=== PATIENT | female | born 1950 | race Two or more races ===

== ENCOUNTER 2018-10-06 07:50 | Inpatient (IN) | payer MEDICAID ==
[~2018-10-06] VITALS: Ht 157.5 cm; Wt 54.9 kg
--- NOTE | 2018-10-06 07:34 | Emergency Room Report ---
History of Present Illness General Chief Complaint: Chest Pain Source: Patient, Family Member, EMS Present Illness HPI Patient is a 63-year-old female presented after increased chest pain. Patient was brought in by EMS. She had been given aspirin and nitroglycerin. Patient had onset of symptoms after argument with family member. Patient noted to be markedly hypertensive. Patient did not have any improvement in pain after nitroglycerin. She had prior history of cardiac bypass. Allergies: Coded Allergies: No Known Allergies (Unverified , 10/06/18) Patient History Past Medical History: CAD Last Menstrual Period: None Reviewed Nursing Documentation: PMH: Agreed; PSxH: Agreed Nursing Documentation-PMH Hx Hypertension: Yes Hx Asthma: No Hx Diabetes: Yes Hx Gastrointestinal Problems: Yes - Anemia Review of Systems All Other Systems: negative except mentioned in HPI Physical Exam Vital Signs Date Time Temp Pulse Resp B/P (MAP) Pulse Ox O2 Delivery O2 Flow Rate FiO2 10/06/18 07:28 97.9 100 18 97 Room Air General Appearance: alert, moderate distress ENT: hearing grossly normal, normal pharynx Neck: carotid bruit Respiratory: accessory muscle use, wheezing Cardiovascular #1: no edema Gastrointestinal: normal inspection, soft Musculoskeletal: normal inspection Neurologic: normal inspection, alert, oriented x3, 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 Total critical care time excluding procedures approximately 45 minutes. Medical Decision Making Diagnostic Impression: Primary Impression: Pulmonary edema Additional Impression: Bilateral pleural effusion ER Course . Patient presented for shortness of breath. Differential included but was not limited to anemia, pneumonia, pneumothorax, myocardial infarction, pericardial effusion, congestive heart failure, acidosis. Because of complexity of patient's case laboratory testing and imaging studies were ordered. Patient was noted to have some breathing treatments patient was noted to have patient had a prior cardiac history. Chest x-ray 1 view read by radiology showed pulmonary edema with bilateral small pleural pleural effusions. Patient was given some Lasix IV. Chest x-ray read by radiology 1 view showed bilateral small pleural effusions as well as cardiomegaly. Patient was noted to have increased vascular congestion and questionable right lower lobe infiltrate. Patient was given IV Lasix as well as nitroglycerin and morphine. Patient was noted to have some improvement in her blood pressure. Patient was noted to be somewhat improved.Dr. Hakan Mccracken was contacted for inpatient management. Labs Test 10/06/18 08:00 White Blood Count 10.6 K/UL (4.8-10.8) Red Blood Count 2.75 M/UL (4.20-5.40) Hemoglobin 8.8 G/DL (12.0-16.0) Hematocrit 26.0 % (37.0-47.0) Mean Corpuscular Volume 94 FL (80-99) Mean Corpuscular Hemoglobin 31.9 PG (27.0-31.0) Mean Corpuscular Hemoglobin Concent 33.8 G/DL (32.0-36.0) Red Cell Distribution Width 12.7 % (11.6-14.8) Platelet Count 319 K/UL (150-450) Mean Platelet Volume 7.8 FL (6.5-10.1) Neutrophils (%) (Auto) 47.0 % (45.0-75.0) Lymphocytes (%) (Auto) 36.7 % (20.0-45.0) Monocytes (%) (Auto) 3.3 % (1.0-10.0) Eosinophils (%) (Auto) 11.7 % (0.0-3.0) Basophils (%) (Auto) 1.3 % (0.0-2.0) Prothrombin Time 10.7 SEC (9.30-11.50) Prothromb Time International Ratio 1.0 (0.9-1.1) Activated Partial Thromboplast Time 26 SEC (23-33) Sodium Level 136 MMOL/L (136-145) Potassium Level 5.6 MMOL/L (3.5-5.1) Chloride Level 106 MMOL/L (98-107) Carbon Dioxide Level 20 MMOL/L (21-32) Anion Gap 10 mmol/L (5-15) Blood Urea Nitrogen 45 mg/dL (7-18) Creatinine 2.4 MG/DL (0.55-1.30) Estimat Glomerular Filtration Rate 20.3 mL/min (>60) Glucose Level 215 MG/DL (74-106) Calcium Level 8.3 MG/DL (8.5-10.1) Total Bilirubin 0.2 MG/DL (0.2-1.0) Aspartate Amino Transf (AST/SGOT) 24 U/L (15-37) Alanine Aminotransferase (ALT/SGPT) 13 U/L (12-78) Alkaline Phosphatase 84 U/L (46-116) Total Creatine Kinase 85 U/L (26-308) Creatine Kinase MB 3.5 NG/ML (0.0-3.6) Creatine Kinase MB Relative Index 4.1 Troponin I 0.084 ng/mL (0.000-0.056) Pro-B-Type Natriuretic Peptide > 94737 pg/mL (0-125) Total Protein 7.1 G/DL (6.4-8.2) Albumin 1.9 G/DL (3.4-5.0) Globulin 5.2 g/dL Albumin/Globulin Ratio 0.4 (1.0-2.7) Lipase 317 U/L (73-393) EKG Diagnostic Results Rate: normal Rhythm: NSR ST Segments: no acute changes ASA given to the pt in ED: No Last Vital Signs Date Time Temp Pulse Resp B/P (MAP) Pulse Ox O2 Delivery O2 Flow Rate FiO2 10/06/18 07:28 97.9 100 18 97 Room Air Status: improved Disposition: ADMITTED INPATIENT Condition: Serious Silas Cartwright MD October 06, 2018 07:34
[2018-10-06] MEDS: Nitroglycerin Subl 0.4mg tab SL PRN ×2 (07:48→08:18)
[~2018-10-06 07:50] MED LIST: Morphine Sulfate 2mg/ml Inj(IV/IM USE ONLY) IVP ONE
[2018-10-06] MEDS ORDERED: Morphine Sulfate 2mg/ml Inj(IV/IM USE ONLY) ONE (07:57)
--- NOTE | 2018-10-06 08:00 | NUR ---
ED Nurse Note:pt. was BIBA from home with c/o chest pain started 30 min prior to arrival, pt. is A/Ox4, placed on classroom monitor, blood sent to labs, hypertensive, given BP meds with pain med, also given nitro for chest pain
[2018-10-06 08:20] LABS: BASOPHILS % (AUTO) 1.3 % (0.0-2.0); EOSINOPHILS % (AUTO) 11.7 % (0.0-3.0); HEMOGLOBIN 8.8 G/DL (12.0-16.0); LYMPHOCYTES % (AUTO) 36.7 % (20.0-45.0); MEAN CORPUSCULAR VOLUME 94 FL (80-99); MONOCYTES % (AUTO) 3.3 % (1.0-10.0); PLATELET COUNT 319 K/UL (150-450); RED BLOOD COUNT 2.75 M/UL (4.20-5.40); RED CELL DISTRIBUTION WIDTH 12.7 % (11.6-14.8); WHITE BLOOD COUNT 10.6 K/UL (4.8-10.8)
[2018-10-06 08:26] VITALS: BP 196/90
[2018-10-06] MEDS ORDERED: Albuterol/Ipratropium 3ml neb HHN ONE (08:30)
[2018-10-06] MEDS ORDERED: Solu-MEDROL 125mg Inj IVP ONE (08:30)
[2018-10-06 08:34] LABS: ANION GAP 10 mmol/L (5-15); BLOOD UREA NITROGEN 45 mg/dL (7-18); CALCIUM 8.3 MG/DL (8.5-10.1); CARBON DIOXIDE 20 MMOL/L (21-32); CHLORIDE 106 MMOL/L (98-107); CREATININE 2.4 MG/DL (0.55-1.30); POTASSIUM 5.6 MMOL/L (3.5-5.1); SODIUM 136 MMOL/L (136-145)
[2018-10-06 08:48] LABS: ALANINE AMINOTRANSFERASE 13 U/L (12-78); ALBUMIN 1.9 G/DL (3.4-5.0); ALBUMIN/GLOBULIN RATIO 0.4 (1.0-2.7); ALKALINE PHOSPHATASE 84 U/L (46-116); ASPARTATE AMINO TRANSFERASE 24 U/L (15-37); BILIRUBIN,TOTAL 0.2 MG/DL (0.2-1.0); CKMB 3.5 NG/ML (0.0-3.6); CREATINE KINASE 85 U/L (26-308)
[2018-10-06 10:05] VITALS: BP 157/68
--- NOTE | 2018-10-06 10:05 | NUR ---
ED Nurse Note:no more c/o chest pain ,pt. is sleeping no signs of distress noted, continue monitor VS
[2018-10-06] MEDS ORDERED: BP meds (10:07)
[2018-10-06] MEDS ORDERED: COZAAR25 MG ORAL (10:13)
--- NOTE | 2018-10-06 10:25 | NUR ---
ED Nurse Note:pt. was placed on bi-pap per ER MD order
[2018-10-06] MEDS ORDERED: Ampicillin/Sulbactam Sod 3 GM in NS 110 ML IVPB ONE (10:30)
[2018-10-06 11:19] VITALS: BP 180/78
--- NOTE | 2018-10-06 11:38 | NUR ---
ED Nurse Note:lactic reflax was sent to labs and report called to [facility]
--- NOTE | 2018-10-06 12:00 | NUR ---
ED Nurse Note:called report to Stephanie nurse pt. was transfered to SDU
--- NOTE | 2018-10-06 12:00 | NUR ---
NURSE NOTES: Received patient from ED via gurney. In no apparent distress. Family at bedside. Belongings checked and reviewed. On simple mask. Denies chest pain. Will admit to [facility] standard level of care.
[2018-10-06 13:00] VITALS: BP 179/95
--- NOTE | 2018-10-06 13:00 | NUR ---
NURSE NOTES: Patient is tolerating venturi mask at 40%.
[2018-10-06] MEDS ORDERED: Losartan 25mg tab ORAL SCH (13:30)
--- NOTE | 2018-10-06 15:20 | NUR ---
NURSE NOTES: Informed Dr. Mccracken regarding latest troponin level. No new order received at this time.
--- NOTE | 2018-10-06 15:50 | NUR ---
NURSE NOTES: Left message to Dr. White's office. Awaiting for call back.
[2018-10-06 16:00] VITALS: BP 180/84
--- NOTE | 2018-10-06 16:15 | NUR ---
NURSE NOTES: Patient on nasal cannula at 4LPM. And is having snack at bedside while waiting for dinner meal.
--- NOTE | 2018-10-06 18:00 | NUR ---
NURSE NOTES: Informed Dr. Mccracken via telephone that Dr. White didn't respond yet. Awaiting for Dr. Mccracken's response.
--- NOTE | 2018-10-06 19:14 | NUR ---
NURSE NOTES: Informed Dr. Mccracken via telephone that patient's troponin is trending up and patient's blood pressure is high. said to start heparin drip and discontinue heparin SQ.
--- NOTE | 2018-10-06 19:15 | NUR ---
NURSE NOTES: Heparin drip order obtained from Dr. Mccracken via telephone.
--- NOTE | 2018-10-06 19:20 | NUR ---
HAND-OFF: Report given to Fortino Wheeler RN.
--- NOTE | 2018-10-06 19:21 | NUR ---
NURSE NOTES: Received patient from Rhea Rosas RN. Patient awake and talking with no acute distress at this time. Patient is on 4L NC and eating. Bed at its lowest position and bed rail X3 up. Will continue to monitor.
[2018-10-06 20:00] VITALS: BP 157/79
[2018-10-06] MEDS ORDERED: Heparin 25,000u/D5W 500ml 500 ML IV SCH (20:00)
[2018-10-06] MEDS ORDERED: Heparin 5000 units/ml inj SUBQ SCH (21:00)
[2018-10-06] MEDS ORDERED: Nitroglycerin 2% oint pkt TOPIC SCH (21:00)
[2018-10-07] VITALS (8 sets, daily range): BP systolic 136–164; BP diastolic 76–94
--- NOTE | 2018-10-07 03:15 | Consultation ---
DATE OF CONSULTATION: 10/06/2018 CARDIOLOGY CONSULTATION CONSULTING PHYSICIAN: Mariano White M.D. REQUESTING PHYSICIAN: Hakan Mccracken M.D. REASON: Chest pain and shortness of breath HISTORY OF PRESENT ILLNESS: This 67-year-old female apparently had an argument with a family member, developed hypertension and chest pain and came to the emergency room by paramedics. She was given nitroglycerin without much improvement and had a positive troponin level noted. PAST MEDICAL HISTORY: Includes coronary artery disease, status post stents, hypertension, type 2 diabetes mellitus, and anemia. ALLERGIES: None. MEDICATIONS: Prior to admission, reviewed and reconciled. SOCIAL HISTORY: She denies smoking, alcohol, or substance abuse. REVIEW OF SYSTEMS: Otherwise unremarkable. PHYSICAL EXAMINATION: VITAL SIGNS: Initial blood pressure 196/90, heart rate 95, respiratory rate 18. Presently, 136/81, 98, and 22. She is on a face mask. CHEST: Median sternotomy scar. RESPIRATORY: Bilateral rales. CARDIAC: Regular rhythm and rate. Normal S1, S2. Fourth heart sound. ABDOMEN: Soft. EXTREMITIES: Trace edema. LABORATORY DATA: White count 10, hemoglobin 8.8. Troponin #1 0.084, #2 0.649, #3 0.410. Lactic acid #1 is 3.4, #2 is 1. BUN 45, creatinine 2.4. Pro-natriuretic peptide over 35,000 and potassium is 5.6 with BUN 45, creatinine 2.4. IMPRESSION: 1. Acute myocardial infarction. 2. Hypertensive urgency. 3. Acute diastolic congestive heart failure. 4. Ischemic cardiomyopathy. PLAN: 1. Diuresis. 2. Anti-platelet therapy. 3. Titrate anti-failure regimen. 4. Add beta-doc. 5. DVT prophylaxis. 6. Check lipid panel. 7. Monitor hemoglobin. Mariano White M.D. DR: CORONA JOB#: [id number] CC: SANCHEZ
--- NOTE | 2018-10-07 03:58 | NUR ---
NURSE NOTES: Sent message to Pharmacy for new label and parameters for the heparin drip to reflect new aPTT results.
[2018-10-07] MEDS: Nitroglycerin 2% oint pkt TOPIC SCH ×3 (06:14→17:25)
--- NOTE | 2018-10-07 07:20 | NUR ---
HAND-OFF: Report given to Mami Louie RN.
[2018-10-07 07:55] LABS: HEMATOCRIT 22.3 % (37.0-47.0); HEMOGLOBIN 7.6 G/DL (12.0-16.0); MEAN CORPUSCULAR VOLUME 92 FL (80-99); PLATELET COUNT 270 K/UL (150-450); RED BLOOD COUNT 2.42 M/UL (4.20-5.40); RED CELL DISTRIBUTION WIDTH 12.8 % (11.6-14.8); WHITE BLOOD COUNT 10.9 K/UL (4.8-10.8)
--- NOTE | 2018-10-07 08:07 | NUR ---
NURSE NOTES: received pt in the bed, awake, alert, oriented, vital signs stable, no co pain, no SOB, pt on venturi mask 40%, skin warm and dry to touch, intact, Surinamese speaking, tolerate diet well, bed in low position, call light within reach.
[2018-10-07 08:15] LABS: ANION GAP 8 mmol/L (5-15); BLOOD UREA NITROGEN 50 mg/dL (7-18); CALCIUM 8.2 MG/DL (8.5-10.1); CARBON DIOXIDE 24 MMOL/L (21-32); CHLORIDE 104 MMOL/L (98-107); CREATININE 2.6 MG/DL (0.55-1.30); SODIUM 135 MMOL/L (136-145)
[2018-10-07 08:17] LABS: POTASSIUM 6.1 MMOL/L (3.5-5.1)
[2018-10-07 08:42] LABS: CHOLESTEROL 239 MG/DL (< 200); HDL CHOLESTEROL 48 MG/DL (40-60); TRIGLYCERIDES 98 MG/DL (30-150)
[2018-10-07] MEDS: Aspirin Baby 81mg ORAL SCH (08:56)
[2018-10-07] MEDS: Losartan 50mg tab ORAL SCH (08:57)
[2018-10-07] MEDS: Carvedilol 6.25mg Tab ORAL SCH ×2 (08:57→21:15)
[2018-10-07] MEDS ORDERED: Sodium Polystyrene Sulfonate 15gm Powder ORAL SCH (09:00)
--- NOTE | 2018-10-07 09:11 | NUR ---
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 BILATERAL PLEURAL EFFUSION VS: BP 221/120, P 100, T 97.8, RR 21, SpO2 97 on Bi-pap FiO2 50 WBC 10.9, RBC 2.75, H&H 8.8/26.0, Na 135, K 6.1, BUN 50, CR 2.6 IS:AMPICILLIN 110ml IVPB COZAAR 25mg LASIX 20mg HEPARIN SODIUM 500ml IV ADMITTED TO SDU DCP: RETURN HOME
--- NOTE | 2018-10-07 10:00 | NUR ---
NURSE NOTES: HGB 7.6, K 6.1, DR. Mccracken aware, placed order, no co pain, continue monitoring.
--- NOTE | 2018-10-07 16:15 | History and Physical Report ---
DATE OF ADMISSION: 10/06/2018 REASON FOR ADMISSION: Chest pain and possible acute coronary syndrome. HISTORY OF PRESENT ILLNESS: This is a 67-year-old female apparently brought in with hypertension and chest pain after an argument with the family. The patient is now being admitted for possible ACS. PAST MEDICAL HISTORY: Notable for CAD, CABG, hypertension, diabetes, anemia. ALLERGIES: Reviewed and reconciled. MEDICATIONS: Reviewed and reconciled. SOCIAL HISTORY: Nonsmoker and nondrinker. PHYSICAL EXAMINATION: GENERAL: A well-developed female. VITAL SIGNS: Otherwise notable for morning blood pressure of 154/84, pulse 81, respirations 25, saturations 96%. HEENT: Negative. NECK: Supple. LUNGS: Clear and symmetric. CARDIAC: Normal S1, S2. Regular rate and rhythm. ABDOMEN: Soft, nontender. EXTREMITIES: No edema. LABORATORY DATA: Otherwise reviewed. IMPRESSION: 1. Acute myocardial infarction. 2. Hypertensive urgency. 3. CHF. 4. Ischemic cardiomyopathy. RECOMMENDATION: 1. Diuresis. 2. Cardiology evaluation. 3. Cardiology management. 4. Stabilize and discharge to home per Cardiology once cleared. 5. Monitor labs and recommend further. 6. Likely proceed with transfusion to avoid hypoperfusion at this time. Hakan Mccracken M.D. DR: KATHY JOB#: [id number] CC:
--- NOTE | 2018-10-07 17:20 | NUR ---
NURSE NOTES: 1st uni of PRBC completed, no distress.
--- NOTE | 2018-10-07 18:43 | Cardiology Report ---
APPROVED REPORT EXAM: Two-dimensional and M-mode echocardiogram with Doppler and color Doppler. INDICATION Chest Pain Mild left ventricular enlargement. Global left ventricular hypokinesia with borderline LV systolic function. Left ventricular ejection fraction is estimated at 45-50%. Borderline mild left ventricular hypertrophy. No evidence of pericardial effusion. Large posterior pleural effusion. Left atrial size at upper limits of normal. Right cardiac chamber sizes are within normal limits. Focal aortic valve sclerosis with adequate cusp excursion. Thickened mitral valve leaflets with normal excursion. Mitral annulus and aortic root calcification. Normal pulmonic valve structure. Normal tricuspid valve structure. IVC at normal size with physiologic collapse. A color flow and spectral Doppler study was performed and revealed: Mild aortic regurgitation. Mild mitral regurgitation. Mitral inflow velocities indicates possible pseudo normalization pattern implying moderately elevated left atrial pressure (Grade II). Trace tricuspid regurgitation. Tricuspid systolic velocities suggests peak right ventricular systolic pressure of 19 mmHg. Pulmonic regurgitation present.
--- NOTE | 2018-10-07 19:17 | NUR ---
HAND-OFF: Report given to CANELO CAMARENA, no distress at this time.
--- NOTE | 2018-10-07 19:18 | NUR ---
NURSE NOTES: Received patient for Mami Louie. Patient is awake and shows no signs of distress. Patient is oriented X4 and family is at bedside. Patient is on NC at 4L saturating at 97% and is eating. Bed is at its lowest position and call light is in reach.
--- NOTE | 2018-10-07 20:16 | NUR ---
NURSE NOTES: Messaged Dr. Mccracken regarding potassium and hemoglobin values with the administration with the ordered blood transfusion and venofer. The patients elevated blood pressure of 179/86 at 1930 was also communicated
--- NOTE | 2018-10-07 20:29 | NUR ---
NURSE NOTES: Dr Mccracken replied to message and ordered CDC and BMP for 5/7 am. Hold Blood transfusion and Venofer.
[2018-10-07] MEDS: Iron Sucrose 100 MG in NS 55 ML IV SCH (21:00)
[2018-10-07] MEDS: Epoetin Alfa-EPBX (NON ESRD)4000 units/ml vial SUBQ SCH (21:52)
--- NOTE | 2018-10-07 23:31 | NUR ---
NURSE NOTES: Left a message with Dr. Mccracken regarding elevated blood pressure of 162/92. Waiting for reply. Patient is asymptomatic at this time and family is at bedside. Will continue to monitor
[2018-10-08] VITALS: BP 174/90
[2018-10-08] MEDS: Nitroglycerin 2% oint pkt TOPIC SCH ×4 (00:23→17:39)
--- NOTE | 2018-10-08 00:32 | NUR ---
Left a message with Dr White regarding Alyx's elevated blood pressure. Patient is asymptomatic. Will continue to monitor.
--- NOTE | 2018-10-08 01:00 | Consultation ---
DATE OF CONSULTATION: 10/07/2018 NEPHROLOGY CONSULTATION CONSULTING PHYSICIAN: Annelise Rose M.D. ATTENDING PHYSICIAN: Hakan Mccracken M.D. REASON FOR CONSULTATION: Elevated BUN and creatinine. HISTORY OF PRESENT ILLNESS: This is a 67-year-old female, who was admitted by the attending physician due to chest pain and possible acute coronary syndrome. I am asked to see the patient for elevation of BUN and creatinine. PAST MEDICAL HISTORY: 1. Coronary artery disease. 2. Hypertensive cardiovascular disease. 3. Type 2 diabetes mellitus. MEDICATIONS: Current medications include heparin drip, Tylenol p.r.n., baby aspirin, Coreg, clonidine p.r.n., Lasix, subcutaneous heparin, Losartan, nitroglycerin, and Kayexalate. ALLERGIES: No known drug allergies. FAMILY HISTORY: Unremarkable. SOCIAL HISTORY: She lives at home. HABITS: She is nonsmoker and nondrinker. There is no history of illicit drug abuse. REVIEW OF SYSTEMS: HEENT: Hearing and eyesight are normal. ENDOCRINE: Significant for type 2 diabetes mellitus. RESPIRATORY: She has shortness of breath. CARDIAC: She has active chest pain. GASTROINTESTINAL: No history of hematochezia, melena, hematemesis, diarrhea, or constipation. PHYSICAL EXAMINATION: GENERAL: This is an elderly female, who is in no acute distress. VITAL SIGNS: Blood pressure 169/89, pulse 87 and regular, respirations 19, and temperature 98.2. HEENT: The head is normocephalic and atraumatic. Pupils are equal, round, and reactive to light condition consensually. NECK: Supple. Trachea midline. There is no lymphadenopathy or thyromegaly. LUNGS: Clear to auscultation and percussion. HEART: Regular rate and rhythm without rubs, murmurs, or gallops. ABDOMEN: Soft and nontender. Bowel sounds were active. EXTREMITIES: No clubbing, cyanosis, or edema. NEUROLOGIC: She is alert and oriented x4. Cranial nerves II through XII intact. LABORATORY AND ANCILLARY DATA: Hematocrit 22.3. Potassium 6.1, sodium 135, BUN 50, and creatinine 2.6. ASSESSMENT: Chronic kidney disease, most likely due to diabetic nephropathy. PLAN: 1. Check renal ultrasound. 2. Erythropoietic stimulating agents. 3. Avoid nephrotoxic medications. Thank you, Dr. Mccracken, for letting me to participate in the care of this patient. Annelise Rose M.D. DR: VITALY JOB#: [id number] CC:
--- NOTE | 2018-10-08 01:00 | NUR ---
NURSE NOTES: No call back from Dr. White or Dr. Mccracken. Patient is asymptomatic and resting well with no signs of acute distress. Charge nurse Haylie is aware. Will continue to monitor patient.
--- NOTE | 2018-10-08 03:00 | NUR ---
NURSE NOTES: RT removed bipap at patients request. Patient is on 2L NC saturating at 98%. Patient is tolerating treatment well. No signs of acute distress at this time. Will continue to monitor
[2018-10-08 04:00] VITALS: BP 167/87
[2018-10-08 05:26] LABS: BASOPHILS % (AUTO) 2.5 % (0.0-2.0); EOSINOPHILS % (AUTO) 11.5 % (0.0-3.0); HEMATOCRIT 26.2 % (37.0-47.0); HEMOGLOBIN 8.7 G/DL (12.0-16.0); LYMPHOCYTES % (AUTO) 30.4 % (20.0-45.0); MEAN CORPUSCULAR VOLUME 97 FL (80-99); MONOCYTES % (AUTO) 3.7 % (1.0-10.0); NEUTROPHILS % (AUTO) 51.9 % (45.0-75.0); PLATELET COUNT 332 K/UL (150-450); RED CELL DISTRIBUTION WIDTH 13.3 % (11.6-14.8); WHITE BLOOD COUNT 9.2 K/UL (4.8-10.8)
[2018-10-08 05:43] LABS: ANION GAP 8 mmol/L (5-15); BLOOD UREA NITROGEN 51 mg/dL (7-18); CALCIUM 7.4 MG/DL (8.5-10.1); CARBON DIOXIDE 23 MMOL/L (21-32); CHLORIDE 107 MMOL/L (98-107); CREATININE 2.8 MG/DL (0.55-1.30); POTASSIUM 5.2 MMOL/L (3.5-5.1); SODIUM 138 MMOL/L (136-145)
--- NOTE | 2018-10-08 07:10 | NUR ---
NURSE NOTES: Received bedside report from Fortino CAMARENA. Pt. in bed, awake, a/o x 4. No sign of distress. On venturi mask at 40%. On bipap at QHS with setting of 12/5 FiO2 40%. Denies pain at present. IV site at left AC #20g. in placed SL. Bed in low position, locked. Call light within reach. Will cont. to monitor.
--- NOTE | 2018-10-08 07:10 | NUR ---
HAND-OFF: Report given to Alison Mixon RN.
[2018-10-08 08:00] VITALS: BP 138/73
--- NOTE | 2018-10-08 08:18 | General Progress Note ---
Assessment/Plan Assessment/Plan: IMPRESSION: 1. Acute myocardial infarction. 2. Hypertensive urgency. 3. CHF. 4. Ischemic cardiomyopathy. 5. chronic renal failure 6. elevated K PLAN care as is renal and cards clearance monitor troponin and renal parameters impression, plan, and exam edited and reviewed in detail care discussed with RN Subjective Allergies: Coded Allergies: No Known Allergies (Unverified , 10/06/18) Subjective appreciate renal and cards Objective Last 24 Hour Vital Signs Date Time Temp Pulse Resp B/P (MAP) Pulse Ox O2 Delivery O2 Flow Rate FiO2 10/08/18 07:25 68 18 Nasal Cannula 2.0 28 10/08/18 07:24 Nasal Cannula 2.0 28 10/08/18 07:24 97 Nasal Cannula 2.0 28 10/08/18 05:55 167/87 10/08/18 04:00 64 10/08/18 04:00 Nasal Cannula 2.0 10/08/18 04:00 98.2 73 20 167/87 (113) 98 10/08/18 03:19 74 167/87 10/08/18 00:23 174/90 10/08/18 00:00 Bi-pap 10/08/18 00:00 71 10/08/18 00:00 97.9 67 20 174/90 (118) 99 10/07/18 23:35 87 18 99 Facial 50 10/07/18 23:26 98.2 82 22 162/92 (115) 99 10/07/18 22:43 164/90 10/07/18 21:15 84 164/94 10/07/18 21:14 97.9 84 21 164/94 (117) 99 10/07/18 20:00 98.7 83 20 164/92 (116) 99 10/07/18 20:00 Venturi Mask 4.0 10/07/18 19:52 80 10/07/18 19:31 Nasal Cannula 2.0 28 10/07/18 19:31 97 Nasal Cannula 2.0 28 10/07/18 19:30 83 20 Nasal Cannula 2.0 28 10/07/18 17:26 169/89 10/07/18 17:25 153/89 10/07/18 16:00 Venturi Mask 4.0 10/07/18 16:00 79 10/07/18 16:00 98.2 87 22 153/89 (110) 99 10/07/18 12:55 164/93 10/07/18 12:00 Venturi Mask 4.0 10/07/18 12:00 100 10/07/18 12:00 98.1 96 18 164/93 (116) 98 10/07/18 08:57 94 149/76 10/07/18 08:57 149/76 Intake and Output 10/07/18 10/08/18 18:59 06:59 Intake Total 500 ml 140 ml Balance 500 ml 140 ml Intake Oral 250 ml 140 ml Blood Product 250 ml # Voids 4 2 Laboratory Tests 10/07/18 11:13: Arterial Blood pH 7.453H, Arterial Blood Partial Pressure CO2 29.0L, Arterial Blood Partial Pressure O2 86.5, Arterial Blood HCO3 19.8L, Arterial Blood Oxygen Saturation 96.2, Arterial Blood Base Excess -3.3L, Segun Test Positive 10/07/18 18:00: Potassium Level 5.8H 10/08/18 03:20: Potassium Level 5.2H, White Blood Count 9.2, Red Blood Count 2.70L, Hemoglobin 8.7L, Hematocrit 26.2L, Mean Corpuscular Volume 97, Mean Corpuscular Hemoglobin 32.1H, Mean Corpuscular Hemoglobin Concent 33.0, Red Cell Distribution Width 13.3, Platelet Count 332, Mean Platelet Volume 6.1L, Neutrophils (%) (Auto) 51.9 , Lymphocytes (%) (Auto) 30.4, Monocytes (%) (Auto) 3.7, Eosinophils (%) (Auto) 11.5H, Basophils (%) (Auto) 2.5H, Sodium Level 138, Chloride Level 107, Carbon Dioxide Level 23, Anion Gap 8, Blood Urea Nitrogen 51H, Creatinine 2.8H, Estimat Glomerular Filtration Rate 17.0, Glucose Level 125H, Calcium Level 7.4L , Phosphorus Level 5.1H, Troponin I 0.350H Height (Feet): 5 Height (Inches): 2.00 Weight (Pounds): 125 Objective GENERAL: A well-developed female. HEENT: Negative. NECK: Supple. LUNGS: Clear and symmetric. CARDIAC: Normal S1, S2. Regular rate and rhythm. ABDOMEN: Soft, nontender. EXTREMITIES: No edema. Hakan Mccracken MD October 08, 2018 08:18
[2018-10-08] MEDS: Carvedilol 6.25mg Tab ORAL SCH ×2 (09:10→20:58)
[2018-10-08] MEDS: Aspirin Baby 81mg ORAL SCH (09:10)
[2018-10-08] MEDS: Losartan 50mg tab ORAL SCH (09:11)
--- NOTE | 2018-10-08 09:59 | Diagnostic Imaging Report ---
Indication:Elevated Bun and Creatinine. Technique: Grayscale and duplex Doppler imaging of the kidneys performed. Comparison: None Findings: There is a moderate left pleural effusion. There is trace perinephric fluid. The kidneys are echogenic but normal sized. The right kidney measures about 11 cm. The left kidney measures about 10.2 cm. Small cysts are present within both kidneys. Bladder is distended. There is no hydronephrosis. IMPRESSION: Medical renal disease. Bilateral renal cysts Distended bladder
[2018-10-08 12:00] VITALS: BP 137/67
[2018-10-08 16:00] VITALS: BP 142/69
--- NOTE | 2018-10-08 16:51 | NUR ---
TRANSLATOR INTERPRETERPROPERTY INSPECTOR SI:PULMONARY EDEMA . BILATERAL PLEURAL EFFUSION VS: BP 138/73, P 72, T 97.7, RR 19, SpO2 95 on Bi-pap FiO2 50 WBC 10.9, RBC 2.75, H&H 8.8/26.0, Na 135, K 6.1, BUN 50, CR 2.6 IS:COZAAR 100mg COREG 12.5mg LASIX 40mg IV NORVASC 5mg SDU STATUS
--- NOTE | 2018-10-08 17:04 | Nephrology Progress Note ---
Assessment/Plan Plan CKD IV Anemia of CKD - KIM, IV Iron Subjective Subjective No new c/o Objective Objective Last 24 Hour Vital Signs Date Time Temp Pulse Resp B/P (MAP) Pulse Ox O2 Delivery O2 Flow Rate FiO2 10/08/18 16:00 Nasal Cannula 2.0 10/08/18 15:14 69 10/08/18 12:17 137/67 10/08/18 12:00 72 10/08/18 12:00 Nasal Cannula 2.0 10/08/18 12:00 97.7 72 19 137/67 (90) 95 10/08/18 09:11 138/73 10/08/18 09:10 72 138/73 10/08/18 09:10 72 138/73 10/08/18 08:00 Nasal Cannula 2.0 10/08/18 08:00 67 10/08/18 08:00 98.0 72 20 138/73 (94) 96 10/08/18 07:25 68 18 Nasal Cannula 2.0 28 10/08/18 07:24 Nasal Cannula 2.0 28 10/08/18 07:24 97 Nasal Cannula 2.0 28 10/08/18 05:55 167/87 10/08/18 04:00 64 10/08/18 04:00 Nasal Cannula 2.0 10/08/18 04:00 98.2 73 20 167/87 (113) 98 10/08/18 03:19 74 167/87 10/08/18 00:23 174/90 10/08/18 00:00 Bi-pap 10/08/18 00:00 71 10/08/18 00:00 97.9 67 20 174/90 (118) 99 10/07/18 23:35 87 18 99 Facial 50 10/07/18 23:26 98.2 82 22 162/92 (115) 99 10/07/18 22:43 164/90 10/07/18 21:15 84 164/94 10/07/18 21:14 97.9 84 21 164/94 (117) 99 10/07/18 20:00 98.7 83 20 164/92 (116) 99 10/07/18 20:00 Venturi Mask 4.0 10/07/18 19:52 80 10/07/18 19:31 Nasal Cannula 2.0 28 10/07/18 19:31 97 Nasal Cannula 2.0 28 10/07/18 19:30 83 20 Nasal Cannula 2.0 28 10/07/18 17:26 169/89 10/07/18 17:25 153/89 Intake and Output 10/07/18 10/08/18 19:00 07:00 Intake Total 500 ml 140 ml Balance 500 ml 140 ml Intake Oral 250 ml 140 ml Blood Product 250 ml # Voids 4 2 Laboratory Tests 10/07/18 18:00: Potassium Level 5.8H 10/08/18 03:20: Potassium Level 5.2H, White Blood Count 9.2, Red Blood Count 2.70L, Hemoglobin 8.7L, Hematocrit 26.2L, Mean Corpuscular Volume 97, Mean Corpuscular Hemoglobin 32.1H, Mean Corpuscular Hemoglobin Concent 33.0, Red Cell Distribution Width 13.3, Platelet Count 332, Mean Platelet Volume 6.1L, Neutrophils (%) (Auto) 51.9 , Lymphocytes (%) (Auto) 30.4, Monocytes (%) (Auto) 3.7, Eosinophils (%) (Auto) 11.5H, Basophils (%) (Auto) 2.5H, Sodium Level 138, Chloride Level 107, Carbon Dioxide Level 23, Anion Gap 8, Blood Urea Nitrogen 51H, Creatinine 2.8H, Estimat Glomerular Filtration Rate 17.0, Glucose Level 125H, Calcium Level 7.4L , Phosphorus Level 5.1H, Troponin I 0.350H Height (Feet): 5 Height (Inches): 2.00 Weight (Pounds): 125 Objective CV RR Lungs CTA Abd SNT. BS + E no CCE Annelise Rose MD October 08, 2018 17:04
--- NOTE | 2018-10-08 19:26 | NUR ---
HAND-OFF: Report given to Socorro CAMARENA. Pt. remain stable.
--- NOTE | 2018-10-08 19:27 | NUR ---
NURSE NOTES: Received bedside report from NICOL Melgoza.Patient stable,SR on felt coverer,BiPAP PRN Q HS 12/5 40%, tolerated well N/C with 2 L/min,BS active in all quadrants,IV asymptomatic on L AC 20G SL,bed secured,call light within a reach,family at bedside .Will continue to monitor and follow POC.
[2018-10-08 20:00] VITALS: BP 140/79
[2018-10-08] MEDS: Iron Sucrose 100 MG in NS 55 ML IV SCH (20:57)
[2018-10-09] VITALS: BP 132/60
[2018-10-09] MEDS: Nitroglycerin 2% oint pkt TOPIC SCH
[2018-10-09 04:00] VITALS: BP 156/73
--- NOTE | 2018-10-09 04:45 | Progress Note ---
DATE: 10/08/2018 CARDIOLOGY PROGRESS NOTE SUBJECTIVE: The patient has less shortness of breath. No chest pain. Diuresis is ongoing. OBJECTIVE: VITAL SIGNS: Blood pressure 167/87, pulse 73, and respiratory rate 20. LUNGS: Few rales. HEART: Regular rhythm and rate. Normal S1 and S2 with a fourth heart sound. ABDOMEN: Soft. EXTREMITIES: Trace edema. LABORATORY DATA: Reviewed. IMPRESSION: 1. Hypertensive urgency, improving. 2. Acute myocardial infarction. 3. Ischemic cardiomyopathy. 4. History of coronary artery stenting. 5. Acute on chronic systolic and diastolic congestive heart failure. 6. Chronic renal failure with acute component as well. PLAN: 1. Continue diuresis. 2. Titration of anti-failure and antianginal regimen. 3. Statin drug for LDL goal less than 70. 4. Maintain anti-platelet drugs. 5. Medical therapy unless refractory, in that case would have to pursue coronary angiography, which may be of increased risk in the setting of her renal disease. Mariano White M.D. DR: RIO JOB#: [id number] CC: SANCHEZ
[2018-10-09 05:34] LABS: BASOPHILS % (AUTO) 1.1 % (0.0-2.0); EOSINOPHILS % (AUTO) 10.8 % (0.0-3.0); HEMATOCRIT 24.4 % (37.0-47.0); HEMOGLOBIN 8.1 G/DL (12.0-16.0); LYMPHOCYTES % (AUTO) 23.8 % (20.0-45.0); MEAN CORPUSCULAR VOLUME 91 FL (80-99); MONOCYTES % (AUTO) 7.7 % (1.0-10.0); NEUTROPHILS % (AUTO) 56.7 % (45.0-75.0); PLATELET COUNT 207 K/UL (150-450); RED BLOOD COUNT 2.67 M/UL (4.20-5.40); RED CELL DISTRIBUTION WIDTH 14.3 % (11.6-14.8); WHITE BLOOD COUNT 5.6 K/UL (4.8-10.8)
[2018-10-09 05:47] LABS: ANION GAP 10 mmol/L (5-15); BLOOD UREA NITROGEN 53 mg/dL (7-18); CALCIUM 7.3 MG/DL (8.5-10.1); CARBON DIOXIDE 24 MMOL/L (21-32); CHLORIDE 105 MMOL/L (98-107); CREATININE 2.5 MG/DL (0.55-1.30); SODIUM 139 MMOL/L (136-145)
--- NOTE | 2018-10-09 07:12 | NUR ---
HAND-OFF: Report given to NICOL Johnson.Patient stable,no c/o pain,no respiratory distress at this moment.
--- NOTE | 2018-10-09 07:13 | NUR ---
NURSE NOTES: received patient report from jenae melgar. patient is on bed awake. not in acute distress. no arrythmias reported during the night. Sr on the monitor. on nc at prescribed rate. will follow plan of care.
[2018-10-09 08:00] VITALS: BP 153/76
[2018-10-09] MEDS: Aspirin Baby 81mg ORAL SCH (08:08)
[2018-10-09] MEDS: Losartan 50mg tab ORAL SCH (08:09)
[2018-10-09] MEDS: Carvedilol 6.25mg Tab ORAL SCH ×2 (08:09→21:18)
--- NOTE | 2018-10-09 08:50 | Nephrology Progress Note ---
Assessment/Plan Plan CKD IV Anemia of CKD - KIM, IV Iron Subjective Subjective No new c/o Objective Objective Last 24 Hour Vital Signs Date Time Temp Pulse Resp B/P (MAP) Pulse Ox O2 Delivery O2 Flow Rate FiO2 10/09/18 08:10 153/76 10/09/18 08:09 78 153/76 10/09/18 08:09 78 153/76 10/09/18 08:09 153/76 10/09/18 08:00 Nasal Cannula 2.0 10/09/18 08:00 75 10/09/18 08:00 98.2 78 20 153/76 (101) 97 10/09/18 04:00 98.5 68 18 156/73 (100) 95 10/09/18 04:00 Nasal Cannula 2.0 10/09/18 03:00 73 10/09/18 00:48 69 10/09/18 00:00 98.0 70 18 132/60 (84) 95 10/09/18 00:00 132/60 10/09/18 00:00 Nasal Cannula 2.0 10/08/18 21:49 Nasal Cannula 2.0 28 10/08/18 21:48 68 20 Nasal Cannula 2.0 28 10/08/18 21:48 96 Nasal Cannula 2.0 28 10/08/18 20:58 75 140/79 10/08/18 20:00 74 10/08/18 20:00 Nasal Cannula 2.0 10/08/18 20:00 97.7 75 20 140/79 (99) 97 10/08/18 17:39 142/69 10/08/18 16:00 Nasal Cannula 2.0 10/08/18 16:00 97.9 71 20 142/69 (93) 97 10/08/18 15:14 69 10/08/18 12:17 137/67 10/08/18 12:00 72 10/08/18 12:00 Nasal Cannula 2.0 10/08/18 12:00 97.7 72 19 137/67 (90) 95 10/08/18 09:11 138/73 10/08/18 09:10 72 138/73 10/08/18 09:10 72 138/73 Intake and Output 10/08/18 10/09/18 18:59 06:59 Intake Total 540 ml 310 ml Balance 540 ml 310 ml Intake Oral 540 ml 250 ml IV Total 60 ml # Voids 2 3 Laboratory Tests 10/09/18 03:20: White Blood Count 5.6, Red Blood Count 2.67L, Hemoglobin 8.1L, Hematocrit 24.4L , Mean Corpuscular Volume 91, Mean Corpuscular Hemoglobin 30.5, Mean Corpuscular Hemoglobin Concent 33.4, Red Cell Distribution Width 14.3, Platelet Count 207, Mean Platelet Volume 7.4, Neutrophils (%) (Auto) 56.7, Lymphocytes (% ) (Auto) 23.8, Monocytes (%) (Auto) 7.7, Eosinophils (%) (Auto) 10.8H, Basophils (%) (Auto) 1.1, Sodium Level 139, Potassium Level 4.0, Chloride Level 105, Carbon Dioxide Level 24, Anion Gap 10, Blood Urea Nitrogen 53H, Creatinine 2.5H, Estimat Glomerular Filtration Rate 19.3, Glucose Level 137H, Calcium Level 7.3L, Troponin I 0.108H Height (Feet): 5 Height (Inches): 2.00 Weight (Pounds): 121 Objective CV RR Lungs CTA Abd SNT. BS + E no CCE Annelise Rose MD October 09, 2018 08:50
--- NOTE | 2018-10-09 09:14 | NUR ---
RADIOLOGY DEPT., CHEST X-RAY COMPLETED.-P.DYE
--- NOTE | 2018-10-09 09:26 | NUR ---
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 BILATERAL PLEURAL EFFUSION . ANEMIA VS: BP 156/73, P 78, T 98.5, RR 20, SpO2 95 on 2.0L O2 NC RBC 2.67, H&H 8.1/24.4, Na 135, K 6.1, BUN 53, CR 2.5 IS: COZAAR 100mg COREG 12.5mg LASIX 40mg IV NORVASC 5mg ISORDIL 20mg SDU STATUS
--- NOTE | 2018-10-09 09:28 | NUR ---
HAND-OFF: Report given to pedro melgar & corona melgar.
--- NOTE | 2018-10-09 09:30 | NUR ---
NURSE NOTES: RECEIVED BED SIDE REPORT FROM KARY CAMARENA . RECEIVED PT WITH HOB ELEVATED 45 DEGREE ,AWAKE AND ALERT ORIENTED X4,NEPALI SPEAKING ONLY.PT DENIES CP OR ANY DISCOMFORT AT THIS TIME.PT IS FULL CODE STATUS.PT USING O2@ 2L/MINTS VIA N/C ,O2 SAT 96%.PT WITH H.L ON LT AC G# 20 PATENT AND INTACT.PT REMAINS FREE OF INJURIES AT THIS TIME .WILL CONT TO MONITOR.
--- NOTE | 2018-10-09 09:32 | General Progress Note ---
Assessment/Plan Assessment/Plan: IMPRESSION: 1. Acute myocardial infarction. 2. Hypertensive urgency. 3. CHF. 4. Ischemic cardiomyopathy. 5. chronic renal failure 6. elevated K PLAN care as is renal and cards clearance monitor troponin and renal parameters conservative management likely dc in am if stable impression, plan, and exam edited and reviewed in detail care discussed with RN Subjective Allergies: Coded Allergies: No Known Allergies (Unverified , 10/06/18) Subjective appreciate renal and cards Objective Last 24 Hour Vital Signs Date Time Temp Pulse Resp B/P (MAP) Pulse Ox O2 Delivery O2 Flow Rate FiO2 10/09/18 08:10 153/76 10/09/18 08:09 78 153/76 10/09/18 08:09 78 153/76 10/09/18 08:09 153/76 10/09/18 08:00 Nasal Cannula 2.0 10/09/18 08:00 75 10/09/18 08:00 98.2 78 20 153/76 (101) 97 10/09/18 04:00 98.5 68 18 156/73 (100) 95 10/09/18 04:00 Nasal Cannula 2.0 10/09/18 03:00 73 10/09/18 00:48 69 10/09/18 00:00 98.0 70 18 132/60 (84) 95 10/09/18 00:00 132/60 10/09/18 00:00 Nasal Cannula 2.0 10/08/18 21:49 Nasal Cannula 2.0 28 10/08/18 21:48 68 20 Nasal Cannula 2.0 28 10/08/18 21:48 96 Nasal Cannula 2.0 28 10/08/18 20:58 75 140/79 10/08/18 20:00 74 10/08/18 20:00 Nasal Cannula 2.0 10/08/18 20:00 97.7 75 20 140/79 (99) 97 10/08/18 17:39 142/69 10/08/18 16:00 Nasal Cannula 2.0 10/08/18 16:00 97.9 71 20 142/69 (93) 97 10/08/18 15:14 69 10/08/18 12:17 137/67 10/08/18 12:00 72 10/08/18 12:00 Nasal Cannula 2.0 10/08/18 12:00 97.7 72 19 137/67 (90) 95 Intake and Output 10/08/18 10/09/18 18:59 06:59 Intake Total 540 ml 310 ml Balance 540 ml 310 ml Intake Oral 540 ml 250 ml IV Total 60 ml # Voids 2 3 Laboratory Tests 10/09/18 03:20: White Blood Count 5.6, Red Blood Count 2.67L, Hemoglobin 8.1L, Hematocrit 24.4L , Mean Corpuscular Volume 91, Mean Corpuscular Hemoglobin 30.5, Mean Corpuscular Hemoglobin Concent 33.4, Red Cell Distribution Width 14.3, Platelet Count 207, Mean Platelet Volume 7.4, Neutrophils (%) (Auto) 56.7, Lymphocytes (% ) (Auto) 23.8, Monocytes (%) (Auto) 7.7, Eosinophils (%) (Auto) 10.8H, Basophils (%) (Auto) 1.1, Sodium Level 139, Potassium Level 4.0, Chloride Level 105, Carbon Dioxide Level 24, Anion Gap 10, Blood Urea Nitrogen 53H, Creatinine 2.5H, Estimat Glomerular Filtration Rate 19.3, Glucose Level 137H, Calcium Level 7.3L, Troponin I 0.108H Height (Feet): 5 Height (Inches): 2.00 Weight (Pounds): 121 Objective GENERAL: A well-developed female. HEENT: Negative. NECK: Supple. LUNGS: Clear and symmetric. CARDIAC: Normal S1, S2. Regular rate and rhythm. ABDOMEN: Soft, nontender. EXTREMITIES: No edema. Hakan Mccracken MD October 09, 2018 09:32
[2018-10-09 12:00] VITALS: BP 145/73
--- NOTE | 2018-10-09 12:11 | Diagnostic Imaging Report ---
Indication: Dyspnea Technique: XRAY Chest 1v Comparison: 10/06/2018 Findings: Heart is enlarged but stable. There are scattered calcifications again noted in the aorta. Bilateral hazy opacities noted, decreased however compared to the prior exam. Pulmonary vascularity appears more distinct. There is no pneumothorax. There are degenerative changes in the bilateral shoulders and spine. No acute osseous abnormality. Impression: Persistent but decreased bilateral airspace opacities. Interval decreased haziness of pulmonary vascularity. Findings may be related to persistent but decreased CHF. Again superimposed pneumonia needs to be excluded clinically. Follow-up recommended.
--- NOTE | 2018-10-09 14:04 | NUR ---
RD ASSESSMENT & RECOMMENDATIONS SEE CARE ACTIVITY FOR COMPLETE ASSESSMENT DAILY ESTIMATED NEEDS: Needs based on cardiac/ 45.5kg 25-30 kcals/kg 4507-3117 total kcals 1-1.3 g protein/kg 45-59 g total protein 25-30 mL/kg 8476-1479 total fluid mLs NUTRITION DIAGNOSIS: Increased kcal/prot intake needs R/T wound healing as evidenced by admitted w/ stage 1 BL heels per timber robber. CURRENT DIET:Cardiac, liquify pureed PO DIET RECOMMENDATIONS: LOW NA/ ADVANCE TEXTURE TOLERATED ADDITIONAL RECOMMENDATIONS: * Rec calibrated bedscale * Advance diet texture as tolerated -> pt denies chewing or swallowing difficulty * Monitor lytes closely w/ lasix, replete as needed * Wound healing: add MVI x 1, Vit C 250mg QD, Sriram 1pkt BID : f/up w/ WC specialist ana maria
[2018-10-09 16:21] VITALS: BP 145/75
--- NOTE | 2018-10-09 19:17 | NUR ---
HAND-OFF: Report given to Mami Dominguez RN. pt is in stable condition.
--- NOTE | 2018-10-09 19:18 | NUR ---
NURSE NOTES: Received bedside report from NICOL Johnson.Patient stable,SR on cardiac technician,BiPAP PRN Q HS 12/5 40%, tolerated well N/C with 2 L/min,BS active in all quadrants,IV asymptomatic on L AC 20G SL,bed secured,call light within a reach,family at bedside .Will continue to monitor and follow POC.
--- NOTE | 2018-10-09 19:19 | NUR ---
NURSE NOTES: Received report from NICOL HICKEY.Patient stable
[2018-10-09 20:00] VITALS: BP 134/64
[2018-10-09] MEDS: Iron Sucrose 100 MG in NS 55 ML IV SCH (21:17)
[2018-10-09] MEDS: Epoetin Alfa-EPBX (NON ESRD)4000 units/ml vial SUBQ SCH (21:18)
[2018-10-10] VITALS: BP 143/68
[2018-10-10 04:00] VITALS: BP 152/80
--- NOTE | 2018-10-10 04:00 | Progress Note ---
DATE: 10/09/2018 CARDIOLOGY PROGRESS NOTE SUBJECTIVE: No chest pain and no shortness of breath. Diuresis ongoing. OBJECTIVE: VITAL SIGNS: Blood pressure 153/76, pulse 78, and afebrile. Monitored rhythm sinus and sinus arrhythmia. LUNGS: Few rales. HEART: Regular rhythm and rate. Normal S1, S2 with a 1/6 systolic apical murmur. ABDOMEN: Soft. EXTREMITIES: Trace edema. LABORATORY DATA: White count 5.6 and hemoglobin 8.1. Potassium 4, BUN 53, and creatinine 2.5. Troponin down to 0.108. IMPRESSION: 1. Acute myocardial infarction. 2. Acute on chronic renal failure. 3. Acute on chronic diastolic and systolic congestive heart failure. 4. Ischemic heart disease. PLAN: 1. Medical therapy is being optimized. 2. Diuresis is ongoing. 3. Agree with discharge within the next 24 to 48 hours based on clinical progress. 4. Maintain anti-platelet and anti-lipid drugs without change. Mariano White M.D. DR: SHABNAM JOB#: [id number] CC:
[2018-10-10 04:58] LABS: EOSINOPHILS % (AUTO) 8.7 % (0.0-3.0); HEMATOCRIT 23.5 % (37.0-47.0); LYMPHOCYTES % (AUTO) 19.5 % (20.0-45.0); MEAN CORPUSCULAR VOLUME 92 FL (80-99); MONOCYTES % (AUTO) 8.5 % (1.0-10.0); NEUTROPHILS % (AUTO) 62.3 % (45.0-75.0); PLATELET COUNT 208 K/UL (150-450); RED BLOOD COUNT 2.57 M/UL (4.20-5.40); RED CELL DISTRIBUTION WIDTH 13.9 % (11.6-14.8); WHITE BLOOD COUNT 6.2 K/UL (4.8-10.8)
[2018-10-10 05:27] LABS: % IRON SATURATION 96 % (15-50); IRON 138 ug/dL (50-175); TOTAL IRON BINDING CAPACITY 144 ug/dL (250-450)
[2018-10-10 05:37] LABS: ALANINE AMINOTRANSFERASE 10 U/L (12-78); ALBUMIN 1.5 G/DL (3.4-5.0); ALBUMIN/GLOBULIN RATIO 0.4 (1.0-2.7); ALKALINE PHOSPHATASE 69 U/L (46-116); ANION GAP 7 mmol/L (5-15); ASPARTATE AMINO TRANSFERASE 16 U/L (15-37); BILIRUBIN,TOTAL 0.1 MG/DL (0.2-1.0); BLOOD UREA NITROGEN 51 mg/dL (7-18); CALCIUM 7.6 MG/DL (8.5-10.1); CARBON DIOXIDE 24 MMOL/L (21-32); CHLORIDE 102 MMOL/L (98-107); CREATININE 2.5 MG/DL (0.55-1.30); POTASSIUM 3.7 MMOL/L (3.5-5.1); SODIUM 133 MMOL/L (136-145)
--- NOTE | 2018-10-10 06:25 | NUR ---
NURSE NOTES: Called and left massage regarding patient's lab result Na 133 Hg 8.0 and no BM 2 days after Kayexalate adm.Charge nurse aware,waiting for respond
--- NOTE | 2018-10-10 07:28 | NUR ---
HAND-OFF: Report given to NICOL Wilkerson.Patient stable,eating breakfast.
--- NOTE | 2018-10-10 07:29 | NUR ---
NURSE NOTES: Received patient in bed. Awake, alert, call light within reach. On nasal cannula at 2LPM. Denies any pain, no facial grimace. Will continue plan of care.
[2018-10-10 08:00] VITALS: BP 167/79
[2018-10-10] MEDS: Losartan 50mg tab ORAL SCH (08:34)
[2018-10-10] MEDS: Aspirin Baby 81mg ORAL SCH (08:34)
[2018-10-10] MEDS: Carvedilol 6.25mg Tab ORAL SCH (08:35)
--- NOTE | 2018-10-10 10:41 | General Progress Note ---
Assessment/Plan Assessment/Plan: IMPRESSION: 1. Acute myocardial infarction. 2. Hypertensive urgency. 3. CHF. 4. Ischemic cardiomyopathy. 5. chronic renal failure 6. elevated K PLAN care as is renal and cards clearance noted d/w cards- ok to dc home close outpatient follow up impression, plan, and exam edited and reviewed in detail care discussed with RN Subjective Allergies: Coded Allergies: No Known Allergies (Unverified , 10/06/18) Subjective appreciate renal and cards Objective Last 24 Hour Vital Signs Date Time Temp Pulse Resp B/P (MAP) Pulse Ox O2 Delivery O2 Flow Rate FiO2 10/10/18 08:35 167/79 10/10/18 08:35 74 167/79 10/10/18 08:35 74 167/79 10/10/18 08:34 167/79 10/10/18 08:34 167/79 10/10/18 08:05 74 20 Nasal Cannula 2.0 28 10/10/18 08:04 96 Nasal Cannula 2.0 28 10/10/18 08:04 Nasal Cannula 2.0 28 10/10/18 08:00 Nasal Cannula 2.0 10/10/18 08:00 97.7 76 18 167/79 (108) 94 10/10/18 07:26 79 10/10/18 04:00 98.8 76 20 152/80 (104) 94 10/10/18 04:00 Nasal Cannula 2.0 10/10/18 03:43 77 10/10/18 00:00 98.4 72 20 143/68 (93) 98 10/10/18 00:00 Nasal Cannula 2.0 10/09/18 23:36 75 10/09/18 21:18 72 134/64 10/09/18 20:03 Nasal Cannula 2.0 28 10/09/18 20:03 75 18 Nasal Cannula 2.0 28 10/09/18 20:03 97 Nasal Cannula 2.0 28 10/09/18 20:00 Nasal Cannula 2.0 10/09/18 20:00 98.8 72 20 134/64 (87) 97 10/09/18 19:34 74 10/09/18 17:41 145/75 10/09/18 16:21 97.8 74 18 145/75 (98) 97 10/09/18 16:00 72 10/09/18 16:00 Nasal Cannula 2.0 10/09/18 12:39 145/73 10/09/18 12:00 98.1 78 18 145/73 (97) 96 10/09/18 12:00 Nasal Cannula 2.0 10/09/18 12:00 78 Intake and Output 10/09/18 10/10/18 19:00 07:00 Intake Total 320 ml 300 ml Balance 320 ml 300 ml Intake Oral 320 ml 240 ml IV Total 60 ml # Voids 2 Laboratory Tests 10/10/18 03:20: White Blood Count 6.2, Red Blood Count 2.57L, Hemoglobin 8.0L, Hematocrit 23.5L , Mean Corpuscular Volume 92, Mean Corpuscular Hemoglobin 31.0, Mean Corpuscular Hemoglobin Concent 33.9, Red Cell Distribution Width 13.9, Platelet Count 208, Mean Platelet Volume 7.7, Neutrophils (%) (Auto) 62.3, Lymphocytes (% ) (Auto) 19.5L, Monocytes (%) (Auto) 8.5, Eosinophils (%) (Auto) 8.7H, Basophils (%) (Auto) 1.0, Sodium Level 133L, Potassium Level 3.7, Chloride Level 102, Carbon Dioxide Level 24, Anion Gap 7, Blood Urea Nitrogen 51H, Creatinine 2.5H, Estimat Glomerular Filtration Rate 19.3, Glucose Level 168H, Calcium Level 7.6L, Iron Level 138, Total Iron Binding Capacity 144L, Percent Iron Saturation 96H, Unsaturated Iron Binding 6L, Total Bilirubin 0.1L, Aspartate Amino Transf (AST/SGOT) 16, Alanine Aminotransferase (ALT/SGPT) 10L, Alkaline Phosphatase 69, Total Protein 5.5L, Albumin 1.5L, Globulin 4.0, Albumin /Globulin Ratio 0.4L Height (Feet): 5 Height (Inches): 2.00 Weight (Pounds): 121 Objective GENERAL: A well-developed female. HEENT: Negative. NECK: Supple. LUNGS: Clear and symmetric. CARDIAC: Normal S1, S2. Regular rate and rhythm. ABDOMEN: Soft, nontender. EXTREMITIES: No edema. Hakan Mccracken MD October 10, 2018 10:41
[2018-10-10 12:00] VITALS: BP 136/79
--- NOTE | 2018-10-10 12:18 | NUR ---
RUG REPAIRERULTRASOUND TECHNOLOGIST SI: PLEURAL EFFUSION,ANEMIA T. 97.7 HR 76 RR 20 B/P 167/79 NC 2L O2 SAT @ 98% BUN 51 CR 2.5 IS: IRON IV LASIX IV STEP DOWN STATUS
[2018-10-10 13:07] VITALS: BP 136/79
--- NOTE | 2018-10-10 13:46 | Nephrology Progress Note ---
Assessment/Plan Plan CKD IV Anemia of CKD - KIM, IV Iron Subjective Subjective No new c/o Objective Objective Last 24 Hour Vital Signs Date Time Temp Pulse Resp B/P (MAP) Pulse Ox O2 Delivery O2 Flow Rate FiO2 10/10/18 13:07 136/79 10/10/18 12:02 73 10/10/18 12:00 97.7 72 20 136/79 (98) 98 10/10/18 12:00 Nasal Cannula 2.0 10/10/18 08:35 167/79 10/10/18 08:35 74 167/79 10/10/18 08:35 74 167/79 10/10/18 08:34 167/79 10/10/18 08:34 167/79 10/10/18 08:05 74 20 Nasal Cannula 2.0 28 10/10/18 08:04 96 Nasal Cannula 2.0 28 10/10/18 08:04 Nasal Cannula 2.0 28 10/10/18 08:00 Nasal Cannula 2.0 10/10/18 08:00 97.7 76 18 167/79 (108) 94 10/10/18 07:26 79 10/10/18 04:00 98.8 76 20 152/80 (104) 94 10/10/18 04:00 Nasal Cannula 2.0 10/10/18 03:43 77 10/10/18 00:00 98.4 72 20 143/68 (93) 98 10/10/18 00:00 Nasal Cannula 2.0 10/09/18 23:36 75 10/09/18 21:18 72 134/64 10/09/18 20:03 Nasal Cannula 2.0 28 10/09/18 20:03 75 18 Nasal Cannula 2.0 28 10/09/18 20:03 97 Nasal Cannula 2.0 28 10/09/18 20:00 Nasal Cannula 2.0 10/09/18 20:00 98.8 72 20 134/64 (87) 97 10/09/18 19:34 74 10/09/18 17:41 145/75 10/09/18 16:21 97.8 74 18 145/75 (98) 97 10/09/18 16:00 72 10/09/18 16:00 Nasal Cannula 2.0 Intake and Output 10/09/18 10/10/18 18:59 06:59 Intake Total 320 ml 300 ml Balance 320 ml 300 ml Intake Oral 320 ml 240 ml IV Total 60 ml # Voids 2 Laboratory Tests 10/10/18 03:20: White Blood Count 6.2, Red Blood Count 2.57L, Hemoglobin 8.0L, Hematocrit 23.5L , Mean Corpuscular Volume 92, Mean Corpuscular Hemoglobin 31.0, Mean Corpuscular Hemoglobin Concent 33.9, Red Cell Distribution Width 13.9, Platelet Count 208, Mean Platelet Volume 7.7, Neutrophils (%) (Auto) 62.3, Lymphocytes (% ) (Auto) 19.5L, Monocytes (%) (Auto) 8.5, Eosinophils (%) (Auto) 8.7H, Basophils (%) (Auto) 1.0, Sodium Level 133L, Potassium Level 3.7, Chloride Level 102, Carbon Dioxide Level 24, Anion Gap 7, Blood Urea Nitrogen 51H, Creatinine 2.5H, Estimat Glomerular Filtration Rate 19.3, Glucose Level 168H, Calcium Level 7.6L, Iron Level 138, Total Iron Binding Capacity 144L, Percent Iron Saturation 96H, Unsaturated Iron Binding 6L, Total Bilirubin 0.1L, Aspartate Amino Transf (AST/SGOT) 16, Alanine Aminotransferase (ALT/SGPT) 10L, Alkaline Phosphatase 69, Total Protein 5.5L, Albumin 1.5L, Globulin 4.0, Albumin /Globulin Ratio 0.4L Height (Feet): 5 Height (Inches): 2.00 Weight (Pounds): 121 Objective CV RR Lungs CTA Abd SNT. BS + E no CCE Annelise Rose MD October 10, 2018 13:46
[2018-10-10] MEDS ORDERED: Tubing Blood Filter IV ONE (15:19)
[2018-10-10] MEDS ORDERED: Tubing IV Secondary IV ONE (15:19)
[2018-10-10] MEDS ORDERED: NS 275ml ONE ×2 (15:19)
--- NOTE | 2018-10-10 15:20 | NUR ---
NURSE NOTES: Discharged patient to home. Accompanied by her daughter via private vehicle. In stable condition. Dr. Mccracken called prescription to [facility] across the street and handed medications to patient's daughter. Instruction provided. Remains stable, on room air, denies chest pain, no respiratory distress. Belongings reviewed and given to patient's daughter.
--- NOTE | 2018-10-11 13:23 | Discharge Summary ---
Discharge Summary Discharge Summary _ DATE OF ADMISSION: 10/06/2018 DATE OF DISCHARGE: 10/10/2018 DISCHARGED BY: Dr. Reyes Mccracken CONSULTANTS: Dr. Annelise White BRIEF HOSPITAL COURSE: Patient is a 68-year-old female, with history notable for CAD, CABG, hypertension, diabetes and anemia the patient was brought in via EMS due to increased chest pain. Patient's onset of symptoms started after an argument with a family member. She was noted to be markedly hypertensive. She was given aspirin and nitroglycerin medics. She did not have any improvement in pain after nitroglycerin. On evaluation at the ED, blood pressure was elevated to 200 systolic. Blood work did not show any leukocytosis, hemoglobin 8.8, hematocrit 6. Potassium was elevated to 5.6 BUN 45, creatinine 2.4. Troponin was elevated to 0.084. ProBNP was > 35,000. EKG was in normal sinus rhythm with no acute changes. Chest x-ray showed pulmonary edema with bilateral small pleural effusion. He was given IV Lasix. He was given IV hydralazine. He was given morphine. He was noted to have increased vascular congestion and questionable right lower lobe infiltrate. He was admitted for possible ACS. Student Worker and steward/stewardess club car were consulted. Cardiac enzymes were monitored. She was given antiplatelet therapy and anti-failure regimen. Beta-doc was added. She was given diuresis. Lipid panel was checked. LDL was elevated to 174, LDL goal goal less than 70. She was given Lipitor. Echocardiogram done showed global left ventricular hypokinesia with borderline LV systolic function. Left ventricular ejection fraction estimated at 45 to 50% . Kidney function was monitored. Patient had chronic kidney disease stage IV and anemia due to CKD. She was given IV iron and Epogen. Kidney ultrasound showed medical renal disease. Negative for hydronephrosis. She came in with stage I on bilateral heels. She was given wound care. Medical therapy was optimized. She was eventually discharged home. FINAL DIAGNOSES: Acute VA Hypertensive urgency Acute on chronic diastolic and systolic CHF Ischemic cardiomyopathy Acute on chronic renal failure Hyperkalemia Stage I on bilateral heels, present on admission DISPOSITION: Patient was discharged home. DISCHARGE INSTRUCTIONS: Follow-up in a week. I have been assigned to complete a discharge summary on this account, I was not involved with the patient's management. Jolene Flanagan NP October 11, 2018 13:23
== END 2018-10-10 15:20 | disposition home or self-care (01) | DRG 190 ==
LOC: EDBD 07:50 → EMR 08:00 → EDBEDREQ 10:02 → 2W 10:17
PROC: 30233N1 Transfusion of Nonautologous Red Blood Cells into Peripheral Vein, Percutaneous Approach (ICD-10-PCS; principal; 2018-10-07)
DX: I21.9 Acute myocardial infarction, unspecified (principal); I50.43 Acute on chronic combined systolic (congestive) and diastolic (congestive) heart failure; N17.9 Acute kidney failure, unspecified; L89.621 Pressure ulcer of left heel, stage 1; L89.611 Pressure ulcer of right heel, stage 1; N18.4 Chronic kidney disease, stage 4 (severe); I16.0 Hypertensive urgency; I13.0 Hypertensive heart and chronic kidney disease with heart failure and stage 1 through stage 4 chronic kidney disease, or unspecified chronic kidney disease; N18.9 Chronic kidney disease, unspecified; I25.5 Ischemic cardiomyopathy; E87.5 Hyperkalemia; I25.10 Atherosclerotic heart disease of native coronary artery without angina pectoris; Z95.5 Presence of coronary angioplasty implant and graft; E11.22 Type 2 diabetes mellitus with diabetic chronic kidney disease; D63.1 Anemia in chronic kidney disease
CPT/HCPCS: 36415; 36600; 71045; 76770; 80048; 80053; 80061; 82550; 82553; 82803; 83540; 83550; 83605; 83690; 83735; 83880; 84100; 84132; 84484; 85007; 85025; 85610; 85730; 86850; 86900; 86901; 86920; 87040; 93005; 93306; 94640; 94660; 94664; 94760; 96365; 96375; 99291; J2405; J7620

== ENCOUNTER 2018-11-27 20:12 | Inpatient (IN) | payer MEDICAID ==
[~2018-11-27] VITALS: Ht 157.5 cm; Wt 64.1 kg
[~2018-11-27 20:12] MED LIST changes: +BP meds; +COZAAR25 MG ORAL; -Morphine Sulfate 2mg/ml Inj(IV/IM USE ONLY) IVP ONE
[2018-11-27] MEDS ORDERED: Neosporin Oint Ud Pkt TOP ONE (20:15)
[2018-11-27] MEDS ORDERED: fentaNYL 100 mcg/2 mL IV ONE (20:15)
[2018-11-27] MEDS ORDERED: Lidocaine 1% 10mg/ml/Epi 0.005mg/ml 30ml vial INJ ONE (20:15)
--- NOTE | 2018-11-27 20:15 | NUR ---
ED Nurse Note: PT BIBA RA 861 C/O POSTERIOR HEAD LACERATION D/T MECHANICAL FALL. PT HEAD IS DRESSED. PT PRESENTS WITH +2 PITTEING EDEMA ON UPPER BILATERAL EXTREMTIES. PT DENIES KO, PT IS AOX4 ON ROOM AIR SATURATIN WELL.
--- NOTE | 2018-11-27 20:16 | NUR ---
ED Nurse Note: PT IDENTIFIED FALL RISK. FALL PRECAUTION BAND PLACED ON PT. BED AT LOWEST POSITION, X2 SIDERAILS. FAMILY AT BEDSIDE.
--- NOTE | 2018-11-27 20:17 | NUR ---
ED Nurse Note: HOME MEDICATIONS PLACED IN SECURITY BAG AND PLACED INTO SAFETY BOX. NO CONTROLLED SUBSTANCES.
[2018-11-27 20:24] VITALS: BP 150/95
--- NOTE | 2018-11-27 20:30 | NUR ---
ED Nurse Note: ATTEMPTED TO COMPLETE IV ACCESS. UNABLE TO DO SO SUCCESSFULLY D/T PT EDEMA. INFORMED ERMD AND CRN
--- NOTE | 2018-11-27 20:35 | NUR ---
ED Nurse Note: ERMD AT BEDSIDE ATTEMPTING EJ IV ACCESS ON PT.
--- NOTE | 2018-11-27 20:42 | NUR ---
ED Nurse Note:' FENTANYL AND ZOFRAN MEDICATION SCANNED, BUT WAS NOT GIVEN PER ERMD CHANGING ORDER.
--- NOTE | 2018-11-27 20:43 | NUR ---
ED Nurse Note: PER ERMD IV MEDICATINOS ORDERS WILL CHANGED TO IM. AWAITING FOR ORDERS TO COMPLETE INTERVENTIONS
--- NOTE | 2018-11-27 20:45 | NUR ---
ED Nurse Note: PER DALTON VILLANUEVA, CALL LABRATORY TO COMPLETE LAB WORK. CALLED LAB AND WILL AWAIT FOR FURTHER ORDERS
--- NOTE | 2018-11-27 20:55 | NUR ---
ED Nurse WASTED MEDICATIONS PROPERLY AT [facility]
[2018-11-27] MEDS ORDERED: oxyCODONE HCL/Acetaminophen 5/325mg ORAL ONE (21:00)
--- NOTE | 2018-11-27 21:00 | NUR ---
ED Nurse Note: ERMD AT BEDSIDE, TO COMPELTE HEAD LACERATION REPAIR
--- NOTE | 2018-11-27 21:15 | NUR ---
ED Nurse Note: FOLLOWUP CALL TO LAB FOR GANG TAILER
--- NOTE | 2018-11-27 21:25 | NUR ---
ED Nurse Note: TOBACCO BUYER AT BEDSIDE
--- NOTE | 2018-11-27 21:30 | NUR ---
ED Nurse Note: ERTECH AT BEDSIDE CLEANING REPARIED HEAD LACERATION.
--- NOTE | 2018-11-27 21:36 | NUR ---
ED Nurse Note: Pt is alert and oriented x 4, through translation; fall precautions instituted, and patient instructed not to get up without help - she understands.
[2018-11-27] MEDS ORDERED: Hydrogen Peroxide 473ml Bottle TOPIC ONE (21:37)
[2018-11-27 21:38] VITALS: BP 200/76
--- NOTE | 2018-11-27 21:49 | NUR ---
ED Nurse Note: CATTLE SORTER SUCCESSFULLY JONELLE BLOOD. BLOOD SPECIMEN SENT TO LAB STAT.
--- NOTE | 2018-11-27 21:55 | Emergency Room Report ---
History of Present Illness General Chief Complaint: Multiple Trauma/Fall Source: Patient Present Illness HPI Non-syncopal fall onto hard carpet. No LOC. Laceration L top of head with "a lot" of blood loss. Transported by EMS. No neck or extremity pain. Peripheral edema. Not know cause. Removed 2 liters from R lung area. Stated related to kidneys. DM on meds. HTN on med. Allergies: Coded Allergies: No Known Allergies (Unverified , 10/06/18) Patient History Past Medical History: see triage record Social History: Denies: smoking, alcohol use, drug use Social History Narrative from [facility] - with daughter Now: No Reviewed Nursing Documentation: PMH: Agreed; PSxH: Agreed Nursing Documentation-PM Past Medical History: No History, Except For Hx Cardiac Problems: Yes - CHF Hx Hypertension: Yes Hx Diabetes: Yes Physical Exam Vital Signs Date Time Temp Pulse Resp B/P (MAP) Pulse Ox O2 Delivery O2 Flow Rate FiO2 11/27/18 20:05 98.6 74 18 185/80 (115) 98 Room Air Procedures Critical Care Time Critical Care Time Total Critical Care Time: 45 min bedside evaluation and treatment excludes procedures (EKG, laceration repair, CVP). Reason for critical care: hemorrhage control, treatment of hyperkalemia, assessment of anemia Possible complications: hypotension, hypertension, VA, shock, arrhythmias, metabolic acidosis, end organ damage, respiratory failure. Interventions: CVP, laceration repair with hemorrhage control, albuterol, calcium chloride and Kayexalate, hydralazine Course: Patient with head trauma with bleeding scalp wound. Laceration repair with hemorrhage control. Evaluation uncovered renal failure with hyperkalemia. This was treated with albuterol, Kayexalate and once a central line was established calcium chloride. Due to the lack of IV sites central line was started. This was after attempts at external jugular IV insertion. Patient hypertensive and hydralazine administered with better blood pressure control. Blood sent for type and Rh. Consultations: nursing staff, EMS, family Performed by: Dr. Carrasco Tolerated well condition = serious Laceration/Wound Repair Laceration/Wound Repair : Consent: Verbal Wound Location: head Wound's Depth, Shape: into muscle, linear, contused tissue Wound Length (cm): 3 Wound Explored: clean Irrigated w/ Saline (ccs): 20 Betadine Prep?: Yes Anesthesia: Lidocaine w/ Epi Volume Anesthetic (ccs): 4 Wound Debrided: none Wound Repaired With: sutures Suture Size/Type: 4:0, proline Layer Closure?: Yes Deep Layer Suture Size/Type: 4:0, other - Vicryl Sterile Dressing Applied?: Yes Splint Applied?: No Progress Arterial bleeding. Controlled with sq and deep vicryl. Irrigated and closed with 40 prolene. Central Line Central Line : Consent: Written Central Line Lumen: triple Maximal Sterile Barrier Tech: yes cap, yes mask, yes sterile gown, yes sterile gloves, yes large sterile sheet, yes hand hygiene, yes chlorhexidine prep Central Line Postion: internal jugular (R) Anesthesia: Lidocaine cc's of anesthesia: 2 Complications: none Central Line Post Position: sutured, good blood return, position confirmed w / CXR Attempts: One Patient Tolerated: Well Complications: None Progress Performed with ultrasound. EBL = 5 ml Medical Decision Making Diagnostic Impression: Primary Impression: Head injury Qualified Codes: S09.90XA - Unspecified injury of head, initial encounter Additional Impressions: Scalp laceration Qualified Codes: S01.01XA - Laceration without foreign body of scalp, initial encounter Pleural effusion, right Hyperkalemia ARF (acute renal failure) Qualified Codes: N17.9 - Acute kidney failure, unspecified ER Course Non-syncopal fall with head injury. Blood loss at scene. Labs indicated. H/O "fluid around lungs". EKG, CXR, CT and labs indicated. Analgesia for pain in head. Unable to start EJ. CXR - R effusion. EKG without injury. No peaked T waves. Labs with acute renal failure with high potassium. CT head without internal bleed. Hemoglobin low. Laceration repaired. EBL during 50 mls. Hemostasis obtained. With high K need a secure line. IJ started. Let us first type and Rh sent. Renal failure. HTN treated with hydralazine. Admit telemetry, Dr. White. Discussed possible need of dialysis with patient and daughter. Laboratory Tests Test 11/27/18 21:48 White Blood Count 8.1 K/UL (4.8-10.8) Red Blood Count 2.64 M/UL (4.20-5.40) L Hemoglobin 8.4 G/DL (12.0-16.0) L Hematocrit 24.4 % (37.0-47.0) L Mean Corpuscular Volume 92 FL (80-99) Mean Corpuscular Hemoglobin 31.8 PG (27.0-31.0) H Mean Corpuscular Hemoglobin Concent 34.4 G/DL (32.0-36.0) Red Cell Distribution Width 13.6 % (11.6-14.8) Platelet Count 285 K/UL (150-450) Mean Platelet Volume 6.3 FL (6.5-10.1) L Neutrophils (%) (Auto) 75.1 % (45.0-75.0) H Lymphocytes (%) (Auto) 13.2 % (20.0-45.0) L Monocytes (%) (Auto) 6.6 % (1.0-10.0) Eosinophils (%) (Auto) 4.3 % (0.0-3.0) H Basophils (%) (Auto) 0.8 % (0.0-2.0) Prothrombin Time 9.9 SEC (9.30-11.50) Prothrombin Time INR 0.9 (0.9-1.1) PTT 28 SEC (23-33) Sodium Level 134 MMOL/L (136-145) L Potassium Level 6.6 MMOL/L (3.5-5.1) *H Chloride Level 104 MMOL/L (98-107) Carbon Dioxide Level 19 MMOL/L (21-32) L Anion Gap 10 mmol/L (5-15) Blood Urea Nitrogen 89 mg/dL (7-18) H Creatinine 4.0 MG/DL (0.55-1.30) H Estimate Glomerular Filtration Rate 11.2 mL/min (>60) Glucose Level 80 MG/DL (74-106) Calcium Level 7.7 MG/DL (8.5-10.1) L Total Bilirubin 0.2 MG/DL (0.2-1.0) Aspartate Amino Transferase (AST) 30 U/L (15-37) Alanine Aminotransferase (ALT) 24 U/L (12-78) Alkaline Phosphatase 78 U/L (46-116) Troponin I 0.033 ng/mL (0.000-0.056) Pro-B-Type Natriuretic Peptide > 47142 pg/mL (0-125) H Total Protein 5.4 G/DL (6.4-8.2) L Albumin 1.7 G/DL (3.4-5.0) L Globulin 3.7 g/dL Albumin/Globulin Ratio 0.5 (1.0-2.7) L EKG Diagnostic Results Rate: normal Rhythm: NSR ST Segments: no acute changes Rhythm Strip Diag. Results EP Interpretation: yes Rhythm: NSR, no PVC's, no ectopy Chest X-Ray Diagnostic Results Chest X-Ray Diagnostic Results #1: Chest X-Ray Ordered: Yes # of Views/Limited/Complete: 1 View Indication: Other EP Interpretation: Yes Interpretation: no pneumothorax, other - effusion, cannot exclude infiltrate Impression: Other Electronically Signed by: Mariano Carrasco MD Chest X-Ray Diagnostic Results #2: Chest X-Ray Ordered: Yes # of Views/Limited/Complete: 1 View Indication: Other EP Interpretation: Yes Interpretation: no pneumothorax, other - R effusion, CVP in SVC/RA Impression: Other CT/MRI/US Diagnostic Results CT/MRI/US Diagnostic Results : Imaging Test Ordered: head Impression no intracranial pathology. Hematoma Last Vital Signs Date Time Temp Pulse Resp B/P (MAP) Pulse Ox O2 Delivery O2 Flow Rate FiO2 11/28/18 00:15 98.1 73 18 153/75 (101) 96 11/28/18 00:13 Room Air 21 Status: improved Disposition: ADMITTED INPATIENT Condition: Serious Mariano Carrasco MD Nov 27, 2018 21:55
[2018-11-27 21:57] LABS: BASOPHILS % (AUTO) 0.8 % (0.0-2.0); EOSINOPHILS % (AUTO) 4.3 % (0.0-3.0); HEMATOCRIT 24.4 % (37.0-47.0); HEMOGLOBIN 8.4 G/DL (12.0-16.0); LYMPHOCYTES % (AUTO) 13.2 % (20.0-45.0); MEAN CORPUSCULAR VOLUME 92 FL (80-99); MONOCYTES % (AUTO) 6.6 % (1.0-10.0); NEUTROPHILS % (AUTO) 75.1 % (45.0-75.0); PLATELET COUNT 285 K/UL (150-450); RED BLOOD COUNT 2.64 M/UL (4.20-5.40); RED CELL DISTRIBUTION WIDTH 13.6 % (11.6-14.8); WHITE BLOOD COUNT 8.1 K/UL (4.8-10.8)
--- NOTE | 2018-11-27 22:00 | NUR ---
ED Nurse Note: PT LEFT FOR CT
[2018-11-27] MEDS ORDERED: ASPIRIN81 MG ORAL (22:01)
[2018-11-27] MEDS ORDERED: FUROSEMIDE20 M1 ORAL (22:01)
[2018-11-27] MEDS ORDERED: LOSARTAN POTASS25 MG ORAL (22:01)
[2018-11-27] MEDS ORDERED: COREG12.5 MG ORAL (22:01)
[2018-11-27] MEDS ORDERED: URECHOLINE25 M1 ORAL (22:01)
[2018-11-27] MEDS ORDERED: METFORMIN HCL500 M1 ORAL (22:01)
[2018-11-27] MEDS ORDERED: ATORVASTATIN CA10 MG ORAL (22:01)
--- NOTE | 2018-11-27 22:09 | NUR ---
ED Nurse Note: PT RETURNED FROM CT
[2018-11-27 22:10] LABS: INR 0.9 (0.9-1.1)
[2018-11-27 22:25] VITALS: BP 192/81
[2018-11-27 22:25] LABS: ALANINE AMINOTRANSFERASE 24 U/L (12-78); ALBUMIN 1.7 G/DL (3.4-5.0); ALBUMIN/GLOBULIN RATIO 0.5 (1.0-2.7); ALKALINE PHOSPHATASE 78 U/L (46-116); ANION GAP 10 mmol/L (5-15); ASPARTATE AMINO TRANSFERASE 30 U/L (15-37); BILIRUBIN,TOTAL 0.2 MG/DL (0.2-1.0); BLOOD UREA NITROGEN 89 mg/dL (7-18); CALCIUM 7.7 MG/DL (8.5-10.1); CARBON DIOXIDE 19 MMOL/L (21-32); CHLORIDE 104 MMOL/L (98-107); SODIUM 134 MMOL/L (136-145)
[2018-11-27 22:27] LABS: POTASSIUM 6.6 MMOL/L (3.5-5.1)
[2018-11-27] MEDS ORDERED: Albuterol ud Inhalation HHN ONE (22:30)
[2018-11-27] MEDS ORDERED: Sodium Polystyrene Sulfonate 15gm Powder ORAL ONE (22:30)
[2018-11-27] MEDS ORDERED: Lidocaine 1% Plain 30 ml INJ ONE (22:40)
[2018-11-27] MEDS ORDERED: Lidocaine 1% MPF 10mg/ml 5ml ONE ×2 (22:41→22:49)
[2018-11-27] MEDS ORDERED: Lidocaine 1% MPF 10mg/ml 5ml INJ ONE (22:45)
--- NOTE | 2018-11-27 22:45 | NUR ---
ED Nurse Note: DALTON VILLANUEVA AT BEDSIDE PLACING A CENTRAL LINE
--- NOTE | 2018-11-27 23:14 | NUR ---
ED Nurse Note: FRONT DESK ASSOCIATE AT BEDSIDE
[2018-11-27] MEDS ORDERED: Calcium Gluconate 1gm/10ml vial IVP ONE (23:15)
--- NOTE | 2018-11-27 23:56 | NUR ---
ED Nurse Note: URINE SPECIMEN SENT TO LAB
[2018-11-27 23:57] VITALS: BP 163/63
--- NOTE | 2018-11-28 00:05 | NUR ---
ED Nurse Note: TELEPHONE REPORT GIVEN TO NICOL CRONIN
--- NOTE | 2018-11-28 00:13 | NUR ---
ED Nurse Note: RETURNED HOME MEDICATION TO DAUGHTER RACHID ARCHIBALD TO TAKE HOME.
--- NOTE | 2018-11-28 00:13 | NUR ---
ED Nurse Note: PT SENT TO TELE WITH NICOL HICKS AND NICOL BA. PT ON PRIMARY CLINICIAN, PT SKIN INTACT EXEMPT OF THOSE DOCUMENTED. PT IS AOX4, ON ROOM AIR, VSS. PT BELONGINGS GIVEN TO FAMILY MEMBER DAUGHTER (RACHID ARCHIBALD).
[2018-11-28 00:15] VITALS: BP 153/75
--- NOTE | 2018-11-28 00:15 | NUR ---
NURSE NOTES: Received pt from ED via gurney. Pt transferred to unit and bed without any incident. Family member at bedside. [place] pt to unit, room, and hospital policies. Received report from NICOL Mccarty. Pt is S/P fall with Lt upper posterior head laceration. Pt received sutures in ED. No active bleeding noted. Belongings list checked; family member will bring belongings home. library monitor is in place; pt is NSR. IV site intact, asymptomatic, and patent. Bed is in the lowest position and locked. Call light within reach. No signs/symptoms of acute distress noted at this time. Will contact Dr. White for admission orders.
--- NOTE | 2018-11-28 01:07 | NUR ---
NURSE NOTES: Contacted Dr. White for admission orders. Awaiting call back.
--- NOTE | 2018-11-28 01:56 | NUR ---
NURSE NOTES: Received admission orders from Dr. White. Will note and carry out.
[2018-11-28] MEDS ORDERED: traMADol 50mg tab ORAL PRN (02:00)
[2018-11-28 04:00] VITALS: BP 150/70
--- NOTE | 2018-11-28 06:15 | NUR ---
NURSE NOTES: Bladder scan showed 290ml. Asked pt to void prior to bladder scan, but pt said she didn't need to. Family member said pt voids fine at home. Informed Dr. White and will endorse to shelli CAMARENA. Addendum: 11/28/18 at 0734 by Philomena Lucio Mai, RN NICOL Chambers asked pt if she voids normally and pt stated that she voids very little.
[2018-11-28] MEDS: NovoLOG Insulin Flexpen SUBQ SCH ×4 (06:30→21:56)
[2018-11-28] MEDS ORDERED: NovoLOG Insulin Flexpen SUBQ SCH (06:30)
[2018-11-28 07:13] LABS: HEMATOCRIT 22.7 % (37.0-47.0); HEMOGLOBIN 7.7 G/DL (12.0-16.0); MEAN CORPUSCULAR VOLUME 92 FL (80-99); PLATELET COUNT 268 K/UL (150-450); RED BLOOD COUNT 2.47 M/UL (4.20-5.40); RED CELL DISTRIBUTION WIDTH 14.3 % (11.6-14.8); WHITE BLOOD COUNT 7.2 K/UL (4.8-10.8)
--- NOTE | 2018-11-28 07:33 | NUR ---
HAND-OFF: Report given to NICOL Chambers.
--- NOTE | 2018-11-28 07:41 | NUR ---
NURSE NOTES: Received report from NICOL White. Pt is sitting up in bed. SHe denies any pain. I asked her if she has a hx of renal issues. She states that she does but takes natural vitamins for it and has never been officially diagnosed. I also asked if she voids a lot. She states that she hardly voids. Will relay info to provider. Bed is in lowest position, side rails up X2, and call light is within reach. Will continue to monitor.
[2018-11-28 07:46] LABS: ALANINE AMINOTRANSFERASE 17 U/L (12-78); ALBUMIN 1.5 G/DL (3.4-5.0); ALBUMIN/GLOBULIN RATIO 0.4 (1.0-2.7); ALKALINE PHOSPHATASE 68 U/L (46-116); ANION GAP 8 mmol/L (5-15); ASPARTATE AMINO TRANSFERASE 24 U/L (15-37); BILIRUBIN,TOTAL 0.2 MG/DL (0.2-1.0); BLOOD UREA NITROGEN 86 mg/dL (7-18); CALCIUM 7.8 MG/DL (8.5-10.1); CARBON DIOXIDE 21 MMOL/L (21-32); CHLORIDE 103 MMOL/L (98-107); SODIUM 132 MMOL/L (136-145)
[2018-11-28 07:47] LABS: POTASSIUM 6.3 MMOL/L (3.5-5.1)
--- NOTE | 2018-11-28 07:56 | NUR ---
NURSE NOTES: Called Dr. Newman office. Informed Dr. Rivera, the doctor bonding agent, about patients hgb and K+. He asked that we repeat a cbc in 8 hours and give kyaxalate for the potassium. He also stated that there will be a shake loader consult for this patient. Orders noted and carried out.
[2018-11-28 08:00] VITALS: BP 167/66
[2018-11-28] MEDS: Carvedilol 12.5mg tab ORAL SCH ×2 (09:14→21:55)
[2018-11-28] MEDS: Aspirin Baby 81mg ORAL SCH (09:14)
[2018-11-28] MEDS: Bethanechol 25mg Tab ORAL SCH ×2 (09:14→13:16)
[2018-11-28] MEDS ORDERED: Sodium Polystyrene Sulfonate 15gm Powder ORAL SCH ×2 (09:15→12:15)
--- NOTE | 2018-11-28 09:18 | Diagnostic Imaging Report ---
Indication: Head trauma headache Technique: Contiguous 5 mm thick transaxial imaging of the head obtained in a Siemens Sensation [address] scanner. Soft tissue and bone windows generated. Automatic Exposure Control was utilized. Total Dose length Product (DLP): [address] Dose Index Volume (CTDIvol): 70.38, 0.15 mGy Comparison: none Findings: There is mild prominence of the ventricles, basal cisterns, and cerebral sulci consistent with atrophy. Mild, nonspecific, white matter hypoattenuation is noted throughout the brain consistent with chronic small vessel disease. There is no midline shift, edema, acute hemorrhage, mass effect, or abnormal extra-axial fluid collections. Bones are unremarkable. There is a cephalohematoma over the left posterior parietal region. Impression: No acute intracranial bleed, mass effect or edema. Mild atrophy of the brain. Nonspecific white matter hypoattenuation probably due to chronic small vessel disease. Left posterior scalp contusion. [facility] has communicated the preliminary results to the Emergency Department. Their findings are largely concordant with this report. The CT scanner at [facility] is accredited by the [employer] and the scans are performed using dose optimization techniques as appropriate to a performed exam including Automatic Exposure control.
--- NOTE | 2018-11-28 09:36 | Diagnostic Imaging Report ---
Indication:Elevated Bun and Creatinine. Technique: Grayscale and duplex Doppler imaging of the kidneys performed. Comparison: None Findings: Cortical echogenicity of both kidneys is abnormally increased consistent with medical renal disease. There is no hydronephrosis. Few cysts are noted within both kidneys. The right kidney is 10 cm. Left kidney 9 cm in length. The bladder is mildly distended. IVC is patent. IMPRESSION: Medical renal disease
--- NOTE | 2018-11-28 09:40 | Diagnostic Imaging Report ---
Indication: Dyspnea Comparison: None A single view chest radiograph was obtained. Findings: Hazy right basilar opacity consistent with a pleural effusion. Mild vascular congestion and cardiomegaly are present. Right jugular line noted with the tip projected over the right atrium. There is no pneumothorax. IMPRESSION: Right jugular line in good position Right pleural effusion and mild congestive heart failure
--- NOTE | 2018-11-28 09:42 | Diagnostic Imaging Report ---
Indication: Chest pain. Trauma Comparison: None A single view chest radiograph was obtained. Findings: There is a hazy opacity at the right lung base consistent with pleural effusion. Given the history of trauma, the possibility of hemothorax should be considered. No obvious rib fracture identified but please correlate clinically. Underlying right basilar lung disease such as pneumonia or lung contusion not excluded. The heart appears mildly enlarged. There is no evidence of pulmonary edema. Bones are osteopenic. IMPRESSION: Evidence of a right pleural effusion. In the setting of trauma, consider hemothorax. Please correlate clinically.
[2018-11-28 12:00] VITALS: BP 178/79
--- NOTE | 2018-11-28 12:25 | NUR ---
NURSE NOTES: Received call from Dr. Barraza regarding patient. Orders noted and carried out.
--- NOTE | 2018-11-28 12:45 | NUR ---
NURSE NOTES: Received call from pharmacy to clarify orders. Called Dr. Barraza, left message for him to call me back regarding medications. Will await call back.
--- NOTE | 2018-11-28 14:07 | NUR ---
CASE MANAGEMENT:REVIEW 68 YR OLD FEMALE BIBA FROM HOME CC: S/P FALL. LACERATION. HEADACHE SI: ACUTE RENAL FAILURE.HYPERKALEMIA HEAD TRAUMA 98.6 74 18 185/80 98% ON RA K+6.6 BUN+89 CR+4.0 BNP+>[id number] H/H-8.4/24.4 IS: IV ZOFRAN IV FENTANYL OXYCODONE PO ZOFRAN PO ALBUTEROL HHN KAYEXALATE IV CA GLUCONATE IV HYDRALAZINE : TO TELEMETRY *INTERQUAL CRITERIA MET
[2018-11-28 14:19] LABS: HEMATOCRIT 23.4 % (37.0-47.0); HEMOGLOBIN 7.8 G/DL (12.0-16.0); MEAN CORPUSCULAR VOLUME 92 FL (80-99); PLATELET COUNT 262 K/UL (150-450); RED BLOOD COUNT 2.53 M/UL (4.20-5.40); RED CELL DISTRIBUTION WIDTH 14.1 % (11.6-14.8); WHITE BLOOD COUNT 6.3 K/UL (4.8-10.8)
--- NOTE | 2018-11-28 14:30 | NUR ---
NURSE NOTES: Received call from Dr. Barraza. He was upset that the pharmacy questioned his orders. He said "I have been doing this a long time, I know what I am doing". Called pharmacy and relayed the message. Per Dr. Barraza, he will be here later on to talk to patient.
[2018-11-28 16:00] VITALS: BP 156/76
[2018-11-28] MEDS ORDERED: HYDROcodone/Acetamin 5/325 tab ORAL PRN (17:00)
--- NOTE | 2018-11-28 17:30 | NUR ---
NURSE NOTES: Dr. galvan spoke with the patient and her son who was at bedside. He discussed the need for dialysis. The patient is apprehensive about dialysis and states that she does not want to have dialysis. Dr. Galvan said "If you don't do this, you will ". He told the patient that he would put in all the orders for the cath placement and HD and if the patient decides to proceed procedures may happen tomorrow. If she refuses treatment we will cancel all the procedures tomorrow. Pt has not signed consent and does not want to until she speaks with all her children. Per my conversations with the patient, it seems as though she is leaning towards not received the suggested treatments. WIll continue to monitor and endorse to the next nurse.
--- NOTE | 2018-11-28 19:54 | NUR ---
HAND-OFF: Report given to NICOL Zapata. Plan of care endorsed
[2018-11-28 20:00] VITALS: BP 168/64
[2018-11-28 20:05] LABS: APPEARANCE,URINE CLEAR; BILIRUBIN, URINE NEGATIVE (NEGATIVE); COLOR,URINE PALE YELLOW; GLUCOSE, URINE (UA) 1+ (NEGATIVE); KETONES,URINE NEGATIVE (NEGATIVE); LEUKOCYTE ESTERASE ,URINE NEGATIVE (NEGATIVE); NITRITE,URINE NEGATIVE (NEGATIVE); PH,URINE 7 (4.5-8.0); PROTEIN,URINE 4+ (NEGATIVE); UROBILINOGEN,URINE NORMAL MG/DL (0.0-1.0)
--- NOTE | 2018-11-28 20:10 | NUR ---
NURSE NOTES: Received report from NICOL Chambers ,stable condition, lying comfortably in bed, no acute distress, denies pain at this time. Daughter at bedside. Right IJ triple lumen flushed, patent, no s/sx of infiltration, extravasation or phlebitis. Dressing changed 11/28/18. F/C patent, draining to gravity.
[2018-11-28] MEDS: Iron Sucrose 100 MG in NS 55 ML IV SCH (21:52)
--- NOTE | 2018-11-28 23:45 | History and Physical Report ---
DATE OF ADMISSION: 11/27/2018 REASON FOR ADMISSION: Renal failure with hyperkalemia. HISTORY OF PRESENT ILLNESS: This is a 68-year-old female. She presented to the hospital following a mechanical fall. She apparently tripped and fell backwards and hit her head on a hard carpeted floor. She had a laceration and had a lot of bleeding noted. She did not have any loss of consciousness. She denies headache. There was no seizure activity or loss of bladder or bowel function. In the emergency room, the patient had a CAT scan of the brain, which revealed a left posterior scalp contusion, nonspecific white matter disease, and no intracranial bleed or edema. The patient had suturing performed of her laceration. Subsequently, however she was noted to have abnormal laboratory studies, which resulted in hospitalization due to hyperkalemia and renal failure. PAST MEDICAL HISTORY: Recent pleural effusion status post right thoracentesis, chronic kidney disease, type 2 diabetes mellitus, hypertension, and history of congestive heart failure. FAMILY HISTORY: Noncontributory. SOCIAL HISTORY: Negative for smoking, alcohol, or substance abuse. MEDICATIONS: Prior to admission, reviewed and reconciled. ALLERGIES: None known. REVIEW OF SYSTEMS: Otherwise unremarkable. PHYSICAL EXAMINATION: VITAL SIGNS: Initial blood pressure in the emergency room 185/80, presently 167/66, pulse 70, and respirations 20. Afebrile. HEENT: Sutured scalp laceration dry. Conjunctivae are pink. Oropharynx clear. NECK: Supple. Jugular venous pressure normal. LUNGS: Clear. CARDIAC: Regular rhythm and rate. Normal S1, S2 with a fourth heart sound. ABDOMEN: Soft and nontender. EXTREMITIES: No edema. IMAGING: Chest x-ray reveals right jugular line in place with right pleural effusion and mild congestive heart failure. LABORATORY DATA: Notable for white count of 7.2 hemoglobin 7.7. Sodium 134, potassium 6.6, bicarb 19, BUN 89, and creatinine 4. Albumin 1.7. Natriuretic peptide over 35,000. IMPRESSION: 1. Mechanical fall with head trauma and laceration, status post suturing. 2. Hyperkalemia. 3. Chronic kidney disease. 4. Acute on chronic diastolic congestive heart failure with pleural effusion. 5. Severe protein-calorie malnutrition. 6. Type 2 diabetes mellitus. 7. Hypertensive heart disease with labile blood pressure. 8. Anemia of chronic kidney disease with probable exacerbation due to blood loss with head laceration. PLAN: 1. Cardiac monitoring. 2. Kayexalate. 3. Diuresis with intravenous loop diuretic. 4. Insulin coverage by sliding scale. 5. Cardiac monitoring. 6. Renal ultrasound followed by renal consultation. 7. Discontinue metformin in this clinical setting with renal failure. 8. Titrate antihypertensive regimen. Mariano White M.D. DR: ESTRELLITA JOB#: [id number] CC:
--- NOTE | 2018-11-28 23:53 | NUR ---
NURSE NOTES: Received report from NICOL Chambers ,stable condition, lying comfortably in bed, no acute distress, denies pain at this time. Daughter at bedside. Right IJ triple lumen flushed, patent, no s/sx of infiltration, extravasation or phlebitis. Dressing changed 11/28/18. F/C patent, draining to gravity. Addendum: 11/29/18 at 0213 by MARQUEZ MONTANO RN wrong time
[2018-11-29] VITALS (13 sets, daily range): BP systolic 118–200; BP diastolic 52–93
[2018-11-29] MEDS: HydrALAZINE 25mg tab ORAL PRN ×3 (00:30→13:03)
--- NOTE | 2018-11-29 01:15 | Consultation ---
DATE OF CONSULTATION: 11/28/2018 NEPHROLOGY CONSULTATION CONSULTING PHYSICIAN: Ray Barraza M.D. REFERRING PHYSICIAN: Mariano White M.D. REASON FOR CONSULTATION: Hyperkalemia, azotemia, and congestive heart failure. HISTORY OF PRESENT ILLNESS: The patient presented to the ER with a ground level fall and laceration of her scalp. She is found to have hyperkalemia, pleural effusions, congestive heart failure, and azotemia. There is a history of diabetes for about 12 years and hypertension she was hospitalized at [facility] about 2 weeks ago and apparently had a thoracentesis for pleural effusion. She has generalized weakness and has difficulty walking and uses a walker. She blames to have some left-sided sciatica. She also has neuropathy with numbness in the feet and likely diabetic retinopathy after recently seeing an magnet placer. SURGERIES: None. HOME MEDICATIONS: Include aspirin, atorvastatin, bethanechol, carvedilol, Lasix, losartan, and metformin. HABITS: She is a nondrinker and nonsmoker. SYSTEM REVIEW: HEENT: History of blurry vision. Hearing is good. ENDOCRINE: Long-standing diabetes. No known thyroid disease. PULMONARY: No asthma, TB, or chronic cough. There is dyspnea on exertion. CARDIAC: Apparently, she had a prior myocardial infarction. Details are not available. No current chest pain. There is a history of hypertension. GASTROINTESTINAL: Some anorexia and nausea intermittently. No gastrointestinal bleeding. GENITOURINARY: No dysuria, hematuria, or kidney stones. NEUROLOGIC: History of peripheral neuropathy. No CVA or seizures. MUSCULOSKELETAL: History of left-sided greater than right sciatica and generalized weakness. Difficulty walking. PHYSICAL EXAMINATION: GENERAL: The patient is a chronically ill-appearing lady, who looks older than her stated age. VITAL SIGNS: Temperature 98.2, pulse 75, respirations 20, blood pressure 178/79, and pulse ox 96. HEENT: Sclerae are nonicteric. Ocular motion intact in all directions. Oral mucosa moist. SKIN: Pale. NECK: No adenopathy. LUNGS: Diminished breath sounds at the bases bilaterally. No rales or rhonchi. HEART: Rhythm is regular. There is an apical S4 and a 2/6 systolic ejection murmur in the aortic area. ABDOMEN: Soft without organomegaly or masses. EXTREMITIES: Show 1+ leg edema. NEUROLOGIC: She is alert and responsive. Ocular motion is intact in all directions. Smile is symmetric. Tongue is midline. She moves all extremities. She has generalized weakness of going from 30 degrees to 90 degrees in bed. LABORATORY AND DIAGNOSTIC DATA: Review of pertinent labs show white count of 6.3 and hemoglobin 7.8. Potassium is 6.6, repeat 6.3. Sodium 132, chloride 103, CO2 21, BUN 86, creatinine 4, calcium 7.8, and glucose 71. BNP greater than 35,000. Albumin 1.5. TSH 7.29. Chest x-ray shows pleural effusion. IMPRESSION: 1. Chronic kidney disease stage 5. 2. Diabetic nephropathy. 3. Severe hypoalbuminemia likely secondary to nephrotic syndrome. 4. Hypertension. 5. Hyperkalemia. 6. Ground level fall with head laceration. 7. Gait disorder. 8. Sciatica. 9. Diabetic retinopathy. 10. Diabetic neuropathy. 11. Recurrent pleural effusions. 12. Congestive heart failure. PLAN: I have discussed in detail with the patient and her son at the bedside using the nurses fluent in [place]. I have explained the benefits of the hemodialysis, peritoneal dialysis, and possible kidney transplantation. Family's questions are answered. The family and the patient will think over, but they are considering starting her on hemodialysis. The patient's potassium will be treated medically initially with diuretics, Kayexalate and low-potassium diet. I have warned her that without dialysis she is likely to have progression of her renal failure, congestive heart failure, generalized weakness, and possibly sudden or worsening physical ailments. Detailed orders have been written for end-stage renal disease. Ray Barraza M.D. DR: TRA JOB#: [id number] CC:
--- NOTE | 2018-11-29 06:12 | NUR ---
NURSE NOTES: Notified Dr. Barraza that patient has agreed to have the tunneled dialysis catheter placement procedure and signed the consent. No new orders received at this time.
[2018-11-29] MEDS: NovoLOG Insulin Flexpen SUBQ SCH ×4 (06:19→21:00)
[2018-11-29 06:24] LABS: HEMATOCRIT 19.8 % (37.0-47.0); MEAN CORPUSCULAR VOLUME 92 FL (80-99); PLATELET COUNT 233 K/UL (150-450); RED BLOOD COUNT 2.14 M/UL (4.20-5.40); WHITE BLOOD COUNT 6.1 K/UL (4.8-10.8)
[2018-11-29 06:35] LABS: HEMOGLOBIN 6.7 G/DL (12.0-16.0)
[2018-11-29 07:18] LABS: IRON 152 ug/dL (50-175); TOTAL IRON BINDING CAPACITY 168 ug/dL (250-450)
[2018-11-29 07:19] LABS: % IRON SATURATION 90 % (15-50)
[2018-11-29 07:23] LABS: ANION GAP 11 mmol/L (5-15); BLOOD UREA NITROGEN 84 mg/dL (7-18); CALCIUM 7.8 MG/DL (8.5-10.1); CARBON DIOXIDE 21 MMOL/L (21-32); CHLORIDE 106 MMOL/L (98-107); CREATININE 4.1 MG/DL (0.55-1.30); FERRITIN 230 NG/ML (8-388); POTASSIUM 5.1 MMOL/L (3.5-5.1); SODIUM 138 MMOL/L (136-145)
--- NOTE | 2018-11-29 07:31 | NUR ---
HAND-OFF: Report given to NICOL Carrasquillo. Patient is asleep lying semi-tejada's; resting comfortably. In stable condition.
--- NOTE | 2018-11-29 07:35 | NUR ---
NURSE NOTES: Received patient from Cathi RN, Patient is awake, alert and oriented X4. No acute distress/SOB noted. RIJ tripple lumen is intact and Patent. Bed in low position and locked, Call light within reach. Belonging in reach. Will continue with the plan of care.
--- NOTE | 2018-11-29 07:43 | Nephrology Progress Note ---
Assessment/Plan Problem List: (1) Anemia in chronic kidney disease (2) Malnutrition of moderate degree (3) Gait abnormality (4) Sciatica (5) CHF (congestive heart failure), NYHA class II (6) Anemia in chronic kidney disease (7) End-stage renal disease (8) Scalp laceration (9) Pleural effusion, right (10) Hyperkalemia Plan agrees to permcath and dialysis to initiate, weak, epogen, venofer, titrate bp and diabetic meds Subjective Constitutional: Reports: weakness HEENT: Reports: no symptoms Genitourinary: Reports: incontinence Neurologic/Psychiatric: Reports: pre-existing deficit Objective Objective Last 24 Hour Vital Signs Date Time Temp Pulse Resp B/P (MAP) Pulse Ox O2 Delivery O2 Flow Rate FiO2 11/29/18 06:39 177/76 11/29/18 04:00 98.2 18 177/76 (109) 96 11/29/18 04:00 68 11/29/18 02:08 118/76 (90) 11/29/18 00:30 174/74 11/29/18 00:00 98.7 79 16 174/74 (107) 96 11/29/18 00:00 71 11/28/18 21:55 76 168/64 11/28/18 21:00 Room Air 11/28/18 20:00 75 11/28/18 20:00 98.8 76 19 168/64 (98) 95 11/28/18 16:00 98.8 72 20 156/76 (102) 98 11/28/18 16:00 66 11/28/18 12:00 73 11/28/18 12:00 98.2 75 20 178/79 (112) 96 11/28/18 09:14 73 167/66 11/28/18 09:00 Room Air 11/28/18 08:00 73 11/28/18 08:00 98.2 70 20 167/66 (99) 96 Intake and Output 11/28/18 11/29/18 19:00 07:00 Output Total 0 ml 2100 ml Balance 0 ml -2100 ml Output Urine Total 0 ml 2100 ml Laboratory Tests 11/28/18 14:10: White Blood Count 6.3, Red Blood Count 2.53L, Hemoglobin 7.8L, Hematocrit 23.4L , Mean Corpuscular Volume 92, Mean Corpuscular Hemoglobin 30.7, Mean Corpuscular Hemoglobin Concent 33.2, Red Cell Distribution Width 14.1, Platelet Count 262, Mean Platelet Volume 6.3L, Neutrophils (%) (Auto) , Lymphocytes (%) ( Auto) , Monocytes (%) (Auto) , Eosinophils (%) (Auto) , Basophils (%) (Auto) , Differential Total Cells Counted 100, Neutrophils % (Manual) 80H, Lymphocytes % (Manual) 13L, Monocytes % (Manual) 6, Eosinophils % (Manual) 1, Basophils % ( Manual) 0, Band Neutrophils 0, Platelet Estimate Adequate, Platelet Morphology Normal, Hypochromasia 1+ 11/28/18 17:50: Urine Color Pale yellow, Urine Appearance Clear, Urine pH 7, Urine Specific [place] 1.010, Urine Protein 4+H, Urine Glucose (UA) 1+H, Urine Ketones Negative , Urine Blood 1+H, Urine Nitrite Negative, Urine Bilirubin Negative, Urine Urobilinogen Normal, Urine Leukocyte Esterase Negative, Urine RBC 0-2, Urine WBC 0, Urine Squamous Epithelial Cells None, Urine Bacteria None 11/29/18 06:00: White Blood Count 6.1, Red Blood Count 2.14L, Hemoglobin 6.7*L, Hematocrit 19.8L , Mean Corpuscular Volume 92, Mean Corpuscular Hemoglobin 31.2H, Mean Corpuscular Hemoglobin Concent 33.8, Red Cell Distribution Width 14.0, Platelet Count 233, Mean Platelet Volume 6.5, Neutrophils (%) (Auto) , Lymphocytes (%) ( Auto) , Monocytes (%) (Auto) , Eosinophils (%) (Auto) , Basophils (%) (Auto) , Neutrophils % (Manual) [Pending], Lymphocytes % (Manual) [Pending], Platelet Estimate [Pending], Platelet Morphology [Pending], Prothrombin Time 10.6, Prothromb Time International Ratio 1.0, Activated Partial Thromboplast Time 28, Sodium Level 138, Potassium Level 5.1, Chloride Level 106, Carbon Dioxide Level 21, Anion Gap 11, Blood Urea Nitrogen 84H, Creatinine 4.1H, Estimat Glomerular Filtration Rate 10.9, Glucose Level 109H, Calcium Level 7.8L, Iron Level 152, Total Iron Binding Capacity 168L, Percent Iron Saturation 90H, Unsaturated Iron Binding 16L, Ferritin 230, Hepatitis B Surface Antigen [Pending], Hepatitis B Surface Antibody, Quant [Pending], Hepatitis C Antibody [Pending], HIV (1&2) Antibody Rapid [Pending] Height (Feet): 5 Height (Inches): 2.00 Weight (Pounds): 149 General Appearance: no apparent distress, alert EENT: normal ENT inspection Neck: normal alignment Cardiovascular: normal rate, regular rhythm, systolic murmur, gallop/S4 Respiratory/Chest: decreased breath sounds Abdomen: non tender, soft, no organomegaly Extremities: moderate edema 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
[2018-11-29 08:21] LABS: HEMATOCRIT 20.2 % (37.0-47.0); MEAN CORPUSCULAR VOLUME 92 FL (80-99); PLATELET COUNT 224 K/UL (150-450); RED CELL DISTRIBUTION WIDTH 13.6 % (11.6-14.8); WHITE BLOOD COUNT 6.4 K/UL (4.8-10.8)
[2018-11-29 08:22] LABS: HEMOGLOBIN 6.9 G/DL (12.0-16.0)
--- NOTE | 2018-11-29 08:25 | NUR ---
NURSE NOTES: Makenna from Lab called to report Hemoglobin of 6.9*. Will notify
[2018-11-29] MEDS: Nephrovite tab (Rena-Vite) ORAL SCH (08:51)
[2018-11-29] MEDS: Carvedilol 12.5mg tab ORAL SCH ×2 (08:51→20:58)
[2018-11-29] MEDS: Aspirin Baby 81mg ORAL SCH (08:51)
[2018-11-29] MEDS: Losartan 50mg tab ORAL SCH (08:51)
--- NOTE | 2018-11-29 09:00 | NUR ---
NURSE NOTES: Dr. ALEXANDER notified of Hemoglobin of 6.9. No new order.
--- NOTE | 2018-11-29 10:35 | NUR ---
NURSE NOTES: Patient has perma cath placed
--- NOTE | 2018-11-29 10:47 | NUR ---
CASE MANAGEMENT:REVIEW 11/29/18 SI: CHRONIC KIDNEY DISEASE STAGE 5 TUNNELED CATH PLACED..STARTED DIALYSIS 11/29/18 98.6 73 18 158/76 95% ON RA H/H-6.9/20.2 BUN+84 CR+4.1 IS: EPOETIN SQ MWF HEPARIN SQ Q12 COZAAR PO QD IV VENOFER QHS IV LASIX Q6HRS ASA PO QD COREG PO Q12 : TELEMETRY STATUS DCP: FROM HOME
[2018-11-29] MEDS ORDERED: Heparin1,000 units/500ml Premix(Conc:2 units/ml) INJ PRN (11:15)
[2018-11-29] MEDS ORDERED: Lidocaine 2% 20mg/ml/Epi 0.005mg/ml 20ml vial INJ PRN (11:15)
[2018-11-29] MEDS ORDERED: Heparin Sod 1000 units/ml 10ml INJ PRN (11:15)
--- NOTE | 2018-11-29 12:00 | Pre-Procedure Note/Attestation ---
Pre-Procedure Note/Attestation Complete Prior to Procedure Planned Procedure: not applicable Procedure Narrative: Dialysis catheter placement (tunneled) Indications for Procedure Pre-Operative Diagnosis: renal insufficiency Attestation I attest that I discussed the nature of the procedure; its benefits; risks and complications; and alternatives (and the risks and benefits of such alternatives ), prior to the procedure, with the patient (or the patient's legal physician representative). I attest that I re-evaluated the patient just prior to the surgery and that there has been no change in the patient's H&P, except as documented below: Mark Guevara M.D. Nov 29, 2018 12:00
--- NOTE | 2018-11-29 12:52 | Diagnostic Imaging Report ---
Indications: Renal insufficiency. Needs long-term dialysis access Technique: Patient given IV Ancef . Total sterile technique, including sterile probe cover and sterile gel, sterile gloves, hand hygiene, hat, mask,, sterile gown, large sterile drape, and preparation with 2% chlorhexidine utilized. Local anesthesia with 1% lidocaine. Under real-time ultrasound guidance, puncture right internal jugular vein using 21-gauge micropuncture needle, passage 0.018 guidewire, exchange for 4 [place] micropuncture introducer. The guidewire was used to measure the appropriate catheter length, and was removed. The sheath was left in place. The subcutaneous tract was then anesthetized with 1% lidocaine. A chest dermatotomy was made . The tunneling device was used to pull a 14.5 [place], 19 cm tip to cuff AngioDynamics bio flow catheter through the subcutaneous tunnel to the neck dermatotomy. A guidewire was passed through the neck introducer into the inferior vena cava, and serial dilators were passed over it, followed by the introduction of a 14.5 [place] AirGuard peel-away sheath. The catheter was then introduced into the sheath, the peel-away sheath was removed. Digital radiograph documents satisfactory catheter tip position in the cavoatrial junction, no kinking at the insertion site. Both catheter ports aspirated and flushed. Catheter was fixed to the skin. Patient tolerated procedure well without immediate complication. Total fluoroscopy time 25 seconds. Total fluoroscopy dose 3.18 mGy. Total procedure time 20 minutes. Findings: Ultrasound demonstrates a patent compressible right internal jugular vein. Needle noted within this renal ultrasound. Completion radiograph documents satisfactory position and course of the catheter, catheter tip at the Cavoatrial junction. Impression: Successful placement of right transjugular tunneled dialysis catheter, as described above
--- NOTE | 2018-11-29 15:02 | NUR ---
RD ASSESSMENT & RECOMMENDATIONS SEE CARE ACTIVITY FOR COMPLETE ASSESSMENT DAILY ESTIMATED NEEDS: Needs based on Renal, Hd / 54kg 30-35 kcals/kg 5725-1953 total kcals 1.2-1.8 g protein/kg 65-97 g total protein Fluid per Md, on lasix w/ HD pending NUTRITION DIAGNOSIS: Increased kcal/prot intake needs R/T renal dysfunction as evidenced by admitted CKD stage 5, now initiating HD CURRENT DIET:NPO PO DIET RECOMMENDATIONS-->> RENAL DIET (texture as tolerated) ADDITIONAL RECOMMENDATIONS: * Rec calibrated bedscale * Monitor lytes closely w/ lasix, replete as needed * Diet edu as able / new HD * Add Nepro x1 daily + snacks in b/w meals - -
--- NOTE | 2018-11-29 15:59 | Cardiology Report ---
APPROVED REPORT EKG Measurement Heart [id number] Normal sinus rhythm Abnormal QRS-T angle, consider primary T wave abnormality Abnormal ECG
--- NOTE | 2018-11-29 16:00 | NUR ---
NURSE NOTES: Patient is being dialysed.
--- NOTE | 2018-11-29 16:30 | NUR ---
NURSE NOTES: 1 pack PRBC infused during dialysis.
[2018-11-29] MEDS ORDERED: Heparin Sod 1000 units/ml 10ml IV PRN (17:00)
[2018-11-29] MEDS: Heparin 5000 units/ml inj SUBQ SCH (18:00)
--- NOTE | 2018-11-29 19:48 | NUR ---
HAND-OFF: Report given to Lillian RN's.Endorse that 1L removed during dialysis.
--- NOTE | 2018-11-29 19:50 | NUR ---
NURSE NOTES: Received patient from NICOL Carrasquillo, Patient is awake, alert and oriented X4. Wolof speaking. No acute distress/SOB noted. RIJ permacath is intact and Patent. Bed in low position and locked, Call light within reach. Belongings in reach. Family members at bedside. Will continue to monitor and will continue with the plan of care.
[2018-11-29] MEDS: Dyna-Hex 2% Top Sol 2oz TOPIC SCH (20:58)
[2018-11-29] MEDS: Iron Sucrose 100 MG in NS 55 ML IV SCH (20:58)
[2018-11-29] MEDS ORDERED: Epoetin Alfa-EPBX(ESRD on dialysis)10,000 unit/ml vial SUBQ SCH (21:00)
[2018-11-30] VITALS: BP 165/72
--- NOTE | 2018-11-30 02:30 | Progress Note ---
DATE: 11/29/2018 INTERNAL MEDICINE PROGRESS NOTE SUBJECTIVE: The patient has agreed to proceed with dialysis. A temporary dialysis access was placed. The patient has no chest pain. She denies shortness of breath. She continues to have abnormal metabolic parameters and electrolytes. OBJECTIVE: VITAL SIGNS: Blood pressure labile up to 200/93 at 1 time, heart rate 73, respiratory rate 18, and afebrile. Catheter site dry with no bleeding. LUNGS: Clear. CARDIAC: Regular. Normal S1, S2 with no murmur. ABDOMEN: Soft. EXTREMITIES: No edema. LABORATORY DATA: White count 6.4 and hemoglobin 6.9. Potassium 5.1, BUN 84, and creatinine 4.1. Bicarb 21. IMPRESSION: 1. Chronic kidney disease stage 5. 2. Hyperkalemia, recovered with multiple doses of Kayexalate. 3. Hypertensive urgency. 4. Acute and chronic diastolic congestive heart failure. 5. Severe protein-calorie malnutrition. PLAN: 1. Hemodialysis with ultrafiltration. 2. Packed red blood cell transfusion of blood. 3. Epogen. 4. Nutritional support. 5. Follow up laboratory studies. 6. Titrate antihypertensives with caution as dialysis is initiated. Mariano White M.D. DR: SHABNAM JOB#: [id number] CC:
[2018-11-30 04:00] VITALS: BP 122/70
[2018-11-30] MEDS: sitaGLIPtin 25mg tab ORAL SCH (05:51)
[2018-11-30] MEDS: NovoLOG Insulin Flexpen SUBQ SCH ×4 (06:03→21:48)
[2018-11-30 06:54] LABS: BASOPHILS % (AUTO) 0.8 % (0.0-2.0); HEMATOCRIT 26.5 % (37.0-47.0); LYMPHOCYTES % (AUTO) 12.4 % (20.0-45.0); MEAN CORPUSCULAR VOLUME 92 FL (80-99); MONOCYTES % (AUTO) 7.1 % (1.0-10.0); NEUTROPHILS % (AUTO) 75.6 % (45.0-75.0); PLATELET COUNT 222 K/UL (150-450); RED BLOOD COUNT 2.87 M/UL (4.20-5.40); RED CELL DISTRIBUTION WIDTH 14.2 % (11.6-14.8); WHITE BLOOD COUNT 7.2 K/UL (4.8-10.8)
[2018-11-30 07:21] LABS: ANION GAP 9 mmol/L (5-15); BLOOD UREA NITROGEN 58 mg/dL (7-18); CALCIUM 7.9 MG/DL (8.5-10.1); CARBON DIOXIDE 24 MMOL/L (21-32); CHLORIDE 101 MMOL/L (98-107); CREATININE 3.3 MG/DL (0.55-1.30); PHOSPHORUS 5.6 MG/DL (2.5-4.9); POTASSIUM 3.7 MMOL/L (3.5-5.1); SODIUM 134 MMOL/L (136-145)
--- NOTE | 2018-11-30 07:24 | NUR ---
HAND-OFF: Report given to NICOL Carrasquillo.
--- NOTE | 2018-11-30 07:25 | NUR ---
NURSE NOTES: Received patient from Elizabeth/Vereniec CAMARENA. Patient is awake, alert and oriented X4. Daughter at bedside. No acute distress/SOB noted. RIJ permacath is intact and Patent. Bed in low position and locked, Call light within reach. Will continue with the plan of care.
[2018-11-30] MEDS ORDERED: Heparin Sod 1000 units/ml 10ml IV PRN (07:45)
[2018-11-30 08:00] VITALS: BP 146/70
[2018-11-30] MEDS: Losartan 50mg tab ORAL SCH (08:19)
[2018-11-30] MEDS: Nephrovite tab (Rena-Vite) ORAL SCH (08:20)
[2018-11-30] MEDS: Carvedilol 12.5mg tab ORAL SCH ×2 (08:20→21:49)
[2018-11-30] MEDS: Aspirin Baby 81mg ORAL SCH (08:21)
[2018-11-30] MEDS: Heparin 5000 units/ml inj SUBQ SCH ×2 (08:22→21:49)
--- NOTE | 2018-11-30 09:18 | Nephrology Progress Note ---
Assessment/Plan Problem List: (1) Anemia in chronic kidney disease (2) Malnutrition of moderate degree (3) Gait abnormality (4) Sciatica (5) CHF (congestive heart failure), NYHA class II (6) Anemia in chronic kidney disease (7) End-stage renal disease (8) Scalp laceration (9) Pleural effusion, right (10) Hyperkalemia Plan agrees to permcath and dialysis to initiate, weak, epogen, venofer, titrate bp and diabetic meds, 2nd HD 11/30 fluid overload and chf, awaiting reply from outpatient dialysis center on Sunday to see if her insurance is ok Subjective Constitutional: Reports: weakness HEENT: Reports: no symptoms Genitourinary: Reports: incontinence Neurologic/Psychiatric: Reports: no symptoms Objective Objective Last 24 Hour Vital Signs Date Time Temp Pulse Resp B/P (MAP) Pulse Ox O2 Delivery O2 Flow Rate FiO2 11/30/18 08:20 76 163/60 11/30/18 08:19 163/60 11/30/18 04:00 99.0 75 20 122/70 (87) 94 11/30/18 04:00 76 11/30/18 00:00 69 11/30/18 00:00 98.2 72 20 165/72 (103) 94 11/29/18 21:00 Room Air 11/29/18 20:58 74 156/52 11/29/18 20:00 73 11/29/18 20:00 98.5 74 20 156/52 (86) 95 11/29/18 16:00 68 11/29/18 16:00 98.1 70 18 153/61 (91) 97 11/29/18 13:03 183/88 11/29/18 12:35 68 183/88 (119) 11/29/18 12:10 71 18 183/89 (120) 99 11/29/18 12:05 73 18 200/93 (128) 99 11/29/18 12:00 69 11/29/18 12:00 72 18 193/91 (125) 99 11/29/18 11:55 68 18 194/93 (126) 98 11/29/18 11:50 69 18 172/82 (112) 97 11/29/18 11:30 69 18 Intake and Output 11/29/18 11/30/18 19:00 07:00 Intake Total 180 ml Output Total 1000 ml Balance -1000 ml 180 ml Intake Oral 120 ml IV Total 60 ml Output Urine Total 1000 ml Laboratory Tests 11/30/18 06:10: White Blood Count 7.2, Red Blood Count 2.87L, Hemoglobin 9.0#L, Hematocrit 26.5# L, Mean Corpuscular Volume 92, Mean Corpuscular Hemoglobin 31.3H, Mean Corpuscular Hemoglobin Concent 33.9, Red Cell Distribution Width 14.2, Platelet Count 222, Mean Platelet Volume 6.7, Neutrophils (%) (Auto) 75.6H, Lymphocytes ( %) (Auto) 12.4L, Monocytes (%) (Auto) 7.1, Eosinophils (%) (Auto) 4.0H, Basophils (%) (Auto) 0.8, Sodium Level 134L, Potassium Level 3.7, Chloride Level 101, Carbon Dioxide Level 24, Anion Gap 9, Blood Urea Nitrogen 58H, Creatinine 3.3H, Estimat Glomerular Filtration Rate 13.9, Glucose Level 143H, Calcium Level 7.9L, Phosphorus Level 5.6H Height (Feet): 5 Height (Inches): 2.00 Weight (Pounds): 149 General Appearance: no apparent distress, alert EENT: normal ENT inspection Neck: normal alignment, supple Cardiovascular: normal rate, regular rhythm Respiratory/Chest: decreased breath sounds Abdomen: non tender, no organomegaly Extremities: moderate edema 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
--- NOTE | 2018-11-30 10:50 | NUR ---
NURSE NOTES: Called [facility] to inquire about what time the patient will be having dialysis today. Awaiting call back.
[2018-11-30 12:00] VITALS: BP 153/55
--- NOTE | 2018-11-30 12:00 | NUR ---
NURSE NOTES: Dialysis called back. Patient will be dialyzed this afternoon
--- NOTE | 2018-11-30 12:56 | NUR ---
CASE MANAGEMENT:REVIEW 11/30/18 SI: CHRONIC KIDNEY DISEASE STAGE 5 TUNNELED CATH PLACED..STARTED DIALYSIS 11/29/18 T 98.7 HR 74 RR 20 B/P 153/55 SATS 95% ON RA NA 134 BUN 58 CR 3.3 GLU 143 CA 7.9 PHOS 5.6 IS: EPOETIN SQ MWF HEPARIN SQ Q12 COZAAR PO QD IV VENOFER QHS IV LASIX Q6HRS ASA PO QD COREG PO Q12H : TELEMETRY STATUS DCP: FROM HOME
[2018-11-30] MEDS ORDERED: NS 275ml ONE (15:37)
[2018-11-30] MEDS ORDERED: Tubing IV Secondary IV ONE (15:37)
--- NOTE | 2018-11-30 15:42 | NUR ---
NURSE NOTES: Patient has not voided. Residual from bladder scan showed 239mls. Will notify Dr. Barraza.
--- NOTE | 2018-11-30 15:43 | NUR ---
NURSE NOTES: Dr. Barraza called back. New orders received by the devulcanizer charger. All orders entered and MD requested that patient sit on the commode for a while. Patient is on the commode. Will continue to monitor.
[2018-11-30 16:00] VITALS: BP 152/72
--- NOTE | 2018-11-30 17:17 | NUR ---
Residual from bladder scan 398cc. MD aware. Order to do in and out cath at 450cc. Will continue to monitor.
--- NOTE | 2018-11-30 19:12 | NUR ---
HAND-OFF: Report given to Tammy CAMARENA. Endorsed plan of care and made aware that patient has not voided since removal of the carranza catheter, Dr. Barraza aware and there is order in place. Patient will be dialyzed this evening by [facility].
--- NOTE | 2018-11-30 19:38 | NUR ---
NURSE NOTES: Report received from NICOL Trevino. Pt is in stable condition and receiving dialysis at bedside. Pt is attempting to void via bedpan. Will follow up. Bed is in the lowest condition, bed brakes engaged, side rails up x 3 with call light within reach. Will continue to monitor.
[2018-11-30 20:00] VITALS: BP 157/77
[2018-11-30] MEDS: Dyna-Hex 2% Top Sol 2oz TOPIC SCH (21:25)
[2018-11-30] MEDS: Iron Sucrose 100 MG in NS 55 ML IV SCH (21:26)
[2018-11-30] MEDS: Furosemide 80mg tab ORAL SCH (21:39)
--- NOTE | 2018-11-30 23:30 | Progress Note ---
DATE: 11/30/2018 INTERNAL MEDICINE AND CARDIOLOGY PROGRESS NOTE SUBJECTIVE: The patient has initiated dialysis yesterday and had a second dialysis session today. Blood pressure control is improving. Yesterday, was up to 200 systolic, today better control with blood pressure in the 150 systolic range. Monitored rhythm, sinus. OBJECTIVE: LUNGS: With few rales. CARDIAC: Regular rhythm and rate. Normal S1, S2 with a fourth heart sound. ABDOMEN: Soft. EXTREMITIES: No edema. Dialysis catheter site clean and dry. LABORATORY DATA: White count 7.2 and hemoglobin is 9 following a unit of packed red blood cells. Potassium 3.7. IMPRESSION: 1. End-stage renal disease. 2. Resolved hyperkalemia. 3. Acute on chronic diastolic congestive heart failure. 4. Hypertensive urgency, improving. PLAN: 1. Titration of cardiovascular regimen as ongoing dialysis and ultrafiltration episodes occur. 2. Outpatient planning for dialysis center is in progress. Mariano White M.D. DR: SHABNAM JOB#: [id number] CC:
--- NOTE | 2018-11-30 23:53 | NUR ---
NURSE NOTES: Pt was retaining 870mL around 2300. Pt was now able to void 300mL plus the amount that was unable to be measured due to spilling.
[2018-12-01] VITALS: BP 137/73
[2018-12-01 04:00] VITALS: BP 183/71
[2018-12-01] MEDS: HydrALAZINE 25mg tab ORAL PRN ×3 (04:07→20:51)
[2018-12-01] MEDS: sitaGLIPtin 25mg tab ORAL SCH (05:32)
[2018-12-01] MEDS: NovoLOG Insulin Flexpen SUBQ SCH ×4 (05:33→20:55)
--- NOTE | 2018-12-01 06:12 | NUR ---
NURSE NOTES: Pt voided 550mL urine with 558mL retained in bladder.
--- NOTE | 2018-12-01 06:56 | NUR ---
NURSE NOTES: 400mL output from straight cath
--- NOTE | 2018-12-01 07:50 | NUR ---
HAND-OFF: Report given to NICOL Casillas.
[2018-12-01 08:00] VITALS: BP 162/87
--- NOTE | 2018-12-01 08:08 | NUR ---
Report received from Sirena. Pt was sleeping and woke up during report. Pt AOX 4. Pt on court monitor no signs of cardiac or respiratory distress. Pt has R (IJ). Bed in lowest position and locked. Call light with in reach. Family member at bedside. Will continue to follow plan of care.
[2018-12-01] MEDS: Heparin 5000 units/ml inj SUBQ SCH ×2 (09:30→20:53)
[2018-12-01] MEDS: Losartan 50mg tab ORAL SCH (09:32)
[2018-12-01] MEDS: Carvedilol 12.5mg tab ORAL SCH ×2 (09:33→20:52)
[2018-12-01] MEDS: Nephrovite tab (Rena-Vite) ORAL SCH (09:33)
[2018-12-01] MEDS: Furosemide 80mg tab ORAL SCH ×2 (09:33→20:52)
[2018-12-01] MEDS: Aspirin Baby 81mg ORAL SCH (09:34)
--- NOTE | 2018-12-01 10:24 | Nephrology Progress Note ---
Assessment/Plan Problem List: (1) Anemia in chronic kidney disease (2) Malnutrition of moderate degree (3) Gait abnormality (4) Sciatica (5) CHF (congestive heart failure), NYHA class II (6) Anemia in chronic kidney disease (7) End-stage renal disease (8) Scalp laceration (9) Pleural effusion, right (10) Hyperkalemia Plan agrees to permcath and dialysis to initiate, weak, epogen, venofer, titrate bp and diabetic meds, 2nd HD 11/30 fluid overload and chf, HD 12/02 , I have not been able to arrange outpatient dialysis with her insurance, to assess Subjective Constitutional: Reports: weakness HEENT: Reports: no symptoms Genitourinary: Reports: incontinence Objective Objective Last 24 Hour Vital Signs Date Time Temp Pulse Resp B/P (MAP) Pulse Ox O2 Delivery O2 Flow Rate FiO2 12/01/18 09:33 66 162/87 12/01/18 09:32 162/87 12/01/18 08:00 98.4 66 18 162/87 (112) 95 12/01/18 04:07 183/71 12/01/18 04:00 78 12/01/18 04:00 98.6 73 20 183/71 (108) 95 12/01/18 00:00 67 12/01/18 00:00 98.3 71 20 137/73 (94) 95 11/30/18 21:49 69 157/77 11/30/18 21:00 Room Air 11/30/18 20:00 98.2 69 20 157/77 (103) 94 11/30/18 20:00 67 11/30/18 16:00 66 11/30/18 16:00 98.3 66 20 152/72 (98) 96 11/30/18 12:00 98.7 74 20 153/55 (87) 95 11/30/18 12:00 72 Intake and Output 11/30/18 12/01/18 19:00 07:00 Intake Total 240 ml Output Total 1500 ml Balance -1260 ml Intake Oral 240 ml Output Urine Total 1500 ml # Voids 2 # Bowel Movements 2 Height (Feet): 5 Height (Inches): 2.00 Weight (Pounds): 149 General Appearance: no apparent distress, alert EENT: normal ENT inspection Neck: normal alignment Cardiovascular: regular rhythm Respiratory/Chest: decreased breath sounds Abdomen: non tender, soft Extremities: trace edema 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
[2018-12-01 12:00] VITALS: BP 165/58
--- NOTE | 2018-12-01 13:04 | NUR ---
NURSE NOTES: Called Edelmira, from [facility], for HD on 12/02/18.
--- NOTE | 2018-12-01 15:41 | NUR ---
PT Note PT gastonal completed, treatment initiated. Patient has limitation in ROM, decreased muscle strength and balance, making her at a high risk for further falls. Patient needs PT to increase ROM, strength and balance to improve her functional mobility. Strongly recommend for patient to have HHPT on DC. Addendum: 12/01/18 at 1541 by MORELIA BOWLES PT Amended: Links added.
[2018-12-01 16:00] VITALS: BP 114/88
--- NOTE | 2018-12-01 19:08 | NUR ---
NURSE NOTES: Received bedside report from NICOL Casillas.Patient stable,SR on color television console monitor,A&Ox4,no c/o pain,no respiratory distress noted,tolerated r/air well,next bladder scan @ 2200,BS active in all quadrants,IV asymptomatic,intact on SUZY 20 G SL,Permacath on R IJ for HD,family at bedside,bed secured in a low safety position,call light within a reach,will continue to monitor.
--- NOTE | 2018-12-01 19:31 | NUR ---
HAND-OFF: Report given to Socorro. pt in stable condition. urinating on her own. urinated 280 ml in the morning and bladder scan reflected 303ml. Pt urinated 320ml around 1730.
[2018-12-01 20:00] VITALS: BP 170/64
[2018-12-01] MEDS: Dyna-Hex 2% Top Sol 2oz TOPIC SCH (20:50)
[2018-12-01] MEDS: Iron Sucrose 100 MG in NS 55 ML IV SCH (20:51)
[2018-12-02] VITALS (7 sets, daily range): BP systolic 136–173; BP diastolic 56–76
--- NOTE | 2018-12-02 02:00 | Progress Note ---
DATE: 12/01/2018 CARDIOLOGY PROGRESS NOTE SUBJECTIVE: The patient is status post dialysis x2. We scheduled for a third session tomorrow. Blood pressure parameters are slightly better, but still labile. These are noted in the record. OBJECTIVE: LUNGS: Clear. CARDIAC: Regular, normal S1, S2 with a fourth heart sound. ABDOMEN: Soft. EXTREMITIES: No edema. Catheter site clean and dry. IMPRESSION: 1. End-stage renal disease. 2. Acute on chronic diastolic congestive heart failure. 3. Anemia, due to chronic kidney disease. 4. Hyperkalemia, resolved. 5. Right pleural effusion. 6. Mechanical fall. 7. Status post laceration to scalp. PLAN: 1. Suture removal in approximately 7 days. 2. Wound care. 3. Hemodialysis with ultrafiltration. 4. Titration of antihypertensives. 5. Discharge planning once outpatient dialysis can be arranged. Mariano White M.D. DR: VANDA JOB#: [id number] CC:
--- NOTE | 2018-12-02 04:00 | NUR ---
NURSE NOTES: Bladder scanned,no retention 296ml is in,pt urinated well x3 during the night,550 ml out
[2018-12-02] MEDS: sitaGLIPtin 25mg tab ORAL SCH (05:39)
[2018-12-02] MEDS: HydrALAZINE 25mg tab ORAL PRN (05:39)
[2018-12-02] MEDS: NovoLOG Insulin Flexpen SUBQ SCH ×4 (05:43→20:26)
--- NOTE | 2018-12-02 07:05 | NUR ---
HAND-OFF: Report given to NICOL Ortega.Patient stable,daughter at bedside..
--- NOTE | 2018-12-02 07:06 | NUR ---
NURSE NOTES: Received report from Socorro/RN, Patient is awake and alert, No acute distress/SOB noted. Checked IV; patent, no bleeding or infiltration noted. Belonging in reach, Bed in lowest position and locked, Call light within reach. Will continue plan of care.
[2018-12-02] MEDS: Nephrovite tab (Rena-Vite) ORAL SCH (09:31)
[2018-12-02] MEDS: Carvedilol 12.5mg tab ORAL SCH ×2 (09:31→20:26)
[2018-12-02] MEDS: Aspirin Baby 81mg ORAL SCH (09:32)
[2018-12-02] MEDS: Heparin 5000 units/ml inj SUBQ SCH ×2 (09:37→20:27)
[2018-12-02] MEDS ORDERED: Heparin Sod 1000 units/ml 10ml IV ONE (10:30)
--- NOTE | 2018-12-02 10:50 | NUR ---
RD ASSESSMENT & RECOMMENDATIONS SEE CARE ACTIVITY FOR COMPLETE ASSESSMENT DAILY ESTIMATED NEEDS: Needs based on Renal, Hd / 54kg 30-35 kcals/kg 5333-4817 total kcals 1.2-1.8 g protein/kg 65-97 g total protein Fluid per Md, on lasix w/ HD pending NUTRITION DIAGNOSIS: Increased kcal/prot intake needs R/T renal dysfunction as evidenced by admitted CKD stage 5, now initiating HD PO DIET RECOMMENDATIONS: RENAL / CCHO MED DIET (texture as tolerated) ADDITIONAL RECOMMENDATIONS: * Rec calibrated bedscale * Monitor lytes closely w/ lasix, replete as needed * RENAL DIET EDU provided (12/02) * Add Nepro x1 daily + snacks in b/w meals - -
--- NOTE | 2018-12-02 12:26 | NUR ---
CASE MANAGEMENT:REVIEW 12/01/18 SI: CHRONIC KIDNEY DISEASE STAGE 5 TUNNELED CATH PLACED..STARTED DIALYSIS 11/29/18 T 98.6 HR 70 RR 19 B/P 170/64 SATS 95% ON RA NO LABS TODAY IS: EPOETIN SQ MWF HEPARIN SQ Q12 COZAAR PO QD IV VENOFER QHS IV LASIX Q6HRS ASA PO QD COREG PO Q12H : TELEMETRY STATUS DCP: FROM HOME 12/02/2018 SI: CHRONIC KIDNEY DISEASE STAGE 5 TUNNELED CATH PLACED..STARTED DIALYSIS 11/29/18 T 98.1 HR 74 RR 18 B/P 139/63 SATS 93% ON RA NO LABS TODAY IS: EPOETIN SQ MWF HEPARIN SQ Q12 COZAAR PO QD IV VENOFER QHS IV LASIX Q6HRS ASA PO QD COREG PO Q12H : TELEMETRY STATUS DCP: FROM HOME PLAN OF CARE: OUTPT HD
[2018-12-02] MEDS ORDERED: Heparin Sod 1000 units/ml 10ml IV PRN (14:42)
[2018-12-02] MEDS ORDERED: Heparin Sod 1000 units/ml 10ml INJ SCH (14:46)
--- NOTE | 2018-12-02 16:02 | Nephrology Progress Note ---
Assessment/Plan Problem List: (1) Anemia in chronic kidney disease (2) Malnutrition of moderate degree (3) Gait abnormality (4) Sciatica (5) CHF (congestive heart failure), NYHA class II (6) Anemia in chronic kidney disease (7) End-stage renal disease (8) Scalp laceration (9) Pleural effusion, right (10) Hyperkalemia Plan agrees to permcath and dialysis to initiate, weak, epogen, venofer, titrate bp and diabetic meds, 2nd HD 11/30 fluid overload and chf, HD 12/02 seen on HD , I have not been able to arrange outpatient dialysis with her insurance, to assess Subjective Constitutional: Reports: weakness HEENT: Reports: no symptoms Genitourinary: Reports: incontinence Neurologic/Psychiatric: Reports: pre-existing deficit Objective Objective Last 24 Hour Vital Signs Date Time Temp Pulse Resp B/P (MAP) Pulse Ox O2 Delivery O2 Flow Rate FiO2 12/02/18 12:00 71 12/02/18 09:32 74 139/63 12/02/18 09:31 74 139/63 12/02/18 09:00 Room Air 12/02/18 08:00 98.1 74 18 139/63 (88) 93 12/02/18 08:00 73 12/02/18 05:39 158/76 12/02/18 04:00 65 12/02/18 04:00 98.3 70 18 158/76 (103) 95 12/02/18 04:00 Room Air 12/02/18 03:28 65 12/02/18 00:00 97.9 69 19 170/60 (96) 95 12/01/18 23:29 70 12/01/18 21:00 Room Air 12/01/18 20:52 95 170/64 12/01/18 20:51 170/64 12/01/18 20:00 98.6 70 19 170/64 (99) 95 12/01/18 19:21 68 Intake and Output 12/01/18 12/02/18 19:00 07:00 Intake Total 360 ml 300 ml Output Total 320 ml 450 ml Balance 40 ml -150 ml Intake Oral 360 ml 240 ml IV Total 60 ml Output Urine Total 320 ml 450 ml Bladder Scan Volume Amount > 300 ml # Bowel Movements 1 2 Height (Feet): 5 Height (Inches): 2.00 Weight (Pounds): 149 General Appearance: alert EENT: normal ENT inspection Neck: normal alignment, supple Cardiovascular: regular rhythm, regularly irregular Respiratory/Chest: lungs clear, decreased breath sounds Abdomen: non tender, soft Extremities: trace edema 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
--- NOTE | 2018-12-02 16:29 | NUR ---
DISCHARGE PLANNING: NOTE OUTPT HD PACKET FAXED TO [facility] T: [phone] F:[phone] [facility] T:[phone] F [phone] [facility] T [phone] F [phone] [facility] ([facility]) T:[phone] F [phone] [facility] [phone] F [phone]
--- NOTE | 2018-12-02 19:59 | NUR ---
HAND-OFF: Report given to Nathan/RN, Patient is in stable condition. Endorsed plan of care.
--- NOTE | 2018-12-02 20:01 | NUR ---
NURSE NOTES: Pt received from NICOL Arroyo alert and oriented x4, primarily Macedonian-speaking with no acute s/s of distress noted. IV site asymptomatic and patent on R upper arm 20g. HD permacath on R upper chest dressing dry and intact. Bed in lowest position, call light and belongings within reach.
[2018-12-02] MEDS: Dyna-Hex 2% Top Sol 2oz TOPIC SCH (20:32)
--- NOTE | 2018-12-02 20:35 | NUR ---
NURSE NOTES: Bladder scan for pt q6h - 248 ml postvoid residual.
[2018-12-02] MEDS: Iron Sucrose 100 MG in NS 55 ML IV SCH (20:55)
[2018-12-02] MEDS ORDERED: Epogen (for ESRD on dialysis) SUBQ SCH (21:00)
[2018-12-03] VITALS: BP 113/64
--- NOTE | 2018-12-03 02:00 | Progress Note ---
DATE: 12/02/2018 CARDIOLOGY PROGRESS NOTE SUBJECTIVE: The patient has a PermCath. She had a third hemodialysis session today. No complications noted. Her blood pressure parameters remained labile, but continue slowly to overall improve. OBJECTIVE: VITAL SIGNS: Blood pressure 170/64 last night, 139/63, now heart rate 74, and respiratory rate 18. LUNGS: Clear with slightly diminished breath sounds. Chest wall catheter site is clean and dry. HEART: Regular rhythm and rate. Normal S1, S2 with a fourth heart sound. ABDOMEN: Soft. EXTREMITIES: No edema. IMPRESSION: 1. Stabilizing hemodynamics and metabolic parameters with hemodialysis and ultrafiltration. 2. End-stage renal disease due to hypertensive heart disease. PLAN: 1. Titrate medications for optimal blood pressure control. 2. Continue hemodialysis with ultrafiltration. 3. Attempting to secure outpatient hemodialysis clinic for discharge. Mariano White M.D. DR: SHABNAM JOB#: [id number] CC:
[2018-12-03 04:00] VITALS: BP 163/65
[2018-12-03] MEDS: NovoLOG Insulin Flexpen SUBQ SCH ×4 (05:40→20:25)
[2018-12-03] MEDS: sitaGLIPtin 25mg tab ORAL SCH (06:08)
[2018-12-03 06:51] LABS: BASOPHILS % (AUTO) 1.6 % (0.0-2.0); EOSINOPHILS % (AUTO) 9.7 % (0.0-3.0); HEMATOCRIT 25.9 % (37.0-47.0); HEMOGLOBIN 8.6 G/DL (12.0-16.0); LYMPHOCYTES % (AUTO) 17.5 % (20.0-45.0); MEAN CORPUSCULAR VOLUME 94 FL (80-99); MONOCYTES % (AUTO) 9.7 % (1.0-10.0); NEUTROPHILS % (AUTO) 61.5 % (45.0-75.0); PLATELET COUNT 199 K/UL (150-450); RED BLOOD COUNT 2.75 M/UL (4.20-5.40); WHITE BLOOD COUNT 5.4 K/UL (4.8-10.8)
--- NOTE | 2018-12-03 07:14 | NUR ---
NURSE NOTES: Received report from Nathan/RN, Patient is asleep, Lying semi-tejada, resting comfortably. No acute distress/SOB noted at this time. Checked IV, patent, no bleeding or infiltration noted. Bed in lowest position and locked. Call light within reach. Will continue plan of care.
[2018-12-03 07:33] LABS: ALANINE AMINOTRANSFERASE 15 U/L (12-78); ALBUMIN 1.5 G/DL (3.4-5.0); ALBUMIN/GLOBULIN RATIO 0.4 (1.0-2.7); ALKALINE PHOSPHATASE 64 U/L (46-116); ANION GAP 11 mmol/L (5-15); ASPARTATE AMINO TRANSFERASE 22 U/L (15-37); BILIRUBIN,TOTAL 0.1 MG/DL (0.2-1.0); BLOOD UREA NITROGEN 26 mg/dL (7-18); CALCIUM 8.2 MG/DL (8.5-10.1); CARBON DIOXIDE 23 MMOL/L (21-32); CHLORIDE 104 MMOL/L (98-107); CREATININE 2.5 MG/DL (0.55-1.30); POTASSIUM 3.6 MMOL/L (3.5-5.1); SODIUM 138 MMOL/L (136-145)
[2018-12-03 08:00] VITALS: BP 184/70
[2018-12-03] MEDS: Carvedilol 12.5mg tab ORAL SCH ×2 (08:12→20:24)
[2018-12-03] MEDS: Nephrovite tab (Rena-Vite) ORAL SCH (08:12)
[2018-12-03] MEDS: Aspirin Baby 81mg ORAL SCH (08:13)
[2018-12-03] MEDS: Heparin 5000 units/ml inj SUBQ SCH ×2 (08:14→20:23)
[2018-12-03 12:00] VITALS: BP 138/64
--- NOTE | 2018-12-03 13:10 | Nephrology Progress Note ---
Assessment/Plan Problem List: (1) Anemia in chronic kidney disease (2) Malnutrition of moderate degree (3) Gait abnormality (4) Sciatica (5) CHF (congestive heart failure), NYHA class II (6) Anemia in chronic kidney disease (7) End-stage renal disease (8) Scalp laceration (9) Pleural effusion, right (10) Hyperkalemia Plan agrees to permcath and dialysis to initiate, weak, epogen, venofer, titrate bp and diabetic meds, 2nd HD 11/30 fluid overload and chf, HD 12/02 seen on HD , I have not been able to arrange outpatient dialysis with her insurance, to assess, bp to 180 sys titrate bp meds Subjective Constitutional: Reports: weakness HEENT: Reports: no symptoms Genitourinary: Reports: incontinence Neurologic/Psychiatric: Reports: weakness Objective Objective Last 24 Hour Vital Signs Date Time Temp Pulse Resp B/P (MAP) Pulse Ox O2 Delivery O2 Flow Rate FiO2 12/03/18 08:13 75 184/70 12/03/18 08:12 75 184/70 12/03/18 08:00 98.6 75 18 184/70 (108) 95 12/03/18 04:00 98.6 71 18 163/65 (97) 95 12/03/18 04:00 65 12/03/18 00:00 68 12/03/18 00:00 98.6 65 18 113/64 (80) 94 12/02/18 21:00 Room Air 12/02/18 20:45 70 143/74 (97) 12/02/18 20:26 88 173/63 12/02/18 20:00 67 12/02/18 20:00 98.1 66 18 173/63 (99) 94 12/02/18 16:05 61 12/02/18 16:00 97.9 55 18 136/56 (82) 96 12/02/18 16:00 71 Intake and Output 12/02/18 12/03/18 19:00 07:00 Intake Total 480 ml 390 ml Output Total 450 ml 993 ml Balance 30 ml -603 ml Intake Oral 480 ml 150 ml IV Total 240 ml Output Urine Total 450 ml 300 ml Post Void Residual 693 ml Bladder Scan Volume Amount 201-300 ml 201-300 ml 201-300 ml # Bowel Movements 2 1 Laboratory Tests 12/03/18 06:19: White Blood Count 5.4, Red Blood Count 2.75L, Hemoglobin 8.6L, Hematocrit 25.9L , Mean Corpuscular Volume 94, Mean Corpuscular Hemoglobin 31.2H, Mean Corpuscular Hemoglobin Concent 33.2, Red Cell Distribution Width 14.0, Platelet Count 199, Mean Platelet Volume 7.1, Neutrophils (%) (Auto) 61.5, Lymphocytes (% ) (Auto) 17.5L, Monocytes (%) (Auto) 9.7, Eosinophils (%) (Auto) 9.7H, Basophils (%) (Auto) 1.6, Sodium Level 138, Potassium Level 3.6, Chloride Level 104, Carbon Dioxide Level 23, Anion Gap 11, Blood Urea Nitrogen 26H, Creatinine 2.5H, Estimat Glomerular Filtration Rate 19.3, Glucose Level 116H, Calcium Level 8.2L, Total Bilirubin 0.1L, Aspartate Amino Transf (AST/SGOT) 22, Alanine Aminotransferase (ALT/SGPT) 15, Alkaline Phosphatase 64, Total Protein 5.4L, Albumin 1.5L, Globulin 3.9, Albumin/Globulin Ratio 0.4L, TB Test (T-Spot) [ Pending], TB Test Nil Control (T-Spot) [Pending], TB Test Panel A (T-Spot) [ Pending], TB Test Panel B (T-Spot) [Pending], TB Test Positive Control (T-Spot) [Pending] Height (Feet): 5 Height (Inches): 2.00 Weight (Pounds): 149 General Appearance: no apparent distress, alert EENT: normal ENT inspection Neck: normal alignment, abnormal alignment Cardiovascular: normal peripheral pulses, normal rate, regular rhythm Respiratory/Chest: decreased breath sounds Abdomen: non tender Extremities: trace edema 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
--- NOTE | 2018-12-03 13:16 | NUR ---
CASE MANAGEMENT:REVIEW 12/03/18 SI: CHF. ANEMIA. ESRD...NEW TO DIALYSIS HAS RENUCAT 98.6 75 18 184/70 94% ON RA H/H-8.6/25.9 BUN+26 CR+2.5 IS: EPOETIN SQ MWF NORVASC PO QD JANUVIA PO QAM HEPARIN SQ Q12 LIPITOR PO QHS ASA PO QD COREG PO Q12 : TELEMETRY STATUS Addendum: 12/03/18 at 1338 by AMOS PAZ, CANOE MAKER CANOE MAKER LAST HD 12/02/18
--- NOTE | 2018-12-03 13:39 | NUR ---
DISCHARGE PLANNING ACOUSTICAL TILE PATTERNMAKER IS FOLLOWING UP ON OUTPATIENT DIALYSIS ~ IN PROCESS
--- NOTE | 2018-12-03 14:27 | NUR ---
Social Work Chart reviewed; patient requires assistance with all ADLs (ambulatory with a walker). This SW spoke with daughter, Jeanette ([phone]) and Valentina ([phone]) who explains patient lives with Valentina and has four daughters who take turns assisting, as needed. Patient plans to discharge to home with family (does not have Med[facility] k[facility] for additional services). Will be receiving Dialysis (to apply for [facility] to cover).
[2018-12-03 16:00] VITALS: BP 155/69
--- NOTE | 2018-12-03 18:45 | NUR ---
NURSE NOTES: Called IRC and talked with Kofi to scheduled HD for tomorrow.
--- NOTE | 2018-12-03 19:42 | NUR ---
NURSE NOTES: Pt alert and oriented x4, primarily Maltese-speaking with family at bedside. No acute s/s of distress noted at this time. IV site asymptomatic and patent on R upper arm 20g. HD permacath on R upper chest dressing dry and intact. Bed in lowest position, call light and belongings within reach. will continue to monitor and follow plan of care.
--- NOTE | 2018-12-03 19:45 | NUR ---
HAND-OFF: Report given to Roselyn/RN, Patient is in stable condition, Endorsed plan of care.
--- NOTE | 2018-12-03 19:46 | NUR ---
NURSE NOTES: Patient report received from NICOL Arroyo alert and oriented x4, primarily Afghan-speaking with family at bedside. No acute s/s of distress noted at this time. IV site asymptomatic and patent on R upper arm 20g. HD permacath on R upper chest dressing dry and intact. Bed in lowest position, call light and belongings within reach. will continue to monitor and follow plan of care.
[2018-12-03 20:00] VITALS: BP 161/64
[2018-12-03] MEDS: Dyna-Hex 2% Top Sol 2oz TOPIC SCH (20:18)
[2018-12-04] VITALS (7 sets, daily range): BP systolic 150–175; BP diastolic 60–70
--- NOTE | 2018-12-04 | Progress Note ---
CARDIOLOGY PROGRESS NOTE DATE: 12/03/2018 SUBJECTIVE: Status is unchanged. The patient is tolerating dialysis. Volume status is improving. Electrolytes have stabilized. Hemoglobin is adequate at this time following transfusions and initiation of Epogen. The patient is stable for outpatient followup, however, outpatient dialysis arrangements must be completed first and these are in process. Mariano White M.D. DR: ESTRELLITA JOB#: [id number] CC:
[2018-12-04] MEDS: sitaGLIPtin 25mg tab ORAL SCH (05:48)
[2018-12-04] MEDS: NovoLOG Insulin Flexpen SUBQ SCH ×3 (05:49→17:07)
--- NOTE | 2018-12-04 07:12 | NUR ---
HAND-OFF: Report given to NICOL Reyes.
[2018-12-04] MEDS: Carvedilol 12.5mg tab ORAL SCH (08:13)
[2018-12-04] MEDS: Nephrovite tab (Rena-Vite) ORAL SCH (08:13)
[2018-12-04] MEDS: Aspirin Baby 81mg ORAL SCH (08:13)
[2018-12-04] MEDS: Heparin 5000 units/ml inj SUBQ SCH (08:17)
--- NOTE | 2018-12-04 10:36 | NUR ---
NURSE NOTES: pt awake alert, no distress. no c/o pain. call light within reach. bed in lowest position, locked. permacath right neck clean dry and intact.
--- NOTE | 2018-12-04 11:30 | Diagnostic Imaging Report ---
APPROVED REPORT CPT Code: 79217 Present Symptoms Comments: Pre-Op dialysis access evaluation Vein Measurements(cm) Cephalic Basilic Right LeftRight Left Upper Arm0.290.20Mid Upper Arm0.38 Mid Upper Arm0.250.16Antecubital Fossa0.21 0.16Upper Forearm0.31 Antecubital Fossa0.20Wrist Upper Forearm0.33 Wrist0.17 The Right cephalic vein was not visualized. BILATERAL: The cephalic and basilic veins of both arms were imaged and measured to evaluate as a potential graft for dialysis access. Measurements are as above.
--- NOTE | 2018-12-04 11:43 | NUR ---
CASE MANAGEMENT:REVIEW 12/03/18 SI: CHF. ANEMIA. ESRD...NEW TO DIALYSIS HAS PERMCATH 98.3 68 16 150/69 95% ON RA IS: EPOETIN SQ MWF NORVASC PO QD JANUVIA PO QAM HEPARIN SQ Q12 LIPITOR PO QHS ASA PO QD COREG PO Q12 : TELEMETRY STATUS DCP: HOME WITH OUTPATIENT DIALYSIS
--- NOTE | 2018-12-04 11:50 | NUR ---
DISCHARGE PLAN PATIENT WILL DISCHARGE HOME TODAY FAMILY WILL BE RESPONSIBLE FOR TRANSPORTING PATIENT BACK AND FORTH TO DIALYSIS [facility] [address] [facility] [id number] *CHAIR TIME IS [id number] AT 1:30 PM ~ STARTING TOMORROW 12/05/18
--- NOTE | 2018-12-04 12:51 | NUR ---
NURSE NOTES: bladder scan shows 99ml
--- NOTE | 2018-12-04 13:04 | NUR ---
NURSE NOTES: called irc kait re pt to be dialyzed today, awaiting hd nurse call
[2018-12-04] MEDS ORDERED: Heparin Sod 1000 units/ml 10ml IV PRN (13:15)
--- NOTE | 2018-12-04 13:40 | NUR ---
NURSE NOTES: per showcase maker, dr White will write rx when he does rounds, informed cm that pt is due for hd today
--- NOTE | 2018-12-04 13:55 | NUR ---
NURSE NOTES: farhana au (daughter) re informed dtr re pt scheduled for hd tomorrow at [facility] [address] [facility] [place] [address]
[2018-12-04] MEDS ORDERED: AMLODIPINE BESY10 MG ORAL (13:57)
[2018-12-04] MEDS ORDERED: JANUVIA25 MG ORAL (13:57)
[2018-12-04] MEDS ORDERED: METOPROLOL SUCC50 MG ORAL (13:57)
[2018-12-04] MEDS ORDERED: RENVELA0.8 GM ORAL (13:57)
--- NOTE | 2018-12-04 15:46 | NUR ---
HAND-OFF: Report given to BERNADETTE CAMARENA. PATIENT'S DAUGHTER KENISHA TOOK ORIGINAL RX (COPY IN THE CHART) DC INSTRUCTIONS RENDERED TO FAMILY MEMBER RE HD TOMORROW AND TO ARRIVE EARLY , VERBALIZED UNDERSTANDING.
--- NOTE | 2018-12-04 15:47 | NUR ---
NURSE NOTES: Report received from NICOL Reyes. Pt. with dialysis nurse at this time. Discharge instructions given by Eric. Pt. has received DC folder. Family has been informed regarding HD scheduled for tomorrow.
--- NOTE | 2018-12-04 16:47 | Nephrology Progress Note ---
Assessment/Plan Problem List: (1) Anemia in chronic kidney disease (2) Malnutrition of moderate degree (3) Gait abnormality (4) Sciatica (5) CHF (congestive heart failure), NYHA class II (6) Anemia in chronic kidney disease (7) End-stage renal disease (8) Scalp laceration (9) Pleural effusion, right (10) Hyperkalemia Plan agrees to permcath and dialysis to initiate, weak, epogen, venofer, titrate bp and diabetic meds, 2nd HD 11/30 fluid overload and chf, HD 12/02 +12/04 seen on HD , I have not been able to arrange outpatient dialysis with her insurance, CM to assess, bp to 180 sys titrate bp meds Subjective Constitutional: Reports: weakness HEENT: Reports: no symptoms Genitourinary: Reports: no symptoms Neurologic/Psychiatric: Reports: no symptoms Objective Objective Last 24 Hour Vital Signs Date Time Temp Pulse Resp B/P (MAP) Pulse Ox O2 Delivery O2 Flow Rate FiO2 12/04/18 16:00 97.7 65 18 152/70 (97) 95 12/04/18 12:00 98.3 66 16 168/67 (100) 95 12/04/18 11:30 62 12/04/18 08:23 Room Air 12/04/18 08:13 68 150/69 12/04/18 08:13 68 150/69 12/04/18 07:55 98.3 68 16 150/69 (96) 95 12/04/18 07:31 74 12/04/18 04:26 163/66 (98) 12/04/18 04:00 70 12/04/18 04:00 98.3 68 16 175/69 (104) 95 12/04/18 00:00 71 12/04/18 00:00 98.1 70 18 153/60 (91) 100 12/03/18 21:00 Room Air 12/03/18 20:24 68 161/64 12/03/18 20:00 98.2 68 18 161/64 (96) 96 12/03/18 20:00 67 12/03/18 17:10 64 155/69 Intake and Output 12/03/18 12/04/18 19:00 07:00 Intake Total 480 ml Output Total 1078 ml 1159 ml Balance -598 ml -1159 ml Intake Oral 480 ml Output Urine Total 600 ml Post Void Residual 478 ml 1159 ml Bladder Scan Volume Amount 201-300 ml > 300 ml 201-300 ml > 300 ml # Voids 1 # Bowel Movements 1 1 Height (Feet): 5 Height (Inches): 2.00 Weight (Pounds): 141 General Appearance: alert EENT: normal ENT inspection Neck: normal alignment, supple Cardiovascular: normal rate Respiratory/Chest: lungs clear Abdomen: soft Extremities: trace edema 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
--- NOTE | 2018-12-04 17:50 | NUR ---
NURSE NOTES: Pt. finished with HD. DC education given by primary nurse. IV removed. Belongings already given to Pt. by primary nurse. Patient left floor safely via wheelchair accompanied by RABBLER and daughter.
[2018-12-04] MEDS ORDERED: Epoetin Alfa-EPBX(ESRD on dialysis)10,000 unit/ml vial SUBQ SCH (21:00)
--- NOTE | 2018-12-05 13:33 | Discharge Summary ---
Discharge Summary Discharge Summary _ DATE OF ADMISSION: 11/27/2018 DATE OF DISCHARGE: 12/04/2018 DISCHARGED BY: Dr. Mariano White CONSULTANTS: Dr. Ray Barraza BRIEF HOSPITAL COURSE: Patient is a 68-year-old female. She presented to the hospital following a mechanical fall. She apparently tripped and fell backwards and hit her head on a hard carpeted floor. She had a laceration and had a lot of bleeding. She did not lose consciousness. She denied headache. There was no seizure activity or loss of bladder or bowel function. In the emergency room, the patient had a CAT scan of the brain which revealed a left posterior scalp contusion, nonspecific white matter disease and no intracranial bleed or edema. Repair of the laceration was done. Blood work showed potassium level of 6.6. BUN 89 and creatinine 4.0. Troponin was negative. Natruretic peptide was > 35,000. Chest x-ray showed right effusion. She was then admitted for evaluation of mechanical fall with head trauma and laceration, hyperkalemia, CKD and CHF. She was placed on pvc monitor. She was given Kayexalate for hyperkalemia. She was placed on low potassium diet. She was given diuresis with intravenous loop diuretic. Blood glucose was monitored, she was placed on NovoLog sliding scale. Metformin was discontinued in the setting of renal failure. She was continued on antihypertensive regimen. System Software Programmer was consulted. Patient had a history of diabetes and hypertension for about 12 years. She was hospitalized at [facility] 2 weeks prior apparently had a thoracentesis for pleural effusion. Patient had history of chronic kidney disease stage V. Kidney ultrasound showed medical renal disease. Patient and family were discussed benefits of hemodialysis, peritoneal dialysis and possible kidney transplant. Patient agreed to hemodialysis. Vein mapping was done. On 11/29/2018, patient underwent placement of right transjugular tunneled dialysis catheter. Patient was started on hemodialysis with ultrafiltration. There was a drop in hemoglobin and 1 unit packed RBC was transfused. She was started on Neupogen. She was given wound care. Blood pressure parameters remained labile. Antihypertensives were titrated. Patient was tolerating inpatient hemodialysis. Outpatient dialysis was arranged with [facility]. Chair time every Sunday, and Sunday at 1:30 PM starting December 05, 2018. Patient was discharged home. FINAL DIAGNOSES: End-stage renal disease with initiation of hemodialysis Acute on chronic diastolic congestive heart failure Anemia due to chronic kidney disease Hypertensive heart disease Hyperkalemia, resolved Right pleural effusion Mechanical fall status post repair of laceration to the scalp Severe protein calorie malnutrition Hypertensive urgency Right transjugular hemodialysis catheter placement DISPOSITION: Patient was discharged home. DISCHARGE MEDICATIONS: Refer to Discharge Medication List. I have been assigned to complete a discharge summary on this account, I was not involved with the patient's management.--ELKE Ledesma Jacqueline Robles NP Dec 05, 2018 13:33
== END 2018-12-04 17:50 | disposition home or self-care (01) | DRG 194 ==
LOC: EDBD 20:12 → EMR 20:22 → EDBEDREQSVC 22:33 → EDBEDREQTM 22:33 → EDBEDREQ 22:33 → 2E 22:45 → MERGE 22:45 → EDBEDREQ 23:50
PROC: 0HQ0XZZ Repair Scalp Skin, External Approach (ICD-10-PCS; 2018-11-27)
PROC: 05HM33Z Insertion of Infusion Device into Right Internal Jugular Vein, Percutaneous Approach (ICD-10-PCS; 2018-11-27)
PROC: 5A1D70Z Performance of Urinary Filtration, Intermittent, Less than 6 Hours Per Day (ICD-10-PCS; principal; 2018-11-29)
PROC: 30233N1 Transfusion of Nonautologous Red Blood Cells into Peripheral Vein, Percutaneous Approach (ICD-10-PCS; 2018-11-29)
PROC: 0JH63XZ Insertion of Tunneled Vascular Access Device into Chest Subcutaneous Tissue and Fascia, Percutaneous Approach (ICD-10-PCS; 2018-11-29)
PROC: 02HV33Z Insertion of Infusion Device into Superior Vena Cava, Percutaneous Approach (ICD-10-PCS; 2018-11-29)
DX: I13.2 Hypertensive heart and chronic kidney disease with heart failure and with stage 5 chronic kidney disease, or end stage renal disease (principal); E43 Unspecified severe protein-calorie malnutrition; N17.9 Acute kidney failure, unspecified; E11.22 Type 2 diabetes mellitus with diabetic chronic kidney disease; D62 Acute posthemorrhagic anemia; E11.319 Type 2 diabetes mellitus with unspecified diabetic retinopathy without macular edema; E87.5 Hyperkalemia; I50.33 Acute on chronic diastolic (congestive) heart failure; S01.01XA Laceration without foreign body of scalp, initial encounter; E11.40 Type 2 diabetes mellitus with diabetic neuropathy, unspecified; N18.5 Chronic kidney disease, stage 5; W01.0XXA Fall on same level from slipping, tripping and stumbling without subsequent striking against object, initial encounter; D63.1 Anemia in chronic kidney disease; I16.0 Hypertensive urgency; Z79.84 Long term (current) use of oral hypoglycemic drugs; Z79.82 Long term (current) use of aspirin; I25.2 Old myocardial infarction; R26.9 Unspecified abnormalities of gait and mobility; M54.32 Sciatica, left side
CPT/HCPCS: 36415; 70450; 71045; 76000; 76770; 80048; 80053; 81001; 82570; 82728; 82962; 83540; 83550; 83880; 84100; 84300; 84443; 84484; 85007; 85025; 85610; 85730; 86703; 86803; 86850; 86900; 86901; 86920; 87086; 87340; 87517; 93005; 93922; 94640; 99285; J1815; J2405

== ENCOUNTER 2019-02-12 19:02 | Inpatient (IN) | payer MEDICAID ==
[~2019-02-12] VITALS: Ht 160 cm; Wt 61.2 kg
[~2019-02-12 19:02] MED LIST changes: +AMLODIPINE BESY10 MG ORAL; +ASPIRIN81 MG ORAL; +ATORVASTATIN CA10 MG ORAL; +COREG12.5 MG ORAL; +FUROSEMIDE20 M1 ORAL; +JANUVIA25 MG ORAL; +LOSARTAN POTASS25 MG ORAL; +METFORMIN HCL500 M1 ORAL; +METOPROLOL SUCC50 MG ORAL; +RENVELA0.8 GM ORAL; +URECHOLINE25 M1 ORAL
[2019-02-12 19:22] VITALS: BP 219/87
--- NOTE | 2019-02-12 19:37 | Emergency Room Report ---
History of Present Illness General Chief Complaint: Dyspnea/Respdistress Source: Patient, Family Member Present Illness HPI Patient presents with orthopnea and dyspnea with minimal exertion. Her last dialysis was . She denies any fevers or chills or productive cough. She also denies chest pain. She feels generalized weakness at this time. She has difficulty ambulating. She took her blood pressure medication this morning. The patient rarely makes urine. She denies dysuria or hematuria. Mild depression. Admitted late November for head injury with bleeding. Discharge diagnoses - (she was transfused 1 unit) End-stage renal disease with initiation of hemodialysis Acute on chronic diastolic congestive heart failure Anemia due to chronic kidney disease Hypertensive heart disease Hyperkalemia, resolved Right pleural effusion Mechanical fall status post repair of laceration to the scalp Severe protein calorie malnutrition Hypertensive urgency Right transjugular hemodialysis catheter placement Allergies: Coded Allergies: No Known Allergies (Unverified , 10/06/18) Patient History Past Medical History: see triage record, old chart reviewed Past Surgical History: other - Vas-Cath right chest Social History: Denies: smoking, alcohol use Social History Narrative With family Last Menstrual Period: na Reviewed Nursing Documentation: PMH: Agreed; PSxH: Agreed Nursing Documentation-PMH Hx Cardiac Problems: Yes Hx Hypertension: Yes Hx Asthma: No Hx Diabetes: Yes Hx Cancer: No Hx Gastrointestinal Problems: No Hx Neurological Problems: No Review of Systems All Other Systems: negative except mentioned in HPI Physical Exam Vital Signs Date Time Temp Pulse Resp B/P (MAP) Pulse Ox O2 Delivery O2 Flow Rate FiO2 02/12/19 19:22 99.0 76 12 219/87 (131) 96 Room Air Sp02 EP Interpretation: reviewed, normal General Appearance: no apparent distress, alert, non-toxic, other - Slightly confused, Chronically Ill Head: normocephalic Eyes: bilateral eye PERRL, bilateral eye conjunctivae pale ENT: moist mucus membranes Neck: supple Respiratory: decreased breath sounds, crackles Cardiovascular #1: regular rate, rhythm, no JVD, edema Cardiovascular #2: 2+ radial (R) Gastrointestinal: normal inspection, normal bowel sounds, non tender, no mass, non-distended Genitourinary: no CVA tenderness Musculoskeletal: back normal, gait/station normal, normal range of motion Neurologic: alert, oriented - X2 Psychiatric: depressed affect Skin: Decubitus/Ulcer - Heels, pallor Medical Decision Making Diagnostic Impression: Primary Impression: CHF (congestive heart failure), NYHA class II Qualified Codes: I50.43 - Acute on chronic combined systolic (congestive) and diastolic (congestive) heart failure Additional Impressions: NSTEMI (non-ST elevated myocardial infarction) Hypertensive urgency ESRD on dialysis Anemia in chronic kidney disease Qualified Codes: N18.6 - End stage renal disease; D63.1 - Anemia in chronic kidney disease; Z99.2 - Dependence on renal dialysis ER Course Patient presents with orthopnea and dyspnea weakness with history of end-stage renal disease. Differential includes acute myocardial infarction, pulmonary edema, congestive failure, pulmonary embolus amongst others. Patient evaluated with EKG, chest x-ray and labs. Patient is treated acutely for ulnar edema with hydralazine, nitroglycerin paste and aspirin. Patient is placed on a groundwater monitoring technician. Most likely the patient will need to have dialysis. EKG with sinus rhythm 75 left atrial enlargement nonspecific ST-T wave changes. Chest x-ray with bilateral effusions right Vas-Cath and pulmonary edema. Labs with chronic renal failure potassium normal. Elevated BNP. Lab called with elevated troponin. Aspirin given already. Patient denies chest pain. This might be related to renal disease. Blood pressure improved with hydralazine. Also dyspnea is improved. Patient still needs dialysis and further labs for elevated troponin and monitoring of blood pressure. Admitted to telemetry Dr. White. Laboratory Tests Test 02/12/19 19:53 White Blood Count 7.3 K/UL (4.8-10.8) Red Blood Count 2.99 M/UL (4.20-5.40) L Hemoglobin 9.6 G/DL (12.0-16.0) L Hematocrit 26.0 % (37.0-47.0) L Mean Corpuscular Volume 87 FL (80-99) Mean Corpuscular Hemoglobin 31.9 PG (27.0-31.0) H Mean Corpuscular Hemoglobin Concent 36.8 G/DL (32.0-36.0) H Red Cell Distribution Width 13.5 % (11.6-14.8) Platelet Count 202 K/UL (150-450) Mean Platelet Volume 6.3 FL (6.5-10.1) L Neutrophils (%) (Auto) 66.5 % (45.0-75.0) Lymphocytes (%) (Auto) 19.7 % (20.0-45.0) L Monocytes (%) (Auto) 8.7 % (1.0-10.0) Eosinophils (%) (Auto) 3.8 % (0.0-3.0) H Basophils (%) (Auto) 1.3 % (0.0-2.0) Prothrombin Time 11.4 SEC (9.30-11.50) Prothrombin Time INR 1.1 (0.9-1.1) PTT 29 SEC (23-33) Sodium Level 139 MMOL/L (136-145) Potassium Level 4.2 MMOL/L (3.5-5.1) Chloride Level 98 MMOL/L (98-107) Carbon Dioxide Level 33 MMOL/L (21-32) H Anion Gap 8 mmol/L (5-15) Blood Urea Nitrogen 34 mg/dL (7-18) H Creatinine 2.8 MG/DL (0.55-1.30) H Estimate Glomerular Filtration Rate 16.9 mL/min (>60) Glucose Level 75 MG/DL (74-106) Calcium Level 7.9 MG/DL (8.5-10.1) L Total Bilirubin 0.3 MG/DL (0.2-1.0) Aspartate Amino Transferase (AST) 25 U/L (15-37) Alanine Aminotransferase (ALT) < 6 U/L (12-78) L Alkaline Phosphatase 115 U/L (46-116) Total Creatine Kinase 63 U/L (26-308) Troponin I 0.082 ng/mL (0.000-0.056) Pro-B-Type Natriuretic Peptide > 67574 pg/mL (0-125) H Total Protein 6.8 G/DL (6.4-8.2) Albumin 2.1 G/DL (3.4-5.0) L Globulin 4.7 g/dL Albumin/Globulin Ratio 0.4 (1.0-2.7) L Lipase 177 U/L (73-393) EKG Diagnostic Results Rate: normal Rhythm: NSR ST Segments: no acute changes - Left atrial enlargement pH Rhythm Strip Diag. Results EP Interpretation: yes Rhythm: NSR, no PVC's, no ectopy Chest X-Ray Diagnostic Results Chest X-Ray Diagnostic Results : Chest X-Ray Ordered: Yes # of Views/Limited/Complete: 1 View Indication: Shortness of Breath EP Interpretation: Yes Interpretation: no pneumothorax, other - inc cor and chf/effusions Last Vital Signs Date Time Temp Pulse Resp B/P (MAP) Pulse Ox O2 Delivery O2 Flow Rate FiO2 02/13/19 04:06 199/90 02/13/19 04:00 97.6 78 18 93 02/12/19 23:00 Room Air Status: improved Disposition: ADMITTED INPATIENT Condition: Serious Mariano Carrasco MD Feb 12, 2019 19:37
[2019-02-12] MEDS ORDERED: Aspirin Baby 81mg ORAL ONE (19:45)
[2019-02-12] MEDS ORDERED: Nitroglycerin 2% oint pkt TOPIC ONE (19:45)
[2019-02-12 20:07] LABS: BASOPHILS % (AUTO) 1.3 % (0.0-2.0); EOSINOPHILS % (AUTO) 3.8 % (0.0-3.0); HEMOGLOBIN 9.6 G/DL (12.0-16.0); LYMPHOCYTES % (AUTO) 19.7 % (20.0-45.0); MEAN CORPUSCULAR VOLUME 87 FL (80-99); MONOCYTES % (AUTO) 8.7 % (1.0-10.0); NEUTROPHILS % (AUTO) 66.5 % (45.0-75.0); PLATELET COUNT 202 K/UL (150-450); RED BLOOD COUNT 2.99 M/UL (4.20-5.40); RED CELL DISTRIBUTION WIDTH 13.5 % (11.6-14.8); WHITE BLOOD COUNT 7.3 K/UL (4.8-10.8)
[2019-02-12 20:16] LABS: INR 1.1 (0.9-1.1)
[2019-02-12 20:24] LABS: ANION GAP 8 mmol/L (5-15); BLOOD UREA NITROGEN 34 mg/dL (7-18); CALCIUM 7.9 MG/DL (8.5-10.1); CARBON DIOXIDE 33 MMOL/L (21-32); CHLORIDE 98 MMOL/L (98-107); CREATININE 2.8 MG/DL (0.55-1.30); POTASSIUM 4.2 MMOL/L (3.5-5.1); SODIUM 139 MMOL/L (136-145)
[2019-02-12 20:34] LABS: ALANINE AMINOTRANSFERASE < 6 U/L (12-78); ALBUMIN 2.1 G/DL (3.4-5.0); ALBUMIN/GLOBULIN RATIO 0.4 (1.0-2.7); ALKALINE PHOSPHATASE 115 U/L (46-116); ASPARTATE AMINO TRANSFERASE 25 U/L (15-37); BILIRUBIN,TOTAL 0.3 MG/DL (0.2-1.0); CREATINE KINASE 63 U/L (26-308)
[2019-02-12 23:00] VITALS: BP 170/75
[2019-02-13] VITALS (7 sets, daily range): BP systolic 135–199; BP diastolic 71–91
--- NOTE | 2019-02-13 04:15 | History and Physical Report ---
DATE OF ADMISSION: 02/12/2019 REASON FOR ADMISSION: Malignant range hypertension and acute congestive heart failure. HISTORY OF PRESENT ILLNESS: This is a 68-year-old female who was started on hemodialysis several months ago. She usually has dialysis, Sunday, , and Sunday and today is Sunday. She came into the emergency room with weakness and shortness of breath. She denies any noncompliance with medications or diet. emergency room evaluation was notable for pulmonary edema and malignant range of blood pressure. Hospitalization initiated as a result. PAST MEDICAL HISTORY: 1. Hypertensive heart disease. 2. Type 2 diabetes mellitus. 3. End-stage renal disease. 4. Osteoarthritis. 5. Anemia of chronic kidney disease. 6. Right subclavian PermCath. ALLERGIES: None. MEDICATIONS: Prior to admission, reviewed and reconciled. SOCIAL HISTORY: Negative for smoking, alcohol, or substance abuse. FAMILY HISTORY: Noncontributory. REVIEW OF SYSTEMS: A 10-point review of systems was unremarkable. PHYSICAL EXAMINATION: VITAL SIGNS: Afebrile, blood pressure on admission 219/87, heart rate 76, respiratory rate 12. Subsequent blood pressure is now 142/80, heart rate 79, respiratory rate 18. HEENT: Conjunctivae are pink. CHEST WALL: Catheter site clean and dry. Jugular venous pressure elevated. LUNGS: With bilateral rales. CARDIAC: Regular rhythm and rate. Normal S1, S2 with a fourth heart sound. ABDOMEN: Soft, nontender. EXTREMITIES: No edema. LABORATORY AND DIAGNOSTIC DATA: Chest x-ray revealed bilateral pleural effusions and pulmonary venous congestion. Labs, white count 7.3, hemoglobin 9.6. Troponin 0.082. Natriuretic peptide over 35,000. Potassium 4.2. IMPRESSION: 1. Acute on chronic diastolic congestive heart failure. 2. Hypertensive urgency. 3. End-stage renal disease. 4. Pleural effusion. 5. Type 2 diabetes mellitus. 6. Acute myocardial ischemia. PLAN: 1. Maximize antihypertensive and anti-failure regimen orally and topically. 2. Arrange hemodialysis and ultrafiltration urgently. 3. Continue anti-platelet therapy. 4. Insulin coverage by sliding scale. 5. Cardiac monitoring and repeat troponin level and beta-blockade and lipid therapy assessment to follow. Mariano White M.D. DR: CORONA JOB#: [id number] CC:
[2019-02-13] MEDS ORDERED: NovoLOG Insulin Flexpen SUBQ SCH (06:30)
[2019-02-13] MEDS: NovoLOG Insulin Flexpen SUBQ SCH ×4 (07:23→21:25)
[2019-02-13 07:30] LABS: EOSINOPHILS % (AUTO) 4.2 % (0.0-3.0); HEMATOCRIT 31.3 % (37.0-47.0); HEMOGLOBIN 10.6 G/DL (12.0-16.0); LYMPHOCYTES % (AUTO) 17.6 % (20.0-45.0); MEAN CORPUSCULAR VOLUME 93 FL (80-99); MONOCYTES % (AUTO) 8.8 % (1.0-10.0); NEUTROPHILS % (AUTO) 68.4 % (45.0-75.0); PLATELET COUNT 221 K/UL (150-450); RED BLOOD COUNT 3.37 M/UL (4.20-5.40); RED CELL DISTRIBUTION WIDTH 14.6 % (11.6-14.8); WHITE BLOOD COUNT 8.3 K/UL (4.8-10.8)
[2019-02-13 08:15] LABS: ALANINE AMINOTRANSFERASE 7 U/L (12-78); ALBUMIN 2.1 G/DL (3.4-5.0); ALBUMIN/GLOBULIN RATIO 0.5 (1.0-2.7); ALKALINE PHOSPHATASE 124 U/L (46-116); ANION GAP 14 mmol/L (5-15); ASPARTATE AMINO TRANSFERASE 23 U/L (15-37); BILIRUBIN,TOTAL 0.3 MG/DL (0.2-1.0); BLOOD UREA NITROGEN 37 mg/dL (7-18); CARBON DIOXIDE 27 MMOL/L (21-32); CHLORIDE 96 MMOL/L (98-107); CHOLESTEROL 146 MG/DL (< 200); CREATININE 2.9 MG/DL (0.55-1.30); FERRITIN 1766 NG/ML (8-388); GAMMA GLUTAMYL TRANSPEPTIDASE 24 U/L (5-85); HDL CHOLESTEROL 37 MG/DL (40-60); POTASSIUM 4.4 MMOL/L (3.5-5.1); SODIUM 137 MMOL/L (136-145); TRIGLYCERIDES 87 MG/DL (30-150)
[2019-02-13 08:24] LABS: PHOSPHORUS 0.9 MG/DL (2.5-4.9)
[2019-02-13] MEDS: Heparin 5000 units/ml inj SUBQ SCH ×2 (08:47→21:26)
[2019-02-13] MEDS ORDERED: Renvela 800mg Pkt ORAL SCH (09:00)
[2019-02-13] MEDS ORDERED: Docusate 100mg cap ORAL SCH (09:00)
[2019-02-13] MEDS ORDERED: Aspirin Baby 81mg ORAL SCH (09:00)
--- NOTE | 2019-02-13 10:37 | Consultation ---
Consult Note Consult Note under my care at [facility] ER note: Patient presents with orthopnea and dyspnea with minimal exertion. Her last dialysis was . She denies any fevers or chills or productive cough. She also denies chest pain. She feels generalized weakness at this time. She has difficulty ambulating. She took her blood pressure medication this morning. The patient rarely makes urine. She denies dysuria or hematuria. Mild depression. Admitted late November for head injury with bleeding. Discharge diagnoses - (she was transfused 1 unit) End-stage renal disease with initiation of hemodialysis Acute on chronic diastolic congestive heart failure Anemia due to chronic kidney disease Hypertensive heart disease Hyperkalemia, resolved Right pleural effusion Mechanical fall status post repair of laceration to the scalp Severe protein calorie malnutrition Hypertensive urgency Right transjugular hemodialysis catheter placement No Known Allergies (Unverified , 10/06/18) Past Medical History: see triage record, old chart reviewed Past Surgical History: other - Vas-Cath right chest examined has right chest permacath Assessment/Plan ESRD HTN OOC NSTEMI Cardiomyopathy Low Phos stop Phos binder- Optimize cardiac status BP control HD and UF as needed Juaquin Hadley MD Feb 13, 2019 10:37
[2019-02-13] MEDS ORDERED: Lisinopril 10mg tab ORAL SCH ×2 (10:45→12:45)
[2019-02-13] MEDS ORDERED: Phospha 250 Neutral tab ORAL ONE (11:30)
--- NOTE | 2019-02-13 12:27 | Diagnostic Imaging Report ---
Indication: Dyspnea Comparison: 10/09/2018 A single view chest radiograph was obtained. Findings: Hazy basilar opacities present. The pleural effusion are suspected. Pulmonary vascular prominence and interstitial edema noted there is a right permacath in good position. IMPRESSION: CHF. Bilateral pleural effusions
[2019-02-13] MEDS: Docusate 100mg cap ORAL SCH ×2 (12:30→17:16)
[2019-02-13] MEDS: Nitroglycerin Patch 0.4mg TDERMAL SCH (12:30)
[2019-02-13] MEDS ORDERED: Phospha 250 Neutral tab ORAL SCH ×2 (12:45→17:00)
[2019-02-13 16:47] LABS: APPEARANCE,URINE CLEAR; BILIRUBIN, URINE NEGATIVE (NEGATIVE); COLOR,URINE PALE YELLOW; GLUCOSE, URINE (UA) 2+ (NEGATIVE); KETONES,URINE 1+ (NEGATIVE); LEUKOCYTE ESTERASE ,URINE NEGATIVE (NEGATIVE); NITRITE,URINE NEGATIVE (NEGATIVE); PH,URINE 9 (4.5-8.0); PROTEIN,URINE 4+ (NEGATIVE); UROBILINOGEN,URINE NORMAL MG/DL (0.0-1.0)
[2019-02-14] VITALS: BP 189/79
[2019-02-14 04:00] VITALS: BP 183/85
[2019-02-14] MEDS: NovoLOG Insulin Flexpen SUBQ SCH ×4 (06:46→20:19)
[2019-02-14 07:10] LABS: BASOPHILS % (AUTO) 1.6 % (0.0-2.0); EOSINOPHILS % (AUTO) 4.6 % (0.0-3.0); HEMATOCRIT 28.2 % (37.0-47.0); HEMOGLOBIN 9.6 G/DL (12.0-16.0); LYMPHOCYTES % (AUTO) 18.4 % (20.0-45.0); MEAN CORPUSCULAR VOLUME 93 FL (80-99); MONOCYTES % (AUTO) 9.6 % (1.0-10.0); NEUTROPHILS % (AUTO) 65.8 % (45.0-75.0); PLATELET COUNT 208 K/UL (150-450); RED BLOOD COUNT 3.03 M/UL (4.20-5.40); RED CELL DISTRIBUTION WIDTH 14.7 % (11.6-14.8); WHITE BLOOD COUNT 6.6 K/UL (4.8-10.8)
[2019-02-14 07:54] LABS: ALANINE AMINOTRANSFERASE 9 U/L (12-78); ALBUMIN 1.9 G/DL (3.4-5.0); ALBUMIN/GLOBULIN RATIO 0.4 (1.0-2.7); ALKALINE PHOSPHATASE 113 U/L (46-116); ANION GAP 6 mmol/L (5-15); ASPARTATE AMINO TRANSFERASE 21 U/L (15-37); BILIRUBIN,TOTAL 0.3 MG/DL (0.2-1.0); BLOOD UREA NITROGEN 30 mg/dL (7-18); CALCIUM 7.8 MG/DL (8.5-10.1); CARBON DIOXIDE 32 MMOL/L (21-32); CHLORIDE 100 MMOL/L (98-107); CREATININE 2.6 MG/DL (0.55-1.30); PHOSPHORUS 1.6 MG/DL (2.5-4.9); POTASSIUM 4.1 MMOL/L (3.5-5.1); SODIUM 138 MMOL/L (136-145)
[2019-02-14 08:00] VITALS: BP 193/97
[2019-02-14] MEDS: Docusate 100mg cap ORAL SCH ×3 (08:50→17:26)
[2019-02-14] MEDS: Aspirin Baby 81mg ORAL SCH (08:50)
[2019-02-14] MEDS: Heparin 5000 units/ml inj SUBQ SCH ×2 (08:51→20:19)
[2019-02-14] MEDS: Lisinopril 20mg tab ORAL SCH ×2 (08:52→17:25)
--- NOTE | 2019-02-14 08:56 | Nephrology Progress Note ---
Assessment/Plan Problem List: (1) Anemia in chronic kidney disease (2) Hypertensive urgency (3) End-stage renal disease (4) CHF (congestive heart failure), NYHA class II (5) NSTEMI (non-ST elevated myocardial infarction) Assessment ESRD HTN OOC NSTEMI Cardiomyopathy Low Phos Plan stop Phos binder- Phos supplement Zaroxyllin one dose flomax, had 170 cc retention Optimize cardiac status BP control HD and UF as needed Subjective ROS Limited/Unobtainable: No Constitutional: Reports: malaise Objective Objective Last 24 Hour Vital Signs Date Time Temp Pulse Resp B/P (MAP) Pulse Ox O2 Delivery O2 Flow Rate FiO2 02/14/19 08:52 197/93 02/14/19 08:51 75 197/93 02/14/19 08:51 75 197/93 02/14/19 06:47 183/85 02/14/19 04:00 71 02/14/19 04:00 98.8 76 18 183/85 (117) 97 02/14/19 02:03 189/79 02/14/19 00:00 97.9 73 20 189/79 (115) 97 02/14/19 00:00 78 02/13/19 21:22 74 157/78 02/13/19 21:00 Nasal Cannula 2.0 02/13/19 20:00 78 02/13/19 20:00 98.1 74 20 157/78 (104) 97 02/13/19 16:00 98.6 80 20 135/73 (93) 99 02/13/19 15:38 72 02/13/19 12:46 153/79 02/13/19 12:30 153/79 02/13/19 12:16 76 02/13/19 12:00 Nasal Cannula 2.0 02/13/19 12:00 96.4 69 20 153/71 (98) 98 02/13/19 10:45 119/40 02/13/19 09:00 Room Air Intake and Output 02/13/19 02/14/19 18:59 06:59 Intake Total 380 ml 350 ml Output Total 3150 ml Balance -2770 ml 350 ml Intake Oral 380 ml 350 ml Output Urine Total 150 ml Hemodialysis UF 3000 ml Laboratory Tests 02/13/19 16:00: Urine Color Pale yellow, Urine Appearance Clear, Urine pH 9, Urine Specific [place] 1.015, Urine Protein 4+H, Urine Glucose (UA) 2+H, Urine Ketones 1+H, Urine Blood Negative, Urine Nitrite Negative, Urine Bilirubin Negative, Urine Urobilinogen Normal, Urine Leukocyte Esterase Negative, Urine RBC 0-2, Urine WBC 0-2, Urine Squamous Epithelial Cells Occasional, Urine Bacteria Occasional, Urine Random Sodium 102 02/14/19 06:36: White Blood Count 6.6, Red Blood Count 3.03L, Hemoglobin 9.6L, Hematocrit 28.2L , Mean Corpuscular Volume 93, Mean Corpuscular Hemoglobin 31.6H, Mean Corpuscular Hemoglobin Concent 33.9, Red Cell Distribution Width 14.7, Platelet Count 208, Mean Platelet Volume 7.1, Neutrophils (%) (Auto) 65.8, Lymphocytes (% ) (Auto) 18.4L, Monocytes (%) (Auto) 9.6, Eosinophils (%) (Auto) 4.6H, Basophils (%) (Auto) 1.6, Sodium Level 138, Potassium Level 4.1, Chloride Level 100, Carbon Dioxide Level 32, Anion Gap 6, Blood Urea Nitrogen 30H, Creatinine 2.6H, Estimat Glomerular Filtration Rate 18.4, Glucose Level 155H, Calcium Level 7.8L, Phosphorus Level 1.6L, Magnesium Level 2.0, Total Bilirubin 0.3, Aspartate Amino Transf (AST/SGOT) 21, Alanine Aminotransferase (ALT/SGPT) 9L, Alkaline Phosphatase 113, C-Reactive Protein, Quantitative 2.7H, Pro-B-Type Natriuretic Peptide > 55004Z, Total Protein 6.2L, Albumin 1.9L, Globulin 4.3, Albumin/Globulin Ratio 0.4L, Free Thyroxine 1.29, Free Triiodothyronine 0.9L Height (Feet): 5 Height (Inches): 3.00 Weight (Pounds): 137 General Appearance: no apparent distress Cardiovascular: normal rate Respiratory/Chest: decreased breath sounds Abdomen: soft Juaquin Hadley MD Feb 14, 2019 08:56
[2019-02-14] MEDS: Liothyronine 5mcg tab ORAL SCH (08:57)
[2019-02-14] MEDS: Phospha 250 Neutral tab ORAL SCH ×2 (08:58→17:25)
[2019-02-14] MEDS ORDERED: Lisinopril 10mg tab ORAL SCH (09:00)
[2019-02-14] MEDS: Nitroglycerin Patch 0.4mg TDERMAL SCH (11:22)
[2019-02-14 12:00] VITALS: BP 161/75
[2019-02-14 16:00] VITALS: BP 160/77
[2019-02-14 20:00] VITALS: BP 121/49
[2019-02-14] MEDS: Tamsulosin 0.4mg cap ORAL SCH (20:19)
[2019-02-15] VITALS: BP 153/69
--- NOTE | 2019-02-15 00:15 | Progress Note ---
DATE: 02/14/2019 INTERNAL MEDICINE AND CARDIOLOGY PROGRESS NOTE SUBJECTIVE: The patient's blood pressure was quite elevated early today, but improved with adjustments in therapy. She is status post hemodialysis with ultrafiltration. She denies chest pain and there is no evidence of shortness of breath. OBJECTIVE: NECK: Jugular venous pressure is slightly elevated. LUNGS: Clear. CARDIAC: Regular. Normal S1, S2 with a fourth heart sound. EXTREMITIES: No edema. SKIN: Chest wall catheter site clean and dry. IMPRESSION: 1. Hypertensive urgency. 2. Nox-UG-bkucypxwa myocardial infarction. 3. End-stage renal disease. 4. Hypertensive cardiomyopathy. 5. Hypophosphatemia. 6. Urinary retention. PLAN: 1. Phosphate binder, dose was adjusted by volunteer services manager. 2. Ultrafiltration and diuresis based on clinical parameters. 3. Trial of tamsulosin. 4. Continue titration of anti-failure and antihypertensive regimen. 5. Discharge plan if agreeable to Nephrology tomorrow. Mariano White M.D. DR: Debbie JOB#: [id number] CC:
[2019-02-15 04:00] VITALS: BP 151/73
[2019-02-15] MEDS: NovoLOG Insulin Flexpen SUBQ SCH ×4 (06:00→21:51)
[2019-02-15 07:59] LABS: BASOPHILS % (AUTO) 0.7 % (0.0-2.0); EOSINOPHILS % (AUTO) 5.3 % (0.0-3.0); HEMATOCRIT 27.5 % (37.0-47.0); HEMOGLOBIN 9.3 G/DL (12.0-16.0); LYMPHOCYTES % (AUTO) 18.8 % (20.0-45.0); MEAN CORPUSCULAR VOLUME 93 FL (80-99); MONOCYTES % (AUTO) 8.4 % (1.0-10.0); NEUTROPHILS % (AUTO) 66.7 % (45.0-75.0); PLATELET COUNT 207 K/UL (150-450); RED BLOOD COUNT 2.95 M/UL (4.20-5.40); RED CELL DISTRIBUTION WIDTH 14.9 % (11.6-14.8); WHITE BLOOD COUNT 6.9 K/UL (4.8-10.8)
[2019-02-15 08:02] VITALS: BP 180/78
[2019-02-15] MEDS: Aspirin Baby 81mg ORAL SCH (08:38)
[2019-02-15] MEDS: Docusate 100mg cap ORAL SCH ×3 (08:39→17:29)
[2019-02-15] MEDS: Lisinopril 20mg tab ORAL SCH ×2 (08:39→17:30)
[2019-02-15] MEDS: Liothyronine 5mcg tab ORAL SCH (08:39)
[2019-02-15] MEDS: Heparin 5000 units/ml inj SUBQ SCH ×2 (08:49→20:45)
[2019-02-15 09:22] LABS: ALANINE AMINOTRANSFERASE 8 U/L (12-78); ALBUMIN/GLOBULIN RATIO 0.5 (1.0-2.7); ALKALINE PHOSPHATASE 118 U/L (46-116); ANION GAP 10 mmol/L (5-15); ASPARTATE AMINO TRANSFERASE 23 U/L (15-37); BILIRUBIN,TOTAL 0.3 MG/DL (0.2-1.0); BLOOD UREA NITROGEN 38 mg/dL (7-18); CALCIUM 7.8 MG/DL (8.5-10.1); CARBON DIOXIDE 30 MMOL/L (21-32); CHLORIDE 98 MMOL/L (98-107); CREATININE 3.2 MG/DL (0.55-1.30); PHOSPHORUS 2.4 MG/DL (2.5-4.9); POTASSIUM 4.3 MMOL/L (3.5-5.1); SODIUM 138 MMOL/L (136-145)
--- NOTE | 2019-02-15 10:36 | Nephrology Progress Note ---
Assessment/Plan Assessment/Plan: A/P 1) Anemia in chronic kidney disease- EPO if Hgb <10 2) Hypertensive urgency- resolved 3) End-stage renal disease- Hold Hd and monitor for now - monitor residual renal function - if BUN and Cr worse jerome will order HD 4) CHF (congestive heart failure), NYHA class II - compensated 5) NSTEMI (non-ST elevated myocardial infarction)- per cardiology Subjective Date patient seen: Feb 15, 2019 Time patient seen: 10:32 ROS Limited/Unobtainable: No Allergies: Coded Allergies: No Known Allergies (Unverified , 10/06/18) Subjective Patient resting comfortably. In no distress Objective Last 24 Hour Vital Signs Date Time Temp Pulse Resp B/P (MAP) Pulse Ox O2 Delivery O2 Flow Rate FiO2 02/15/19 09:00 Nasal Cannula 2.0 02/15/19 08:39 180/78 02/15/19 08:39 73 180/78 02/15/19 08:38 73 180/78 02/15/19 08:02 97.6 73 18 180/78 (112) 96 02/15/19 08:00 73 02/15/19 04:00 97.8 72 20 151/73 (99) 99 02/15/19 04:00 74 02/15/19 00:00 98.2 72 18 153/69 (97) 97 02/15/19 00:00 71 02/14/19 21:00 Nasal Cannula 2.0 02/14/19 20:20 82 121/49 02/14/19 20:05 96 Nasal Cannula 2.0 02/14/19 20:00 98.2 82 18 121/49 (73) 96 02/14/19 20:00 75 02/14/19 20:00 2.0 02/14/19 17:26 68 160/77 02/14/19 17:25 160/77 02/14/19 16:00 98.0 68 18 160/77 (104) 97 02/14/19 15:35 73 02/14/19 12:00 97.6 69 18 161/75 (103) 99 02/14/19 11:51 71 02/14/19 11:22 175/77 Intake and Output 02/14/19 02/15/19 18:59 06:59 Intake Total 400 ml Output Total 0 ml Balance 400 ml 0 ml Intake Oral 400 ml Output Urine Total 0 ml # Voids 2 Laboratory Tests 02/15/19 05:27: White Blood Count 6.9, Red Blood Count 2.95L, Hemoglobin 9.3L, Hematocrit 27.5L , Mean Corpuscular Volume 93, Mean Corpuscular Hemoglobin 31.5H, Mean Corpuscular Hemoglobin Concent 33.9, Red Cell Distribution Width 14.9H, Platelet Count 207, Mean Platelet Volume 6.3L, Neutrophils (%) (Auto) 66.7, Lymphocytes (%) (Auto) 18.8L, Monocytes (%) (Auto) 8.4, Eosinophils (%) (Auto) 5.3H, Basophils (%) (Auto) 0.7, Sodium Level 138, Potassium Level 4.3, Chloride Level 98, Carbon Dioxide Level 30, Anion Gap 10, Blood Urea Nitrogen 38H, Creatinine 3.2H, Estimat Glomerular Filtration Rate 14.5, Glucose Level 153H, Uric Acid 2.8, Calcium Level 7.8L, Phosphorus Level 2.4L, Magnesium Level 2.0, Total Bilirubin 0.3, Aspartate Amino Transf (AST/SGOT) 23, Alanine Aminotransferase (ALT/SGPT) 8L, Alkaline Phosphatase 118H, Troponin I 0.036, C- Reactive Protein, Quantitative 2.3H, Pro-B-Type Natriuretic Peptide > 41406I, Total Protein 6.3L, Albumin 2.0L, Globulin 4.3, Albumin/Globulin Ratio 0.5L Height (Feet): 5 Height (Inches): 3.00 Weight (Pounds): 134 General Appearance: no apparent distress, alert EENT: normal ENT inspection Neck: normal alignment, supple Cardiovascular: normal rate, regular rhythm Respiratory/Chest: lungs clear, normal breath sounds Abdomen: non tender, soft Edema: no edema noted Arm (L), no edema noted Arm (R), no edema noted Leg (L), no edema noted Leg (R), no edema noted Pedal (L), no edema noted Pedal (R), no edema noted Generalized Alden Campa MD Feb 15, 2019 10:36
[2019-02-15] MEDS: Nitroglycerin Patch 0.4mg TDERMAL SCH (11:57)
[2019-02-15 12:00] VITALS: BP 114/81
--- NOTE | 2019-02-15 13:15 | Cardiology Report ---
APPROVED REPORT EKG Measurement Heart [id number] OK 132P10 [id number] Normal sinus rhythm Possible Left atrial enlargement Nonspecific T wave abnormality Abnormal ECG
[2019-02-15] MEDS ORDERED: NS 275ml ONE (15:51)
[2019-02-15 16:00] VITALS: BP 170/82
[2019-02-15 20:00] VITALS: BP 175/77
[2019-02-15] MEDS: Tamsulosin 0.4mg cap ORAL SCH (20:40)
--- NOTE | 2019-02-15 22:30 | Progress Note ---
DATE: 02/15/2019 SUBJECTIVE: The patient has no distress. No shortness of breath. No chest pain. Renal function is being monitored by incident analyst. Blood pressure is tenuous and labile still, but improved overall. OBJECTIVE: LUNGS: Clear. CARDIAC: Regular rhythm and rate. Normal S1 and S2 with a fourth heart sound. Chest wall catheter site clean and dry. EXTREMITIES: No edema. IMPRESSION: 1. Hypertensive urgency, resolved. 2. Hypertensive heart disease with elevated blood pressure, slowly improving. 3. End-stage renal disease. 4. Anemia of chronic kidney disease. 5. Acute on chronic diastolic congestive heart failure, now compensated. 6. Bux-DD-dbwogilep myocardial infarction precipitated by hypertensive urgency and diastolic dysfunction. PLAN: Followup regarding need for hemodialysis. Continue titration of antihypertensives. Discharge plan in the next 24 hours if no need for dialysis. Mariano White M.D. DR: DOC JOB#: [id number] CC:
[2019-02-16] VITALS: BP 161/70
[2019-02-16 04:00] VITALS: BP 168/72
[2019-02-16] MEDS: NovoLOG Insulin Flexpen SUBQ SCH ×4 (06:56→21:11)
[2019-02-16 08:00] VITALS: BP 185/78
[2019-02-16 08:13] LABS: ANION GAP 11 mmol/L (5-15); BLOOD UREA NITROGEN 49 mg/dL (7-18); CALCIUM 7.8 MG/DL (8.5-10.1); CARBON DIOXIDE 28 MMOL/L (21-32); CHLORIDE 98 MMOL/L (98-107); CREATININE 3.8 MG/DL (0.55-1.30); POTASSIUM 4.7 MMOL/L (3.5-5.1); SODIUM 137 MMOL/L (136-145)
[2019-02-16] MEDS: Docusate 100mg cap ORAL SCH ×3 (09:00→17:25)
[2019-02-16] MEDS: Liothyronine 5mcg tab ORAL SCH (09:00)
[2019-02-16] MEDS: Aspirin Baby 81mg ORAL SCH (09:01)
[2019-02-16] MEDS: Lisinopril 20mg tab ORAL SCH ×2 (09:01→17:26)
[2019-02-16] MEDS: Heparin 5000 units/ml inj SUBQ SCH ×2 (09:08→21:10)
--- NOTE | 2019-02-16 10:11 | Nephrology Progress Note ---
Assessment/Plan Assessment/Plan: A/P 1) Anemia in chronic kidney disease- EPO if Hgb <10 2) Hypertensive urgency- resolved - stable 3) End-stage renal disease- HD today - monitor residual renal function 4) CHF (congestive heart failure), NYHA class II - compensated - 2 L UF today 5) NSTEMI (non-ST elevated myocardial infarction)- per cardiology Subjective Date patient seen: Feb 16, 2019 Time patient seen: 10:10 ROS Limited/Unobtainable: No Allergies: Coded Allergies: No Known Allergies (Unverified , 10/06/18) Subjective Patient resting comfortably. Constipated Objective Last 24 Hour Vital Signs Date Time Temp Pulse Resp B/P (MAP) Pulse Ox O2 Delivery O2 Flow Rate FiO2 02/16/19 09:02 70 185/78 02/16/19 09:01 185/78 02/16/19 09:01 70 185/78 02/16/19 07:10 95 Nasal Cannula 2.0 28 02/16/19 04:00 97.5 75 18 168/72 (104) 98 02/16/19 04:00 62 02/16/19 00:00 63 02/16/19 00:00 97.5 75 18 161/70 (100) 98 02/15/19 21:00 Nasal Cannula 2.0 02/15/19 20:43 175/77 02/15/19 20:42 75 175/77 02/15/19 20:00 72 02/15/19 20:00 97.9 76 20 175/77 (109) 98 02/15/19 17:30 180/86 02/15/19 17:30 82 180/86 02/15/19 16:37 170/82 02/15/19 16:00 98.0 71 18 170/82 (111) 98 02/15/19 16:00 70 02/15/19 12:00 74 02/15/19 12:00 98.4 72 18 114/81 (92) 98 02/15/19 11:57 180/78 Intake and Output 02/15/19 02/16/19 19:00 07:00 Intake Total 420 ml Balance 420 ml Intake Oral 420 ml Laboratory Tests 02/16/19 06:12: Sodium Level 137, Potassium Level 4.7, Chloride Level 98, Carbon Dioxide Level 28, Anion Gap 11, Blood Urea Nitrogen 49H, Creatinine 3.8H, Estimat Glomerular Filtration Rate 11.9, Glucose Level 116H, Calcium Level 7.8L Height (Feet): 5 Height (Inches): 3.00 Weight (Pounds): 136 General Appearance: no apparent distress, alert EENT: normal ENT inspection Neck: normal alignment, supple Cardiovascular: normal rate, regular rhythm Respiratory/Chest: lungs clear, normal breath sounds Abdomen: non tender, soft Edema: no edema noted Arm (L), no edema noted Arm (R), no edema noted Leg (L), no edema noted Leg (R), no edema noted Pedal (L), no edema noted Pedal (R), no edema noted Generalized Alden Campa MD Feb 16, 2019 10:11
[2019-02-16] MEDS: Lactulose 20gm/30ml UDC ORAL SCH ×2 (11:45→17:27)
[2019-02-16] MEDS: Nitroglycerin Patch 0.4mg TDERMAL SCH (11:46)
[2019-02-16 12:36] VITALS: BP 179/76
[2019-02-16 16:00] VITALS: BP 189/81
[2019-02-16] MEDS ORDERED: CARVEDILOL6.25 MG ORAL (17:35)
[2019-02-16] MEDS ORDERED: VITAMIN C500 M1 ORAL (17:35)
[2019-02-16] MEDS ORDERED: AMLODIPINE BESYL5 MG ORAL (17:35)
[2019-02-16] MEDS ORDERED: GLIMEPIRIDE1 MG ORAL (17:35)
[2019-02-16] MEDS ORDERED: ASPIRIN EC81 MG ORAL (17:36)
[2019-02-16] MEDS ORDERED: CATAPRES0.1 MG ORAL (17:38)
[2019-02-16 19:54] LABS: CHOLESTEROL 125 MG/DL (< 200); HDL CHOLESTEROL 31 MG/DL (40-60); TRIGLYCERIDES 109 MG/DL (30-150)
[2019-02-16 20:00] VITALS: BP 164/79
--- NOTE | 2019-02-16 20:15 | Progress Note ---
DATE: 02/16/2019 CARDIOLOGY PROGRESS NOTE SUBJECTIVE: No new complaints. The patient is undergoing hemodialysis with ultrafiltration today. Blood pressure parameters remain elevated. OBJECTIVE: LUNGS: Clear. CARDIAC: Regular. Normal S1, S2 with a fourth heart sound. ABDOMEN: Soft. EXTREMITIES: No edema. IMPRESSION: 1. Hypertensive urgency, malignant-range hypertension. 2. End-stage renal disease. 3. Acute fiu-ZZ-fgwvjlung myocardial infarction. 4. Acute and chronic diastolic congestive heart failure. PLAN: 1. Volume management with ultrafiltration. 2. Titrate and advance antihypertensives. 3. Continue anti-platelet therapy. 4. Discharge planning long-term. 5. Check lipid panel. 6. Consider statin drug for LDL goal below 100. Mariano White M.D. DR: Debbie JOB#: [id number] CC:
[2019-02-16] MEDS: Tamsulosin 0.4mg cap ORAL SCH (21:08)
[2019-02-16] MEDS: Carvedilol 6.25mg Tab ORAL SCH (21:09)
[2019-02-17 04:00] VITALS: BP 148/74
[2019-02-17] MEDS: NovoLOG Insulin Flexpen SUBQ SCH ×4 (05:58→20:47)
[2019-02-17 07:38] LABS: BASOPHILS % (AUTO) 1.3 % (0.0-2.0); EOSINOPHILS % (AUTO) 6.4 % (0.0-3.0); HEMATOCRIT 28.5 % (37.0-47.0); HEMOGLOBIN 9.5 G/DL (12.0-16.0); LYMPHOCYTES % (AUTO) 17.5 % (20.0-45.0); MEAN CORPUSCULAR VOLUME 95 FL (80-99); MONOCYTES % (AUTO) 9.2 % (1.0-10.0); NEUTROPHILS % (AUTO) 65.6 % (45.0-75.0); PLATELET COUNT 208 K/UL (150-450); RED BLOOD COUNT 3.01 M/UL (4.20-5.40); WHITE BLOOD COUNT 6.3 K/UL (4.8-10.8)
[2019-02-17 08:00] VITALS: BP 172/86
[2019-02-17 08:55] LABS: ALANINE AMINOTRANSFERASE 10 U/L (12-78); ALBUMIN/GLOBULIN RATIO 0.4 (1.0-2.7); ALKALINE PHOSPHATASE 117 U/L (46-116); ANION GAP 8 mmol/L (5-15); ASPARTATE AMINO TRANSFERASE 26 U/L (15-37); BILIRUBIN,TOTAL 0.3 MG/DL (0.2-1.0); BLOOD UREA NITROGEN 29 mg/dL (7-18); CARBON DIOXIDE 28 MMOL/L (21-32); CHLORIDE 99 MMOL/L (98-107); CREATININE 3.1 MG/DL (0.55-1.30); POTASSIUM 4.7 MMOL/L (3.5-5.1); SODIUM 135 MMOL/L (136-145)
--- NOTE | 2019-02-17 08:55 | Cardiology Report ---
APPROVED REPORT EXAM: Two-dimensional and M-mode echocardiogram with Doppler and color Doppler. INDICATION Congestive Heart Failure M-Mode DIMENSIONS IVSd1.3 (0.7-1.1cm)Left Atrium (MM)4.1 (1.6-4.0cm) LVDd5.2 (3.5-5.6cm)Aortic Root2.8 (2.0-3.7cm) PWd1.8 (0.7-1.1cm)Aortic Cusp Exc.1.9 (1.5-2.0cm) IVSs2.5 cm LVDs3.5 (2.5-4.0cm) PWs2.1 cm Normal left ventricular chamber size, systolic function and wall motion. Left ventricular ejection fraction estimated to be 55 -60%. Mild left ventricular hypertrophy by 2-D. Trace pericardial effusion. Large pleural effusion. Mild left atrial enlargement . Right cardiac chamber sizes are within normal limits. Focal aortic valve sclerosis with adequate cusp excursion. Thickened mitral valve leaflets with normal excursion. Mitral annulus and aortic root calcification. Normal pulmonic valve structure. Normal tricuspid valve structure. IVC at normal size with physiologic collapse. A color flow and spectral Doppler study was performed and revealed: No aortic regurgitation. Trace mitral regurgitation. Mitral diastolic velocities suggest reduced left ventricular relaxation c/w mild LV diastolic dysfunction (Grade I ) Trace tricuspid regurgitation. Tricuspid systolic velocities suggests peak right ventricular systolic pressure of 11mmHg.
[2019-02-17 09:05] LABS: PHOSPHORUS 3.3 MG/DL (2.5-4.9)
[2019-02-17] MEDS: Carvedilol 6.25mg Tab ORAL SCH ×2 (09:16→20:42)
[2019-02-17] MEDS: Liothyronine 5mcg tab ORAL SCH (09:16)
[2019-02-17] MEDS: Lactulose 20gm/30ml UDC ORAL SCH (09:16)
[2019-02-17] MEDS: Docusate 100mg cap ORAL SCH ×3 (09:17→17:57)
[2019-02-17] MEDS: Aspirin Baby 81mg ORAL SCH (09:17)
[2019-02-17] MEDS: Lisinopril 20mg tab ORAL SCH ×2 (09:18→17:58)
[2019-02-17] MEDS: HydrALAZINE 25mg tab ORAL SCH ×3 (09:20→21:04)
[2019-02-17] MEDS: Heparin 5000 units/ml inj SUBQ SCH ×2 (09:20→20:46)
--- NOTE | 2019-02-17 10:40 | Nephrology Progress Note ---
Assessment/Plan Problem List: (1) Anemia in chronic kidney disease (2) Hypertensive urgency (3) End-stage renal disease (4) CHF (congestive heart failure), NYHA class II (5) NSTEMI (non-ST elevated myocardial infarction) Assessment ESRD HTN OOC NSTEMI Cardiomyopathy Low Phos Plan stop Phos binder- Last dialysis 02/16 Zaroxyllin one dose flomax, had 170 cc retention Optimize cardiac status BP control HD and UF as needed Subjective ROS Limited/Unobtainable: No Constitutional: Reports: other - stronger Objective Objective Last 24 Hour Vital Signs Date Time Temp Pulse Resp B/P (MAP) Pulse Ox O2 Delivery O2 Flow Rate FiO2 02/17/19 09:20 172/86 02/17/19 09:18 172/86 02/17/19 09:17 79 172/86 02/17/19 09:16 71 145/78 02/17/19 08:00 98.2 79 20 172/86 (114) 96 02/17/19 04:00 73 02/17/19 04:00 97.4 70 18 148/74 (98) 96 02/17/19 00:00 60 02/16/19 21:09 68 164/79 02/16/19 21:00 Nasal Cannula 2.0 02/16/19 20:00 97.2 68 18 164/79 (107) 98 02/16/19 19:32 75 02/16/19 17:26 189/81 02/16/19 17:26 70 189/81 02/16/19 16:00 98.1 79 18 189/81 (117) 96 02/16/19 16:00 70 02/16/19 12:36 97.6 72 8 179/76 (110) 95 02/16/19 12:00 70 02/16/19 11:46 185/78 Intake and Output 02/16/19 02/17/19 19:00 07:00 Intake Total 440 ml 220 ml Output Total 2000 ml Balance -1560 ml 220 ml Intake Oral 440 ml 220 ml Hemodialysis UF 2000 ml # Bowel Movements 1 Laboratory Tests 02/17/19 06:15: White Blood Count 6.3, Red Blood Count 3.01L, Hemoglobin 9.5L, Hematocrit 28.5L , Mean Corpuscular Volume 95, Mean Corpuscular Hemoglobin 31.7H, Mean Corpuscular Hemoglobin Concent 33.4, Red Cell Distribution Width 15.0H, Platelet Count 208, Mean Platelet Volume 6.9, Neutrophils (%) (Auto) 65.6, Lymphocytes (%) (Auto) 17.5L, Monocytes (%) (Auto) 9.2, Eosinophils (%) (Auto) 6.4H, Basophils (%) (Auto) 1.3, Sodium Level 135L, Potassium Level 4.7, Chloride Level 99, Carbon Dioxide Level 28, Anion Gap 8, Blood Urea Nitrogen 29H , Creatinine 3.1H, Estimat Glomerular Filtration Rate 15.1, Glucose Level 130H, Calcium Level 8.0L, Phosphorus Level 3.3, Magnesium Level 2.0, Total Bilirubin 0.3, Aspartate Amino Transf (AST/SGOT) 26, Alanine Aminotransferase (ALT/SGPT) 10L, Alkaline Phosphatase 117H, C-Reactive Protein, Quantitative 2.0H, Pro-B- Type Natriuretic Peptide > 38109Q, Total Protein 6.5, Albumin 2.0L, Globulin 4.5 , Albumin/Globulin Ratio 0.4L Height (Feet): 5 Height (Inches): 3.00 Weight (Pounds): 136 General Appearance: no apparent distress, other - stronger Cardiovascular: normal rate Respiratory/Chest: decreased breath sounds Abdomen: soft Juaquin Hadley MD Feb 17, 2019 10:40
[2019-02-17] MEDS: Nitroglycerin Patch 0.4mg TDERMAL SCH (11:17)
[2019-02-17 12:00] VITALS: BP 181/79
[2019-02-17 16:00] VITALS: BP 153/70
[2019-02-17 20:00] VITALS: BP 168/68
[2019-02-17] MEDS: Tamsulosin 0.4mg cap ORAL SCH (20:42)
--- NOTE | 2019-02-17 23:30 | Progress Note ---
DATE: 02/17/2019 CARDIOLOGY PROGRESS NOTE SUBJECTIVE: No chest pain, still some shortness of breath. OBJECTIVE: VITAL SIGNS: Blood pressure parameters remain elevated. The patient is status post hemodialysis with ultrafiltration yesterday. NECK: Jugular venous pressure elevated LUNGS: Clear. CARDIAC: Regular. Normal S1, S2 with a fourth heart sound. EXTREMITIES: Without edema. IMPRESSION: Improved but still has inadequate control of blood pressure that can precipitate recurrence of presenting symptoms. PLAN: 1. Advancing antihypertensive regimen without change. 2. Hemodialysis per Dr. Hadley. 3. Discharge plan once blood pressure adequately controlled. Mariano White M.D. DR: Earnest JOB#: [id number] CC:
[2019-02-18] VITALS: BP 152/64
[2019-02-18 04:00] VITALS: BP 163/65
[2019-02-18] MEDS: HydrALAZINE 25mg tab ORAL SCH (06:00)
[2019-02-18] MEDS: NovoLOG Insulin Flexpen SUBQ SCH ×2 (06:01→12:06)
[2019-02-18 07:32] LABS: ALANINE AMINOTRANSFERASE 8 U/L (12-78); ALBUMIN/GLOBULIN RATIO 0.4 (1.0-2.7); ALKALINE PHOSPHATASE 133 U/L (46-116); ANION GAP 8 mmol/L (5-15); ASPARTATE AMINO TRANSFERASE 20 U/L (15-37); BILIRUBIN,TOTAL 0.3 MG/DL (0.2-1.0); BLOOD UREA NITROGEN 36 mg/dL (7-18); CALCIUM 8.1 MG/DL (8.5-10.1); CARBON DIOXIDE 29 MMOL/L (21-32); CHLORIDE 97 MMOL/L (98-107); CREATININE 3.9 MG/DL (0.55-1.30); PHOSPHORUS 3.4 MG/DL (2.5-4.9); POTASSIUM 4.4 MMOL/L (3.5-5.1); SODIUM 134 MMOL/L (136-145)
[2019-02-18 08:00] VITALS: BP 174/75
[2019-02-18] MEDS: Carvedilol 6.25mg Tab ORAL SCH (09:07)
[2019-02-18] MEDS: Lisinopril 20mg tab ORAL SCH (09:07)
[2019-02-18] MEDS: Docusate 100mg cap ORAL SCH ×2 (09:07→13:00)
[2019-02-18] MEDS: Aspirin Baby 81mg ORAL SCH (09:07)
[2019-02-18] MEDS: Liothyronine 5mcg tab ORAL SCH (09:08)
[2019-02-18] MEDS: Heparin 5000 units/ml inj SUBQ SCH (09:10)
[2019-02-18] MEDS ORDERED: Carvedilol 6.25mg Tab ORAL ONE (10:15)
[2019-02-18] MEDS: Nitroglycerin Patch 0.4mg TDERMAL SCH (10:31)
[2019-02-18 12:00] VITALS: BP 169/78
--- NOTE | 2019-02-18 13:12 | Nephrology Progress Note ---
Assessment/Plan Problem List: (1) Anemia in chronic kidney disease (2) Hypertensive urgency (3) End-stage renal disease (4) CHF (congestive heart failure), NYHA class II (5) NSTEMI (non-ST elevated myocardial infarction) Assessment ESRD HTN OOC NSTEMI Cardiomyopathy Low Phos Plan stop Phos binder- Last dialysis 02/16 next 02/19 Zaroxyllin one dose again flomax, had 170 cc retention Optimize cardiac status BP control HD and UF as needed Ok to Dc - OP HD Subjective ROS Limited/Unobtainable: No Objective Objective Last 24 Hour Vital Signs Date Time Temp Pulse Resp B/P (MAP) Pulse Ox O2 Delivery O2 Flow Rate FiO2 02/18/19 12:00 97.7 65 20 169/78 (108) 97 02/18/19 10:31 81 174/75 02/18/19 10:31 81 174/75 02/18/19 10:31 174/75 02/18/19 09:07 81 174/75 02/18/19 09:07 174/75 02/18/19 09:07 81 174/75 02/18/19 09:00 Nasal Cannula 2.0 02/18/19 08:00 97.1 81 18 174/75 (108) 98 02/18/19 08:00 80 02/18/19 06:00 163/65 02/18/19 04:00 62 02/18/19 04:00 97.5 71 16 163/65 (97) 95 02/18/19 00:00 62 02/18/19 00:00 97.6 70 16 152/64 (93) 98 02/17/19 21:04 168/68 02/17/19 21:00 Nasal Cannula 2.0 02/17/19 20:42 69 168/68 02/17/19 20:06 97 Nasal Cannula 2.0 28 02/17/19 20:00 69 02/17/19 20:00 98.7 72 18 168/68 (101) 98 02/17/19 17:58 153/70 02/17/19 17:57 80 153/70 02/17/19 16:00 80 02/17/19 16:00 98.5 72 20 153/70 (97) 98 02/17/19 14:12 180/70 Intake and Output 02/17/19 02/18/19 19:00 07:00 Intake Total 540 ml 120 ml Balance 540 ml 120 ml Intake Oral 540 ml 120 ml # Voids 5 Current Medications Medications (Trade) Dose Ordered Sig/Vasile Route PRN Reason Start Time Stop Time Status Last Admin Dose Admin Amlodipine Besylate (Norvasc) 10 mg BID ORAL 02/18/19 18:00 03/15/19 08:59 Aspirin (ASA) 162 mg DAILY ORAL 02/14/19 09:00 03/15/19 08:59 02/18/19 09:07 Atorvastatin Calcium (Lipitor) 10 mg BEDTIME ORAL 02/13/19 21:00 03/15/19 20:59 02/17/19 20:42 Carvedilol (Coreg) 12.5 mg EVERY 12 HOURS ORAL 02/18/19 21:00 03/18/19 20:59 Clonidine HCl (Catapres Tab) 0.1 mg Q4HR PRN ORAL BP over 170 syst 02/12/19 21:30 03/14/19 21:29 02/17/19 12:33 Dextrose (Dextrose 50%) 25 ml Q30M PRN IV Hypoglycemia 02/13/19 03:15 03/15/19 03:14 Dextrose (Dextrose 50%) 50 ml Q30M PRN IV Hypoglycemia 02/13/19 03:15 03/15/19 03:14 Docusate Sodium (Colace) 100 mg THREE TIMES A DAY ORAL 02/17/19 13:00 03/19/19 12:59 02/18/19 09:07 Heparin Sodium (Porcine) (Heparin 5000 units/ml) 5,000 units EVERY 12 HOURS SUBQ 02/13/19 09:00 03/15/19 08:59 02/18/19 09:10 Hydralazine HCl (Apresoline) 50 mg Q8HR ORAL 02/18/19 14:00 03/19/19 09:01 Insulin Aspart (NovoLOG) BEFORE MEALS AND HS SUBQ 02/13/19 06:30 03/15/19 06:29 02/18/19 12:06 Liothyronine Sodium (Cytomel) 5 mcg DAILY ORAL 02/14/19 09:00 03/16/19 08:59 02/18/19 09:08 Lisinopril (Prinivil) 20 mg BID ORAL 02/14/19 09:00 03/16/19 08:59 02/18/19 09:07 Nitroglycerin (Ntg) 1 patch Q24H TDERMAL 02/13/19 11:00 03/15/19 10:59 02/18/19 10:31 Pantoprazole (Protonix) 40 mg Q12HR ORAL 02/13/19 21:00 03/15/19 20:59 02/18/19 09:08 Tamsulosin HCl (Flomax) 0.4 mg BEDTIME ORAL 02/14/19 21:00 03/16/19 20:59 02/17/19 20:42 Laboratory Tests 02/18/19 06:14: Sodium Level 134L, Potassium Level 4.4, Chloride Level 97L, Carbon Dioxide Level 29, Anion Gap 8, Blood Urea Nitrogen 36H, Creatinine 3.9H, Estimat Glomerular Filtration Rate 11.5, Glucose Level 158H, Uric Acid 3.4, Calcium Level 8.1L, Phosphorus Level 3.4, Magnesium Level 2.1, Total Bilirubin 0.3, Aspartate Amino Transf (AST/SGOT) 20, Alanine Aminotransferase (ALT/SGPT) 8L, Alkaline Phosphatase 133H, Troponin I 0.017, Pro-B-Type Natriuretic Peptide > 35916Q, Total Protein 6.5, Albumin 2.0L, Globulin 4.5, Albumin/Globulin Ratio 0.4L Height (Feet): 5 Height (Inches): 3.00 Weight (Pounds): 135 General Appearance: no apparent distress Cardiovascular: normal rate Respiratory/Chest: decreased breath sounds Abdomen: soft Extremities: other - no edema Juaquin Hadley MD Feb 18, 2019 13:12
[2019-02-18] MEDS ORDERED: HydrALAZINE 50mg tab ORAL SCH (14:00)
[2019-02-18 14:13] VITALS: BP 169/78
[2019-02-18] MEDS ORDERED: Carvedilol 12.5mg tab ORAL SCH (21:00)
--- NOTE | 2019-02-19 08:59 | Discharge Summary ---
Discharge Summary Discharge Summary _ DATE OF ADMISSION: 02/12/2019 DATE OF DISCHARGE: 02/18/2019 DISCHARGED BY: REASON FOR ADMISSION: 68 years old female with past medical history of hypertensive heart disease, type 2 diabetes mellitus, end-stage renal disease , on hemodialysis, anemia of chronic kidney disease, osteoarthritis, started on hemodialysis several months ago. She came to emergency department with generalized weakness and shortness of breath. She reported compliance with medications and diet. Vital signs revealed blood pressure 219/87. Physical exam demonstrated decreased breath sounds and crackles at bases. Laboratory work-up revealed no leukocytosis , hemoglobin 9.6, hematocrit 26. BUN 34, creatinine 2.8. Glucose 75. Stable LFT. Troponin elevated -0.082. pro BNP about 35,000. Albumin 2.1. EKG revealed sinus rhythm, no acute ischemic changes. Chest x-ray demonstrated CHF , bilateral pleural effusion. Right Perma-cath in good position. Patient denied chest pain. Patient received aspirin and nitroglycerin paste. Hydralazine provided for malignant range of blood pressure. 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 Patient subsequently admitted to telemetry floor for further management. CONSULTANTS: behavioral consultant Dr. Hadley [facility]SE: Patient admitted to telemetry floor. Antihypertensive and anti-failure regimens were uptitrated. Hemodialysis with ultrafiltration was arranged urgently with close monitoring of volumes , cardiorenal parameters and electrolytes. Antiplatelet therapy continued. Second troponin trending down, and the last 2 troponin were negative. Per meteorologist liaison, patient had NSTEMI, precipitated by hypertensive urgency and diastolic dysfunction. Patient was continued on antiplatelet therapy and beta blockage. Lipid panel was stable. Statin was continued. Blood pressure was managed with calcium channel doc , beta-doc and hydralazine. DVT and GI prophylaxis provided. Echocardiogram demonstrated preserved ejection fraction of 55 to 60% with mild left ventricular hypertrophy. No evidence of wall motion abnormality. Right ventricular systolic pressure of 11. Check Writer Salesperson closely followed. Further hemodialysis with ultrafiltration provided. Patient received spot doses of metolazone. Initial hypophosphatemia was treated. Hypophosphatemia resolved, prior to discharge-3.4. Trial of Flomax initiated for urinary retention. Hemoglobin and hematocrit were closely monitored with goal to keep hemoglobin above 7. Hemoglobin and hematocrit remained at baseline, prior to discharge hemoglobin 9.5, hematocrit 28.5. Blood sugar was closely monitored and managed with sliding scale of insulin as needed. Hemoglobin A1c 4.9. Urinalysis revealed +4 protein, no evidence of urinary tract infection. Hepatitis B surface antigen was negative. Patient clinically stabilized and was ready for discharge home. FINAL DIAGNOSES: Acute on chronic diastolic congestive heart failure Hypertensive urgency End-stage renal disease , on hemodialysis NSTEMI, precipitated by hypertensive urgency and diastolic dysfunction Hypophosphatemia Hypertensive heart disease Type 2 diabetes mellitus Urinary retention DISCHARGE MEDICATIONS: See Medication Reconciliation list. DISCHARGE INSTRUCTIONS: Patient was discharged home with home health services. Follow up with primary care provider in one week. Follow-up with outpatient hemodialysis as scheduled. I have been assigned to dictate discharge summary for this account. I was not involved in the patient's management. Ct Schwarz NP Feb 19, 2019 08:59
== END 2019-02-18 15:36 | disposition home health service (06) | DRG 194 ==
LOC: EMR 20:00 → 2E 20:03 → EDBEDREQ 22:06
PROC: 5A1D70Z Performance of Urinary Filtration, Intermittent, Less than 6 Hours Per Day (ICD-10-PCS; principal; 2019-02-13)
DX: I13.2 Hypertensive heart and chronic kidney disease with heart failure and with stage 5 chronic kidney disease, or end stage renal disease (principal); I21.4 Non-ST elevation (NSTEMI) myocardial infarction; E11.22 Type 2 diabetes mellitus with diabetic chronic kidney disease; Z99.2 Dependence on renal dialysis; I50.33 Acute on chronic diastolic (congestive) heart failure; N18.6 End stage renal disease; I16.0 Hypertensive urgency; E83.39 Other disorders of phosphorus metabolism; R33.8 Other retention of urine; D63.1 Anemia in chronic kidney disease; M19.90 Unspecified osteoarthritis, unspecified site
CPT/HCPCS: 36415; 71045; 80048; 80053; 80061; 81001; 82550; 82607; 82728; 82746; 82962; 82977; 83036; 83690; 83735; 83880; 84100; 84300; 84439; 84443; 84481; 84484; 84550; 85025; 85610; 85730; 86140; 86706; 87081; 93005; 93306; 96374; 96375; 99285; C9399; J1815

== ENCOUNTER 2019-02-25 01:40 | Inpatient (IN) | payer MEDICAID ==
[~2019-02-25] VITALS: Ht 167.6 cm; Wt 62.6 kg
[2019-02-25] VITALS (8 sets, daily range): BP systolic 132–197; BP diastolic 54–96
[~2019-02-25 01:40] MED LIST changes: +AMLODIPINE BESYL5 MG ORAL; +ASPIRIN EC81 MG ORAL; +CARVEDILOL6.25 MG ORAL; +CATAPRES0.1 MG ORAL; +GLIMEPIRIDE1 MG ORAL; +VITAMIN C500 M1 ORAL
--- NOTE | 2019-02-25 01:45 | NUR ---
ED Nurse Note: Per family member, pt has low blood sugar. Pt poor historian; family member at bedside, stated s/s 0045. unk lastest blood sugar. Checked BS at triage, criticall low. Hx of dialysis.
--- NOTE | 2019-02-25 01:47 | NUR ---
ED Nurse Note: right upper chest dialysis port. dialysis schedule is ., , S. Pt completed dialysis on Sunday.
--- NOTE | 2019-02-25 01:55 | NUR ---
ED Nurse Note: pt given d50, pt is aox4, on room air.
[2019-02-25 02:26] LABS: BASOPHILS % (AUTO) 0.9 % (0.0-2.0); EOSINOPHILS % (AUTO) 1.9 % (0.0-3.0); HEMATOCRIT 33.8 % (37.0-47.0); HEMOGLOBIN 11.2 G/DL (12.0-16.0); LYMPHOCYTES % (AUTO) 14.4 % (20.0-45.0); MEAN CORPUSCULAR VOLUME 95 FL (80-99); MONOCYTES % (AUTO) 6.7 % (1.0-10.0); NEUTROPHILS % (AUTO) 76.1 % (45.0-75.0); PLATELET COUNT 313 K/UL (150-450); RED BLOOD COUNT 3.55 M/UL (4.20-5.40); RED CELL DISTRIBUTION WIDTH 16.1 % (11.6-14.8); WHITE BLOOD COUNT 9.9 K/UL (4.8-10.8)
[2019-02-25 02:54] LABS: ALANINE AMINOTRANSFERASE 11 U/L (12-78); ALBUMIN 2.6 G/DL (3.4-5.0); ALBUMIN/GLOBULIN RATIO 0.5 (1.0-2.7); ALKALINE PHOSPHATASE 130 U/L (46-116); ANION GAP 14 mmol/L (5-15); ASPARTATE AMINO TRANSFERASE 28 U/L (15-37); BILIRUBIN,TOTAL 0.3 MG/DL (0.2-1.0); BLOOD UREA NITROGEN 34 mg/dL (7-18); CALCIUM 8.6 MG/DL (8.5-10.1); CARBON DIOXIDE 25 MMOL/L (21-32); CHLORIDE 95 MMOL/L (98-107); CKMB 2.1 NG/ML (0.0-3.6); CREATINE KINASE 58 U/L (26-308); CREATININE 3.6 MG/DL (0.55-1.30); POTASSIUM 4.5 MMOL/L (3.5-5.1); SODIUM 134 MMOL/L (136-145)
--- NOTE | 2019-02-25 02:55 | Emergency Room Report ---
History of Present Illness General Chief Complaint: Abnormal Labs Source: Patient Present Illness HPI Patient is a 68-year-old female brought in by family member for increased altered mental status. Patient had been noted to be unresponsive. She had prior history of diabetes as well as end-stage renal disease currently on dialysis. She is normally dialyzed Sunday. She had been eating less than usual. Patient normally takes glimepiride as well as metformin. Patient is not on non-insulin Allergies: Coded Allergies: No Known Allergies (Unverified , 10/06/18) Patient History Past Medical History: see triage record Last Menstrual Period: na Reviewed Nursing Documentation: PMH: Agreed; PSxH: Agreed Nursing Documentation-PMH Hx Cardiac Problems: Yes Hx Hypertension: Yes Hx Asthma: No Hx Diabetes: Yes Hx Cancer: No Hx Gastrointestinal Problems: No Hx Neurological Problems: No Review of Systems All Other Systems: negative except mentioned in HPI Physical Exam Vital Signs Date Time Temp Pulse Resp B/P (MAP) Pulse Ox O2 Delivery O2 Flow Rate FiO2 02/25/19 01:44 87 22 98 Room Air 02/25/19 01:45 97.2 197/79 Sp02 EP Interpretation: reviewed, normal General Appearance: normal inspection, well appearing, no apparent distress, alert, GCS 15 Head: atraumatic ENT: normal ENT inspection, hearing grossly normal, normal voice Neck: normal inspection, full range of motion, supple, no bony tend Respiratory: normal inspection, lungs clear, normal breath sounds, no respiratory distress, no retraction, no wheezing Cardiovascular #1: regular rate, rhythm, no edema Gastrointestinal: normal inspection, normal bowel sounds, non tender, soft, no guarding, no hernia Genitourinary: no CVA tenderness Musculoskeletal: normal inspection, back normal, normal range of motion Neurologic: normal inspection, alert, oriented x3, responsive, aviation electrician III-XII nml as tested, speech normal Psychiatric: normal inspection, judgement/insight normal, mood/affect normal Medical Decision Making Diagnostic Impression: Primary Impression: End-stage renal disease Additional Impressions: Hypoglycemia Diabetes ER Course Patient presented for altered mental status. Differential diagnosis include was not limited to hypoglycemia, uremia, CVA, among others. Because of complexity of patient's case laboratory tests and imaging studies were ordered. Patient was noted to have prior history of type 2 diabetes and takes only oral hypoglycemics. Patient was brought in by wheelchair. Initial blood sugar was found to be critically low. Patient was given D50 and had improvement in her mental status very rapidly. Patient repeat sugar was noted to be in the 90s. She was given food. Patient is currently scheduled for dialysis. Patient's diabetes medications include metformin as well as glimepiride. patient had apparently not been eating as much as usual. Patient was started on D10 drip due to recurrent hypoglycemia. Dr. Jose J Hernandes was contacted for inpatient management due to recurrent hypoglycemia Labs Test 02/25/19 01:50 White Blood Count 9.9 K/UL (4.8-10.8) Red Blood Count 3.55 M/UL (4.20-5.40) Hemoglobin 11.2 G/DL (12.0-16.0) Hematocrit 33.8 % (37.0-47.0) Mean Corpuscular Volume 95 FL (80-99) Mean Corpuscular Hemoglobin 31.7 PG (27.0-31.0) Mean Corpuscular Hemoglobin Concent 33.2 G/DL (32.0-36.0) Red Cell Distribution Width 16.1 % (11.6-14.8) Platelet Count 313 K/UL (150-450) Mean Platelet Volume 6.5 FL (6.5-10.1) Neutrophils (%) (Auto) 76.1 % (45.0-75.0) Lymphocytes (%) (Auto) 14.4 % (20.0-45.0) Monocytes (%) (Auto) 6.7 % (1.0-10.0) Eosinophils (%) (Auto) 1.9 % (0.0-3.0) Basophils (%) (Auto) 0.9 % (0.0-2.0) Troponin I 0.021 ng/mL (0.000-0.056) Last Vital Signs Date Time Temp Pulse Resp B/P (MAP) Pulse Ox O2 Delivery O2 Flow Rate FiO2 02/25/19 01:45 97.2 87 22 197/79 98 Room Air Status: unchanged Disposition: PLACE IN OBSERVATION Referrals: NOT CHOSEN IPA/,REFERRING (PCP) Silas Cartwright MD Feb 25, 2019 02:55
--- NOTE | 2019-02-25 03:14 | NUR ---
ED Nurse Note: LACTIC REFLEX COLLECTED; SENT DOWN TO LAB.
--- NOTE | 2019-02-25 03:30 | NUR ---
ED Nurse Note: PT WAS OFFERED JUICE AND A SANDWHICH. PT DAUGHTER AT BEDSIDE.
--- NOTE | 2019-02-25 04:00 | NUR ---
ED Nurse Note: INFORMED ERMD OF PT LATEST BLOOD SUGAR (SEE INTERVENTION); WILL AWAIT FURTHER ORDERS AND MONITOR PT.
[2019-02-25] MEDS: Dextrose 10% 1,000 ML IV SCH ×2 (04:16→09:56)
--- NOTE | 2019-02-25 05:12 | NUR ---
ED Nurse Note: TELEPHONE REPORT GIVEN TO NICOL ABRAHAM FOR CONTINUITY OF CARE
--- NOTE | 2019-02-25 06:10 | NUR ---
ED Nurse Note: verbal report given to DARLENE jordan for continuity of care Addendum: 02/25/19 at 0631 by PDELEON TRANSFER TO FLOOR: Patient transferred to SDU as ordered, per ERMD . Report given to NICOL JORDAN. Belongings GIVEN TO PT. Family informed of transfer.
--- NOTE | 2019-02-25 06:15 | NUR ---
NURSE NOTES: Pt admitted from ER. Given report from NICOL Mccarty. Family; daughter at bedside. Pt is resting on the bed and drowsy and forgetful. On RA and SaO2 99% noted. Pt has Lt. upper chest Perma cath and dressing is clean and dry. Applied Tele monitor. No sign of hypoglycemic reaction. IV site intact and no sign of infiltration noted. Noted sacral area redness and slight open wound. Changed position. Given admission instruction. Placed fall precaution. Will continue to care plan.
--- NOTE | 2019-02-25 06:22 | NUR ---
Note jolynn in EDM - 02/25/19 at 0631 by ANGEL TRANSFER TO FLOOR: Patient transferred to SDU as ordered, per DALTON . Report given to NICOL CASTRO. Belongings GIVEN TO PT. Family informed of transfer.
[2019-02-25] MEDS: NovoLOG Insulin Flexpen SUBQ SCH ×4 (06:30→21:00)
--- NOTE | 2019-02-25 07:20 | NUR ---
HAND-OFF: Report given to NICOL Davis. Pt is resting on the bed and no sign of acute distress noted.
--- NOTE | 2019-02-25 07:29 | Diagnostic Imaging Report ---
Indication: Dyspnea Comparison: 02/12/2019 A single view chest radiograph was obtained. Findings: Hazy basilar opacities consistent with pleural effusions demonstrated. Pulmonary vascular congestion and mild cardiomegaly are noted. Permacath noted. IMPRESSION: Pulmonary vascular congestion. Bilateral pleural effusions
--- NOTE | 2019-02-25 07:30 | NUR ---
NURSE NOTES: Received report from Ron Rhodes RN. Patient opens eyes to voice, oriented x 3, able to make needs known and follow commands. On room air, respirations even and unlabored. Left forearm 18g saline lock and left chest permacath patent and asymptomatic. Bed locked in lowest position with side rails up x 3. All needs attended to. Call light within reach. Will continue to monitor.
[2019-02-25 08:31] LABS: BASOPHILS % (AUTO) 0.7 % (0.0-2.0); EOSINOPHILS % (AUTO) 0.6 % (0.0-3.0); HEMATOCRIT 33.3 % (37.0-47.0); HEMOGLOBIN 10.9 G/DL (12.0-16.0); LYMPHOCYTES % (AUTO) 14.8 % (20.0-45.0); MEAN CORPUSCULAR VOLUME 96 FL (80-99); MONOCYTES % (AUTO) 5.3 % (1.0-10.0); NEUTROPHILS % (AUTO) 78.5 % (45.0-75.0); PLATELET COUNT 288 K/UL (150-450); RED BLOOD COUNT 3.45 M/UL (4.20-5.40); RED CELL DISTRIBUTION WIDTH 16.2 % (11.6-14.8); WHITE BLOOD COUNT 10.1 K/UL (4.8-10.8)
[2019-02-25 08:47] LABS: ANION GAP 14 mmol/L (5-15); BLOOD UREA NITROGEN 36 mg/dL (7-18); CALCIUM 8.1 MG/DL (8.5-10.1); CARBON DIOXIDE 23 MMOL/L (21-32); CHLORIDE 90 MMOL/L (98-107); CREATININE 3.7 MG/DL (0.55-1.30); POTASSIUM 4.4 MMOL/L (3.5-5.1); SODIUM 127 MMOL/L (136-145)
--- NOTE | 2019-02-25 08:58 | History and Physical ---
History of Present Illness General Date patient seen: Feb 25, 2019 Reason for Hospitalization: Abnormal Labs Present Illness HPI This is a 68-year-old Lao-speaking female who was brought in by the family for altered mental status. Patient was found to be unresponsive at home. She has a history of type 2 diabetes and end-stage renal disease on hemodialysis on Sunday with Dr. Hadley. Family also reported poor oral intake. Patient is a poor historian and most of the information was obtained from reviewing her chart and previous records. Her chart she is taking metformin and glimepiride. She had a recent hospitalization earlier this month for hypertensive urgency, non-ST elevation NH, and diastolic dysfunction. In the ER she was found to have abnormal labs and elevated BP 197/79. Patient denies nausea, vomiting, diarrhea, chest pain, shortness of breath, palpitations , dizziness and lightheadedness. At the time of my exam she is alert and oriented x3. Past medical and surgical history: Hypertension, type 2 diabetes, ESRD on HD, anemia of chronic disease, OA, diastolic CHF, NSTEMI Family history: Patient does not recall any family history of hypertension or diabetes Social history: Denies smoking cigarettes, EtOH or illicit drug use Allergies: Coded Allergies: No Known Allergies (Unverified , 10/06/18) Medication History Scheduled Amlodipine Besylate* (Amlodipine Besylate*), 5 MG ORAL DAILY, (Reported) Ascorbic Acid* (Vitamin C*), 500 MG ORAL DAILY, (Reported) Aspirin Ec* (Aspirin Ec*), 81 MG ORAL DAILY, (Reported) Carvedilol* (Carvedilol*), 6.25 MG ORAL EVERY EVENING, (Reported) Glimepiride* (Glimepiride*), 1 MG ORAL BEFORE BREAKFAST, (Reported) Metformin Hcl* (Metformin Hcl*), 500 MG ORAL TWICE A DAY, (Reported) Scheduled PRN Clonidine Hcl* (Catapres*), 0.1 MG ORAL EVERY 6 HOURS PRN for SBP>110, (Reported ) Miscellaneous Medications [BP meds], (Reported) Patient History Healthcare decision maker Resuscitation status Advanced Directive on File Review of Systems Constitutional: Reports: weakness; Denies: no symptoms, see HPI, chills, sweats , fever, malaise, other Eye: Denies: no symptoms, see HPI, eye pain, blurred vision, tearing, double vision, nose pain, nose congestion, acuity changes, discharge, other ENT: Denies: no symptoms, see HPI, ear pain, ear discharge, nose pain, nose congestion, throat pain, throat swelling, mouth pain, hearing loss, nasal discharge, other Respiratory: Denies: no symptoms, see HPI, cough, orthopnea, shortness of breath, stridor, wheezing, [place], sputum, other Cardiovascular: Denies: no symptoms, see HPI, chest pain, edema, palpitations, syncope, PND, other Gastrointestinal: Denies: no symptoms, see HPI, abdominal pain, constipation, diarrhea, nausea, vomiting, melena, hematemesis, other Genitourinary: Denies: no symptoms, see HPI, discharge, dysuria, frequency, hematuria, pain, retention, incontinence, urgency, vag bleed/dc, other Musculoskeletal: Denies: no symptoms, see HPI, back pain, gout, joint pain, joint swelling, muscle pain, muscle stiffness, other Skin: Denies: no symptoms, see HPI, rash, change in color, change in hair/nails , dryness, lesions, other Psychiatric: Denies: no symptoms, see HPI, prior hx, anxiety, depressed feelings, emotional problems, SI, HI, hallucinations, other Neurological: Denies: no symptoms, see HPI, headache, numbness, paresthesia, seizure, tingling, tremors, focal weakness, syncope, dizziness, other Endocrine: Denies: no symptoms, see HPI, excessive sweating, flushing, intolerance to temperature, increased thirst, increased urine, unexplained weight loss, other Hematologic/Lymphatic: Denies: no symptoms, see HPI, anemia, blood clots, easy bleeding, easy bruising, swollen glands, diathesis, other Physical Exam Physical Exam Narrative General Appearance: normal inspection, well appearing, no apparent distress, alert, Head: atraumatic ENT: normal ENT inspection, hearing grossly normal, normal voice Neck: normal inspection, full range of motion, supple, no bony tend Respiratory: normal inspection, lungs clear, normal breath sounds, no respiratory distress, no retraction, no wheezing Cardiovascular : regular rate, rhythm, no m/r/g no edema Gastrointestinal: normal inspection, normal bowel sounds, non tender, soft, no guarding, no hernia Genitourinary: no CVA tenderness Musculoskeletal: normal inspection, back normal, normal range of motion Neurologic: normal inspection, alert, oriented x3, responsive, repair supervisor III-XII nml as tested, speech normal Psychiatric: normal inspection, judgement/insight normal, mood/affect normal Skin: right subclavian permcath, SABINE Last 24 Hour Vital Signs Date Time Temp Pulse Resp B/P (MAP) Pulse Ox O2 Delivery O2 Flow Rate FiO2 02/25/19 06:44 70 02/25/19 06:22 97.9 63 12 147/61 98 Room Air 02/25/19 06:15 97.0 75 157/74 (101) 02/25/19 03:44 97.5 67 13 153/54 97 Room Air 02/25/19 01:45 97.2 87 22 197/79 98 Room Air 02/25/19 01:44 87 22 98 Room Air Intake and Output 02/24/19 02/25/19 19:00 07:00 Intake Total 50 ml Output Total 0 ml Balance 50 ml Intake IV Total 50 ml Output Urine Total 0 ml Laboratory Tests Test 02/25/19 01:50 02/25/19 03:40 02/25/19 08:22 White Blood Count 9.9 K/UL (4.8-10.8) 10.1 K/UL (4.8-10.8) Red Blood Count 3.55 M/UL (4.20-5.40) L 3.45 M/UL (4.20-5.40) L Hemoglobin 11.2 G/DL (12.0-16.0) L 10.9 G/DL (12.0-16.0) L Hematocrit 33.8 % (37.0-47.0) L 33.3 % (37.0-47.0) L Mean Corpuscular Volume 95 FL (80-99) 96 FL (80-99) Mean Corpuscular Hemoglobin 31.7 PG (27.0-31.0) H 31.7 PG (27.0-31.0) H Mean Corpuscular Hemoglobin Concent 33.2 G/DL (32.0-36.0) 32.9 G/DL (32.0-36.0) Red Cell Distribution Width 16.1 % (11.6-14.8) H 16.2 % (11.6-14.8) H Platelet Count 313 K/UL (150-450) 288 K/UL (150-450) Mean Platelet Volume 6.5 FL (6.5-10.1) 6.9 FL (6.5-10.1) Neutrophils (%) (Auto) 76.1 % (45.0-75.0) H 78.5 % (45.0-75.0) H Lymphocytes (%) (Auto) 14.4 % (20.0-45.0) L 14.8 % (20.0-45.0) L Monocytes (%) (Auto) 6.7 % (1.0-10.0) 5.3 % (1.0-10.0) Eosinophils (%) (Auto) 1.9 % (0.0-3.0) 0.6 % (0.0-3.0) Basophils (%) (Auto) 0.9 % (0.0-2.0) 0.7 % (0.0-2.0) Sodium Level 134 MMOL/L (136-145) L 127 MMOL/L (136-145) L Potassium Level 4.5 MMOL/L (3.5-5.1) 4.4 MMOL/L (3.5-5.1) Chloride Level 95 MMOL/L (98-107) L 90 MMOL/L (98-107) L Carbon Dioxide Level 25 MMOL/L (21-32) 23 MMOL/L (21-32) Anion Gap 14 mmol/L (5-15) 14 mmol/L (5-15) Blood Urea Nitrogen 34 mg/dL (7-18) H 36 mg/dL (7-18) H Creatinine 3.6 MG/DL (0.55-1.30) H 3.7 MG/DL (0.55-1.30) H Estimat Glomerular Filtration Rate 12.6 mL/min (>60) 12.2 mL/min (>60) Glucose Level 14 MG/DL (74-106) *L 124 MG/DL (74-106) #H Lactic Acid Level 6.30 mmol/L (0.4-2.0) H 7.70 mmol/L (0.66-2.22) H Calcium Level 8.6 MG/DL (8.5-10.1) 8.1 MG/DL (8.5-10.1) L Total Bilirubin 0.3 MG/DL (0.2-1.0) Aspartate Amino Transf (AST/SGOT) 28 U/L (15-37) Alanine Aminotransferase (ALT/SGPT) 11 U/L (12-78) L Alkaline Phosphatase 130 U/L (46-116) H Total Creatine Kinase 58 U/L (26-308) Creatine Kinase MB 2.1 NG/ML (0.0-3.6) Creatine Kinase MB Relative Index 3.6 Troponin I 0.021 ng/mL (0.000-0.056) Total Protein 7.6 G/DL (6.4-8.2) Albumin 2.6 G/DL (3.4-5.0) L Globulin 5.0 g/dL Albumin/Globulin Ratio 0.5 (1.0-2.7) L Microbiology Date/Time Source Procedure Growth Status 02/25/19 03:50 Rectum Received Height (Feet): 5 Height (Inches): 6.00 Weight (Pounds): 167 Medications Current Medications Medications (Trade) Dose Ordered Sig/Vasile Route PRN Reason Start Time Stop Time Status Last Admin Dose Admin Acetaminophen (Tylenol) 650 mg Q4H PRN ORAL Mild Pain (Pain Scale 1-3) 02/25/19 05:15 03/27/19 05:14 Amlodipine Besylate (Norvasc) 5 mg DAILY ORAL 02/25/19 09:00 03/27/19 08:59 Ascorbic Acid (Vitamin C) 500 mg DAILY ORAL 02/25/19 09:00 03/27/19 08:59 Aspirin (Ecotrin) 81 mg DAILY ORAL 02/25/19 09:00 03/27/19 08:59 Carvedilol (Coreg) 6.25 mg BID ORAL 02/25/19 09:00 03/27/19 08:59 Clonidine HCl (Catapres Tab) 0.1 mg Q6H PRN ORAL SBP>110 02/25/19 05:15 03/27/19 05:14 Dextrose 1,000 ml @ 50 mls/hr Q20H IV 02/25/19 04:15 03/27/19 04:14 02/25/19 04:16 Dextrose (Dextrose 50%) 25 ml Q30M PRN IV Hypoglycemia 02/25/19 05:15 03/27/19 05:14 Dextrose (Dextrose 50%) 50 ml Q30M PRN IV Hypoglycemia 02/25/19 05:15 03/27/19 05:14 Diphenhydramine HCl (Benadryl) 25 mg Q6H PRN ORAL Itching/Pruritis 02/25/19 05:15 03/27/19 05:14 Docusate Sodium (Colace) 100 mg EVERY 12 HOURS ORAL 02/25/19 09:00 03/27/19 08:59 Heparin Sodium (Porcine) (Heparin 5000 units/ml) 5,000 units EVERY 12 HOURS SUBQ 02/25/19 09:00 03/27/19 08:59 Insulin Aspart (NovoLOG) BEFORE MEALS AND HS SUBQ 02/25/19 06:30 03/27/19 06:29 Ondansetron HCl (Zofran) 4 mg Q6H PRN IVP Nausea & Vomiting 02/25/19 05:15 03/27/19 05:14 Assessment/Plan Problem List: (1) Hypoglycemia ICD Codes: E16.2 - Hypoglycemia, unspecified SNOMED: 406642341 (2) Lactic acidosis ICD Codes: E87.2 - Acidosis SNOMED: 28378999 (3) Hypertensive urgency ICD Codes: I16.0 - Hypertensive urgency SNOMED: 696050779 (4) Diastolic CHF ICD Codes: I50.30 - Unspecified diastolic (congestive) heart failure SNOMED: 66720683, 341694280 (5) End-stage renal disease ICD Codes: N18.6 - End stage renal disease SNOMED: 29192041 (6) Diabetes ICD Codes: E11.9 - Type 2 diabetes mellitus without complications SNOMED: 31516832 (7) Anemia in chronic kidney disease ICD Codes: N18.9 - Chronic kidney disease, unspecified; D63.1 - Anemia in chronic kidney disease SNOMED: 902508762 (8) Hypertension ICD Codes: I10 - Essential (primary) hypertension SNOMED: 43454583 Status: stable Assessment/Plan: 68-year-old female with history of ESRD on hemodialysis started several months ago, type 2 diabetes, hypertension, diastolic CHF, anemia of chronic disease being admitted for hypoglycemia, hypertensive urgency and lactic acidosis. 1. Hypoglycemia and lactic acidosis.? Due to metformin use. Admit to stepdown Discontinue metformin, hold glimepiride. Continue D10W Hemodialysis per nephrology, on board. Case discussed with him Nephrology consult with Dr. Ba Trend lactic acid Continue to monitor fingerstick blood glucose. 2. Hypertensive urgency. Resume home oral BP medications with carvedilol, clonidine, amlodipine, hydralazine. will get dialyzed today. Continue to monitor in stepdown unit 3. ESRD on HD (Sunday, , Sunday), for dialysis today 4. Diastolic CHF. Stable 5. Anemia of chronic disease. Stable Case discussed with and patient. I spent 70 minutes in this encounter. Greater than 50% spent in counseling and care coordination. Time of this note may not reflect time of encounter. Siva Thornton M.D. Feb 25, 2019 08:58
[2019-02-25] MEDS ORDERED: Ascorbic Acid 500mg tab ORAL SCH (09:00)
[2019-02-25] MEDS ORDERED: Docusate 100mg cap ORAL SCH (09:00)
[2019-02-25] MEDS: Carvedilol 6.25mg Tab ORAL SCH ×2 (09:02→17:30)
[2019-02-25] MEDS: Aspirin EC 81mg tab ORAL SCH (09:02)
[2019-02-25] MEDS: Heparin 5000 units/ml inj SUBQ SCH ×2 (09:12→21:02)
--- NOTE | 2019-02-25 10:30 | NUR ---
TRANSFER TO FLOOR: Patient transferred to telemetry room 218-1, per admission order. Report given to NICOL Horton. Belongings and medications given to receiving nurse. Daughter at bedside at time of transfer.
--- NOTE | 2019-02-25 10:32 | Consultation ---
Consult Note Consult Note patient under my care for HD Admitted with low Glucose and high lactate examined data reviewed has right chest permacath ER: Patient is a 68-year-old female brought in by family member for increased altered mental status. Patient had been noted to be unresponsive. She had prior history of diabetes as well as end-stage renal disease currently on dialysis. She is normally dialyzed Sunday. She had been eating less than usual. Patient normally takes glimepiride as well as metformin. Patient is not on non-insulin Allergies: Coded Allergies: No Known Allergies (Unverified , 10/06/18) Assessment/Plan Admitted for hypoglycemia End-stage renal disease on hemodialysis Sun Sat Acute on chronic diastolic congestive heart failure Cardiomyopathy Anemia due to chronic kidney disease Hypertensive heart disease h/o Right pleural effusion s/p Mechanical fall status post repair of laceration to the scalp Severe protein calorie malnutrition Right transjugular hemodialysis catheter placement No Known Allergies (Unverified , 10/06/18) Past Surgical History: other - Vas-Cath right chest Plan: HD lester hold oral hypoglycemics monitor BS and BP discussed with Juaquin Knapp MD Feb 25, 2019 10:32
--- NOTE | 2019-02-25 11:17 | NUR ---
NURSE NOTES: Received patient from Jocelyne robb. PAtient transfered from room 241-2. Patient is awake and alert. Answering questions appropriately. Family at bedside. Patient oriented to room. Safety precautions in place. Denies pain or discomfort at this time. will follow.
[2019-02-25] MEDS: Nitroglycerin Patch 0.4mg TDERMAL SCH (11:43)
[2019-02-25] MEDS: HydrALAZINE 50mg tab ORAL SCH ×2 (13:45→21:17)
[2019-02-25] MEDS: Docusate 100mg cap ORAL SCH ×2 (13:45→17:30)
--- NOTE | 2019-02-25 16:30 | NUR ---
NURSE NOTES: Received report from Camille/RN, patient is awake, getting dialysis at this moment, No acute distress/SOB noted. Able to make needs known. Bed in low position and locked, Call light within reach. Will continue plan of care.
--- NOTE | 2019-02-25 16:40 | NUR ---
HAND-OFF: Report given to Jocelyne Arroyo. Patient receiving HD on hand off. plan of care endorsed.
--- NOTE | 2019-02-25 19:13 | NUR ---
CASE MANAGEMENT: REVIEW 68Y/FEMALE PRESENTED TO ED FROM HOME CC: ABNORMAL LABS . GLUCOSE CRITICAL LOW SI: HYPOGLYCEMIA . AMS . ESRD ON HD T 97.2 HR 87 RR 22 BP 197/79 SAT 98% ROOM AIR GLUCOSE 14 LACTIC ACID 7.70 GLUCOSE 124 S/P D50 IS: D50W IV X1 PATIENT ADMITTED TO TELEMETRY UNIT 02/25/2019 DCP: PATIENT IS FROM HOME
--- NOTE | 2019-02-25 19:35 | NUR ---
NURSE NOTES: Received pt and report from NICOL Arroyo. Observed pt resting in bed and watching television with family member at bedside. groundwater monitoring technician is in placed, IV site intact, asymptomatic, and patent. Bed is in the lowest position and locked. Call light within reach. No signs/symptoms of acute distress noted at this time. Will continue plan of care.
--- NOTE | 2019-02-25 19:48 | NUR ---
HAND-OFF: Report given to Cindy, Patient is in stable condition. Endorsed plan of care.
[2019-02-25] MEDS: Dyna-Hex 2% Top Sol 2oz TOPIC SCH (20:30)
[2019-02-25] MEDS: Tamsulosin 0.4mg cap ORAL SCH (21:01)
[2019-02-26] VITALS: BP 137/67
[2019-02-26 04:00] VITALS: BP 125/59
--- NOTE | 2019-02-26 05:00 | Consultation ---
DATE OF CONSULTATION: 02/25/2019 NDOCRINOLOGY CONSULTATION CONSULTING PHYSICIAN: Lenard Ba M.D. REFERRING PHYSICIAN: Kiko Hernandes M.D. REASON FOR CONSULTATION: Hypoglycemia. HISTORY OF PRESENT ILLNESS: The patient is a 68-year-old female with history of end-stage renal disease and diabetes, who was on metformin and glimepiride as an outpatient. The patient has been dialyzed Sunday, , and Sunday. The patient was found by the family members with altered mental status, found to be not responsive. Glucose was 14 and she was started on dextrose 50%, glucose stabilized. The patient was admitted to the floor for observation and treatment. Lactic acid is elevated. PAST MEDICAL HISTORY: 1. Type 2 diabetes. 2. End-stage renal disease. PAST SURGICAL HISTORY: Dialysis access placement. REVIEW OF SYSTEMS: Negative except mentioned in the HPI. ALLERGIES TO MEDICATIONS: None. LABORATORY DATA: Sodium 134, potassium 4.5, chloride 95, bicarb 25, BUN 24, creatinine 0.6, and glucose 14. WBC 9, hemoglobin 11, hematocrit 33, platelet 166. MEDICATIONS: Reviewed and reconciled. PHYSICAL EXAMINATION: VITAL SIGNS: Blood pressure 146/71, pulse 63, temperature 97.9, respiratory rate of 12. HEENT: Pupils reactive to light. Sclerae are anicteric. NECK: No JVD. HEART: Regular. LUNGS: Clear. ABDOMEN: Positive bowel sounds. Soft. EXTREMITIES: + edema DIAGNOSES: 1. Hypoglycemia secondary to glimepiride. 2. Lactic acidosis secondary to metformin. 3. End-stage lung disease. 4. Diabetes, out of control. PLAN: 1. Discontinue glimepiride and metformin, these medications should not be resumed after discharge. 2. Continue dextrose 10% at 50 mL/hour. 3. Blood glucose monitoring with low-dose insulin coverage . 4. Adjustment according to blood glucose values. Thank you, Dr. Hernandes, for the courtesy of this consultation. Lenard Ba M.D. DR: NICOL/SHEBA JOB#: [id number] CC: SANCHEZ
[2019-02-26] MEDS: HydrALAZINE 50mg tab ORAL SCH ×3 (06:22→21:34)
[2019-02-26] MEDS: NovoLOG Insulin Flexpen SUBQ SCH (06:25)
[2019-02-26 06:30] LABS: BASOPHILS % (AUTO) 0.8 % (0.0-2.0); EOSINOPHILS % (AUTO) 2.1 % (0.0-3.0); HEMATOCRIT 28.8 % (37.0-47.0); HEMOGLOBIN 9.5 G/DL (12.0-16.0); LYMPHOCYTES % (AUTO) 15.1 % (20.0-45.0); MEAN CORPUSCULAR VOLUME 97 FL (80-99); MONOCYTES % (AUTO) 6.7 % (1.0-10.0); NEUTROPHILS % (AUTO) 75.3 % (45.0-75.0); PLATELET COUNT 232 K/UL (150-450); RED BLOOD COUNT 2.98 M/UL (4.20-5.40); RED CELL DISTRIBUTION WIDTH 16.3 % (11.6-14.8); WHITE BLOOD COUNT 9.4 K/UL (4.8-10.8)
[2019-02-26 06:49] LABS: AMMONIA 30 umol/L (11-32)
--- NOTE | 2019-02-26 06:59 | General Progress Note ---
Assessment/Plan Problem List: (1) Lactic acidosis ICD Codes: E87.2 - Acidosis SNOMED: 69943327 (2) Diabetes ICD Codes: E11.9 - Type 2 diabetes mellitus without complications SNOMED: 06369310 (3) Hypoglycemia ICD Codes: E16.2 - Hypoglycemia, unspecified SNOMED: 991137686 (4) End-stage renal disease ICD Codes: N18.6 - End stage renal disease SNOMED: 04263855 Status: stable Assessment/Plan: continue D10 low rate in other to support glucose values continue frequent glucose monitoring no need for insulin for now Subjective Allergies: Coded Allergies: No Known Allergies (Unverified , 10/06/18) All Systems: reviewed and negative except above Subjective events noted Item Value Date Time Bedside Blood Glucose 79 mg/dl 02/26/19 0625 Bedside Blood Glucose 97 mg/dl 02/25/19 2100 Bedside Blood Glucose 87 mg/dl 02/25/19 1630 Bedside Blood Glucose 89 mg/dl 02/25/19 1130 Bedside Blood Glucose 137 mg/dl H 02/25/19 0630 Objective Last 24 Hour Vital Signs Date Time Temp Pulse Resp B/P (MAP) Pulse Ox O2 Delivery O2 Flow Rate FiO2 02/26/19 06:22 145/80 02/26/19 04:00 80 02/26/19 04:00 96.9 88 19 125/59 (81) 96 02/26/19 00:00 97 02/26/19 00:00 97.7 97 18 137/67 (90) 98 02/25/19 21:17 134/67 02/25/19 21:00 Room Air 02/25/19 20:00 98.8 77 18 134/67 (89) 98 02/25/19 20:00 81 02/25/19 17:30 70 146/70 02/25/19 17:30 70 146/70 02/25/19 17:15 97.7 70 14 146/70 (95) 02/25/19 16:00 97.7 78 20 132/67 (88) 97 02/25/19 16:00 71 02/25/19 13:45 168/96 02/25/19 12:00 71 02/25/19 11:43 168/96 02/25/19 11:28 97.0 69 18 168/96 (120) 97 02/25/19 09:02 70 164/79 02/25/19 09:02 70 164/79 02/25/19 09:00 Room Air 02/25/19 08:00 97.2 70 16 164/79 (107) 97 02/25/19 07:35 73 02/25/19 07:30 Room Air Intake and Output 02/25/19 02/26/19 19:00 07:00 Intake Total 180 ml Balance 180 ml Intake Oral 180 ml # Voids 3 Laboratory Tests 02/25/19 08:22: White Blood Count 10.1, Red Blood Count 3.45L, Hemoglobin 10.9L, Hematocrit 33.3L, Mean Corpuscular Volume 96, Mean Corpuscular Hemoglobin 31.7H, Mean Corpuscular Hemoglobin Concent 32.9, Red Cell Distribution Width 16.2H, Platelet Count 288, Mean Platelet Volume 6.9, Neutrophils (%) (Auto) 78.5H, Lymphocytes (%) (Auto) 14.8L, Monocytes (%) (Auto) 5.3, Eosinophils (%) (Auto) 0.6, Basophils (%) (Auto) 0.7, Sodium Level 127L, Potassium Level 4.4, Chloride Level 90L, Carbon Dioxide Level 23, Anion Gap 14, Blood Urea Nitrogen 36H, Creatinine 3.7H, Estimat Glomerular Filtration Rate 12.2, Glucose Level 124#H, Calcium Level 8.1L, Hepatitis B Surface Antigen [Pending] 02/26/19 06:13: White Blood Count 9.4, Red Blood Count 2.98L, Hemoglobin 9.5L, Hematocrit 28.8L , Mean Corpuscular Volume 97, Mean Corpuscular Hemoglobin 31.8H, Mean Corpuscular Hemoglobin Concent 32.9, Red Cell Distribution Width 16.3H, Platelet Count 232, Mean Platelet Volume 7.2, Neutrophils (%) (Auto) 75.3H, Lymphocytes (%) (Auto) 15.1L, Monocytes (%) (Auto) 6.7, Eosinophils (%) (Auto) 2.1, Basophils (%) (Auto) 0.8, Sodium Level [Pending], Potassium Level [Pending] , Chloride Level [Pending], Carbon Dioxide Level [Pending], Blood Urea Nitrogen [Pending], Creatinine [Pending], Estimat Glomerular Filtration Rate [Pending], Glucose Level [Pending], Calcium Level [Pending], Hemoglobin A1c 4.7, Lactic Acid Level [Pending], Uric Acid [Pending], Phosphorus Level [Pending], Magnesium Level [Pending], Iron Level [Pending], Unsaturated Iron Binding [ Pending], Ferritin [Pending], Total Bilirubin [Pending], Gamma Glutamyl Transpeptidase [Pending], Aspartate Amino Transf (AST/SGOT) [Pending], Alanine Aminotransferase (ALT/SGPT) [Pending], Alkaline Phosphatase [Pending], Ammonia 30, C-Reactive Protein, Quantitative [Pending], Pro-B-Type Natriuretic Peptide [ Pending], Total Protein [Pending], Albumin [Pending], Globulin [Pending], Triglycerides Level [Pending], Cholesterol Level [Pending], LDL Cholesterol [ Pending], HDL Cholesterol [Pending], Cholesterol/HDL Ratio [Pending], Vitamin B12 Level [Pending], Folate [Pending], Thyroid Stimulating Hormone (TSH) [ Pending], Free Thyroxine [Pending], Free Triiodothyronine [Pending] Height (Feet): 5 Height (Inches): 6.00 Weight (Pounds): 132 General Appearance: no apparent distress Neck: normal alignment Cardiovascular: normal rate Respiratory/Chest: decreased breath sounds Abdomen: normal bowel sounds Objective Current Medications Medications (Trade) Dose Ordered Sig/Vasile Route PRN Reason Start Time Stop Time Status Last Admin Dose Admin Acetaminophen (Tylenol) 650 mg Q4H PRN ORAL Mild Pain (Pain Scale 1-3) 02/25/19 05:15 03/27/19 05:14 Amlodipine Besylate (Norvasc) 5 mg BID ORAL 02/25/19 18:00 03/27/19 08:59 02/25/19 17:30 Aspirin (Ecotrin) 81 mg DAILY ORAL 02/25/19 09:00 03/27/19 08:59 02/25/19 09:02 Carvedilol (Coreg) 6.25 mg BID ORAL 02/25/19 09:00 03/27/19 08:59 02/25/19 17:30 Chlorhexidine Gluconate (Mary-Hex 2%) 1 applic DAILY@1999 TOPIC 02/25/19 20:00 03/27/19 19:59 02/25/19 20:30 Clonidine HCl (Catapres Tab) 0.1 mg Q4H PRN ORAL SBP>170 02/25/19 10:30 03/27/19 05:14 Dextrose 1,000 ml @ 50 mls/hr Q20H IV 02/25/19 04:15 03/27/19 04:14 02/25/19 09:56 Dextrose (Dextrose 50%) 25 ml Q30M PRN IV Hypoglycemia 02/25/19 05:15 03/27/19 05:14 Dextrose (Dextrose 50%) 50 ml Q30M PRN IV Hypoglycemia 02/25/19 05:15 03/27/19 05:14 Diphenhydramine HCl (Benadryl) 25 mg Q6H PRN ORAL Itching/Pruritis 02/25/19 05:15 03/27/19 05:14 Docusate Sodium (Colace) 100 mg TID ORAL 02/25/19 13:00 03/27/19 08:59 02/25/19 17:30 Heparin Sodium (Porcine) (Heparin 5000 units/ml) 5,000 units EVERY 12 HOURS SUBQ 02/25/19 09:00 03/27/19 08:59 02/25/19 21:02 Hydralazine HCl (Apresoline) 25 mg Q8HR ORAL 02/25/19 14:00 03/27/19 13:59 02/26/19 06:22 Insulin Aspart (NovoLOG) BEFORE MEALS AND HS SUBQ 02/25/19 06:30 03/27/19 06:29 Nitroglycerin (Ntg) 1 patch Q24H TDERMAL 02/25/19 11:00 03/27/19 10:59 02/25/19 11:43 Ondansetron HCl (Zofran) 4 mg Q6H PRN IVP Nausea & Vomiting 02/25/19 05:15 03/27/19 05:14 Pantoprazole (Protonix) 40 mg ACBREAKFAST ORAL 02/26/19 06:30 03/28/19 06:29 02/26/19 06:21 Tamsulosin HCl (Flomax) 0.4 mg BEDTIME ORAL 02/25/19 21:00 03/27/19 20:59 02/25/19 21:01 Lneard Ba MD Feb 26, 2019 06:59
[2019-02-26 07:07] LABS: ALANINE AMINOTRANSFERASE 10 U/L (12-78); ALBUMIN 2.1 G/DL (3.4-5.0); ALBUMIN/GLOBULIN RATIO 0.5 (1.0-2.7); ALKALINE PHOSPHATASE 121 U/L (46-116); ANION GAP 8 mmol/L (5-15); ASPARTATE AMINO TRANSFERASE 22 U/L (15-37); BILIRUBIN,TOTAL 0.3 MG/DL (0.2-1.0); BLOOD UREA NITROGEN 24 mg/dL (7-18); CALCIUM 7.9 MG/DL (8.5-10.1); CARBON DIOXIDE 25 MMOL/L (21-32); CHLORIDE 96 MMOL/L (98-107); CHOLESTEROL 124 MG/DL (< 200); CREATININE 2.8 MG/DL (0.55-1.30); FERRITIN 1371 NG/ML (8-388); HDL CHOLESTEROL 37 MG/DL (40-60); POTASSIUM 4.2 MMOL/L (3.5-5.1); SODIUM 129 MMOL/L (136-145); TRIGLYCERIDES 111 MG/DL (30-150)
[2019-02-26 07:24] LABS: % IRON SATURATION 45 % (15-50); IRON 59 ug/dL (50-175); TOTAL IRON BINDING CAPACITY 132 ug/dL (250-450)
[2019-02-26 07:34] LABS: GAMMA GLUTAMYL TRANSPEPTIDASE 22 U/L (5-85); PHOSPHORUS 1.4 MG/DL (2.5-4.9)
--- NOTE | 2019-02-26 07:46 | NUR ---
HAND-OFF: Report given to NICOL Chambers.
[2019-02-26 08:00] VITALS: BP 150/76
[2019-02-26] MEDS ORDERED: Phospha 250 Neutral tab ORAL SCH ×2 (08:30→18:00)
[2019-02-26] MEDS: Aspirin EC 81mg tab ORAL SCH (08:45)
[2019-02-26] MEDS: Liothyronine 5mcg tab ORAL SCH (08:45)
[2019-02-26] MEDS: Docusate 100mg cap ORAL SCH ×3 (08:45→17:26)
[2019-02-26] MEDS: Carvedilol 6.25mg Tab ORAL SCH (08:45)
[2019-02-26] MEDS: Heparin 5000 units/ml inj SUBQ SCH ×2 (09:00→21:00)
--- NOTE | 2019-02-26 10:59 | Nephrology Progress Note ---
Assessment/Plan Problem List: (1) End-stage renal disease (2) Lactic acidosis (3) Anemia in chronic kidney disease (4) Hypertensive kidney disease Assessment 1) Lactic acidosis (2) Diabetes (3) Hypoglycemia (4) End-stage renal disease Acute on chronic diastolic congestive heart failure Cardiomyopathy Anemia due to chronic kidney disease Hypertensive heart disease Plan D10- stop ss insulin HD in am 02/27 adjust BP meds Phos PO Subjective ROS Limited/Unobtainable: No Constitutional: Reports: other - feels stronger- daughter at bed side Objective Objective Last 24 Hour Vital Signs Date Time Temp Pulse Resp B/P (MAP) Pulse Ox O2 Delivery O2 Flow Rate FiO2 02/26/19 08:45 85 150/76 02/26/19 08:45 85 150/76 02/26/19 08:00 98.5 85 20 150/76 (100) 96 02/26/19 06:22 145/80 02/26/19 04:00 80 02/26/19 04:00 96.9 88 19 125/59 (81) 96 02/26/19 00:00 97 02/26/19 00:00 97.7 97 18 137/67 (90) 98 02/25/19 21:17 134/67 02/25/19 21:00 Room Air 02/25/19 20:00 98.8 77 18 134/67 (89) 98 02/25/19 20:00 81 02/25/19 17:30 70 146/70 02/25/19 17:30 70 146/70 02/25/19 17:15 97.7 70 14 146/70 (95) 02/25/19 16:00 97.7 78 20 132/67 (88) 97 02/25/19 16:00 71 02/25/19 13:45 168/96 02/25/19 12:00 71 02/25/19 11:43 168/96 02/25/19 11:28 97.0 69 18 168/96 (120) 97 Intake and Output 02/25/19 02/26/19 19:00 07:00 Intake Total 180 ml Balance 180 ml Intake Oral 180 ml # Voids 3 Laboratory Tests 02/26/19 06:13: White Blood Count 9.4, Red Blood Count 2.98L, Hemoglobin 9.5L, Hematocrit 28.8L , Mean Corpuscular Volume 97, Mean Corpuscular Hemoglobin 31.8H, Mean Corpuscular Hemoglobin Concent 32.9, Red Cell Distribution Width 16.3H, Platelet Count 232, Mean Platelet Volume 7.2, Neutrophils (%) (Auto) 75.3H, Lymphocytes (%) (Auto) 15.1L, Monocytes (%) (Auto) 6.7, Eosinophils (%) (Auto) 2.1, Basophils (%) (Auto) 0.8, Sodium Level 129L, Potassium Level 4.2, Chloride Level 96L, Carbon Dioxide Level 25, Anion Gap 8, Blood Urea Nitrogen 24H, Creatinine 2.8H, Estimat Glomerular Filtration Rate 16.9, Glucose Level 61L, Hemoglobin A1c 4.7, Lactic Acid Level 2.50H, Uric Acid 2.6, Calcium Level 7.9L, Phosphorus Level 1.4L, Magnesium Level 1.9, Iron Level 59, Total Iron Binding Capacity 132L, Percent Iron Saturation 45, Unsaturated Iron Binding 73L, Ferritin 1371H, Total Bilirubin 0.3, Gamma Glutamyl Transpeptidase 22, Aspartate Amino Transf (AST/SGOT) 22, Alanine Aminotransferase (ALT/SGPT) 10L, Alkaline Phosphatase 121H, Ammonia 30, C-Reactive Protein, Quantitative 1.2H, Pro-B-Type Natriuretic Peptide > 94887X, Total Protein 6.6, Albumin 2.1L, Globulin 4.5, Albumin/Globulin Ratio 0.5L, Triglycerides Level 111, Cholesterol Level 124, LDL Cholesterol 71, HDL Cholesterol 37L, Cholesterol/HDL Ratio 3.4, Vitamin B12 Level > 2000H, Folate 10.4, Thyroid Stimulating Hormone (TSH) 4.517H , Free Thyroxine 1.21, Free Triiodothyronine 1.4L 02/26/19 07:40: Lactic Acid Level 3.20H Height (Feet): 5 Height (Inches): 6.00 Weight (Pounds): 138 General Appearance: no apparent distress Cardiovascular: regular rhythm Respiratory/Chest: decreased breath sounds Abdomen: soft Objective no change Juaquin Hadley MD Feb 26, 2019 10:59
--- NOTE | 2019-02-26 11:08 | General Progress Note ---
Assessment/Plan Problem List: (1) Hypoglycemia ICD Codes: E16.2 - Hypoglycemia, unspecified SNOMED: 535990657 (2) Lactic acidosis ICD Codes: E87.2 - Acidosis SNOMED: 38914732 (3) Hypertensive urgency ICD Codes: I16.0 - Hypertensive urgency SNOMED: 805142921 (4) Diastolic CHF ICD Codes: I50.30 - Unspecified diastolic (congestive) heart failure SNOMED: 64389403, 254249502 (5) End-stage renal disease ICD Codes: N18.6 - End stage renal disease SNOMED: 65683424 (6) Diabetes ICD Codes: E11.9 - Type 2 diabetes mellitus without complications SNOMED: 37327037 (7) Anemia in chronic kidney disease ICD Codes: N18.9 - Chronic kidney disease, unspecified; D63.1 - Anemia in chronic kidney disease SNOMED: 474351589 (8) Hypertension ICD Codes: I10 - Essential (primary) hypertension SNOMED: 35835101 Status: stable Assessment/Plan: 68-year-old female with history of ESRD on hemodialysis started several months ago, type 2 diabetes, hypertension, diastolic CHF, anemia of chronic disease being admitted for hypoglycemia, hypertensive urgency and lactic acidosis. 1. Hypoglycemia and lactic acidosis.? Due to metformin use. Admit to stepdown Discontinue metformin, Discontinue glimepiride. Continue D10W Hemodialysis per nephrology, on board. Case discussed with him Nephrology consult with Dr. Ba appreciated Trend lactic acid, trending down Continue to monitor fingerstick blood glucose. low dose insulin if needed 2. Hypertensive urgency. Resume home oral BP medications with carvedilol, clonidine, amlodipine, hydralazine. Continue to monitor 3. ESRD on HD (Sunday, , Sunday), s/p dialysis 02/26 4. Diastolic CHF. Stable 5. Anemia of chronic disease. Stable Case discussed with and patient. I spent 40 minutes in this encounter. Greater than 50% spent in counseling and care coordination. Time of this note may not reflect time of encounter. Subjective Date patient seen: Feb 26, 2019 ROS Limited/Unobtainable: No Constitutional: Denies: no symptoms, chills, diaphoresis, fever, malaise, weakness, other HEENT: Denies: no symptoms, eye pain, blurred vision, tearing, double vision, ear pain, ear discharge, nose pain, nose congestion, throat pain, throat swelling, mouth pain, mouth swelling, other Cardiovascular: Denies: no symptoms, chest pain, edema, irregular heart rate, lightheadedness, palpitations, syncope, other Respiratory: Denies: no symptoms, cough, orthopnea, shortness of breath, SOB with excertion, SOB at rest, sputum, stridor, wheezing, other Gastrointestinal/Abdominal: Denies: no symptoms, abdomen distended, abdominal pain, black stools, tarry stools, blood in stool, constipated, diarrhea, difficulty swallowing, nausea, poor appetite, poor fluid intake, rectal bleeding , vomiting, other Genitourinary: Denies: no symptoms, burning, discharge, frequency, flank pain, hematuria, incontinence, pain, urgency, other Neurologic/Psychiatric: Denies: no symptoms, anxiety, depressed, emotional problems, headache, numbness, paresthesia, pre-existing deficit, seizure, tingling, tremors, weakness, other Endocrine: Denies: no symptoms, excessive sweating, flushing, intolerance to cold, intolerance to heat, increased hunger, increased thirst, increased urine, unexplained weight gain, unexplained weight loss, other Hematologic/Lymphatic: Denies: no symptoms, anemia, easy bleeding, easy bruising, other Allergies: Coded Allergies: No Known Allergies (Unverified , 10/06/18) Subjective no complaints Off of oral D meds Got HD yesterday lactic acid trending down Objective Last 24 Hour Vital Signs Date Time Temp Pulse Resp B/P (MAP) Pulse Ox O2 Delivery O2 Flow Rate FiO2 02/26/19 08:45 85 150/76 02/26/19 08:45 85 150/76 02/26/19 08:00 98.5 85 20 150/76 (100) 96 02/26/19 06:22 145/80 02/26/19 04:00 80 02/26/19 04:00 96.9 88 19 125/59 (81) 96 02/26/19 00:00 97 02/26/19 00:00 97.7 97 18 137/67 (90) 98 02/25/19 21:17 134/67 02/25/19 21:00 Room Air 02/25/19 20:00 98.8 77 18 134/67 (89) 98 02/25/19 20:00 81 02/25/19 17:30 70 146/70 02/25/19 17:30 70 146/70 02/25/19 17:15 97.7 70 14 146/70 (95) 02/25/19 16:00 97.7 78 20 132/67 (88) 97 02/25/19 16:00 71 02/25/19 13:45 168/96 02/25/19 12:00 71 02/25/19 11:43 168/96 02/25/19 11:28 97.0 69 18 168/96 (120) 97 Intake and Output 02/25/19 02/26/19 19:00 07:00 Intake Total 180 ml Balance 180 ml Intake Oral 180 ml # Voids 3 Laboratory Tests 02/26/19 06:13: White Blood Count 9.4, Red Blood Count 2.98L, Hemoglobin 9.5L, Hematocrit 28.8L , Mean Corpuscular Volume 97, Mean Corpuscular Hemoglobin 31.8H, Mean Corpuscular Hemoglobin Concent 32.9, Red Cell Distribution Width 16.3H, Platelet Count 232, Mean Platelet Volume 7.2, Neutrophils (%) (Auto) 75.3H, Lymphocytes (%) (Auto) 15.1L, Monocytes (%) (Auto) 6.7, Eosinophils (%) (Auto) 2.1, Basophils (%) (Auto) 0.8, Sodium Level 129L, Potassium Level 4.2, Chloride Level 96L, Carbon Dioxide Level 25, Anion Gap 8, Blood Urea Nitrogen 24H, Creatinine 2.8H, Estimat Glomerular Filtration Rate 16.9, Glucose Level 61L, Hemoglobin A1c 4.7, Lactic Acid Level 2.50H, Uric Acid 2.6, Calcium Level 7.9L, Phosphorus Level 1.4L, Magnesium Level 1.9, Iron Level 59, Total Iron Binding Capacity 132L, Percent Iron Saturation 45, Unsaturated Iron Binding 73L, Ferritin 1371H, Total Bilirubin 0.3, Gamma Glutamyl Transpeptidase 22, Aspartate Amino Transf (AST/SGOT) 22, Alanine Aminotransferase (ALT/SGPT) 10L, Alkaline Phosphatase 121H, Ammonia 30, C-Reactive Protein, Quantitative 1.2H, Pro-B-Type Natriuretic Peptide > 60369D, Total Protein 6.6, Albumin 2.1L, Globulin 4.5, Albumin/Globulin Ratio 0.5L, Triglycerides Level 111, Cholesterol Level 124, LDL Cholesterol 71, HDL Cholesterol 37L, Cholesterol/HDL Ratio 3.4, Vitamin B12 Level > 2000H, Folate 10.4, Thyroid Stimulating Hormone (TSH) 4.517H , Free Thyroxine 1.21, Free Triiodothyronine 1.4L 02/26/19 07:40: Lactic Acid Level 3.20H Height (Feet): 5 Height (Inches): 6.00 Weight (Pounds): 138 Objective General Appearance: normal inspection, well appearing, no apparent distress, alert, Head: atraumatic ENT: normal ENT inspection, hearing grossly normal, normal voice Neck: normal inspection, full range of motion, supple, no bony tend Respiratory: normal inspection, lungs clear, normal breath sounds, no respiratory distress, no retraction, no wheezing Cardiovascular : regular rate, rhythm, no m/r/g no edema Gastrointestinal: normal inspection, normal bowel sounds, non tender, soft, no guarding, no hernia Genitourinary: no CVA tenderness Musculoskeletal: normal inspection, back normal, normal range of motion Neurologic: normal inspection, alert, oriented x3, responsive, director 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 Feb 26, 2019 11:08
--- NOTE | 2019-02-26 11:18 | NUR ---
RD ASSESSMENT & RECOMMENDATIONS SEE CARE ACTIVITY FOR COMPLETE ASSESSMENT DAILY ESTIMATED NEEDS: Needs based on ESRD on HD, wound, non ambulatory/ 63kg 25-30 kcals/kg 2722-9082 total kcals 1.25-1.8 g protein/kg 79-113 g total protein Fluid per MD, on HD NUTRITION DIAGNOSIS: Increased kcal/prot intake needs R/T renal dysfunction and wound healing as evidenced by pt w/ ESRD on HD w/ partial thickness sacral wound. CURRENT DIET:[facility] MED PO DIET RECOMMENDATIONS: RENAL diet (rec to dc [facility] restrictions) ADDITIONAL RECOMMENDATIONS: * PSYCHOLOGIST PERSONNEL eval for texture * consider appetite stimulant * Add Nepro BID + snacks in b/w meals * Rec Kcal count for eval of adequate po intake * Obtain a calibrated bed scale wt post HD for accurate CBW * Wound care: Add MARYA BID + nephrovite x1 daily
[2019-02-26] MEDS: Nitroglycerin Patch 0.4mg TDERMAL SCH (11:32)
[2019-02-26 12:00] VITALS: BP 142/60
[2019-02-26] MEDS ORDERED: Dextrose 10% 1,000 ML IV SCH (12:00)
--- NOTE | 2019-02-26 15:03 | Cardiology Report ---
APPROVED REPORT EKG Measurement Heart [id number] [id number] Normal sinus rhythm Nonspecific ST and T wave abnormality Abnormal ECG
[2019-02-26 16:00] VITALS: BP 150/70
--- NOTE | 2019-02-26 18:47 | NUR ---
NURSE NOTES: Called [facility] HD spoke with Cherry to schedule HD for tomorrow (02/27/19). Per Cherry, alarm security or surveillance monitor nurse will call me back to confirm
--- NOTE | 2019-02-26 19:18 | NUR ---
CASE MANAGEMENT: REVIEW SI: HYPOGLYCEMIA . AMS . ESRD ON HD T 98.3 HR 89 RR 20 BP 150/70 SAT 97% ROOM AIR GLUCOSE 61 H/H 9.5/28.8 LACTIC ACID 3.20 BNP >61881 IS: COREG PO Q12HR D10W @ 30ML/HR NORVASC PO BID TELEMETRY UNIT STATUS DCP: PATIENT IS FROM HOME
--- NOTE | 2019-02-26 19:34 | NUR ---
HAND-OFF: Report given to Jocelyne Caldera. Plan of care endorsed
--- NOTE | 2019-02-26 19:59 | NUR ---
NURSE NOTES: Received pt from NICOL Chambers. Pt awake, alert, and talkative. Bed in lowest position. Call light within reach. Will continue to monitor.
[2019-02-26 20:00] VITALS: BP 156/71
[2019-02-26] MEDS: Dyna-Hex 2% Top Sol 2oz TOPIC SCH (21:34)
[2019-02-26] MEDS: Carvedilol 12.5mg tab ORAL SCH (21:34)
[2019-02-26] MEDS: Tamsulosin 0.4mg cap ORAL SCH (21:35)
[2019-02-27] VITALS (7 sets, daily range): BP systolic 148–171; BP diastolic 66–74
--- NOTE | 2019-02-27 04:26 | NUR ---
NURSE NOTES: Called and spoke with sales representative [employer] from [facility] dialysis center. Nurse made aware that HD will take place today. Will continue to monitor
[2019-02-27] MEDS: HydrALAZINE 50mg tab ORAL SCH ×3 (05:44→21:20)
--- NOTE | 2019-02-27 06:24 | General Progress Note ---
Assessment/Plan Problem List: (1) Lactic acidosis ICD Codes: E87.2 - Acidosis SNOMED: 85991483 (2) Diabetes ICD Codes: E11.9 - Type 2 diabetes mellitus without complications SNOMED: 79021198 (3) Hypoglycemia ICD Codes: E16.2 - Hypoglycemia, unspecified SNOMED: 479320793 (4) End-stage renal disease ICD Codes: N18.6 - End stage renal disease SNOMED: 64230708 Status: stable Assessment/Plan: continue D10 low rate in other to support glucose values continue frequent glucose monitoring without insulin coverage low free T3 and elevated TSH and normal free T4 is most likely due to "sick euthyroid" I doubt replacing T3 will be of any clinical benefit Subjective Allergies: Coded Allergies: No Known Allergies (Unverified , 10/06/18) All Systems: reviewed and negative except above Subjective events noted still requiring D10 Item Value Date Time Bedside Blood Glucose 175 mg/dl H 02/27/19 0517 Bedside Blood Glucose 197 mg/dl H 02/26/19 2100 Bedside Blood Glucose 138 mg/dl H 02/26/19 1630 Bedside Blood Glucose 142 mg/dl H 02/26/19 1357 Bedside Blood Glucose 79 mg/dl 02/26/19 0630 Objective Last 24 Hour Vital Signs Date Time Temp Pulse Resp B/P (MAP) Pulse Ox O2 Delivery O2 Flow Rate FiO2 02/27/19 05:44 161/69 02/27/19 04:05 161/69 02/27/19 04:02 75 161/69 (99) 02/27/19 04:00 73 02/27/19 03:51 98.2 73 18 169/74 (105) 98 02/27/19 00:00 98.5 81 18 162/70 (100) 96 02/27/19 00:00 75 02/26/19 21:34 87 156/71 02/26/19 21:34 156/71 02/26/19 21:00 Room Air 02/26/19 20:00 98.4 87 18 156/71 (99) 96 02/26/19 20:00 89 02/26/19 17:26 90 150/70 02/26/19 16:00 98.3 89 20 150/70 (96) 97 02/26/19 16:00 90 02/26/19 13:41 142/60 02/26/19 12:00 78 9/25/19 12:00 98.6 79 18 142/60 (87) 97 02/26/19 11:32 142/60 02/26/19 09:00 Room Air 02/26/19 08:45 85 150/76 02/26/19 08:45 85 150/76 02/26/19 08:00 84 02/26/19 08:00 98.5 85 20 150/76 (100) 96 02/26/19 06:22 145/80 Intake and Output 02/26/19 02/27/19 18:59 06:59 Intake Total 360 ml Balance 360 ml Intake Oral 360 ml Laboratory Tests 02/26/19 07:40: Lactic Acid Level 3.20H Height (Feet): 5 Height (Inches): 6.00 Weight (Pounds): 138 General Appearance: no apparent distress Neck: normal alignment Cardiovascular: normal rate Respiratory/Chest: lungs clear Abdomen: normal bowel sounds Objective Current Medications Medications (Trade) Dose Ordered Sig/Vasile Route PRN Reason Start Time Stop Time Status Last Admin Dose Admin Acetaminophen (Tylenol) 650 mg Q4H PRN ORAL Mild Pain (Pain Scale 1-3) 02/25/19 05:15 03/27/19 05:14 Amlodipine Besylate (Norvasc) 5 mg BID ORAL 02/25/19 18:00 03/27/19 08:59 02/26/19 17:26 Aspirin (Ecotrin) 81 mg DAILY ORAL 02/25/19 09:00 03/27/19 08:59 02/26/19 08:45 Carvedilol (Coreg) 12.5 mg Q12HR ORAL 02/26/19 21:00 03/28/19 20:59 02/26/19 21:34 Chlorhexidine Gluconate (Mary-Hex 2%) 1 applic DAILY@2000 TOPIC 02/25/19 20:00 03/27/19 19:59 02/26/19 21:34 Clonidine HCl (Catapres Tab) 0.1 mg Q4H PRN ORAL SBP>170 02/25/19 10:30 03/27/19 05:14 02/27/19 04:05 Dextrose 1,000 ml @ 30 mls/hr Q24H IV 02/26/19 12:00 03/28/19 11:59 02/26/19 13:41 Dextrose (Dextrose 50%) 25 ml Q30M PRN IV Hypoglycemia 02/25/19 05:15 03/27/19 05:14 Dextrose (Dextrose 50%) 50 ml Q30M PRN IV Hypoglycemia 02/25/19 05:15 03/27/19 05:14 Diphenhydramine HCl (Benadryl) 25 mg Q6H PRN ORAL Itching/Pruritis 02/25/19 05:15 03/27/19 05:14 Docusate Sodium (Colace) 100 mg TID ORAL 02/25/19 13:00 03/27/19 08:59 02/26/19 17:26 Heparin Sodium (Porcine) (Heparin 5000 units/ml) 5,000 units EVERY 12 HOURS SUBQ 02/25/19 09:00 03/27/19 08:59 02/26/19 21:00 Hydralazine HCl (Apresoline) 25 mg Q8HR ORAL 02/25/19 14:00 03/27/19 13:59 02/27/19 05:44 Liothyronine Sodium (Cytomel) 5 mcg DAILY ORAL 02/26/19 09:00 03/28/19 08:59 02/26/19 08:45 Nitroglycerin (Ntg) 1 patch Q24H TDERMAL 02/25/19 11:00 03/27/19 10:59 02/26/19 11:32 Ondansetron HCl (Zofran) 4 mg Q6H PRN IVP Nausea & Vomiting 02/25/19 05:15 03/27/19 05:14 Pantoprazole (Protonix) 40 mg ACBREAKFAST ORAL 02/26/19 06:30 03/28/19 06:29 02/27/19 05:44 Tamsulosin HCl (Flomax) 0.4 mg BEDTIME ORAL 02/25/19 21:00 03/27/19 20:59 02/26/19 21:35 Lenard Ba MD Feb 27, 2019 06:24
--- NOTE | 2019-02-27 06:59 | NUR ---
HAND-OFF: Report given to NICOL Chambers. Pt stable.
[2019-02-27 07:20] LABS: BASOPHILS % (AUTO) 0.9 % (0.0-2.0); EOSINOPHILS % (AUTO) 2.8 % (0.0-3.0); HEMATOCRIT 26.6 % (37.0-47.0); LYMPHOCYTES % (AUTO) 12.7 % (20.0-45.0); MEAN CORPUSCULAR VOLUME 96 FL (80-99); MONOCYTES % (AUTO) 8.3 % (1.0-10.0); NEUTROPHILS % (AUTO) 75.2 % (45.0-75.0); PLATELET COUNT 228 K/UL (150-450); RED BLOOD COUNT 2.77 M/UL (4.20-5.40); RED CELL DISTRIBUTION WIDTH 15.9 % (11.6-14.8); WHITE BLOOD COUNT 9.3 K/UL (4.8-10.8)
[2019-02-27 08:12] LABS: ALANINE AMINOTRANSFERASE 8 U/L (12-78); ALBUMIN 1.9 G/DL (3.4-5.0); ALBUMIN/GLOBULIN RATIO 0.5 (1.0-2.7); ALKALINE PHOSPHATASE 135 U/L (46-116); ANION GAP 10 mmol/L (5-15); ASPARTATE AMINO TRANSFERASE 17 U/L (15-37); BILIRUBIN,TOTAL 0.3 MG/DL (0.2-1.0); BLOOD UREA NITROGEN 34 mg/dL (7-18); CALCIUM 7.1 MG/DL (8.5-10.1); CARBON DIOXIDE 23 MMOL/L (21-32); CHLORIDE 95 MMOL/L (98-107); CREATININE 3.5 MG/DL (0.55-1.30); PHOSPHORUS 2.1 MG/DL (2.5-4.9); POTASSIUM 4.4 MMOL/L (3.5-5.1); SODIUM 128 MMOL/L (136-145)
--- NOTE | 2019-02-27 08:49 | General Progress Note ---
Assessment/Plan Problem List: (1) Hypoglycemia ICD Codes: E16.2 - Hypoglycemia, unspecified SNOMED: 071546447 (2) Lactic acidosis ICD Codes: E87.2 - Acidosis SNOMED: 82646730 (3) Hypertensive urgency ICD Codes: I16.0 - Hypertensive urgency SNOMED: 883970814 (4) Diastolic CHF ICD Codes: I50.30 - Unspecified diastolic (congestive) heart failure SNOMED: 48415927, 491773698 (5) End-stage renal disease ICD Codes: N18.6 - End stage renal disease SNOMED: 44069719 (6) Diabetes ICD Codes: E11.9 - Type 2 diabetes mellitus without complications SNOMED: 44298916 (7) Anemia in chronic kidney disease ICD Codes: N18.9 - Chronic kidney disease, unspecified; D63.1 - Anemia in chronic kidney disease SNOMED: 451286259 (8) Hypertension ICD Codes: I10 - Essential (primary) hypertension SNOMED: 41619712 (9) Sick-euthyroid syndrome ICD Codes: E07.81 - Sick-euthyroid syndrome SNOMED: 135951015 Status: stable Assessment/Plan: 68-year-old female with history of ESRD on hemodialysis started several months ago, type 2 diabetes, hypertension, diastolic CHF, anemia of chronic disease being admitted for hypoglycemia, hypertensive urgency and lactic acidosis. 1. Hypoglycemia and lactic acidosis.? Due to metformin use. Stepdown --> telemetry Discontinue metformin, Discontinue glimepiride. Hold D10W, glucose trending up and eating well. Continue to monitor Hemodialysis per nephrology, on board. Case discussed with him Nephrology consult with Dr. Ba appreciated lactic acid, trending down Continue to monitor fingerstick blood glucose. low dose insulin if needed 2. Hypertensive urgency. Resume home oral BP medications with carvedilol, clonidine, amlodipine, hydralazine. Continue to monitor 3. ESRD on HD (Sunday, , Sunday), s/p dialysis 02/26, will be dialyzed today. 4. Diastolic CHF. Stable 5. Anemia of chronic disease. Stable 6. Sick euthyroid syndrome. low free T3 and elevated TSH and normal free T4 is most likely due to sick euthyroid per endocrinology. Not treatment advised. Case discussed with Dr.Fouladian and patient. I spent 40 minutes in this encounter. Greater than 50% spent in counseling and care coordination. Time of this note may not reflect time of encounter. Subjective Date patient seen: Feb 27, 2019 ROS Limited/Unobtainable: No Constitutional: Reports: weakness; Denies: no symptoms, chills, diaphoresis, fever, malaise, other HEENT: Denies: no symptoms, eye pain, blurred vision, tearing, double vision, ear pain, ear discharge, nose pain, nose congestion, throat pain, throat swelling, mouth pain, mouth swelling, other Cardiovascular: Denies: no symptoms, chest pain, edema, irregular heart rate, lightheadedness, palpitations, syncope, other Respiratory: Denies: no symptoms, cough, orthopnea, shortness of breath, SOB with excertion, SOB at rest, sputum, stridor, wheezing, other Genitourinary: Denies: no symptoms, burning, discharge, frequency, flank pain, hematuria, incontinence, pain, urgency, other Neurologic/Psychiatric: Denies: no symptoms, anxiety, depressed, emotional problems, headache, numbness, paresthesia, pre-existing deficit, seizure, tingling, tremors, weakness, other Endocrine: Denies: no symptoms, excessive sweating, flushing, intolerance to cold, intolerance to heat, increased hunger, increased thirst, increased urine, unexplained weight gain, unexplained weight loss, other Hematologic/Lymphatic: Denies: no symptoms, anemia, easy bleeding, easy bruising, other Allergies: Coded Allergies: No Known Allergies (Unverified , 10/06/18) Subjective no complaints. feels stronger. eating breakfast Objective Last 24 Hour Vital Signs Date Time Temp Pulse Resp B/P (MAP) Pulse Ox O2 Delivery O2 Flow Rate FiO2 02/27/19 08:00 98.3 79 18 148/66 (93) 96 02/27/19 05:44 161/69 02/27/19 04:05 161/69 02/27/19 04:02 75 161/69 (99) 02/27/19 04:00 73 02/27/19 03:51 98.2 73 18 169/74 (105) 98 02/27/19 00:00 98.5 81 18 162/70 (100) 96 02/27/19 00:00 75 02/26/19 21:34 87 156/71 02/26/19 21:34 156/71 02/26/19 21:00 Room Air 02/26/19 20:00 98.4 87 18 156/71 (99) 96 02/26/19 20:00 89 02/26/19 17:26 90 150/70 02/26/19 16:00 98.3 89 20 150/70 (96) 97 02/26/19 16:00 90 02/26/19 13:41 142/60 02/26/19 12:00 78 02/26/19 12:00 98.6 79 18 142/60 (87) 97 02/26/19 11:32 142/60 02/26/19 09:00 Room Air Intake and Output 02/26/19 02/27/19 18:59 06:59 Intake Total 360 ml Balance 360 ml Intake Oral 360 ml # Voids 2 Laboratory Tests 02/27/19 06:56: White Blood Count 9.3, Red Blood Count 2.77L, Hemoglobin 9.0L, Hematocrit 26.6L , Mean Corpuscular Volume 96, Mean Corpuscular Hemoglobin 32.7H, Mean Corpuscular Hemoglobin Concent 34.1, Red Cell Distribution Width 15.9H, Platelet Count 228, Mean Platelet Volume 7.2, Neutrophils (%) (Auto) 75.2H, Lymphocytes (%) (Auto) 12.7L, Monocytes (%) (Auto) 8.3, Eosinophils (%) (Auto) 2.8, Basophils (%) (Auto) 0.9, Sodium Level 128L, Potassium Level 4.4, Chloride Level 95L, Carbon Dioxide Level 23, Anion Gap 10, Blood Urea Nitrogen 34H, Creatinine 3.5H, Estimat Glomerular Filtration Rate 13.1, Glucose Level 181#H, Lactic Acid Level 2.70H, Uric Acid 3.1, Calcium Level 7.1L, Phosphorus Level 2.1L, Magnesium Level 2.0, Total Bilirubin 0.3, Aspartate Amino Transf (AST/SGOT ) 17, Alanine Aminotransferase (ALT/SGPT) 8L, Alkaline Phosphatase 135H, C- Reactive Protein, Quantitative 1.4H, Pro-B-Type Natriuretic Peptide [Pending], Total Protein 6.1L, Albumin 1.9L, Globulin 4.2, Albumin/Globulin Ratio 0.5L Height (Feet): 5 Height (Inches): 6.00 Weight (Pounds): 138 Objective General Appearance: normal inspection, well appearing, no apparent distress, alert, Head: atraumatic ENT: normal ENT inspection, hearing grossly normal, normal voice Neck: normal inspection, full range of motion, supple, no bony tend Respiratory: normal inspection, lungs clear, normal breath sounds, no respiratory distress, no retraction, no wheezing Cardiovascular : regular rate, rhythm, no m/r/g no edema Gastrointestinal: normal inspection, normal bowel sounds, non tender, soft, no guarding, no hernia Genitourinary: no CVA tenderness Musculoskeletal: normal inspection, back normal, normal range of motion Neurologic: normal inspection, alert, oriented x3, responsive, 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 Feb 27, 2019 08:49
[2019-02-27] MEDS: Carvedilol 12.5mg tab ORAL SCH ×2 (09:00→20:42)
[2019-02-27] MEDS: Docusate 100mg cap ORAL SCH ×3 (09:08→18:12)
[2019-02-27] MEDS: Heparin 5000 units/ml inj SUBQ SCH ×2 (09:09→20:45)
[2019-02-27] MEDS: Liothyronine 5mcg tab ORAL SCH (09:09)
[2019-02-27] MEDS: Aspirin EC 81mg tab ORAL SCH (09:10)
[2019-02-27] MEDS ORDERED: Phospha 250 Neutral tab ORAL ONE ×2 (10:15→18:00)
[2019-02-27] MEDS: Nitroglycerin Patch 0.4mg TDERMAL SCH (11:22)
--- NOTE | 2019-02-27 13:10 | Nephrology Progress Note ---
Assessment/Plan Problem List: (1) End-stage renal disease (2) Lactic acidosis (3) Anemia in chronic kidney disease (4) Hypertensive kidney disease Assessment 1) Lactic acidosis (2) Diabetes (3) Hypoglycemia (4) End-stage renal disease Acute on chronic diastolic congestive heart failure Cardiomyopathy Anemia due to chronic kidney disease Hypertensive heart disease Plan stop D10- stop ss insulin HD in am 02/27 adjust BP meds Phos PO Subjective ROS Limited/Unobtainable: No Constitutional: Reports: malaise Objective Objective Last 24 Hour Vital Signs Date Time Temp Pulse Resp B/P (MAP) Pulse Ox O2 Delivery O2 Flow Rate FiO2 02/27/19 11:22 148/66 02/27/19 09:00 Room Air 02/27/19 08:00 79 02/27/19 08:00 98.3 79 18 148/66 (93) 96 02/27/19 05:44 161/69 02/27/19 04:05 161/69 02/27/19 04:02 75 161/69 (99) 02/27/19 04:00 73 02/27/19 03:51 98.2 73 18 169/74 (105) 98 02/27/19 00:00 98.5 81 18 162/70 (100) 96 02/27/19 00:00 75 02/26/19 21:34 87 156/71 02/26/19 21:34 156/71 02/26/19 21:00 Room Air 02/26/19 20:00 98.4 87 18 156/71 (99) 96 02/26/19 20:00 89 02/26/19 17:26 90 150/70 02/26/19 16:00 98.3 89 20 150/70 (96) 97 02/26/19 16:00 90 02/26/19 13:41 142/60 Intake and Output 02/26/19 02/27/19 19:00 07:00 Intake Total 360 ml Balance 360 ml Intake Oral 360 ml # Voids 2 Laboratory Tests 02/27/19 06:56: White Blood Count 9.3, Red Blood Count 2.77L, Hemoglobin 9.0L, Hematocrit 26.6L , Mean Corpuscular Volume 96, Mean Corpuscular Hemoglobin 32.7H, Mean Corpuscular Hemoglobin Concent 34.1, Red Cell Distribution Width 15.9H, Platelet Count 228, Mean Platelet Volume 7.2, Neutrophils (%) (Auto) 75.2H, Lymphocytes (%) (Auto) 12.7L, Monocytes (%) (Auto) 8.3, Eosinophils (%) (Auto) 2.8, Basophils (%) (Auto) 0.9, Sodium Level 128L, Potassium Level 4.4, Chloride Level 95L, Carbon Dioxide Level 23, Anion Gap 10, Blood Urea Nitrogen 34H, Creatinine 3.5H, Estimat Glomerular Filtration Rate 13.1, Glucose Level 181#H, Lactic Acid Level 2.70H, Uric Acid 3.1, Calcium Level 7.1L, Phosphorus Level 2.1L, Magnesium Level 2.0, Total Bilirubin 0.3, Aspartate Amino Transf (AST/SGOT ) 17, Alanine Aminotransferase (ALT/SGPT) 8L, Alkaline Phosphatase 135H, C- Reactive Protein, Quantitative 1.4H, Pro-B-Type Natriuretic Peptide > 06461P, Total Protein 6.1L, Albumin 1.9L, Globulin 4.2, Albumin/Globulin Ratio 0.5L Height (Feet): 5 Height (Inches): 6.00 Weight (Pounds): 138 General Appearance: no apparent distress Objective no change Juaquin Hadley MD Feb 27, 2019 13:10
--- NOTE | 2019-02-27 19:13 | NUR ---
HAND-OFF: Report given to NICOL Gautam. Plan of care endorsed
--- NOTE | 2019-02-27 19:14 | NUR ---
NURSE NOTES: Received patient awake, lying in semi tejada's; resting comfortably. A/Ox4. Primarily Macedonian speaking. Denies pain at this time. No signs of acute cardiorespiratory distress noted. Right chest permcatheter for hemodialysis intact. Checked IV site and flushed. No erythema, bleeding or infiltration noted. Bed at lowest position, brakes on, siderails x3. Call light within reach. Will continue to monitor.
[2019-02-27] MEDS: Dyna-Hex 2% Top Sol 2oz TOPIC SCH (20:41)
[2019-02-27] MEDS: Tamsulosin 0.4mg cap ORAL SCH (20:42)
[2019-02-28] VITALS (9 sets, daily range): BP systolic 127–184; BP diastolic 62–92
--- NOTE | 2019-02-28 03:22 | NUR ---
NURSE NOTES: Resting throughout the night. No significant change of condition noted. Will continue to monitor.
[2019-02-28] MEDS: HydrALAZINE 50mg tab ORAL SCH ×4 (06:08→22:38)
--- NOTE | 2019-02-28 06:56 | General Progress Note ---
Assessment/Plan Problem List: (1) Lactic acidosis ICD Codes: E87.2 - Acidosis SNOMED: 76325191 (2) Diabetes ICD Codes: E11.9 - Type 2 diabetes mellitus without complications SNOMED: 66718693 (3) Hypoglycemia ICD Codes: E16.2 - Hypoglycemia, unspecified SNOMED: 879235817 (4) End-stage renal disease ICD Codes: N18.6 - End stage renal disease SNOMED: 05423998 Status: stable Assessment/Plan: glucose values stable without D10 continue frequent glucose monitoring without insulin coverage consider adding Januvia 25 mg renal dose if glucose started to rise low free T3 and elevated TSH and normal free T4 is most likely due to "sick euthyroid" I doubt replacing T3 will be of any clinical benefit Subjective Allergies: Coded Allergies: No Known Allergies (Unverified , 10/06/18) All Systems: reviewed and negative except above Subjective events noted no longer on D10 glucose values are stable Item Value Date Time Bedside Blood Glucose 142 mg/dl H 02/28/19 0630 Bedside Blood Glucose 193 mg/dl H 02/27/19 2100 Bedside Blood Glucose 155 mg/dl H 02/27/19 1630 Bedside Blood Glucose 172 mg/dl H 02/27/19 1130 Bedside Blood Glucose 175 mg/dl H 02/27/19 0517 Objective Last 24 Hour Vital Signs Date Time Temp Pulse Resp B/P (MAP) Pulse Ox O2 Delivery O2 Flow Rate FiO2 02/28/19 06:08 147/92 02/28/19 04:00 90 02/28/19 04:00 98.0 66 18 147/92 (110) 97 02/28/19 00:00 96.6 77 18 141/83 (102) 98 02/28/19 00:00 78 02/27/19 21:20 169/70 02/27/19 21:00 Room Air 02/27/19 20:42 83 169/70 02/27/19 20:00 98.7 83 18 169/70 (103) 97 02/27/19 20:00 70 02/27/19 18:12 70 160/68 02/27/19 16:00 70 02/27/19 16:00 98.5 80 18 160/68 (98) 96 02/27/19 12:00 97.4 80 18 171/71 (104) 95 02/27/19 12:00 80 02/27/19 11:22 148/66 02/27/19 09:00 Room Air 02/27/19 08:00 79 02/27/19 08:00 98.3 79 18 148/66 (93) 96 Intake and Output 02/27/19 02/28/19 19:00 07:00 Intake Total 480 ml Balance 480 ml Intake Oral 480 ml # Voids 2 1 Laboratory Tests 02/27/19 06:56: White Blood Count 9.3, Red Blood Count 2.77L, Hemoglobin 9.0L, Hematocrit 26.6L , Mean Corpuscular Volume 96, Mean Corpuscular Hemoglobin 32.7H, Mean Corpuscular Hemoglobin Concent 34.1, Red Cell Distribution Width 15.9H, Platelet Count 228, Mean Platelet Volume 7.2, Neutrophils (%) (Auto) 75.2H, Lymphocytes (%) (Auto) 12.7L, Monocytes (%) (Auto) 8.3, Eosinophils (%) (Auto) 2.8, Basophils (%) (Auto) 0.9, Sodium Level 128L, Potassium Level 4.4, Chloride Level 95L, Carbon Dioxide Level 23, Anion Gap 10, Blood Urea Nitrogen 34H, Creatinine 3.5H, Estimat Glomerular Filtration Rate 13.1, Glucose Level 181#H, Lactic Acid Level 2.70H, Uric Acid 3.1, Calcium Level 7.1L, Phosphorus Level 2.1L, Magnesium Level 2.0, Total Bilirubin 0.3, Aspartate Amino Transf (AST/SGOT ) 17, Alanine Aminotransferase (ALT/SGPT) 8L, Alkaline Phosphatase 135H, C- Reactive Protein, Quantitative 1.4H, Pro-B-Type Natriuretic Peptide > 35184K, Total Protein 6.1L, Albumin 1.9L, Globulin 4.2, Albumin/Globulin Ratio 0.5L 02/28/19 06:32: White Blood Count [Pending], Red Blood Count [Pending], Hemoglobin [Pending], Hematocrit [Pending], Mean Corpuscular Volume [Pending], Mean Corpuscular Hemoglobin [Pending], Mean Corpuscular Hemoglobin Concent [Pending], Red Cell Distribution Width [Pending], Platelet Count [Pending], Mean Platelet Volume [ Pending], Neutrophils (%) (Auto) [Pending], Lymphocytes (%) (Auto) [Pending], Monocytes (%) (Auto) [Pending], Eosinophils (%) (Auto) [Pending], Basophils (%) (Auto) [Pending], Sodium Level [Pending], Potassium Level [Pending], Chloride Level [Pending], Carbon Dioxide Level [Pending], Blood Urea Nitrogen [Pending], Creatinine [Pending], Estimat Glomerular Filtration Rate [Pending], Glucose Level [Pending], Lactic Acid Level [Pending], Uric Acid [Pending], Calcium Level [Pending], Phosphorus Level [Pending], Total Bilirubin [Pending], Aspartate Amino Transf (AST/SGOT) [Pending], Alanine Aminotransferase (ALT/SGPT ) [Pending], Alkaline Phosphatase [Pending], C-Reactive Protein, Quantitative [ Pending], Pro-B-Type Natriuretic Peptide [Pending], Total Protein [Pending], Albumin [Pending], Globulin [Pending] Height (Feet): 5 Height (Inches): 6.00 Weight (Pounds): 138 General Appearance: no apparent distress Neck: normal alignment Cardiovascular: normal rate Respiratory/Chest: lungs clear Abdomen: normal bowel sounds Objective Current Medications Medications (Trade) Dose Ordered Sig/Vasile Route PRN Reason Start Time Stop Time Status Last Admin Dose Admin Acetaminophen (Tylenol) 650 mg Q4H PRN ORAL Mild Pain (Pain Scale 1-3) 02/25/19 05:15 03/27/19 05:14 Amlodipine Besylate (Norvasc) 5 mg BID ORAL 02/25/19 18:00 03/27/19 08:59 02/27/19 18:12 Aspirin (Ecotrin) 81 mg DAILY ORAL 02/25/19 09:00 03/27/19 08:59 02/27/19 09:10 Carvedilol (Coreg) 12.5 mg Q12HR ORAL 02/26/19 21:00 03/28/19 20:59 02/27/19 20:42 Chlorhexidine Gluconate (Mary-Hex 2%) 1 applic DAILY@2000 TOPIC 02/25/19 20:00 03/27/19 19:59 02/27/19 20:41 Clonidine HCl (Catapres Tab) 0.1 mg Q4H PRN ORAL SBP>170 9/24/19 10:30 03/27/19 05:14 02/27/19 04:05 Dextrose (Dextrose 50%) 25 ml Q30M PRN IV Hypoglycemia 02/25/19 05:15 03/27/19 05:14 Dextrose (Dextrose 50%) 50 ml Q30M PRN IV Hypoglycemia 02/25/19 05:15 03/27/19 05:14 Diphenhydramine HCl (Benadryl) 25 mg Q6H PRN ORAL Itching/Pruritis 02/25/19 05:15 03/27/19 05:14 Docusate Sodium (Colace) 100 mg TID ORAL 02/25/19 13:00 03/27/19 08:59 02/27/19 18:12 Heparin Sodium (Porcine) (Heparin 5000 units/ml) 5,000 units EVERY 12 HOURS SUBQ 02/25/19 09:00 03/27/19 08:59 02/27/19 20:45 Hydralazine HCl (Apresoline) 25 mg Q8HR ORAL 02/25/19 14:00 03/27/19 13:59 02/28/19 06:08 Liothyronine Sodium (Cytomel) 5 mcg DAILY ORAL 02/26/19 09:00 03/28/19 08:59 02/27/19 09:09 Nitroglycerin (Ntg) 1 patch Q24H TDERMAL 02/25/19 11:00 03/27/19 10:59 02/27/19 11:22 Ondansetron HCl (Zofran) 4 mg Q6H PRN IVP Nausea & Vomiting 02/25/19 05:15 03/27/19 05:14 Pantoprazole (Protonix) 40 mg ACBREAKFAST ORAL 02/26/19 06:30 03/28/19 06:29 02/28/19 06:07 Tamsulosin HCl (Flomax) 0.4 mg BEDTIME ORAL 02/25/19 21:00 03/27/19 20:59 02/27/19 20:42 Lenard Ba MD Feb 28, 2019 06:56
[2019-02-28 07:13] LABS: BASOPHILS % (AUTO) 1.4 % (0.0-2.0); EOSINOPHILS % (AUTO) 1.9 % (0.0-3.0); HEMATOCRIT 28.4 % (37.0-47.0); HEMOGLOBIN 9.7 G/DL (12.0-16.0); LYMPHOCYTES % (AUTO) 14.4 % (20.0-45.0); MEAN CORPUSCULAR VOLUME 97 FL (80-99); MONOCYTES % (AUTO) 6.7 % (1.0-10.0); NEUTROPHILS % (AUTO) 75.6 % (45.0-75.0); PLATELET COUNT 228 K/UL (150-450); RED BLOOD COUNT 2.93 M/UL (4.20-5.40); RED CELL DISTRIBUTION WIDTH 14.8 % (11.6-14.8); WHITE BLOOD COUNT 8.4 K/UL (4.8-10.8)
--- NOTE | 2019-02-28 07:40 | NUR ---
HAND-OFF: Report given to NICOL Shin. Plan of care endorsed.
--- NOTE | 2019-02-28 07:40 | NUR ---
NURSE NOTES: Nurse report given by NICOL Gautam. Patient's awake in bed, and eating breakfast. Denies pain, no s/s of distress or SOB. Bed low and locked, call light within reach. Macedonian speaking only, AO x 3. IV is patent and asymptomatic. Present with R chest permacath for hemodialysis only. Will continue to monitor.
[2019-02-28 08:00] LABS: ALANINE AMINOTRANSFERASE 11 U/L (12-78); ALBUMIN 2.1 G/DL (3.4-5.0); ALBUMIN/GLOBULIN RATIO 0.5 (1.0-2.7); ALKALINE PHOSPHATASE 133 U/L (46-116); ANION GAP 8 mmol/L (5-15); ASPARTATE AMINO TRANSFERASE 19 U/L (15-37); BILIRUBIN,TOTAL 0.4 MG/DL (0.2-1.0); BLOOD UREA NITROGEN 27 mg/dL (7-18); CALCIUM 7.6 MG/DL (8.5-10.1); CARBON DIOXIDE 26 MMOL/L (21-32); CHLORIDE 96 MMOL/L (98-107); CREATININE 2.8 MG/DL (0.55-1.30); PHOSPHORUS 2.4 MG/DL (2.5-4.9); SODIUM 130 MMOL/L (136-145)
[2019-02-28] MEDS ORDERED: Phospha 250 Neutral tab ORAL SCH (08:45)
--- NOTE | 2019-02-28 09:05 | General Progress Note ---
Assessment/Plan Problem List: (1) Hypoglycemia ICD Codes: E16.2 - Hypoglycemia, unspecified SNOMED: 013976621 (2) Lactic acidosis ICD Codes: E87.2 - Acidosis SNOMED: 78338748 (3) Hypertensive urgency ICD Codes: I16.0 - Hypertensive urgency SNOMED: 401002443 (4) Diastolic CHF ICD Codes: I50.30 - Unspecified diastolic (congestive) heart failure SNOMED: 59416463, 217424010 (5) End-stage renal disease ICD Codes: N18.6 - End stage renal disease SNOMED: 29052570 (6) Diabetes ICD Codes: E11.9 - Type 2 diabetes mellitus without complications SNOMED: 82625153 (7) Anemia in chronic kidney disease ICD Codes: N18.9 - Chronic kidney disease, unspecified; D63.1 - Anemia in chronic kidney disease SNOMED: 368542462 (8) Hypertension ICD Codes: I10 - Essential (primary) hypertension SNOMED: 19944707 (9) Sick-euthyroid syndrome ICD Codes: E07.81 - Sick-euthyroid syndrome SNOMED: 497375185 Status: stable Assessment/Plan: 68-year-old female with history of ESRD on hemodialysis started several months ago, type 2 diabetes, hypertension, diastolic CHF, anemia of chronic disease being admitted for hypoglycemia, hypertensive urgency and lactic acidosis. 1. Hypoglycemia and lactic acidosis.? Due to metformin use. Stepdown --> telemetry--> can transfer to med surg today Discontinue metformin, Discontinue glimepiride. Hold D10W, glucose trending up and eating well. Continue to monitor Hemodialysis per nephrology, on board. Case discussed with him Nephrology consult with Dr. Ba appreciated lactic acid, trending down, resolved Continue to monitor fingerstick blood glucose. low dose insulin if needed To dicuss with daughter and go over all meds she is suposed to be taking. Case d /w Dr. Hadley. Patient is going to be discharged on 03/01/19 after one more session of HD. 2. Hypertensive urgency. Resume home oral BP medications with carvedilol, clonidine, amlodipine, hydralazine. Continue to monitor 3. ESRD on HD (Sunday, , Sunday), s/p dialysis 02/25, 02/27 4. Diastolic CHF. Stable 5. Anemia of chronic disease. Stable 6. Sick euthyroid syndrome. low free T3 and elevated TSH and normal free T4 is most likely due to sick euthyroid per endocrinology. Not treatment advised. Case discussed with and patient. I spent 40 minutes in this encounter. Greater than 50% spent in counseling and care coordination. Time of this note may not reflect time of encounter. Subjective Date patient seen: Feb 28, 2019 ROS Limited/Unobtainable: No Constitutional: Denies: no symptoms, chills, diaphoresis, fever, malaise, weakness, other HEENT: Denies: no symptoms, eye pain, blurred vision, tearing, double vision, ear pain, ear discharge, nose pain, nose congestion, throat pain, throat swelling, mouth pain, mouth swelling, other Cardiovascular: Denies: no symptoms, chest pain, edema, irregular heart rate, lightheadedness, palpitations, syncope, other Respiratory: Denies: no symptoms, cough, orthopnea, shortness of breath, SOB with excertion, SOB at rest, sputum, stridor, wheezing, other Gastrointestinal/Abdominal: Denies: no symptoms, abdomen distended, abdominal pain, black stools, tarry stools, blood in stool, constipated, diarrhea, difficulty swallowing, nausea, poor appetite, poor fluid intake, rectal bleeding , vomiting, other Genitourinary: Denies: no symptoms, burning, discharge, frequency, flank pain, hematuria, incontinence, pain, urgency, other Neurologic/Psychiatric: Denies: no symptoms, anxiety, depressed, emotional problems, headache, numbness, paresthesia, pre-existing deficit, seizure, tingling, tremors, weakness, other Endocrine: Denies: no symptoms, excessive sweating, flushing, intolerance to cold, intolerance to heat, increased hunger, increased thirst, increased urine, unexplained weight gain, unexplained weight loss, other Hematologic/Lymphatic: Denies: no symptoms, anemia, easy bleeding, easy bruising, other Allergies: Coded Allergies: No Known Allergies (Unverified , 10/06/18) Subjective no complaints. feels stronger. Glucose stable Objective Last 24 Hour Vital Signs Date Time Temp Pulse Resp B/P (MAP) Pulse Ox O2 Delivery O2 Flow Rate FiO2 02/28/19 06:08 147/92 02/28/19 04:00 90 9/27/19 04:00 98.0 66 18 147/92 (110) 97 02/28/19 00:00 96.6 77 18 141/83 (102) 98 02/28/19 00:00 78 02/27/19 21:20 169/70 02/27/19 21:00 Room Air 02/27/19 20:42 83 169/70 02/27/19 20:00 98.7 83 18 169/70 (103) 97 02/27/19 20:00 70 02/27/19 18:12 70 160/68 02/27/19 16:00 70 02/27/19 16:00 98.5 80 18 160/68 (98) 96 02/27/19 12:00 97.4 80 18 171/71 (104) 95 02/27/19 12:00 80 02/27/19 11:22 148/66 Intake and Output 02/27/19 02/28/19 18:59 06:59 Intake Total 480 ml Balance 480 ml Intake Oral 480 ml # Voids 2 1 Laboratory Tests 02/28/19 06:32: White Blood Count 8.4, Red Blood Count 2.93L, Hemoglobin 9.7L, Hematocrit 28.4L , Mean Corpuscular Volume 97, Mean Corpuscular Hemoglobin 33.0H, Mean Corpuscular Hemoglobin Concent 34.0, Red Cell Distribution Width 14.8, Platelet Count 228, Mean Platelet Volume 7.4, Neutrophils (%) (Auto) 75.6H, Lymphocytes ( %) (Auto) 14.4L, Monocytes (%) (Auto) 6.7, Eosinophils (%) (Auto) 1.9, Basophils (%) (Auto) 1.4, Sodium Level 130L, Potassium Level 4.0, Chloride Level 96L, Carbon Dioxide Level 26, Anion Gap 8, Blood Urea Nitrogen 27H, Creatinine 2.8H, Estimat Glomerular Filtration Rate 16.9, Glucose Level 133H, Lactic Acid Level 1.20, Uric Acid 2.3L, Calcium Level 7.6L, Phosphorus Level 2.4L, Total Bilirubin 0.4, Aspartate Amino Transf (AST/SGOT) 19, Alanine Aminotransferase (ALT/SGPT) 11L, Alkaline Phosphatase 133H, C-Reactive Protein, Quantitative 2.1H, Pro-B-Type Natriuretic Peptide > 26587T, Total Protein 6.6, Albumin 2.1L, Globulin 4.5, Albumin/Globulin Ratio 0.5L Height (Feet): 5 Height (Inches): 6.00 Weight (Pounds): 138 Objective General Appearance: normal inspection, well appearing, no apparent distress, alert, Head: atraumatic ENT: normal ENT inspection, hearing grossly normal, normal voice Neck: normal inspection, full range of motion, supple, no bony tend Respiratory: normal inspection, lungs clear, normal breath sounds, no respiratory distress, no retraction, no wheezing Cardiovascular : regular rate, rhythm, no m/r/g no edema Gastrointestinal: normal inspection, normal bowel sounds, non tender, soft, no guarding, no hernia Genitourinary: no CVA tenderness Musculoskeletal: normal inspection, back normal, normal range of motion Neurologic: normal inspection, alert, oriented x3, responsive, information systems architect III-XII nml as tested, speech normal Psychiatric: normal inspection, judgement/insight normal, mood/affect normal Skin: right subclavian permcath, Siva Carranza M.D. Feb 28, 2019 09:05
[2019-02-28] MEDS: Docusate 100mg cap ORAL SCH ×3 (09:18→17:20)
[2019-02-28] MEDS: Aspirin EC 81mg tab ORAL SCH (09:18)
[2019-02-28] MEDS: Heparin 5000 units/ml inj SUBQ SCH ×2 (09:19→21:17)
[2019-02-28] MEDS: Liothyronine 5mcg tab ORAL SCH (09:19)
[2019-02-28] MEDS: Carvedilol 12.5mg tab ORAL SCH ×2 (09:19→21:16)
[2019-02-28] MEDS: Nitroglycerin Patch 0.4mg TDERMAL SCH (11:09)
--- NOTE | 2019-02-28 11:58 | Nephrology Progress Note ---
Assessment/Plan Problem List: (1) End-stage renal disease (2) Lactic acidosis (3) Anemia in chronic kidney disease (4) Hypertensive kidney disease Assessment 1) Lactic acidosis (2) Diabetes (3) Hypoglycemia (4) End-stage renal disease Acute on chronic diastolic congestive heart failure Cardiomyopathy Anemia due to chronic kidney disease Hypertensive heart disease Plan stop D10- stop ss insulin HD in am 03/01 adjust BP meds Phos PO med surg DC in am after HD Subjective ROS Limited/Unobtainable: No Constitutional: Reports: malaise Objective Objective Last 24 Hour Vital Signs Date Time Temp Pulse Resp B/P (MAP) Pulse Ox O2 Delivery O2 Flow Rate FiO2 02/28/19 11:09 184/83 02/28/19 09:19 99 184/83 02/28/19 09:19 99 184/83 02/28/19 09:19 184/83 02/28/19 09:00 Room Air 02/28/19 08:00 98.2 99 18 184/83 (116) 98 02/28/19 08:00 100 02/28/19 06:08 147/92 02/28/19 04:00 90 02/28/19 04:00 98.0 66 18 147/92 (110) 97 02/28/19 00:00 96.6 77 18 141/83 (102) 98 02/28/19 00:00 78 02/27/19 21:20 169/70 02/27/19 21:00 Room Air 02/27/19 20:42 83 169/70 02/27/19 20:00 98.7 83 18 169/70 (103) 97 02/27/19 20:00 70 02/27/19 18:12 70 160/68 02/27/19 16:00 70 02/27/19 16:00 98.5 80 18 160/68 (98) 96 02/27/19 12:00 97.4 80 18 171/71 (104) 95 02/27/19 12:00 80 Intake and Output 02/27/19 02/28/19 18:59 06:59 Intake Total 480 ml Balance 480 ml Intake Oral 480 ml # Voids 2 1 Current Medications Medications (Trade) Dose Ordered Sig/Vasile Route PRN Reason Start Time Stop Time Status Last Admin Dose Admin Acetaminophen (Tylenol) 650 mg Q4H PRN ORAL Mild Pain (Pain Scale 1-3) 02/25/19 05:15 03/27/19 05:14 Amlodipine Besylate (Norvasc) 5 mg BID ORAL 02/25/19 18:00 03/27/19 08:59 02/28/19 09:19 Aspirin (Ecotrin) 81 mg DAILY ORAL 02/25/19 09:00 03/27/19 08:59 02/28/19 09:18 Carvedilol (Coreg) 12.5 mg Q12HR ORAL 02/26/19 21:00 03/28/19 20:59 02/28/19 09:19 Chlorhexidine Gluconate (Mary-Hex 2%) 1 applic DAILY@2000 TOPIC 02/25/19 20:00 03/27/19 19:59 02/27/19 20:41 Clonidine HCl (Catapres Tab) 0.1 mg Q4H PRN ORAL SBP>170 02/25/19 10:30 03/27/19 05:14 02/28/19 09:19 Dextrose (Dextrose 50%) 25 ml Q30M PRN IV Hypoglycemia 02/25/19 05:15 03/27/19 05:14 Dextrose (Dextrose 50%) 50 ml Q30M PRN IV Hypoglycemia 02/25/19 05:15 03/27/19 05:14 Diphenhydramine HCl (Benadryl) 25 mg Q6H PRN ORAL Itching/Pruritis 02/25/19 05:15 03/27/19 05:14 Docusate Sodium (Colace) 100 mg TID ORAL 02/25/19 13:00 03/27/19 08:59 02/28/19 09:18 Heparin Sodium (Porcine) (Heparin 5000 units/ml) 5,000 units EVERY 12 HOURS SUBQ 02/25/19 09:00 03/27/19 08:59 02/28/19 09:19 Hydralazine HCl (Apresoline) 25 mg Q8HR ORAL 02/25/19 14:00 03/27/19 13:59 02/28/19 06:08 Liothyronine Sodium (Cytomel) 5 mcg DAILY ORAL 02/26/19 09:00 03/28/19 08:59 02/28/19 09:19 Nitroglycerin (Ntg) 1 patch Q24H TDERMAL 02/25/19 11:00 03/27/19 10:59 02/28/19 11:09 Ondansetron HCl (Zofran) 4 mg Q6H PRN IVP Nausea & Vomiting 02/25/19 05:15 03/27/19 05:14 Pantoprazole (Protonix) 40 mg ACBREAKFAST ORAL 02/26/19 06:30 03/28/19 06:29 02/28/19 06:07 Tamsulosin HCl (Flomax) 0.4 mg BEDTIME ORAL 02/25/19 21:00 03/27/19 20:59 02/27/19 20:42 Laboratory Tests 02/28/19 06:32: White Blood Count 8.4, Red Blood Count 2.93L, Hemoglobin 9.7L, Hematocrit 28.4L , Mean Corpuscular Volume 97, Mean Corpuscular Hemoglobin 33.0H, Mean Corpuscular Hemoglobin Concent 34.0, Red Cell Distribution Width 14.8, Platelet Count 228, Mean Platelet Volume 7.4, Neutrophils (%) (Auto) 75.6H, Lymphocytes ( %) (Auto) 14.4L, Monocytes (%) (Auto) 6.7, Eosinophils (%) (Auto) 1.9, Basophils (%) (Auto) 1.4, Sodium Level 130L, Potassium Level 4.0, Chloride Level 96L, Carbon Dioxide Level 26, Anion Gap 8, Blood Urea Nitrogen 27H, Creatinine 2.8H, Estimat Glomerular Filtration Rate 16.9, Glucose Level 133H, Lactic Acid Level 1.20, Uric Acid 2.3L, Calcium Level 7.6L, Phosphorus Level 2.4L, Total Bilirubin 0.4, Aspartate Amino Transf (AST/SGOT) 19, Alanine Aminotransferase (ALT/SGPT) 11L, Alkaline Phosphatase 133H, C-Reactive Protein, Quantitative 2.1H, Pro-B-Type Natriuretic Peptide > 77627E, Total Protein 6.6, Albumin 2.1L, Globulin 4.5, Albumin/Globulin Ratio 0.5L Height (Feet): 5 Height (Inches): 6.00 Weight (Pounds): 138 General Appearance: no apparent distress Cardiovascular: normal rate Respiratory/Chest: lungs clear Abdomen: soft Objective no change Juaquin Hadley MD Feb 28, 2019 11:58
--- NOTE | 2019-02-28 12:00 | NUR ---
NURSE NOTES: Patient's transferred to [facility] per Dr Thornton's order. Order acknowledged and carried out. Patient's in stable condition, denies chest pain, no s/s of distress or SOB. Patient's transferred by hospital bed with PARTS DATA WRITER and RN assistance. surveillance system monitor is removed. IV is patent and asymtomatic. Nurse report given to NICOL Mejia on [facility] at bedside. Patient's belonging list went over with nurses, patient and family member. Family member told nurses she will bring the belonging home. Belonging list is signed by both nurses. Transferred orders are in.
--- NOTE | 2019-02-28 12:22 | NUR ---
NURSE NOTES: received patient A/A/Ox4, syriac speaking. personal belongings noted. corneliacliftonOctavio took clothings home. permacath on the RUC and IV heplock are patent, dry and intact. wound photo taken on sacral and treatment rendered. JACQUI called for HD sched and spoke with JT. awaits for confirmation. siderails are up x3. bed alarm on and keep bed in lock mode. call light is within reach. daughter @ bedside. NO c/o pain/discomfort noted. will cont to monitor.
--- NOTE | 2019-02-28 13:17 | NUR ---
RETAIL SERVICE SPECIALISTSEED CORN MANAGER PRODUCTION SI: HYPOGLYCEMIA,HYPONATREMIA T. 98.1 HR 77 RR 18 B/P 184/83 NA 130 ALK PHOS 133 BNP>3500 IS: COREG PO HEPARIN SUBC MED/SURG STATUS
--- NOTE | 2019-02-28 16:56 | NUR ---
NURSE NOTES:WOUND CARE FOLLOW-UP NOTES:Erythema moisture intertrigo R and L breast R abdominal folds medial abd folds and bilat groin areas.R groin area measures 1.5cm x (W)6.5cm.R groin area measures 1cm x (W0)7cm . Small amt sanguineus exudate noted from R and L groin areas.
--- NOTE | 2019-02-28 19:02 | NUR ---
HAND-OFF: Report given to Ana.
[2019-02-28] MEDS ORDERED: Dyna-Hex 2% Top Sol 2oz TOPIC SCH (20:00)
--- NOTE | 2019-02-28 20:00 | NUR ---
NURSE NOTES: RECEIVED PATIENT LYING IN BED, AWAKE, ALERT/ORIENTED X3, TURKISH SPEAKING, DENIES PAIN, NO SIGNS AND SYMPTOMS OF ACUTE CARDIO RESPIRATORY DISTRESS/SHORTNESS OF BREATH, DENIES CHEST PAIN, NO EDEMA NOTED. RIGHT UPPER CHEST PERMACATH INTACT, NO SIGNS OF BLEEDING (HEMODIALYSIS) - NEXT HD 03/01/19, DISCHARGE PLAN HOME AFTER HD. NO COMPLAINT OF GI DISCOMFORT, NO N/V/D. DECREASED MOBILITY SECONDARY TO OSTEO ARTHRITIS/MORE PRONOUNCED UPPER EXTREMITIES-REQUIRE ASSISTANCE WITH REPOSITIONING. COMFORT CARE PROVIDED. SIDE RAILS UP X3/BED IN LOWEST POSITION FOR SAFETY, ENCOURAGED PATIENT TO UTILIZE CALL LIGHT FOR ASSISTANCE, VERBALIZED UNDERSTANDING. NAD.
[2019-02-28] MEDS ORDERED: Tamsulosin 0.4mg cap ORAL SCH (21:00)
--- NOTE | 2019-02-28 21:00 | NUR ---
NURSE NOTES: BLOOD GLUCOSE MONITORED VIA GLUCOMETER WITH RESULT 137MG/DL, ASYMPTOMATIC, NO SS COVERAGE, WILL CONTINUE TO MONITOR ORDERED.
[2019-03-01] VITALS: BP 156/67
[2019-03-01 04:00] VITALS: BP 128/72
--- NOTE | 2019-03-01 05:50 | NUR ---
NURSE NOTES: RESTED WELL, NO SIGNIFICANT CHANGE OF CONDITION NOTED THROUGHOUT THE NIGHT. SAFETY MAINTAINED. REFUSED REPOSITIONING, EXPLAINED BENEFITS OF REPOSITIONING, DAUGHTER AWARE.
[2019-03-01] MEDS: HydrALAZINE 50mg tab ORAL SCH ×2 (06:04→14:00)
--- NOTE | 2019-03-01 06:08 | NUR ---
NURSE NOTES: BLOOD PRESSURE 162/86, ASSESSED FOR SIGNS AND SYMPTOMS OF HYPERTENSION, NONE NOTED, MEDICATED WITH AM MEDS. TOLERATED WELL. NAD.
[2019-03-01 08:00] VITALS: BP 170/75
[2019-03-01 08:06] LABS: BASOPHILS % (AUTO) 0.5 % (0.0-2.0); EOSINOPHILS % (AUTO) 4.1 % (0.0-3.0); HEMATOCRIT 28.4 % (37.0-47.0); HEMOGLOBIN 9.4 G/DL (12.0-16.0); LYMPHOCYTES % (AUTO) 15.7 % (20.0-45.0); MEAN CORPUSCULAR VOLUME 97 FL (80-99); MONOCYTES % (AUTO) 7.6 % (1.0-10.0); NEUTROPHILS % (AUTO) 72.1 % (45.0-75.0); PLATELET COUNT 241 K/UL (150-450); RED BLOOD COUNT 2.93 M/UL (4.20-5.40); RED CELL DISTRIBUTION WIDTH 16.1 % (11.6-14.8); WHITE BLOOD COUNT 7.1 K/UL (4.8-10.8)
[2019-03-01 08:53] LABS: ALANINE AMINOTRANSFERASE 10 U/L (12-78); ALBUMIN 2.1 G/DL (3.4-5.0); ALBUMIN/GLOBULIN RATIO 0.5 (1.0-2.7); ALKALINE PHOSPHATASE 148 U/L (46-116); ANION GAP 9 mmol/L (5-15); ASPARTATE AMINO TRANSFERASE 18 U/L (15-37); BILIRUBIN,TOTAL 0.4 MG/DL (0.2-1.0); BLOOD UREA NITROGEN 36 mg/dL (7-18); CALCIUM 7.8 MG/DL (8.5-10.1); CARBON DIOXIDE 28 MMOL/L (21-32); CHLORIDE 97 MMOL/L (98-107); CREATININE 3.5 MG/DL (0.55-1.30); PHOSPHORUS 3.4 MG/DL (2.5-4.9); POTASSIUM 4.3 MMOL/L (3.5-5.1); SODIUM 133 MMOL/L (136-145)
[2019-03-01] MEDS ORDERED: Liothyronine 5mcg tab ORAL SCH (09:00)
[2019-03-01] MEDS: Docusate 100mg cap ORAL SCH ×2 (09:00→12:23)
[2019-03-01] MEDS ORDERED: Aspirin EC 81mg tab ORAL SCH (09:00)
[2019-03-01] MEDS: Carvedilol 12.5mg tab ORAL SCH (09:00)
[2019-03-01] MEDS ORDERED: FLOMAX0.4 MG ORAL (09:03)
[2019-03-01] MEDS ORDERED: NORVASC10 MG ORAL (09:03)
[2019-03-01] MEDS ORDERED: CYTOMEL5 MCG ORAL (09:03)
[2019-03-01] MEDS ORDERED: COREG12.5 MG ORAL (09:03)
[2019-03-01] MEDS ORDERED: APRESOLINE50 MG ORAL (09:03)
[2019-03-01] MEDS: Heparin 5000 units/ml inj SUBQ SCH (09:27)
--- NOTE | 2019-03-01 09:38 | Nephrology Progress Note ---
Assessment/Plan Problem List: (1) End-stage renal disease (2) Lactic acidosis (3) Anemia in chronic kidney disease (4) Hypertensive kidney disease Assessment 1) Lactic acidosis (2) Diabetes (3) Hypoglycemia (4) End-stage renal disease Acute on chronic diastolic congestive heart failure Cardiomyopathy Anemia due to chronic kidney disease Hypertensive heart disease Plan patients home meds reviewed perscription given discussed with NICOL Kang and patient and her sister can DC after dialysis today HD in am 03/01 Subjective ROS Limited/Unobtainable: No Objective Objective Last 24 Hour Vital Signs Date Time Temp Pulse Resp B/P (MAP) Pulse Ox O2 Delivery O2 Flow Rate FiO2 03/01/19 09:21 83 170/75 03/01/19 09:00 83 170/75 03/01/19 06:04 162/86 03/01/19 04:00 98.5 91 22 128/72 (90) 95 03/01/19 00:00 97.8 78 19 156/67 (96) 97 02/28/19 22:38 160/66 02/28/19 21:16 80 166/79 02/28/19 21:00 Room Air 02/28/19 20:00 98.8 77 19 162/67 (98) 95 02/28/19 17:20 93 127/74 02/28/19 16:00 98.4 93 18 127/74 (91) 97 02/28/19 14:06 151/72 02/28/19 13:49 98.9 76 18 151/72 (98) 95 02/28/19 12:00 98.1 77 18 156/91 (112) 94 02/28/19 11:09 184/83 Intake and Output 02/28/19 03/01/19 19:00 07:00 Intake Total 240 ml 300 ml Balance 240 ml 300 ml Intake Oral 240 ml 300 ml # Voids 1 Current Medications Medications (Trade) Dose Ordered Sig/Vasile Route PRN Reason Start Time Stop Time Status Last Admin Dose Admin Acetaminophen (Tylenol) 650 mg Q4H PRN ORAL Mild Pain (Pain Scale 1-3) 02/28/19 14:00 03/27/19 13:59 Amlodipine Besylate (Norvasc) 5 mg BID ORAL 02/28/19 18:00 03/27/19 17:59 03/01/19 09:21 Aspirin (Ecotrin) 81 mg DAILY ORAL 03/01/19 09:00 03/31/19 08:59 Carvedilol (Coreg) 12.5 mg Q12HR ORAL 02/28/19 21:00 03/28/19 20:59 02/28/19 21:16 Chlorhexidine Gluconate (Mary-Hex 2%) 1 applic DAILY@2000 TOPIC 02/28/19 20:00 03/27/19 19:59 02/28/19 21:15 Clonidine HCl (Catapres Tab) 0.1 mg Q4H PRN ORAL SBP>170 02/28/19 14:00 03/27/19 13:59 Dextrose (Dextrose 50%) 25 ml Q30M PRN IV Hypoglycemia 02/28/19 13:45 03/27/19 05:14 Dextrose (Dextrose 50%) 50 ml Q30M PRN IV Hypoglycemia 02/28/19 13:45 03/27/19 05:14 Diphenhydramine HCl (Benadryl) 25 mg Q6H PRN ORAL Itching/Pruritis 02/28/19 14:00 03/27/19 13:59 Docusate Sodium (Colace) 100 mg TID ORAL 02/28/19 13:00 03/27/19 12:59 02/28/19 17:20 Heparin Sodium (Porcine) (Heparin 5000 units/ml) 5,000 units EVERY 12 HOURS SUBQ 02/28/19 21:00 03/27/19 08:59 03/01/19 09:27 Hydralazine HCl (Apresoline) 25 mg Q8HR ORAL 02/28/19 14:00 03/27/19 13:59 03/01/19 06:04 Liothyronine Sodium (Cytomel) 5 mcg DAILY ORAL 03/01/19 09:00 03/28/19 08:59 Nitroglycerin (Ntg) 1 patch Q24H TDERMAL 03/01/19 11:00 03/27/19 10:59 Ondansetron HCl (Zofran) 4 mg Q6H PRN IVP Nausea & Vomiting 02/28/19 14:00 03/27/19 13:59 Pantoprazole (Protonix) 40 mg ACBREAKFAST ORAL 03/01/19 06:30 03/28/19 06:29 03/01/19 06:03 Tamsulosin HCl (Flomax) 0.4 mg BEDTIME ORAL 02/28/19 21:00 03/27/19 20:59 02/28/19 21:16 Laboratory Tests 03/01/19 06:59: White Blood Count 7.1, Red Blood Count 2.93L, Hemoglobin 9.4L, Hematocrit 28.4L , Mean Corpuscular Volume 97, Mean Corpuscular Hemoglobin 32.2H, Mean Corpuscular Hemoglobin Concent 33.2, Red Cell Distribution Width 16.1H, Platelet Count 241, Mean Platelet Volume 7.3, Neutrophils (%) (Auto) 72.1, Lymphocytes (%) (Auto) 15.7L, Monocytes (%) (Auto) 7.6, Eosinophils (%) (Auto) 4.1H, Basophils (%) (Auto) 0.5, Sodium Level 133L, Potassium Level 4.3, Chloride Level 97L, Carbon Dioxide Level 28, Anion Gap 9, Blood Urea Nitrogen 36H, Creatinine 3.5H, Estimat Glomerular Filtration Rate 13.1, Glucose Level 139H, Lactic Acid Level 1.60, Uric Acid 2.6, Calcium Level 7.8L, Phosphorus Level 3.4, Magnesium Level 2.0, Total Bilirubin 0.4, Aspartate Amino Transf (AST /SGOT) 18, Alanine Aminotransferase (ALT/SGPT) 10L, Alkaline Phosphatase 148H, C -Reactive Protein, Quantitative 2.9H, Pro-B-Type Natriuretic Peptide > 39273G, Total Protein 6.4, Albumin 2.1L, Globulin 4.3, Albumin/Globulin Ratio 0.5L Height (Feet): 5 Height (Inches): 6.00 Weight (Pounds): 138 General Appearance: no apparent distress Objective no change Juaquin Hadley MD Mar 01, 2019 09:38
--- NOTE | 2019-03-01 10:21 | General Progress Note ---
Assessment/Plan Problem List: (1) Lactic acidosis ICD Codes: E87.2 - Acidosis SNOMED: 30416496 (2) Diabetes ICD Codes: E11.9 - Type 2 diabetes mellitus without complications SNOMED: 84382041 (3) Hypoglycemia ICD Codes: E16.2 - Hypoglycemia, unspecified SNOMED: 698149774 (4) End-stage renal disease ICD Codes: N18.6 - End stage renal disease SNOMED: 51718915 Status: stable Assessment/Plan: glucose values stable continue frequent glucose monitoring without insulin coverage consider adding Januvia 25 mg renal dose if glucose started to rise low free T3 and elevated TSH and normal free T4 is most likely due to "sick euthyroid" I doubt replacing T3 will be of any clinical benefit Subjective Allergies: Coded Allergies: No Known Allergies (Unverified , 10/06/18) All Systems: reviewed and negative except above Subjective events noted glucose values are stable Item Value Date Time Bedside Blood Glucose 159 mg/dl H 03/01/19 0544 Bedside Blood Glucose 137 mg/dl H 02/28/19 2044 Bedside Blood Glucose 146 mg/dl H 02/28/19 1630 Bedside Blood Glucose 183 mg/dl H 02/28/19 1146 Objective Last 24 Hour Vital Signs Date Time Temp Pulse Resp B/P (MAP) Pulse Ox O2 Delivery O2 Flow Rate FiO2 03/01/19 09:21 83 170/75 03/01/19 09:00 83 170/75 03/01/19 08:00 98.2 83 18 170/75 (106) 99 03/01/19 06:04 162/86 03/01/19 04:00 98.5 91 22 128/72 (90) 95 03/01/19 00:00 97.8 78 19 156/67 (96) 97 02/28/19 22:38 160/66 02/28/19 21:16 80 166/79 02/28/19 21:00 Room Air 02/28/19 20:00 98.8 77 19 162/67 (98) 95 02/28/19 17:20 93 127/74 02/28/19 16:00 98.4 93 18 127/74 (91) 97 02/28/19 14:06 151/72 02/28/19 13:49 98.9 76 18 151/72 (98) 95 02/28/19 12:00 98.1 77 18 156/91 (112) 94 02/28/19 11:09 184/83 Intake and Output 02/28/19 03/01/19 18:59 06:59 Intake Total 240 ml 300 ml Balance 240 ml 300 ml Intake Oral 240 ml 300 ml # Voids 1 Laboratory Tests 03/01/19 06:59: White Blood Count 7.1, Red Blood Count 2.93L, Hemoglobin 9.4L, Hematocrit 28.4L , Mean Corpuscular Volume 97, Mean Corpuscular Hemoglobin 32.2H, Mean Corpuscular Hemoglobin Concent 33.2, Red Cell Distribution Width 16.1H, Platelet Count 241, Mean Platelet Volume 7.3, Neutrophils (%) (Auto) 72.1, Lymphocytes (%) (Auto) 15.7L, Monocytes (%) (Auto) 7.6, Eosinophils (%) (Auto) 4.1H, Basophils (%) (Auto) 0.5, Sodium Level 133L, Potassium Level 4.3, Chloride Level 97L, Carbon Dioxide Level 28, Anion Gap 9, Blood Urea Nitrogen 36H, Creatinine 3.5H, Estimat Glomerular Filtration Rate 13.1, Glucose Level 139H, Lactic Acid Level 1.60, Uric Acid 2.6, Calcium Level 7.8L, Phosphorus Level 3.4, Magnesium Level 2.0, Total Bilirubin 0.4, Aspartate Amino Transf (AST /SGOT) 18, Alanine Aminotransferase (ALT/SGPT) 10L, Alkaline Phosphatase 148H, C -Reactive Protein, Quantitative 2.9H, Pro-B-Type Natriuretic Peptide > 87534Q, Total Protein 6.4, Albumin 2.1L, Globulin 4.3, Albumin/Globulin Ratio 0.5L Height (Feet): 5 Height (Inches): 6.00 Weight (Pounds): 138 General Appearance: no apparent distress Neck: normal alignment Cardiovascular: normal rate Respiratory/Chest: lungs clear Abdomen: normal bowel sounds Objective Current Medications Medications (Trade) Dose Ordered Sig/Vasile Route PRN Reason Start Time Stop Time Status Last Admin Dose Admin Acetaminophen (Tylenol) 650 mg Q4H PRN ORAL Mild Pain (Pain Scale 1-3) 02/28/19 14:00 03/27/19 13:59 Amlodipine Besylate (Norvasc) 5 mg BID ORAL 02/28/19 18:00 03/27/19 17:59 03/01/19 09:21 Aspirin (Ecotrin) 81 mg DAILY ORAL 03/01/19 09:00 03/31/19 08:59 Carvedilol (Coreg) 12.5 mg Q12HR ORAL 02/28/19 21:00 03/28/19 20:59 02/28/19 21:16 Chlorhexidine Gluconate (Mary-Hex 2%) 1 applic DAILY@2000 TOPIC 02/28/19 20:00 03/27/19 19:59 02/28/19 21:15 Clonidine HCl (Catapres Tab) 0.1 mg Q4H PRN ORAL SBP>170 02/28/19 14:00 03/27/19 13:59 Dextrose (Dextrose 50%) 25 ml Q30M PRN IV Hypoglycemia 02/28/19 13:45 03/27/19 05:14 Dextrose (Dextrose 50%) 50 ml Q30M PRN IV Hypoglycemia 02/28/19 13:45 03/27/19 05:14 Diphenhydramine HCl (Benadryl) 25 mg Q6H PRN ORAL Itching/Pruritis 02/28/19 14:00 03/27/19 13:59 Docusate Sodium (Colace) 100 mg TID ORAL 02/28/19 13:00 03/27/19 12:59 02/28/19 17:20 Heparin Sodium (Porcine) (Heparin 5000 units/ml) 5,000 units EVERY 12 HOURS SUBQ 02/28/19 21:00 03/27/19 08:59 03/01/19 09:27 Hydralazine HCl (Apresoline) 25 mg Q8HR ORAL 02/28/19 14:00 03/27/19 13:59 03/01/19 06:04 Liothyronine Sodium (Cytomel) 5 mcg DAILY ORAL 03/01/19 09:00 03/28/19 08:59 Nitroglycerin (Ntg) 1 patch Q24H TDERMAL 03/01/19 11:00 03/27/19 10:59 Ondansetron HCl (Zofran) 4 mg Q6H PRN IVP Nausea & Vomiting 02/28/19 14:00 03/27/19 13:59 Pantoprazole (Protonix) 40 mg ACBREAKFAST ORAL 9/28/19 06:30 03/28/19 06:29 03/01/19 06:03 Tamsulosin HCl (Flomax) 0.4 mg BEDTIME ORAL 02/28/19 21:00 03/27/19 20:59 02/28/19 21:16 Lenard Ba MD Mar 01, 2019 10:21
[2019-03-01] MEDS ORDERED: Nitroglycerin Patch 0.4mg TDERMAL SCH (11:00)
[2019-03-01 12:06] VITALS: BP 155/80
[2019-03-01 12:24] VITALS: BP 155/80
--- NOTE | 2019-03-01 12:37 | NUR ---
NURSE NOTES: HD completed 2L out. VS taken and recorded. patient has no acute distress noted. tolerating food intake well. Rx been made by Dr. Hadley. awaiting for discharge order from PMD. will cont to monitor.
--- NOTE | 2019-03-01 13:28 | Discharge Summary ---
Discharge Summary Hospital Course Date of Admission Feb 25, 2019 at 02:43 Date of Discharge 03/01/19 Admitting Diagnosis HYPOGLYCEMIA and HYPERTENSIVE URGENCY Reason for Hospitalization: Hypoglycemia and hypertensive urgency HPI Alyx Garcia is a 68-year-old female with history of ESRD on hemodialysis started several months ago, type 2 diabetes, hypertension, diastolic CHF, anemia of chronic disease who was admitted for hypoglycemia, hypertensive urgency and lactic acidosis. Consultations Nephrology Dr. Strickland Endocrinology Dr. Ba Procedures HD Hospital Course Alyx Garcia is a 68-year-old female with history of ESRD on hemodialysis started several months ago, type 2 diabetes, hypertension, diastolic CHF, anemia of chronic disease who was admitted for hypoglycemia, hypertensive urgency and lactic acidosis. Hypoglycemia and lactic acidosis believed to be 2/2 metformin and glimepiride use despite being ESRD patient. Patient was monitored in stepdown urit and telemetry with holding of oral diabetic medications. Initially required D10W to maintain glucose levels. Patient improved and tolerating diet well. Patient was seen by Endocrinology Dr. Ba and to be discharged without any diabetic medications. Patient was also followed by Dr. Hadley nephrology in the hospital and tolerated dialysis on scheduled TThSat while inpatient. Patient received dialysis on morning of discharge on 03/01/19. Lactic acidosis resolved. Patient's BP improved with resuming of home oral BP medications. Patient also found with sick euthyroid syndrome with low free T3 and elevated TSH but normal free T4 with no need for treatment per endocrinology. Discharge Medications New Medications: Amlodipine Besylate (Norvasc) 10 Mg Tablet 10 MG ORAL DAILY, #90 TAB Carvedilol (Coreg) 12.5 Mg Tablet 12.5 MG ORAL Q12HR for 90 Days, TAB Hydralazine HCl (Hydralazine HCl) 50 Mg Tablet 25 MG ORAL Q8HR for 90 Days, TAB Liothyronine Sodium* (Cytomel*) 5 Mcg Tablet 5 MCG ORAL DAILY for 90 Days, TAB Tamsulosin HCl (Flomax) 0.4 Mg Cap.er.24h 0.4 MG ORAL BEDTIME for 30 Days, CAP Continued Medications: Aspirin Ec* (Aspirin Ec*) 81 Mg Tablet.dr 81 MG ORAL DAILY, TAB (This prescription has been renewed) Clonidine Hcl* (Catapres*) 0.1 Mg Tablet 0.1 MG ORAL EVERY 6 HOURS PRN for SBP>110, TAB (This prescription has been renewed) Discontinued Medications: Amlodipine Besylate* (Amlodipine Besylate*) 5 Mg Tablet 5 MG ORAL DAILY, TAB Ascorbic Acid* (Vitamin C*) 500 Mg Tablet 500 MG ORAL DAILY, #30 TAB 0 Refills Carvedilol* (Carvedilol*) 6.25 Mg Tablet 6.25 MG ORAL EVERY EVENING, TAB Glimepiride* (Glimepiride*) 1 Mg Tablet 1 MG ORAL BEFORE BREAKFAST, TAB Metformin Hcl* (Metformin Hcl*) 500 Mg Tablet 500 MG ORAL TWICE A DAY, TAB Discharge Condition Upon Discharge: stable Discharge Disposition Patient was discharged to home Discharge Diagnoses: (1) Diabetes (2) Hypertension (3) End-stage renal disease (4) Anemia in chronic kidney disease (5) Hypertensive urgency (6) Hypertensive kidney disease (7) Sick-euthyroid syndrome (8) Hypoglycemia Tatyana Pelletier M.D. Mar 01, 2019 13:28
--- NOTE | 2019-03-01 13:39 | Discharge Instructions ---
Discharge Instructions Discharge Instructions Follow up with: Your Primary Care doctor and professional services manager and chemical processing supervisor Call MD/Return to Hospital if: Fever, Nausea, Vomiting, hypoglycemia, BP>170/ 100 Services at Discharge: home health services Diet: renal diabetic Resume Normal Activity?: Yes Activity: as tolerated For Congestive Heart Failure Reminder Report to your physician any weight gain of 5 pounds or more in one week. Tatyana Pelletier M.D. Mar 01, 2019 13:39
--- NOTE | 2019-03-01 14:00 | NUR ---
NURSE NOTES: patient discharge with instructions and Rx. Explained and understood. removed IV heplock. In stable condition. no acute distress noted. personal belongings noted. Annalisa @ bedside and Rajinder provided transportation for patient. permacath is patent and intact.
== END 2019-03-01 14:00 | disposition home or self-care (01) | DRG 420 ==
LOC: EMR 02:00 → OBSVTOIN 02:43 → 2E 02:43 → EDBEDREQSVC 04:04 → EDBEDREQ 04:04 → EDBEDREQTM 04:04 → EDBEDREQ 04:41 → 2W 06:00 → 2E 10:58 → 4E 02-28 12:11
PROC: 5A1D70Z Performance of Urinary Filtration, Intermittent, Less than 6 Hours Per Day (ICD-10-PCS; principal; 2019-02-25)
DX: E11.649 Type 2 diabetes mellitus with hypoglycemia without coma (principal); E87.2 Acidosis; N18.6 End stage renal disease; I16.0 Hypertensive urgency; Z79.84 Long term (current) use of oral hypoglycemic drugs; I13.2 Hypertensive heart and chronic kidney disease with heart failure and with stage 5 chronic kidney disease, or end stage renal disease; E11.22 Type 2 diabetes mellitus with diabetic chronic kidney disease; D63.1 Anemia in chronic kidney disease; I49.5 Sick sinus syndrome; I50.33 Acute on chronic diastolic (congestive) heart failure; Z99.2 Dependence on renal dialysis; I25.2 Old myocardial infarction
CPT/HCPCS: 36415; 71045; 80048; 80053; 80061; 82140; 82550; 82553; 82607; 82728; 82746; 82962; 82977; 83036; 83540; 83550; 83605; 83735; 83880; 84100; 84439; 84443; 84481; 84484; 84550; 85025; 86140; 87040; 87081; 87340; 93005; 96374; 99285; C9399; J1815

== ENCOUNTER 2019-05-14 23:57 | Inpatient (IN) | payer MEDICAID ==
[~2019-05-14] VITALS: Ht 149.9 cm; Wt 60.8 kg
[~2019-05-14 23:57] MED LIST changes: +APRESOLINE50 MG ORAL; +CYTOMEL5 MCG ORAL; +FLOMAX0.4 MG ORAL; +NORVASC10 MG ORAL
[2019-05-15] VITALS (8 sets, daily range): BP systolic 163–196; BP diastolic 61–133
[2019-05-15] MEDS ORDERED: Albuterol ud Inhalation HHN ONE (00:15)
[2019-05-15] MEDS ORDERED: NEPHROVITE1 TAB ORAL (00:27)
[2019-05-15] MEDS ORDERED: METFORMIN HCL500 M1 ORAL (00:27)
[2019-05-15] MEDS ORDERED: ASPIRIN-LOW81 MG ORAL (00:27)
[2019-05-15] MEDS ORDERED: FLOMAX0.4 MG ORAL (00:27)
[2019-05-15] MEDS ORDERED: NORVASC5 MG ORAL (00:27)
[2019-05-15] MEDS ORDERED: Albuterol ud Inhalation ONE (00:28)
[2019-05-15] MEDS ORDERED: Nitroglycerin Subl 0.4mg tab SL PRN ×2 (00:30→00:45)
--- NOTE | 2019-05-15 00:32 | Emergency Room Report ---
History of Present Illness General Chief Complaint: Chest Pain Source: Patient, Medical Record Present Illness HPI Patient is a 68-year-old female presents after increased shortness of breath. Patient had prior history of end-stage renal disease. She is currently on dialysis. Patient reportedly was dialyzed yesterday. She reports having worsening difficulty with breathing. She had prior history of diabetes. Onset of symptoms approximate 1 hour prior to arrival. She reports having severe shortness of breath. Allergies: Coded Allergies: No Known Allergies (Unverified , 10/06/18) Patient History Reviewed Nursing Documentation: PMH: Agreed; PSxH: Agreed Nursing Documentation-PMH Past Medical History: No History, Except For Hx Cardiac Problems: Yes Hx Hypertension: Yes Hx Asthma: No Hx Diabetes: Yes Hx Cancer: No Hx Gastrointestinal Problems: No Hx Dialysis: Yes - TThS Hx Neurological Problems: No Review of Systems All Other Systems: negative except mentioned in HPI Physical Exam Vital Signs Date Time Temp Pulse Resp B/P (MAP) Pulse Ox O2 Delivery O2 Flow Rate FiO2 05/15/19 00:09 97.5 86 18 165/83 (110) 96 Nasal Cannula 2.0 Sp02 EP Interpretation: reviewed, normal General Appearance: normal inspection, well appearing, no apparent distress, alert, GCS 15 Head: atraumatic ENT: normal ENT inspection, hearing grossly normal, normal voice Neck: normal inspection, full range of motion, supple, no bony tend Respiratory: normal inspection, lungs clear, normal breath sounds, no respiratory distress, no retraction, no wheezing Cardiovascular #1: regular rate, rhythm, no edema Gastrointestinal: normal inspection, normal bowel sounds, non tender, soft, no guarding, no hernia Genitourinary: no CVA tenderness Musculoskeletal: normal inspection, back normal, normal range of motion Neurologic: alert, motor strength/tone normal, lock master III-XII nml as tested, responsive, speech normal, normal inspection Psychiatric: normal inspection, judgement/insight normal, mood/affect normal Procedures Critical Care Time Critical Care Time Patient had a critical medical condition which untreated could potentially result in life or limb threatening injury. Total critical care time excluding procedures approximately 45 minutes. Medical Decision Making Diagnostic Impression: Primary Impression: Pulmonary edema Additional Impression: End-stage renal disease ER Course Patient presented for shortness of breath. Differential diagnosis include was not limited to pneumonia, fluid overload, myocardial infarction among others. Because of complexity of patient's case laboratory tests and imaging studies were ordered. Chest x-ray one view interpreted by me showed normal cardiac size with bilateral pulmonary edema and pleural effusions. Patient was started on sublingual nitroglycerin and was also given supplemental oxygen and breathing treatment. She was noted to have some improvement in her respiratory distress after starting on BiPAP. Patient was reassessed after BiPAP and was noted to have marked improvement in respiratory distress and oxygen saturation. Patient was discussed with Dr. Bony Dhillon who agreed with admission. Patient will be admitted to Dr. Amador due to prior admission Labs Test 05/15/19 00:10 White Blood Count 10.7 K/UL (4.8-10.8) Red Blood Count 5.51 M/UL (4.20-5.40) Hemoglobin 16.4 G/DL (12.0-16.0) Hematocrit 51.6 % (37.0-47.0) Mean Corpuscular Volume 94 FL (80-99) Mean Corpuscular Hemoglobin 29.8 PG (27.0-31.0) Mean Corpuscular Hemoglobin Concent 31.9 G/DL (32.0-36.0) Red Cell Distribution Width 14.9 % (11.6-14.8) Platelet Count 200 K/UL (150-450) Mean Platelet Volume 7.7 FL (6.5-10.1) Neutrophils (%) (Auto) 69.8 % (45.0-75.0) Lymphocytes (%) (Auto) 18.5 % (20.0-45.0) Monocytes (%) (Auto) 7.1 % (1.0-10.0) Eosinophils (%) (Auto) 3.7 % (0.0-3.0) Basophils (%) (Auto) 0.9 % (0.0-2.0) Prothrombin Time 10.8 SEC (9.30-11.50) Prothromb Time International Ratio 1.0 (0.9-1.1) Activated Partial Thromboplast Time 28 SEC (23-33) Sodium Level 138 MMOL/L (136-145) Potassium Level 5.5 MMOL/L (3.5-5.1) Chloride Level 97 MMOL/L (98-107) Carbon Dioxide Level 37 MMOL/L (21-32) Anion Gap 4 mmol/L (5-15) Blood Urea Nitrogen 55 mg/dL (7-18) Creatinine 3.9 MG/DL (0.55-1.30) Estimat Glomerular Filtration Rate 11.5 mL/min (>60) Glucose Level 168 MG/DL (74-106) Calcium Level 8.8 MG/DL (8.5-10.1) Total Bilirubin 0.5 MG/DL (0.2-1.0) Aspartate Amino Transf (AST/SGOT) 29 U/L (15-37) Alanine Aminotransferase (ALT/SGPT) 22 U/L (12-78) Alkaline Phosphatase 191 U/L (46-116) Troponin I 0.000 ng/mL (0.000-0.056) Pro-B-Type Natriuretic Peptide > 16129 pg/mL (0-125) Total Protein 9.3 G/DL (6.4-8.2) Albumin 3.1 G/DL (3.4-5.0) Globulin 6.2 g/dL Albumin/Globulin Ratio 0.5 (1.0-2.7) Thyroid Stimulating Hormone (TSH) 13.269 uiU/mL (0.358-3.740) EKG Diagnostic Results Rate: normal Rhythm: NSR ST Segments: no acute changes Last Vital Signs Date Time Temp Pulse Resp B/P (MAP) Pulse Ox O2 Delivery O2 Flow Rate FiO2 05/15/19 00:09 97.5 86 18 165/83 (110) 96 Nasal Cannula 2.0 Status: improved Disposition: ADMITTED INPATIENT Condition: Silas Abad MD May 15, 2019 00:32
[2019-05-15 00:37] LABS: BASOPHILS % (AUTO) 0.9 % (0.0-2.0); EOSINOPHILS % (AUTO) 3.7 % (0.0-3.0); HEMATOCRIT 51.6 % (37.0-47.0); HEMOGLOBIN 16.4 G/DL (12.0-16.0); LYMPHOCYTES % (AUTO) 18.5 % (20.0-45.0); MEAN CORPUSCULAR VOLUME 94 FL (80-99); MONOCYTES % (AUTO) 7.1 % (1.0-10.0); NEUTROPHILS % (AUTO) 69.8 % (45.0-75.0); PLATELET COUNT 200 K/UL (150-450); RED BLOOD COUNT 5.51 M/UL (4.20-5.40); RED CELL DISTRIBUTION WIDTH 14.9 % (11.6-14.8); WHITE BLOOD COUNT 10.7 K/UL (4.8-10.8)
[2019-05-15 00:50] LABS: ANION GAP 4 mmol/L (5-15); BLOOD UREA NITROGEN 55 mg/dL (7-18); CALCIUM 8.8 MG/DL (8.5-10.1); CARBON DIOXIDE 37 MMOL/L (21-32); CHLORIDE 97 MMOL/L (98-107); CREATININE 3.9 MG/DL (0.55-1.30); POTASSIUM 5.5 MMOL/L (3.5-5.1); SODIUM 138 MMOL/L (136-145)
[2019-05-15 01:02] LABS: ALANINE AMINOTRANSFERASE 22 U/L (12-78); ALBUMIN 3.1 G/DL (3.4-5.0); ALBUMIN/GLOBULIN RATIO 0.5 (1.0-2.7); ALKALINE PHOSPHATASE 191 U/L (46-116); ASPARTATE AMINO TRANSFERASE 29 U/L (15-37); BILIRUBIN,TOTAL 0.5 MG/DL (0.2-1.0)
[2019-05-15] MEDS: HydrALAZINE 50mg tab ORAL SCH ×3 (06:36→22:45)
[2019-05-15] MEDS: Liothyronine 5mcg tab ORAL SCH (06:36)
[2019-05-15] MEDS: NovoLOG Insulin Flexpen SUBQ SCH ×4 (06:39→21:49)
[2019-05-15 06:56] LABS: ANION GAP 3 mmol/L (5-15); BLOOD UREA NITROGEN 59 mg/dL (7-18); CALCIUM 8.5 MG/DL (8.5-10.1); CARBON DIOXIDE 35 MMOL/L (21-32); CHLORIDE 99 MMOL/L (98-107); CREATININE 3.9 MG/DL (0.55-1.30); POTASSIUM 5.8 MMOL/L (3.5-5.1); SODIUM 137 MMOL/L (136-145)
[2019-05-15 07:09] LABS: BASOPHILS % (AUTO) 0.6 % (0.0-2.0); EOSINOPHILS % (AUTO) 0.6 % (0.0-3.0); HEMATOCRIT 42.2 % (37.0-47.0); HEMOGLOBIN 13.9 G/DL (12.0-16.0); MEAN CORPUSCULAR VOLUME 92 FL (80-99); MONOCYTES % (AUTO) 6.3 % (1.0-10.0); NEUTROPHILS % (AUTO) 83.6 % (45.0-75.0); PLATELET COUNT 158 K/UL (150-450); RED BLOOD COUNT 4.59 M/UL (4.20-5.40); RED CELL DISTRIBUTION WIDTH 14.6 % (11.6-14.8); WHITE BLOOD COUNT 9.3 K/UL (4.8-10.8)
[2019-05-15] MEDS: Aspirin EC 81mg tab ORAL SCH (09:00)
[2019-05-15] MEDS: Carvedilol 12.5mg tab ORAL SCH ×2 (09:00→21:46)
[2019-05-15] MEDS: Nephrovite tab (Rena-Vite) ORAL SCH (09:00)
--- NOTE | 2019-05-15 09:37 | History and Physical ---
History of Present Illness General Date patient seen: May 15, 2019 Reason for Hospitalization: Chest Pain and sob Present Illness HPI This is a 68-year-old Estonian-speaking female who was brought in by the family for difficulty breathing for one hour prior to arrival to the ED. She has a history of type 2 diabetes and end-stage renal disease on hemodialysis on Sunday with Dr. Hadley. Last HD the day before presentation. Patient is on bipap and unable to provide detailed history and most of the information was obtained from reviewing her chart and previous records. She had a recent hospitalization (2 months ago)for hypertensive urgency, non-ST elevation ID, and diastolic dysfunction and another for hypoglycemia and encephalopathy. In the ER she was found to have labored breathing, low oxygen saturation 86%, BP 165/83 and placed on BIPAP. CXR pulmonary edema, cannot rule out superimposed infection. Patient has a non productive cough during exam, per daughter no reports of chest pain, nausea, vomiting, diarrhea, palpitations, dizziness and lightheadedness. Past medical and surgical history: Hypertension, type 2 diabetes, ESRD on HD, anemia of chronic disease, OA, diastolic CHF, NSTEMI Family history: Unobtainable Social history: Denies smoking cigarettes, EtOH or illicit drug use ROS: Unobtainable Allergies: Coded Allergies: No Known Allergies (Unverified , 10/06/18) Medication History Scheduled Amlodipine Besylate (Norvasc), 10 MG ORAL DAILY Amlodipine Besylate (Norvasc), 5 MG ORAL DAILY, (Reported) Aspirin (Aspirin EC), 81 MG ORAL DAILY, (Reported) Aspirin Ec* (Aspirin Ec*), 81 MG ORAL DAILY, (Reported) Carvedilol (Coreg), 12.5 MG ORAL Q12HR Hydralazine HCl (Hydralazine HCl), 25 MG ORAL Q8HR Liothyronine Sodium* (Cytomel*), 5 MCG ORAL DAILY Metformin Hcl* (Metformin Hcl*), 500 MG ORAL TWICE A DAY, (Reported) Tamsulosin HCl (Flomax), 0.4 MG ORAL BEDTIME Tamsulosin HCl (Flomax), 0.4 MG ORAL DAILY, (Reported) Vitamin B Cmplx/Vit C/Folic AC (Nephro-Sonya Tablet), 1 TAB ORAL DAILY, (Reported ) Scheduled PRN Clonidine Hcl* (Catapres*), 0.1 MG ORAL EVERY 6 HOURS PRN for SBP>110, (Reported ) Miscellaneous Medications [BP meds], (Reported) Patient History Healthcare decision maker CRYSTAL ARCHIBALD (DAUGHTER) Resuscitation status Full Code Advanced Directive on File No Physical Exam Physical Exam Narrative General Appearance: easily arousable on bipap, mild respiratory distress Head: atraumatic Neck: normal inspection, full range of motion, supple, Respiratory: respiratory distress, crackles Cardiovascular: regular rate, rhythm, no edema Gastrointestinal: normal inspection, normal bowel sounds, non tender, soft, no guarding Musculoskeletal: normal inspection, normal range of motion Neurologic: Easily arousable, grossly intact Skin: clammy: stage 1 sacral decubitus Last 24 Hour Vital Signs Date Time Temp Pulse Resp B/P (MAP) Pulse Ox O2 Delivery O2 Flow Rate FiO2 05/15/19 09:15 93 26 97 Facial 40 05/15/19 09:00 87 168/79 05/15/19 09:00 87 168/79 05/15/19 08:20 87 25 97 Facial 60 05/15/19 06:36 168/73 05/15/19 05:10 80 12 97 Facial 60 05/15/19 04:00 Bi-pap 05/15/19 04:00 73 05/15/19 04:00 60 05/15/19 03:00 97.3 86 20 178/61 (100) 98 05/15/19 02:52 Bi-pap 05/15/19 02:45 84 05/15/19 02:43 84 23 95 Facial 60 05/15/19 02:43 84 23 93 Bi-Pap 60 05/15/19 02:25 97.5 80 24 175/80 95 Bi-pap 2.0 60 05/15/19 02:25 97.6 78 24 175/80 95 Bi-pap 2.0 60 05/15/19 01:56 194/84 05/15/19 01:18 199/88 05/15/19 01:08 97.5 84 21 184/100 93 Bi-pap 2.0 60 05/15/19 00:54 88 25 95 Facial 60 05/15/19 00:50 88 23 95 Facial 60 05/15/19 00:37 202/88 05/15/19 00:35 87 25 89 Room Air 21 81 15 86 05/15/19 00:20 97.5 80 18 165/83 96 Nasal Cannula 2.0 05/15/19 00:20 86 18 Nasal Cannula 2.0 05/15/19 00:09 97.5 86 18 165/83 (110) 96 Nasal Cannula 2.0 Intake and Output 05/14/19 05/15/19 19:00 07:00 Intake Total 60 ml Balance 60 ml Intake Oral 60 ml # Voids 1 Laboratory Tests Test 05/15/19 00:10 05/15/19 05:50 05/15/19 07:50 White Blood Count 10.7 K/UL (4.8-10.8) 9.3 K/UL (4.8-10.8) Red Blood Count 5.51 M/UL (4.20-5.40) H 4.59 M/UL (4.20-5.40) Hemoglobin 16.4 G/DL (12.0-16.0) H 13.9 G/DL (12.0-16.0) Hematocrit 51.6 % (37.0-47.0) H 42.2 % (37.0-47.0) Mean Corpuscular Volume 94 FL (80-99) 92 FL (80-99) Mean Corpuscular Hemoglobin 29.8 PG (27.0-31.0) 30.4 PG (27.0-31.0) Mean Corpuscular Hemoglobin Concent 31.9 G/DL (32.0-36.0) L 33.0 G/DL (32.0-36.0) Red Cell Distribution Width 14.9 % (11.6-14.8) H 14.6 % (11.6-14.8) Platelet Count 200 K/UL (150-450) 158 K/UL (150-450) Mean Platelet Volume 7.7 FL (6.5-10.1) 8.3 FL (6.5-10.1) Neutrophils (%) (Auto) 69.8 % (45.0-75.0) 83.6 % (45.0-75.0) H Lymphocytes (%) (Auto) 18.5 % (20.0-45.0) L 9.0 % (20.0-45.0) L Monocytes (%) (Auto) 7.1 % (1.0-10.0) 6.3 % (1.0-10.0) Eosinophils (%) (Auto) 3.7 % (0.0-3.0) H 0.6 % (0.0-3.0) Basophils (%) (Auto) 0.9 % (0.0-2.0) 0.6 % (0.0-2.0) Prothrombin Time 10.8 SEC (9.30-11.50) Prothromb Time International Ratio 1.0 (0.9-1.1) Activated Partial Thromboplast Time 28 SEC (23-33) Sodium Level 138 MMOL/L (136-145) 137 MMOL/L (136-145) Potassium Level 5.5 MMOL/L (3.5-5.1) H 5.8 MMOL/L (3.5-5.1) H Chloride Level 97 MMOL/L (98-107) L 99 MMOL/L (98-107) Carbon Dioxide Level 37 MMOL/L (21-32) H 35 MMOL/L (21-32) H Anion Gap 4 mmol/L (5-15) L 3 mmol/L (5-15) L Blood Urea Nitrogen 55 mg/dL (7-18) H 59 mg/dL (7-18) H Creatinine 3.9 MG/DL (0.55-1.30) H 3.9 MG/DL (0.55-1.30) H Estimat Glomerular Filtration Rate 11.5 mL/min (>60) 11.5 mL/min (>60) Glucose Level 168 MG/DL (74-106) H 152 MG/DL (74-106) H Calcium Level 8.8 MG/DL (8.5-10.1) 8.5 MG/DL (8.5-10.1) Total Bilirubin 0.5 MG/DL (0.2-1.0) Aspartate Amino Transf (AST/SGOT) 29 U/L (15-37) Alanine Aminotransferase (ALT/SGPT) 22 U/L (12-78) Alkaline Phosphatase 191 U/L (46-116) H Troponin I 0.000 ng/mL (0.000-0.056) Pro-B-Type Natriuretic Peptide > 21475 pg/mL (0-125) H Total Protein 9.3 G/DL (6.4-8.2) H Albumin 3.1 G/DL (3.4-5.0) L Globulin 6.2 g/dL Albumin/Globulin Ratio 0.5 (1.0-2.7) L Thyroid Stimulating Hormone (TSH) 13.269 uiU/mL (0.358-3.740) Arterial Blood pH 7.508 (7.350-7.450) Arterial Blood Partial Pressure CO2 46.2 mmHg (35.0-45.0) H Arterial Blood Partial Pressure O2 88.3 mmHg (75.0-100.0) Arterial Blood HCO3 35.9 mmol/L (22.0-26.0) H Arterial Blood Oxygen Saturation 97.0 % (95-100) Arterial Blood Base Excess 11.3 (-2-2) *H Segun Test Positive Microbiology Date/Time Source Procedure Growth Status 05/15/19 02:10 Rectum Received Height (Feet): 4 Height (Inches): 11.00 Weight (Pounds): 134 Medications Current Medications Medications (Trade) Dose Ordered Sig/Vasile Route PRN Reason Start Time Stop Time Status Last Admin Dose Admin Amlodipine Besylate (Norvasc) 10 mg DAILY ORAL 05/15/19 09:00 06/14/19 08:59 Aspirin (Ecotrin) 81 mg DAILY ORAL 05/15/19 09:00 06/14/19 08:59 Carvedilol (Coreg) 12.5 mg EVERY 12 HOURS ORAL 05/15/19 09:00 06/14/19 08:59 Dextrose (Dextrose 50%) 25 ml Q30M PRN IV Hypoglycemia 05/15/19 05:30 06/14/19 05:29 Dextrose (Dextrose 50%) 50 ml Q30M PRN IV Hypoglycemia 05/15/19 05:30 06/14/19 05:29 Hydralazine HCl (Apresoline) 10 mg Q4H PRN IV For High Blood Pressure 05/15/19 05:30 06/14/19 05:29 Hydralazine HCl (Apresoline) 50 mg Q8HR ORAL 05/15/19 06:00 06/14/19 05:59 05/15/19 06:36 Insulin Aspart (NovoLOG) BEFORE MEALS AND HS SUBQ 05/15/19 06:30 06/14/19 06:29 05/15/19 06:39 Liothyronine Sodium (Cytomel) 5 mcg DAILY@0630 ORAL 05/15/19 06:30 06/14/19 06:29 05/15/19 06:36 Tamsulosin HCl (Flomax) 0.4 mg BEDTIME ORAL 05/15/19 21:00 06/14/19 20:59 Vitamin B Complex/ Vit C/Folic Acid (Nephrovite) 1 tab DAILY ORAL 05/15/19 09:00 06/14/19 08:59 Objective Narrative EKG strip, personally reviewed by me: NSR, non specific st-t changes CXR: Edema, cannot rule out superimpose dinfection AB.5/46/88/36 Assessment/Plan Status: stable Assessment/Plan: 68 year old female, accompanied by her daughter with history of Hypertension, type 2 diabetes, ESRD on HD, anemia of chronic disease, OA, diastolic CHF, NSTEMI presented with shortness of breath. #Acute hypoxic hypercarbic respiratory failure due to pulmonary edema, possibly with super imposed pneumonia Admit to step down unit. Close monitoring Continue bipap ABGs as needed broad spectrum abx- Zosyn and Azithromycin. ID agrees follow up cultures, blood and sputum pulmonary consult: Dr. Hernandes ID consult; Dr. Garcia #ESRD on HD HD per Dr. Hadley #HTN- controlled #Diastolic CHF Continue Amlodipine, carvedilol, Hydralazine ASA #DM type II- controlled HbA1c 4.9 #Hypothyroidism Insulin sliding scale. Ensure no oral meds Check T3/T4 Cytomel 5 mcg #Stage 1 sacral decubitus Wound consult for stage [address] Carrasco Wound care Frequent turning vte ppx: heparin q12 GI ppx: ppi Diet: NPO Code status: Full code I spent 75 minutes on this patient's case, and 40 mins was dedicated to critical care Critical Care Services performed include: Telemetry Review Hemodynamic measurement interpretation Laboratory data review and interpretation Radiology image review and interpretation Interpretation of ABG's Discussion of patient's care with step down team, Nursing staff and/or consulting services I spent an additional 35 minutes in reviewing patient's chart, old records, previous hospitalization and erp implementation consultant notes. Time of this note may not reflect time of encounter Plan of care discussed with patient's daughter at bedside. Siva Thornton M.D. May 15, 2019 09:37
--- NOTE | 2019-05-15 11:56 | Diagnostic Imaging Report ---
Indication: Shortness of breath Technique: XRAY Chest 1v Comparison: 02/25/2019 Findings: Heart is enlarged. There is a indwelling tunneled dialysis catheter. There are interstitial and bilateral patchy airspace opacities. Bilateral pleural effusions are also noted. There are more dense opacities in the bilateral lower lungs. No radiographically appreciable pneumothorax. Degenerative changes noted in the spine and shoulders. Impression: Interstitial and bilateral alveolar airspace disease and small layering bilateral pleural effusions. Findings likely on the basis of fluid overload/pulmonary edema. Superimposed infection not excluded. Clinical correlation and follow-up recommended. Dialysis catheter in place.
--- NOTE | 2019-05-15 12:38 | Cardiology Report ---
APPROVED REPORT EKG Measurement Heart [id number] Normal sinus rhythm Nonspecific ST abnormality Abnormal ECG
--- NOTE | 2019-05-15 13:41 | Infectious Diseases Prog Note ---
Assessment/Plan Assessment/Plan Full consult to follow: possible pna vs edema sepsis fevers pmh noted zosyn and azithromycin f/u on cultures, labs and chest x-ray thank you Subjective Allergies: Coded Allergies: No Known Allergies (Unverified , 10/06/18) Objective Vital Signs Last 24 Hour Vital Signs Date Time Temp Pulse Resp B/P (MAP) Pulse Ox O2 Delivery O2 Flow Rate FiO2 05/15/19 12:00 94 05/15/19 12:00 100.6 93 20 196/133 (154) 95 05/15/19 12:00 60 05/15/19 12:00 Bi-pap 05/15/19 10:55 99 24 96 Facial 40 05/15/19 09:15 93 26 97 Facial 40 05/15/19 09:00 87 168/79 05/15/19 09:00 87 168/79 05/15/19 08:20 87 25 97 Facial 60 05/15/19 08:00 85 05/15/19 08:00 99.3 87 20 168/79 (108) 98 05/15/19 08:00 60 05/15/19 08:00 Bi-pap 05/15/19 06:36 168/73 05/15/19 05:10 80 12 97 Facial 60 05/15/19 04:00 Bi-pap 05/15/19 04:00 73 05/15/19 04:00 60 05/15/19 03:00 97.3 86 20 178/61 (100) 98 05/15/19 02:52 Bi-pap 05/15/19 02:45 84 05/15/19 02:43 84 23 95 Facial 60 05/15/19 02:43 84 23 93 Bi-Pap 60 05/15/19 02:25 97.5 80 24 175/80 95 Bi-pap 2.0 60 05/15/19 02:25 97.6 78 24 175/80 95 Bi-pap 2.0 60 05/15/19 01:56 194/84 05/15/19 01:18 199/88 05/15/19 01:08 97.5 84 21 184/100 93 Bi-pap 2.0 60 05/15/19 00:54 88 25 95 Facial 60 05/15/19 00:50 88 23 95 Facial 60 05/15/19 00:37 202/88 05/15/19 00:35 87 25 89 Room Air 21 81 15 86 05/15/19 00:20 97.5 80 18 165/83 96 Nasal Cannula 2.0 05/15/19 00:20 86 18 Nasal Cannula 2.0 05/15/19 00:09 97.5 86 18 165/83 (110) 96 Nasal Cannula 2.0 Height (Feet): 4 Height (Inches): 11.00 Weight (Pounds): 133 Microbiology Date/Time Source Procedure Growth Status 05/15/19 02:10 Rectum Received Laboratory Tests Test 05/15/19 00:10 05/15/19 05:50 05/15/19 07:50 White Blood Count 10.7 K/UL (4.8-10.8) 9.3 K/UL (4.8-10.8) Red Blood Count 5.51 M/UL (4.20-5.40) H 4.59 M/UL (4.20-5.40) Hemoglobin 16.4 G/DL (12.0-16.0) H 13.9 G/DL (12.0-16.0) Hematocrit 51.6 % (37.0-47.0) H 42.2 % (37.0-47.0) Mean Corpuscular Volume 94 FL (80-99) 92 FL (80-99) Mean Corpuscular Hemoglobin 29.8 PG (27.0-31.0) 30.4 PG (27.0-31.0) Mean Corpuscular Hemoglobin Concent 31.9 G/DL (32.0-36.0) L 33.0 G/DL (32.0-36.0) Red Cell Distribution Width 14.9 % (11.6-14.8) H 14.6 % (11.6-14.8) Platelet Count 200 K/UL (150-450) 158 K/UL (150-450) Mean Platelet Volume 7.7 FL (6.5-10.1) 8.3 FL (6.5-10.1) Neutrophils (%) (Auto) 69.8 % (45.0-75.0) 83.6 % (45.0-75.0) H Lymphocytes (%) (Auto) 18.5 % (20.0-45.0) L 9.0 % (20.0-45.0) L Monocytes (%) (Auto) 7.1 % (1.0-10.0) 6.3 % (1.0-10.0) Eosinophils (%) (Auto) 3.7 % (0.0-3.0) H 0.6 % (0.0-3.0) Basophils (%) (Auto) 0.9 % (0.0-2.0) 0.6 % (0.0-2.0) Prothrombin Time 10.8 SEC (9.30-11.50) Prothromb Time International Ratio 1.0 (0.9-1.1) Activated Partial Thromboplast Time 28 SEC (23-33) Sodium Level 138 MMOL/L (136-145) 137 MMOL/L (136-145) Potassium Level 5.5 MMOL/L (3.5-5.1) H 5.8 MMOL/L (3.5-5.1) H Chloride Level 97 MMOL/L (98-107) L 99 MMOL/L (98-107) Carbon Dioxide Level 37 MMOL/L (21-32) H 35 MMOL/L (21-32) H Anion Gap 4 mmol/L (5-15) L 3 mmol/L (5-15) L Blood Urea Nitrogen 55 mg/dL (7-18) H 59 mg/dL (7-18) H Creatinine 3.9 MG/DL (0.55-1.30) H 3.9 MG/DL (0.55-1.30) H Estimat Glomerular Filtration Rate 11.5 mL/min (>60) 11.5 mL/min (>60) Glucose Level 168 MG/DL (74-106) H 152 MG/DL (74-106) H Calcium Level 8.8 MG/DL (8.5-10.1) 8.5 MG/DL (8.5-10.1) Total Bilirubin 0.5 MG/DL (0.2-1.0) Aspartate Amino Transf (AST/SGOT) 29 U/L (15-37) Alanine Aminotransferase (ALT/SGPT) 22 U/L (12-78) Alkaline Phosphatase 191 U/L (46-116) H Troponin I 0.000 ng/mL (0.000-0.056) Pro-B-Type Natriuretic Peptide > 15965 pg/mL (0-125) H Total Protein 9.3 G/DL (6.4-8.2) H Albumin 3.1 G/DL (3.4-5.0) L Globulin 6.2 g/dL Albumin/Globulin Ratio 0.5 (1.0-2.7) L Thyroid Stimulating Hormone (TSH) 13.269 uiU/mL (0.358-3.740) Arterial Blood pH 7.508 (7.350-7.450) Arterial Blood Partial Pressure CO2 46.2 mmHg (35.0-45.0) H Arterial Blood Partial Pressure O2 88.3 mmHg (75.0-100.0) Arterial Blood HCO3 35.9 mmol/L (22.0-26.0) H Arterial Blood Oxygen Saturation 97.0 % (95-100) Arterial Blood Base Excess 11.3 (-2-2) *H Segun Test Positive Current Medications Medications (Trade) Dose Ordered Sig/Vasile Route PRN Reason Start Time Stop Time Status Last Admin Dose Admin Acetaminophen (Tylenol) 650 mg Q4H PRN ORAL Mild Pain/Temp > 100.5 05/15/19 13:15 06/14/19 13:14 05/15/19 13:36 Amlodipine Besylate (Norvasc) 10 mg DAILY ORAL 05/15/19 09:00 06/14/19 08:59 Aspirin (Ecotrin) 81 mg DAILY ORAL 05/15/19 09:00 06/14/19 08:59 Azithromycin 500 mg/Dextrose 275 ml @ 275 mls/hr Q24HRS IV 05/15/19 15:00 05/19/19 15:59 Carvedilol (Coreg) 12.5 mg EVERY 12 HOURS ORAL 05/15/19 09:00 06/14/19 08:59 Clonidine HCl (Catapres Tab) 0.1 mg Q4H PRN ORAL bp over 165 syst 05/15/19 09:45 06/14/19 09:44 Dextrose (Dextrose 50%) 25 ml Q30M PRN IV Hypoglycemia 05/15/19 05:30 06/14/19 05:29 Dextrose (Dextrose 50%) 50 ml Q30M PRN IV Hypoglycemia 05/15/19 05:30 06/14/19 05:29 Hydralazine HCl (Apresoline) 50 mg Q8HR ORAL 05/15/19 06:00 06/14/19 05:59 05/15/19 06:36 Insulin Aspart (NovoLOG) BEFORE MEALS AND HS SUBQ 05/15/19 06:30 06/14/19 06:29 05/15/19 06:39 Liothyronine Sodium (Cytomel) 5 mcg DAILY@0630 ORAL 05/15/19 06:30 06/14/19 06:29 05/15/19 06:36 Piperacillin Sod/ Tazobactam Sod 2.25 gm/Dextrose 55 ml @ 110 mls/hr Q8H IV 05/15/19 16:00 05/22/19 15:59 Tamsulosin HCl (Flomax) 0.4 mg BEDTIME ORAL 05/15/19 21:00 06/14/19 20:59 Vitamin B Complex/ Vit C/Folic Acid (Nephrovite) 1 tab DAILY ORAL 05/15/19 09:00 06/14/19 08:59 Kimberly Holland MD May 15, 2019 13:41
[2019-05-15] MEDS ORDERED: Piperacillin/Tazobactam 3.375 GM in NS 110 ML IVPB SCH (14:00)
--- NOTE | 2019-05-15 14:51 | Consultation ---
Consult Note Consult Note Patient under my care for her OP dialysis management HPI Patient is a 68-year-old female presents after increased shortness of breath. Patient had prior history of end-stage renal disease. She is currently on dialysis. Patient reportedly was dialyzed yesterday. She reports having worsening difficulty with breathing. She had prior history of diabetes. Onset of symptoms approximate 1 hour prior to arrival. She reports having severe shortness of breath. No Known Allergies (Unverified , 10/06/18) Past Medical History: No History, Except For Hx Cardiac Problems: Yes Hx Hypertension: Yes Hx Diabetes: Yes Hx Dialysis: Yes - [facility] . Assessment/Plan Admitted for Pulmonary edema End-stage renal disease on hemodialysis Tue Torri Sat Acute on chronic diastolic congestive heart failure Cardiomyopathy Anemia due to chronic kidney disease Hypertensive heart disease h/o Right pleural effusion s/p Mechanical fall status post repair of laceration to the scalp Past Surgical History: other - Vas-Cath right chest Plan: HD and UF lester BP management per orders Juaquin Hadley MD May 15, 2019 14:51
[2019-05-15] MEDS: Azithromycin 500 MG in D5W 275 ML IV SCH (15:50)
[2019-05-15] MEDS: Zosyn 2.25 gm in D5W 55ml IV SCH (17:10)
--- NOTE | 2019-05-15 19:15 | Consultation ---
History of Present Illness General Date patient seen: May 15, 2019 Reason for Hospitalization: Chest Pain Present Illness HPI This is a 68-year-old female multiple medical comorbidities on HD presents with respiratory insufficiency with abnormal labs admitted for further care and management. On admission identified to have multiple deep tissue pressure injuries requiring care and management. Surgery called to evaluate. Patient is on bipap and unable to provide detailed history and most of the information was obtained from reviewing her chart and previous records. She had a recent hospitalization (2 months ago)for hypertensive urgency, non-ST elevation [place], and diastolic dysfunction and another for hypoglycemia and encephalopathy. In the ER she was found to have labored breathing, low oxygen saturation 86%, BP 165/83 and placed on BIPAP. CXR pulmonary edema, cannot rul eout superimposed infection. Patient has a non productive cough, denies chest pain, nausea, vomiting, diarrhea, chest pain, palpitations, dizziness and lightheadedness. Allergies: Coded Allergies: No Known Allergies (Unverified , 10/06/18) Medication History Scheduled Amlodipine Besylate (Norvasc), 10 MG ORAL DAILY Amlodipine Besylate (Norvasc), 5 MG ORAL DAILY, (Reported) Aspirin (Aspirin EC), 81 MG ORAL DAILY, (Reported) Aspirin Ec* (Aspirin Ec*), 81 MG ORAL DAILY, (Reported) Carvedilol (Coreg), 12.5 MG ORAL Q12HR Hydralazine HCl (Hydralazine HCl), 25 MG ORAL Q8HR Liothyronine Sodium* (Cytomel*), 5 MCG ORAL DAILY Metformin Hcl* (Metformin Hcl*), 500 MG ORAL TWICE A DAY, (Reported) Tamsulosin HCl (Flomax), 0.4 MG ORAL BEDTIME Tamsulosin HCl (Flomax), 0.4 MG ORAL DAILY, (Reported) Vitamin B Cmplx/Vit C/Folic AC (Nephro-Sonya Tablet), 1 TAB ORAL DAILY, (Reported ) Scheduled PRN Clonidine Hcl* (Catapres*), 0.1 MG ORAL EVERY 6 HOURS PRN for SBP>110, (Reported ) Miscellaneous Medications [BP meds], (Reported) Patient History Healthcare decision maker CRYSTAL ARCHIBALD (DAUGHTER) Resuscitation status Full Code Advanced Directive on File No Review of Systems Review of Symptoms General ROS: no weight loss or fever Psychological ROS: no depression or mood changes, no memory loss Ophthalmic ROS: no visual changes or eye irritation ENT ROS: no nasal congestion, hearing loss, dizziness Allergy and Immunology ROS: no allergic symptoms or urticaria Hematological and Lymphatic ROS: no swollen glands, unusual bleeding or bruising Endocrine ROS: no polyuria, polydipsia, weight changes, temperature intolerance Respiratory ROS: no cough, shortness of breath, or wheezing Cardiovascular ROS: no chest pain or dyspnea on exertion Gastrointestinal ROS: denies abdominal pain, bright red blood in stool. Musculoskeletal ROS: no myalgias or arthralgias Neurological ROS: no TIA or stroke symptoms Dermatological ROS: no new or changing skin lesions, rashes or pruritis difficult to obtain in detail given medical condition Physical Exam Physical Exam General appearance: alert, no distress, appears stated age Head: Normocephalic, without obvious abnormality, atraumatic Eyes: conjunctivae/corneas clear. PERRL, EOM's intact. Fundi benign Throat: Lips, mucosa, and tongue normal. Teeth and gums normal Neck: supple, symmetrical, trachea midline, no adenopathy, thyroid: not enlarged, symmetric, no tenderness/mass/nodules, no carotid bruit and no JVD Lungs: decreased auscultation bilaterally Heart: regular rate and rhythm, S1, S2 normal, no murmur, click, rub or gallop Abdomen: soft, non-tender. Bowel sounds normal. No masses, no organomegaly Extremities: extremities normal, atraumatic, no cyanosis or edema Pulses: 2+ and symmetric Skin: Skin color, texture, turgor normal. No rashes or lesions Neurologic: Grossly normal Last 24 Hour Vital Signs Date Time Temp Pulse Resp B/P (MAP) Pulse Ox O2 Delivery O2 Flow Rate FiO2 05/15/19 17:15 95 24 99 05/15/19 16:15 99 22 99 05/15/19 16:00 98.2 94 20 179/87 (117) 95 05/15/19 16:00 101 05/15/19 16:00 Bi-pap 05/15/19 16:00 3.0 05/15/19 15:35 198/98 05/15/19 15:31 198/98 05/15/19 14:06 98.2 05/15/19 13:45 100 26 98 Facial 40 05/15/19 12:00 94 12/12/19 12:00 100.6 93 20 196/133 (154) 95 05/15/19 12:00 60 05/15/19 12:00 Bi-pap 05/15/19 10:55 99 24 96 Facial 40 05/15/19 09:15 93 26 97 Facial 40 05/15/19 09:00 87 168/79 05/15/19 09:00 87 168/79 05/15/19 08:20 87 25 97 Facial 60 05/15/19 08:00 85 05/15/19 08:00 99.3 87 20 168/79 (108) 98 05/15/19 08:00 60 05/15/19 08:00 Bi-pap 05/15/19 06:36 168/73 05/15/19 05:10 80 12 97 Facial 60 05/15/19 04:00 Bi-pap 05/15/19 04:00 73 05/15/19 04:00 60 05/15/19 03:00 97.3 86 20 178/61 (100) 98 05/15/19 02:52 Bi-pap 05/15/19 02:45 84 05/15/19 02:43 84 23 95 Facial 60 05/15/19 02:43 84 23 93 Bi-Pap 60 05/15/19 02:25 97.5 80 24 175/80 95 Bi-pap 2.0 60 05/15/19 02:25 97.6 78 24 175/80 95 Bi-pap 2.0 60 05/15/19 01:56 194/84 05/15/19 01:18 199/88 05/15/19 01:08 97.5 84 21 184/100 93 Bi-pap 2.0 60 05/15/19 00:54 88 25 95 Facial 60 05/15/19 00:50 88 23 95 Facial 60 05/15/19 00:37 202/88 05/15/19 00:35 87 25 89 Room Air 21 81 15 86 05/15/19 00:20 97.5 80 18 165/83 96 Nasal Cannula 2.0 05/15/19 00:20 86 18 Nasal Cannula 2.0 05/15/19 00:09 97.5 86 18 165/83 (110) 96 Nasal Cannula 2.0 Intake and Output 05/14/19 05/15/19 19:00 07:00 Intake Total 60 ml Balance 60 ml Intake Oral 60 ml # Voids 1 Laboratory Tests Test 05/15/19 00:10 05/15/19 05:50 05/15/19 07:50 White Blood Count 10.7 K/UL (4.8-10.8) 9.3 K/UL (4.8-10.8) Red Blood Count 5.51 M/UL (4.20-5.40) H 4.59 M/UL (4.20-5.40) Hemoglobin 16.4 G/DL (12.0-16.0) H 13.9 G/DL (12.0-16.0) Hematocrit 51.6 % (37.0-47.0) H 42.2 % (37.0-47.0) Mean Corpuscular Volume 94 FL (80-99) 92 FL (80-99) Mean Corpuscular Hemoglobin 29.8 PG (27.0-31.0) 30.4 PG (27.0-31.0) Mean Corpuscular Hemoglobin Concent 31.9 G/DL (32.0-36.0) L 33.0 G/DL (32.0-36.0) Red Cell Distribution Width 14.9 % (11.6-14.8) H 14.6 % (11.6-14.8) Platelet Count 200 K/UL (150-450) 158 K/UL (150-450) Mean Platelet Volume 7.7 FL (6.5-10.1) 8.3 FL (6.5-10.1) Neutrophils (%) (Auto) 69.8 % (45.0-75.0) 83.6 % (45.0-75.0) H Lymphocytes (%) (Auto) 18.5 % (20.0-45.0) L 9.0 % (20.0-45.0) L Monocytes (%) (Auto) 7.1 % (1.0-10.0) 6.3 % (1.0-10.0) Eosinophils (%) (Auto) 3.7 % (0.0-3.0) H 0.6 % (0.0-3.0) Basophils (%) (Auto) 0.9 % (0.0-2.0) 0.6 % (0.0-2.0) Prothrombin Time 10.8 SEC (9.30-11.50) Prothromb Time International Ratio 1.0 (0.9-1.1) Activated Partial Thromboplast Time 28 SEC (23-33) Sodium Level 138 MMOL/L (136-145) 137 MMOL/L (136-145) Potassium Level 5.5 MMOL/L (3.5-5.1) H 5.8 MMOL/L (3.5-5.1) H Chloride Level 97 MMOL/L (98-107) L 99 MMOL/L (98-107) Carbon Dioxide Level 37 MMOL/L (21-32) H 35 MMOL/L (21-32) H Anion Gap 4 mmol/L (5-15) L 3 mmol/L (5-15) L Blood Urea Nitrogen 55 mg/dL (7-18) H 59 mg/dL (7-18) H Creatinine 3.9 MG/DL (0.55-1.30) H 3.9 MG/DL (0.55-1.30) H Estimat Glomerular Filtration Rate 11.5 mL/min (>60) 11.5 mL/min (>60) Glucose Level 168 MG/DL (74-106) H 152 MG/DL (74-106) H Calcium Level 8.8 MG/DL (8.5-10.1) 8.5 MG/DL (8.5-10.1) Total Bilirubin 0.5 MG/DL (0.2-1.0) Aspartate Amino Transf (AST/SGOT) 29 U/L (15-37) Alanine Aminotransferase (ALT/SGPT) 22 U/L (12-78) Alkaline Phosphatase 191 U/L (46-116) H Troponin I 0.000 ng/mL (0.000-0.056) Pro-B-Type Natriuretic Peptide > 74120 pg/mL (0-125) H Total Protein 9.3 G/DL (6.4-8.2) H Albumin 3.1 G/DL (3.4-5.0) L Globulin 6.2 g/dL Albumin/Globulin Ratio 0.5 (1.0-2.7) L Thyroid Stimulating Hormone (TSH) 13.269 uiU/mL (0.358-3.740) Arterial Blood pH 7.508 (7.350-7.450) Arterial Blood Partial Pressure CO2 46.2 mmHg (35.0-45.0) H Arterial Blood Partial Pressure O2 88.3 mmHg (75.0-100.0) Arterial Blood HCO3 35.9 mmol/L (22.0-26.0) H Arterial Blood Oxygen Saturation 97.0 % (95-100) Arterial Blood Base Excess 11.3 (-2-2) *H Segun Test Positive Microbiology Date/Time Source Procedure Growth Status 05/15/19 02:10 Rectum Received Height (Feet): 4 Height (Inches): 11.00 Weight (Pounds): 133 Medications Current Medications Medications (Trade) Dose Ordered Sig/Vasile Route PRN Reason Start Time Stop Time Status Last Admin Dose Admin Acetaminophen (Tylenol) 650 mg Q4H PRN ORAL Mild Pain/Temp > 100.5 05/15/19 13:15 06/14/19 13:14 05/15/19 13:36 Amlodipine Besylate (Norvasc) 10 mg DAILY ORAL 05/15/19 09:00 06/14/19 08:59 Aspirin (Ecotrin) 81 mg DAILY ORAL 05/15/19 09:00 06/14/19 08:59 Azithromycin 500 mg/Dextrose 275 ml @ 275 mls/hr Q24HRS IV 05/15/19 15:00 05/19/19 15:59 05/15/19 15:50 Carvedilol (Coreg) 12.5 mg EVERY 12 HOURS ORAL 05/15/19 09:00 06/14/19 08:59 Clonidine HCl (Catapres Tab) 0.1 mg EVERY 8 HOURS ORAL 05/15/19 15:03 06/14/19 15:02 05/15/19 15:35 Clonidine HCl (Catapres Tab) 0.1 mg Q4H PRN ORAL bp over 165 syst 05/15/19 09:45 06/14/19 09:44 Dextrose (Dextrose 50%) 25 ml Q30M PRN IV Hypoglycemia 05/15/19 05:30 06/14/19 05:29 Dextrose (Dextrose 50%) 50 ml Q30M PRN IV Hypoglycemia 05/15/19 05:30 06/14/19 05:29 Heparin Sodium (Porcine) (Heparin 5000 units/ml) 5,000 units EVERY 12 HOURS SUBQ 05/15/19 21:00 06/14/19 20:59 Hydralazine HCl (Apresoline) 50 mg Q8HR ORAL 05/15/19 06:00 06/14/19 05:59 05/15/19 15:31 Insulin Aspart (NovoLOG) BEFORE MEALS AND HS SUBQ 05/15/19 06:30 06/14/19 06:29 05/15/19 17:12 Liothyronine Sodium (Cytomel) 5 mcg DAILY@0630 ORAL 05/15/19 06:30 06/14/19 06:29 05/15/19 06:36 Piperacillin Sod/ Tazobactam Sod 2.25 gm/Dextrose 55 ml @ 110 mls/hr Q8H IV 05/15/19 16:00 05/22/19 15:59 05/15/19 17:10 Tamsulosin HCl (Flomax) 0.4 mg BEDTIME ORAL 05/15/19 21:00 06/14/19 20:59 Vitamin B Complex/ Vit C/Folic Acid (Nephrovite) 1 tab DAILY ORAL 05/15/19 09:00 06/14/19 08:59 Assessment/Plan Problem List: (1) Decubitus skin ulcer Assessment & Plan: Pt presented on admission with multiple DTPIs. DTPI noted to sacrum . Base of wound is maroon with purple area in center and is indurated. (L)6.5cm x (W)9cmBase of injury tender when minimally palpated. Pt yelled out in pain and verbalized pain in one[place] language. Dark skin tone without erythema or induration noted to R and L ischium. Each area non-tender when individually palpated. DTPI noted to R heel. Base of wound is purple with maroon borders with delineated margins.(L)3.3cm x (W)3.7cm. Periwound R heel is boggy with non- blanching erythema.. Pt verbalized pain when minimally palpated. L heel is boggy with Non-blanching erythema. Tender when minimally palpated. given medical condition and appearance of wounds high risk for breakdown. if open will be difficult to heal and detrimental. will need aggressive preventive measure during ill states while on support to ensure no breakdown. will follow closely Tx.Plan: Apply Moisture Barrier Paste to Sacrum. Cover with Optifoam drsg. Change every 3 days and prn. Apply Moisture Barrier Paste to R and L ischium with each incontinence care. Apply Cavilon Skin BArrier to Both heels. Cover each heel with Optifoam drsg. Change every 7 days and prn. Reposition at least every 2hours or as tolerated. Off-load heels with pillow. APM/BETTY Mattress. ICD Codes: L89.90 - Pressure ulcer of unspecified site, unspecified stage SNOMED: 536520090 (2) Malnutrition of moderate degree Assessment & Plan: nutritional optimization encourage oral intake ICD Codes: E44.0 - Moderate protein-calorie malnutrition SNOMED: 732462998 Samuel Carrasco May 15, 2019 19:15
[2019-05-15] MEDS ORDERED: Heparin 5000 units/ml inj SUBQ SCH (21:00)
[2019-05-15] MEDS: Tamsulosin 0.4mg cap ORAL SCH (21:46)
[2019-05-15] MEDS: Heparin 5000 units/ml inj SUBQ SCH (21:48)
[2019-05-16] VITALS: BP 120/56
[2019-05-16] MEDS: Zosyn 2.25 gm in D5W 55ml IV SCH ×3 (00:20→17:12)
[2019-05-16] MEDS ORDERED: Dyna-Hex 2% Top Sol 2oz TOPIC ONE (01:30)
[2019-05-16 04:00] VITALS: BP 168/75
[2019-05-16] MEDS: HydrALAZINE 50mg tab ORAL SCH ×3 (06:22→21:38)
[2019-05-16] MEDS: Liothyronine 5mcg tab ORAL SCH (06:22)
[2019-05-16] MEDS: NovoLOG Insulin Flexpen SUBQ SCH ×4 (06:25→20:20)
[2019-05-16 07:32] LABS: BASOPHILS % (AUTO) 0.7 % (0.0-2.0); EOSINOPHILS % (AUTO) 0.3 % (0.0-3.0); HEMATOCRIT 40.1 % (37.0-47.0); HEMOGLOBIN 13.2 G/DL (12.0-16.0); MEAN CORPUSCULAR VOLUME 93 FL (80-99); MONOCYTES % (AUTO) 7.1 % (1.0-10.0); NEUTROPHILS % (AUTO) 78.9 % (45.0-75.0); PLATELET COUNT 154 K/UL (150-450); RED BLOOD COUNT 4.33 M/UL (4.20-5.40); RED CELL DISTRIBUTION WIDTH 15.2 % (11.6-14.8); WHITE BLOOD COUNT 9.4 K/UL (4.8-10.8)
[2019-05-16 07:48] LABS: ALANINE AMINOTRANSFERASE 17 U/L (12-78); ALBUMIN 2.4 G/DL (3.4-5.0); ALBUMIN/GLOBULIN RATIO 0.5 (1.0-2.7); ALKALINE PHOSPHATASE 117 U/L (46-116); ANION GAP 5 mmol/L (5-15); ASPARTATE AMINO TRANSFERASE 22 U/L (15-37); BILIRUBIN,TOTAL 0.6 MG/DL (0.2-1.0); BLOOD UREA NITROGEN 41 mg/dL (7-18); CALCIUM 8.7 MG/DL (8.5-10.1); CARBON DIOXIDE 32 MMOL/L (21-32); CHLORIDE 98 MMOL/L (98-107); CHOLESTEROL 124 MG/DL (< 200); CREATININE 3.6 MG/DL (0.55-1.30); GAMMA GLUTAMYL TRANSPEPTIDASE 22 U/L (5-85); HDL CHOLESTEROL 45 MG/DL (40-60); PHOSPHORUS 3.1 MG/DL (2.5-4.9); POTASSIUM 5.2 MMOL/L (3.5-5.1); SODIUM 135 MMOL/L (136-145); TRIGLYCERIDES 66 MG/DL (30-150)
[2019-05-16 08:00] VITALS: BP 156/76
[2019-05-16] MEDS ORDERED: Sodium Polystyrene Sulfonate 15gm Powder ORAL SCH (08:30)
[2019-05-16] MEDS: Carvedilol 12.5mg tab ORAL SCH ×2 (08:44→20:19)
[2019-05-16] MEDS: Aspirin EC 81mg tab ORAL SCH (08:44)
[2019-05-16] MEDS: Nephrovite tab (Rena-Vite) ORAL SCH (08:44)
[2019-05-16] MEDS: Heparin 5000 units/ml inj SUBQ SCH ×2 (08:46→20:21)
[2019-05-16 12:00] VITALS: BP 160/74
--- NOTE | 2019-05-16 13:08 | Nephrology Progress Note ---
Assessment/Plan Problem List: (1) End-stage renal disease (2) Hypertensive kidney disease (3) Anemia in chronic kidney disease (4) CHF (congestive heart failure), NYHA class II (5) Cardiomyopathy Assessment \Admitted for Pulmonary edema End-stage renal disease on hemodialysis Tue Torri Sat Acute on chronic diastolic congestive heart failure Cardiomyopathy Anemia due to chronic kidney disease Hypertensive heart disease h/o Right pleural effusion s/p Mechanical fall status post repair of laceration to the scalp Past Surgical History: other - Vas-Cath right chest Plan HD and UF again in am BP management per orders Subjective ROS Limited/Unobtainable: No Constitutional: Reports: malaise Objective Objective Last 24 Hour Vital Signs Date Time Temp Pulse Resp B/P (MAP) Pulse Ox O2 Delivery O2 Flow Rate FiO2 05/16/19 12:04 3.0 05/16/19 12:04 Bi-pap 05/16/19 08:44 76 156/76 05/16/19 08:44 76 156/76 05/16/19 08:00 73 05/16/19 08:00 3.0 05/16/19 08:00 99.1 76 20 156/76 (102) 96 05/16/19 08:00 Bi-pap 05/16/19 07:10 95 Nasal Cannula 4.0 36 05/16/19 06:22 168/75 05/16/19 06:22 168/75 05/16/19 04:00 98.6 81 22 168/75 (106) 95 05/16/19 04:00 81 05/16/19 04:00 3.0 05/16/19 04:00 Bi-pap 05/16/19 02:34 91 20 95 Facial 40 05/16/19 00:01 95 28 96 Facial 40 05/16/19 00:00 Bi-pap 05/16/19 00:00 73 05/16/19 00:00 98.8 76 20 120/56 (77) 95 05/15/19 22:45 158/78 05/15/19 22:44 158/78 05/15/19 22:43 99 38 95 Facial 40 05/15/19 21:46 92 163/79 05/15/19 20:30 92 25 97 Facial 40 05/15/19 20:00 60 05/15/19 20:00 98.2 75 20 163/79 (107) 96 05/15/19 20:00 75 05/15/19 20:00 Bi-pap 05/15/19 19:15 89 24 94 Facial 40 05/15/19 17:15 95 24 99 05/15/19 16:15 99 22 99 05/15/19 16:00 98.2 94 20 179/87 (117) 95 05/15/19 16:00 101 05/15/19 16:00 Bi-pap 05/15/19 16:00 3.0 05/15/19 15:35 198/98 05/15/19 15:31 198/98 05/15/19 14:06 98.2 05/15/19 13:45 100 26 98 Facial 40 Intake and Output 05/15/19 05/16/19 18:59 06:59 Intake Total 120 ml 115 ml Output Total 3000 ml 150 ml Balance -2880 ml -35 ml Intake Oral 120 ml 60 ml IV Total 55 ml Output Urine Total 150 ml Hemodialysis UF 3000 ml Laboratory Tests 05/15/19 19:00: Arterial Blood pH 7.492H, Arterial Blood Partial Pressure CO2 43.2, Arterial Blood Partial Pressure O2 62.3L, Arterial Blood HCO3 32.3H, Arterial Blood Oxygen Saturation 92.5L, Arterial Blood Base Excess 8.1H, Segun Test Positive 05/16/19 03:17: White Blood Count 9.4, Red Blood Count 4.33, Hemoglobin 13.2, Hematocrit 40.1, Mean Corpuscular Volume 93, Mean Corpuscular Hemoglobin 30.4, Mean Corpuscular Hemoglobin Concent 32.9, Red Cell Distribution Width 15.2H, Platelet Count 154, Mean Platelet Volume 7.9, Neutrophils (%) (Auto) 78.9H, Lymphocytes (%) (Auto) 13.0L, Monocytes (%) (Auto) 7.1, Eosinophils (%) (Auto) 0.3, Basophils (%) (Auto ) 0.7, Sodium Level 135L, Potassium Level 5.2H, Chloride Level 98, Carbon Dioxide Level 32, Anion Gap 5, Blood Urea Nitrogen 41H, Creatinine 3.6H, Estimat Glomerular Filtration Rate 12.6, Glucose Level 85, Hemoglobin A1c 4.6, Calcium Level 8.7, Phosphorus Level 3.1, Magnesium Level 2.2, Total Bilirubin 0.6, Gamma Glutamyl Transpeptidase 22, Aspartate Amino Transf (AST/SGOT) 22, Alanine Aminotransferase (ALT/SGPT) 17, Alkaline Phosphatase 117H, C-Reactive Protein, Quantitative 15.9H, Pro-B-Type Natriuretic Peptide > 13560R, Total Protein 7.2, Albumin 2.4L, Globulin 4.8, Albumin/Globulin Ratio 0.5L, Triglycerides Level 66, Cholesterol Level 124, LDL Cholesterol 64, HDL Cholesterol 45, Cholesterol/HDL Ratio 2.8L, Thyroid Stimulating Hormone (TSH) 2.021, Free Thyroxine 1.44, Free Triiodothyronine 1.4L Height (Feet): 4 Height (Inches): 11.00 Weight (Pounds): 134 General Appearance: no apparent distress EENT: other - off bipap Respiratory/Chest: decreased breath sounds Abdomen: distended Juaquin Hadley MD May 16, 2019 13:08
--- NOTE | 2019-05-16 13:10 | General Progress Note ---
Assessment/Plan Status: stable, progressing Assessment/Plan: 68 year old female, accompanied by her daughter with history of Hypertension, type 2 diabetes, ESRD on HD, anemia of chronic disease, OA, diastolic CHF, NSTEMI presented with shortness of breath. #Acute hypoxic hypercarbic respiratory failure due to pulmonary edema, possibly with super imposed pneumonia Admitted to step down unit. Close monitoring bipap prn, continue oxygen via nasal cannulae ABGs as needed broad spectrum abx- Zosyn and Azithromycin. ID agrees follow up cultures, blood and sputum pulmonary consult: Dr. Hernandes ID consult; Dr. Garcia #ESRD on HD HD per Dr. Hadley #HTN- controlled #Diastolic CHF Continue Amlodipine, carvedilol, Hydralazine ASA #DM type II- controlled HbA1c 4.9 #Hypothyroidism Insulin sliding scale. Ensure no oral meds Check T3/T4 Cytomel 5 mcg #Stage 1 sacral decubitus Wound consult for stage [address] Carrasco Wound care Frequent turning vte ppx: heparin q12 GI ppx: ppi Diet: NPO Code status: Full code PT consult I spent 40 minutes on this patient's care, > 50% spent on counselling and care coordination. Plan of care discussed with patient's daughter at bedside. Subjective Date patient seen: May 16, 2019 ROS Limited/Unobtainable: No Constitutional: Reports: weakness HEENT: Denies: no symptoms, eye pain, blurred vision, tearing, double vision, ear pain, ear discharge, nose pain, nose congestion, throat pain, throat swelling, mouth pain, mouth swelling, other Cardiovascular: Denies: no symptoms, chest pain, edema, irregular heart rate, lightheadedness, palpitations, syncope, other Respiratory: Reports: shortness of breath Gastrointestinal/Abdominal: Denies: no symptoms, abdomen distended, abdominal pain, black stools, tarry stools, blood in stool, constipated, diarrhea, difficulty swallowing, nausea, poor appetite, poor fluid intake, rectal bleeding , vomiting, other Genitourinary: Denies: no symptoms, burning, discharge, frequency, flank pain, hematuria, incontinence, pain, urgency, other Neurologic/Psychiatric: Denies: no symptoms, anxiety, depressed, emotional problems, headache, numbness, paresthesia, pre-existing deficit, seizure, tingling, tremors, weakness, other Endocrine: Denies: no symptoms, excessive sweating, flushing, intolerance to cold, intolerance to heat, increased hunger, increased thirst, increased urine, unexplained weight gain, unexplained weight loss, other Hematologic/Lymphatic: Denies: no symptoms, anemia, easy bleeding, easy bruising, other Allergies: Coded Allergies: No Known Allergies (Unverified , 10/06/18) Subjective following up on acute hypoxic respiratory failure, pulmonary edema, ESRD on HD, and pneumonia. Tmax 100.6, bp 156/76. Has transitioned off bipap, wearing nasal cannula, has mild sob, significant improvement. Family at bedside. Objective Last 24 Hour Vital Signs Date Time Temp Pulse Resp B/P (MAP) Pulse Ox O2 Delivery O2 Flow Rate FiO2 05/16/19 12:04 3.0 05/16/19 12:04 Bi-pap 05/16/19 08:44 76 156/76 05/16/19 08:44 76 156/76 05/16/19 08:00 73 05/16/19 08:00 3.0 05/16/19 08:00 99.1 76 20 156/76 (102) 96 05/16/19 08:00 Bi-pap 05/16/19 07:10 95 Nasal Cannula 4.0 36 05/16/19 06:22 168/75 05/16/19 06:22 168/75 05/16/19 04:00 98.6 81 22 168/75 (106) 95 05/16/19 04:00 81 05/16/19 04:00 3.0 05/16/19 04:00 Bi-pap 05/16/19 02:34 91 20 95 Facial 40 05/16/19 00:01 95 28 96 Facial 40 05/16/19 00:00 Bi-pap 05/16/19 00:00 73 05/16/19 00:00 98.8 76 20 120/56 (77) 95 05/15/19 22:45 158/78 05/15/19 22:44 158/78 05/15/19 22:43 99 38 95 Facial 40 05/15/19 21:46 92 163/79 05/15/19 20:30 92 25 97 Facial 40 05/15/19 20:00 60 05/15/19 20:00 98.2 75 20 163/79 (107) 96 05/15/19 20:00 75 05/15/19 20:00 Bi-pap 05/15/19 19:15 89 24 94 Facial 40 05/15/19 17:15 95 24 99 05/15/19 16:15 99 22 99 05/15/19 16:00 98.2 94 20 179/87 (117) 95 05/15/19 16:00 101 05/15/19 16:00 Bi-pap 05/15/19 16:00 3.0 05/15/19 15:35 198/98 05/15/19 15:31 198/98 05/15/19 14:06 98.2 05/15/19 13:45 100 26 98 Facial 40 Intake and Output 05/15/19 05/16/19 18:59 06:59 Intake Total 120 ml 115 ml Output Total 3000 ml 150 ml Balance -2880 ml -35 ml Intake Oral 120 ml 60 ml IV Total 55 ml Output Urine Total 150 ml Hemodialysis UF 3000 ml Laboratory Tests 05/15/19 19:00: Arterial Blood pH 7.492H, Arterial Blood Partial Pressure CO2 43.2, Arterial Blood Partial Pressure O2 62.3L, Arterial Blood HCO3 32.3H, Arterial Blood Oxygen Saturation 92.5L, Arterial Blood Base Excess 8.1H, Segun Test Positive 05/16/19 03:17: White Blood Count 9.4, Red Blood Count 4.33, Hemoglobin 13.2, Hematocrit 40.1, Mean Corpuscular Volume 93, Mean Corpuscular Hemoglobin 30.4, Mean Corpuscular Hemoglobin Concent 32.9, Red Cell Distribution Width 15.2H, Platelet Count 154, Mean Platelet Volume 7.9, Neutrophils (%) (Auto) 78.9H, Lymphocytes (%) (Auto) 13.0L, Monocytes (%) (Auto) 7.1, Eosinophils (%) (Auto) 0.3, Basophils (%) (Auto ) 0.7, Sodium Level 135L, Potassium Level 5.2H, Chloride Level 98, Carbon Dioxide Level 32, Anion Gap 5, Blood Urea Nitrogen 41H, Creatinine 3.6H, Estimat Glomerular Filtration Rate 12.6, Glucose Level 85, Hemoglobin A1c 4.6, Calcium Level 8.7, Phosphorus Level 3.1, Magnesium Level 2.2, Total Bilirubin 0.6, Gamma Glutamyl Transpeptidase 22, Aspartate Amino Transf (AST/SGOT) 22, Alanine Aminotransferase (ALT/SGPT) 17, Alkaline Phosphatase 117H, C-Reactive Protein, Quantitative 15.9H, Pro-B-Type Natriuretic Peptide > 06390K, Total Protein 7.2, Albumin 2.4L, Globulin 4.8, Albumin/Globulin Ratio 0.5L, Triglycerides Level 66, Cholesterol Level 124, LDL Cholesterol 64, HDL Cholesterol 45, Cholesterol/HDL Ratio 2.8L, Thyroid Stimulating Hormone (TSH) 2.021, Free Thyroxine 1.44, Free Triiodothyronine 1.4L Height (Feet): 4 Height (Inches): 11.00 Weight (Pounds): 134 Objective General Appearance: awake, alert, no respiratory distress, on nasal cannulae, daughter at bedside Head: atraumatic Neck: normal inspection, full range of motion, supple, Respiratory: respiratory distress, crackles Cardiovascular: regular rate, rhythm, no edema Gastrointestinal: normal inspection, normal bowel sounds, non tender, soft, no guarding Musculoskeletal: normal inspection, normal range of motion Neurologic: grossly intact Skin: clammy: stage 1 sacral decubitus Siva Thornton M.D. May 16, 2019 13:10
[2019-05-16] MEDS: Azithromycin 500 MG in D5W 275 ML IV SCH (14:24)
--- NOTE | 2019-05-16 14:59 | Cardiology Report ---
APPROVED REPORT EXAM: Two-dimensional and M-mode echocardiogram with Doppler and color Doppler. INDICATION Congestive Heart Failure M-Mode DIMENSIONS IVSd1.2 (0.7-1.1cm)Left Atrium (MM)4.5 (1.6-4.0cm) LVDd5.5 (3.5-5.6cm)Aortic Root2.5 (2.0-3.7cm) PWd1.2 (0.7-1.1cm)Aortic Cusp Exc.1.8 (1.5-2.0cm) LVDs4.0 (2.5-4.0cm) PWs1.8 cm Normal left ventricular chamber size, systolic function and wall motion. Left ventricular ejection fraction estimated to be 55 %. Mild left ventricular hypertrophy. Small pericardial effusion. Large pleural effusion. Mild left atrial enlargement. Right cardiac chamber sizes are within normal limits. Focal aortic valve sclerosis with adequate cusp excursion. Thickened mitral valve leaflets with normal excursion. Mitral annulus and aortic root calcification. Normal pulmonic valve structure. Normal tricuspid valve structure. IVC at normal size with slight physiologic collapse. A color flow and spectral Doppler study was performed and revealed: No aortic regurgitation. Mild mitral regurgitation. Mitral inflow velocities indicates possible pseudo normalization pattern implying moderately elevated left atrial pressure (Grade II ). Mild tricuspid regurgitation. Tricuspid systolic velocities suggests peak right ventricular systolic pressure of 41 mmHg consistent with mild pulmonary hypertension. Trace pulmonic regurgitation present.
--- NOTE | 2019-05-16 15:04 | Surgery Progress Note ---
Surgery Progress Note Subjective Additional Comments no acute events labs noted exam stable Objective Last 24 Hour Vital Signs Date Time Temp Pulse Resp B/P (MAP) Pulse Ox O2 Delivery O2 Flow Rate FiO2 05/16/19 14:16 160/74 05/16/19 14:16 160/74 05/16/19 12:04 3.0 05/16/19 12:04 Bi-pap 05/16/19 12:00 98.3 74 24 160/74 (102) 94 05/16/19 12:00 69 05/16/19 08:44 76 156/76 05/16/19 08:44 76 156/76 05/16/19 08:00 73 05/16/19 08:00 3.0 05/16/19 08:00 99.1 76 20 156/76 (102) 96 05/16/19 08:00 Bi-pap 05/16/19 07:10 95 Nasal Cannula 4.0 36 05/16/19 06:22 168/75 05/16/19 06:22 168/75 05/16/19 04:00 98.6 81 22 168/75 (106) 95 05/16/19 04:00 81 05/16/19 04:00 3.0 05/16/19 04:00 Bi-pap 05/16/19 02:34 91 20 95 Facial 40 05/16/19 00:01 95 28 96 Facial 40 05/16/19 00:00 Bi-pap 05/16/19 00:00 73 05/16/19 00:00 98.8 76 20 120/56 (77) 95 05/15/19 22:45 158/78 05/15/19 22:44 158/78 05/15/19 22:43 99 38 95 Facial 40 05/15/19 21:46 92 163/79 05/15/19 20:30 92 25 97 Facial 40 05/15/19 20:00 60 05/15/19 20:00 98.2 75 20 163/79 (107) 96 05/15/19 20:00 75 05/15/19 20:00 Bi-pap 05/15/19 19:15 89 24 94 Facial 40 05/15/19 17:15 95 24 99 05/15/19 16:15 99 22 99 05/15/19 16:00 98.2 94 20 179/87 (117) 95 05/15/19 16:00 101 05/15/19 16:00 Bi-pap 05/15/19 16:00 3.0 05/15/19 15:35 198/98 05/15/19 15:31 [id number] I&O Intake and Output 05/15/19 05/16/19 18:59 06:59 Intake Total 120 ml 115 ml Output Total 3000 ml 150 ml Balance -2880 ml -35 ml Intake Oral 120 ml 60 ml IV Total 55 ml Output Urine Total 150 ml Hemodialysis UF 3000 ml Dressing: other Wound: other Drains: other Cardiovascular: RSR Respiratory: decreased breath sounds Abdomen: soft, present bowel sounds, non-distended Extremities: no cyanosis, other Laboratory Tests Test 05/15/19 19:00 05/16/19 03:17 Arterial Blood pH 7.492 (7.350-7.450) Arterial Blood Partial Pressure CO2 43.2 mmHg (35.0-45.0) Arterial Blood Partial Pressure O2 62.3 mmHg (75.0-100.0) L Arterial Blood HCO3 32.3 mmol/L (22.0-26.0) H Arterial Blood Oxygen Saturation 92.5 % (95-100) L Arterial Blood Base Excess 8.1 (-2-2) H Segun Test Positive White Blood Count 9.4 K/UL (4.8-10.8) Red Blood Count 4.33 M/UL (4.20-5.40) Hemoglobin 13.2 G/DL (12.0-16.0) Hematocrit 40.1 % (37.0-47.0) Mean Corpuscular Volume 93 FL (80-99) Mean Corpuscular Hemoglobin 30.4 PG (27.0-31.0) Mean Corpuscular Hemoglobin Concent 32.9 G/DL (32.0-36.0) Red Cell Distribution Width 15.2 % (11.6-14.8) H Platelet Count 154 K/UL (150-450) Mean Platelet Volume 7.9 FL (6.5-10.1) Neutrophils (%) (Auto) 78.9 % (45.0-75.0) H Lymphocytes (%) (Auto) 13.0 % (20.0-45.0) L Monocytes (%) (Auto) 7.1 % (1.0-10.0) Eosinophils (%) (Auto) 0.3 % (0.0-3.0) Basophils (%) (Auto) 0.7 % (0.0-2.0) Sodium Level 135 MMOL/L (136-145) L Potassium Level 5.2 MMOL/L (3.5-5.1) H Chloride Level 98 MMOL/L (98-107) Carbon Dioxide Level 32 MMOL/L (21-32) Anion Gap 5 mmol/L (5-15) Blood Urea Nitrogen 41 mg/dL (7-18) H Creatinine 3.6 MG/DL (0.55-1.30) H Estimat Glomerular Filtration Rate 12.6 mL/min (>60) Glucose Level 85 MG/DL (74-106) Hemoglobin A1c 4.6 % (4.3-6.0) Calcium Level 8.7 MG/DL (8.5-10.1) Phosphorus Level 3.1 MG/DL (2.5-4.9) Magnesium Level 2.2 MG/DL (1.8-2.4) Total Bilirubin 0.6 MG/DL (0.2-1.0) Gamma Glutamyl Transpeptidase 22 U/L (5-85) Aspartate Amino Transf (AST/SGOT) 22 U/L (15-37) Alanine Aminotransferase (ALT/SGPT) 17 U/L (12-78) Alkaline Phosphatase 117 U/L (46-116) H C-Reactive Protein, Quantitative 15.9 mg/dL (0.00-0.90) H Pro-B-Type Natriuretic Peptide > 61057 pg/mL (0-125) H Total Protein 7.2 G/DL (6.4-8.2) Albumin 2.4 G/DL (3.4-5.0) L Globulin 4.8 g/dL Albumin/Globulin Ratio 0.5 (1.0-2.7) L Triglycerides Level 66 MG/DL (30-150) Cholesterol Level 124 MG/DL (< 200) LDL Cholesterol 64 mg/dL (<100) HDL Cholesterol 45 MG/DL (40-60) Cholesterol/HDL Ratio 2.8 (3.3-4.4) L Thyroid Stimulating Hormone (TSH) 2.021 uiU/mL (0.358-3.740) Free Thyroxine 1.44 NG/DL (0.76-1.46) Free Triiodothyronine 1.4 pg/mL (2.3-4.2) L Plan Problems: (1) Decubitus skin ulcer Assessment & Plan: Pt presented on admission with multiple DTPIs. DTPI noted to sacrum . Base of wound is maroon with purple area in center and is indurated. (L)6.5cm x (W)9cmBase of injury tender when minimally palpated. Pt yelled out in pain and verbalized pain in [place] language. Dark skin tone without erythema or induration noted to R and L ischium. Each area non-tender when individually palpated. DTPI noted to R heel. Base of wound is purple with maroon borders with delineated margins.(L)3.3cm x (W)3.7cm. Periwound R heel is boggy with non- blanching erythema.. Pt verbalized pain when minimally palpated. L heel is boggy with Non-blanching erythema. Tender when minimally palpated. given medical condition and appearance of wounds high risk for breakdown. if open will be difficult to heal and detrimental. will need aggressive preventive measure during ill states while on support to ensure no breakdown. will follow closely Tx.Plan: Apply Moisture Barrier Paste to Sacrum. Cover with Optifoam drsg. Change every 3 days and prn. Apply Moisture Barrier Paste to R and L ischium with each incontinence care. Apply Cavilon Skin BArrier to Both heels. Cover each heel with Optifoam drsg. Change every 7 days and prn. Reposition at least every 2hours or as tolerated. Off-load heels with pillow. APM/BETTY Mattress. (2) Malnutrition of moderate degree Assessment & Plan: nutritional optimization encourage oral intake Samuel Carrasco May 16, 2019 15:04
[2019-05-16 16:00] VITALS: BP 150/69
--- NOTE | 2019-05-16 18:31 | Consultation ---
Consult Note Assessment/Plan DICT # [id number] Kiko Hernandes MD May 16, 2019 18:31
--- NOTE | 2019-05-16 19:41 | Infectious Diseases Prog Note ---
Assessment/Plan Assessment/Plan Full consult dictated: possible pna vs edema sepsis fevers pmh noted zosyn and azithromycin f/u on cultures, labs and chest x-ray will f/u Subjective Allergies: Coded Allergies: No Known Allergies (Unverified , 10/06/18) Objective Vital Signs Last 24 Hour Vital Signs Date Time Temp Pulse Resp B/P (MAP) Pulse Ox O2 Delivery O2 Flow Rate FiO2 05/16/19 19:10 94 Nasal Cannula 4.0 36 05/16/19 16:00 Bi-pap 05/16/19 16:00 97.7 70 36 150/69 (96) 96 05/16/19 16:00 72 05/16/19 16:00 50 05/16/19 14:52 72 27 95 Facial 50 05/16/19 14:16 160/74 05/16/19 14:16 160/74 05/16/19 12:04 3.0 05/16/19 12:04 Bi-pap 05/16/19 12:00 98.3 74 24 160/74 (102) 94 05/16/19 12:00 69 05/16/19 08:44 76 156/76 05/16/19 08:44 76 156/76 05/16/19 08:00 73 05/16/19 08:00 3.0 05/16/19 08:00 99.1 76 20 156/76 (102) 96 05/16/19 08:00 Bi-pap 05/16/19 07:10 95 Nasal Cannula 4.0 36 05/16/19 06:22 168/75 05/16/19 06:22 168/75 05/16/19 04:00 98.6 81 22 168/75 (106) 95 05/16/19 04:00 81 05/16/19 04:00 3.0 05/16/19 04:00 Bi-pap 05/16/19 02:34 91 20 95 Facial 40 05/16/19 00:01 95 28 96 Facial 40 05/16/19 00:00 Bi-pap 05/16/19 00:00 73 05/16/19 00:00 98.8 76 20 120/56 (77) 95 05/15/19 22:45 158/78 05/15/19 22:44 158/78 05/15/19 22:43 99 38 95 Facial 40 05/15/19 21:46 92 163/79 05/15/19 20:30 92 25 97 Facial 40 05/15/19 20:00 60 05/15/19 20:00 98.2 75 20 163/79 (107) 96 05/15/19 20:00 75 05/15/19 20:00 Bi-pap Height (Feet): 4 Height (Inches): 11.00 Weight (Pounds): 134 Microbiology Date/Time Source Procedure Growth Status 05/15/19 02:10 Rectum Received Laboratory Tests Test 05/16/19 03:17 White Blood Count 9.4 K/UL (4.8-10.8) Red Blood Count 4.33 M/UL (4.20-5.40) Hemoglobin 13.2 G/DL (12.0-16.0) Hematocrit 40.1 % (37.0-47.0) Mean Corpuscular Volume 93 FL (80-99) Mean Corpuscular Hemoglobin 30.4 PG (27.0-31.0) Mean Corpuscular Hemoglobin Concent 32.9 G/DL (32.0-36.0) Red Cell Distribution Width 15.2 % (11.6-14.8) H Platelet Count 154 K/UL (150-450) Mean Platelet Volume 7.9 FL (6.5-10.1) Neutrophils (%) (Auto) 78.9 % (45.0-75.0) H Lymphocytes (%) (Auto) 13.0 % (20.0-45.0) L Monocytes (%) (Auto) 7.1 % (1.0-10.0) Eosinophils (%) (Auto) 0.3 % (0.0-3.0) Basophils (%) (Auto) 0.7 % (0.0-2.0) Sodium Level 135 MMOL/L (136-145) L Potassium Level 5.2 MMOL/L (3.5-5.1) H Chloride Level 98 MMOL/L (98-107) Carbon Dioxide Level 32 MMOL/L (21-32) Anion Gap 5 mmol/L (5-15) Blood Urea Nitrogen 41 mg/dL (7-18) H Creatinine 3.6 MG/DL (0.55-1.30) H Estimat Glomerular Filtration Rate 12.6 mL/min (>60) Glucose Level 85 MG/DL (74-106) Hemoglobin A1c 4.6 % (4.3-6.0) Calcium Level 8.7 MG/DL (8.5-10.1) Phosphorus Level 3.1 MG/DL (2.5-4.9) Magnesium Level 2.2 MG/DL (1.8-2.4) Total Bilirubin 0.6 MG/DL (0.2-1.0) Gamma Glutamyl Transpeptidase 22 U/L (5-85) Aspartate Amino Transf (AST/SGOT) 22 U/L (15-37) Alanine Aminotransferase (ALT/SGPT) 17 U/L (12-78) Alkaline Phosphatase 117 U/L (46-116) H C-Reactive Protein, Quantitative 15.9 mg/dL (0.00-0.90) H Pro-B-Type Natriuretic Peptide > 52927 pg/mL (0-125) H Total Protein 7.2 G/DL (6.4-8.2) Albumin 2.4 G/DL (3.4-5.0) L Globulin 4.8 g/dL Albumin/Globulin Ratio 0.5 (1.0-2.7) L Triglycerides Level 66 MG/DL (30-150) Cholesterol Level 124 MG/DL (< 200) LDL Cholesterol 64 mg/dL (<100) HDL Cholesterol 45 MG/DL (40-60) Cholesterol/HDL Ratio 2.8 (3.3-4.4) L Thyroid Stimulating Hormone (TSH) 2.021 uiU/mL (0.358-3.740) Free Thyroxine 1.44 NG/DL (0.76-1.46) Free Triiodothyronine 1.4 pg/mL (2.3-4.2) L Current Medications Medications (Trade) Dose Ordered Sig/Vasile Route PRN Reason Start Time Stop Time Status Last Admin Dose Admin Acetaminophen (Tylenol) 650 mg Q4H PRN ORAL Mild Pain/Temp > 100.5 05/15/19 13:15 06/14/19 13:14 05/15/19 13:36 Amlodipine Besylate (Norvasc) 10 mg DAILY ORAL 05/15/19 09:00 06/14/19 08:59 05/16/19 08:44 Aspirin (Ecotrin) 81 mg DAILY ORAL 05/15/19 09:00 06/14/19 08:59 05/16/19 08:44 Azithromycin 500 mg/Dextrose 275 ml @ 275 mls/hr Q24HRS IV 05/15/19 15:00 05/19/19 15:59 05/16/19 14:24 Carvedilol (Coreg) 12.5 mg EVERY 12 HOURS ORAL 05/15/19 09:00 06/14/19 08:59 05/16/19 08:44 Chlorhexidine Gluconate (Mary-Hex 2%) 1 applic DAILY@2000 TOPIC 05/16/19 20:00 06/15/19 19:59 Clonidine HCl (Catapres Tab) 0.1 mg EVERY 8 HOURS ORAL 05/15/19 15:03 06/14/19 15:02 05/16/19 14:16 Clonidine HCl (Catapres Tab) 0.1 mg Q4H PRN ORAL bp over 165 syst 05/15/19 09:45 06/14/19 09:44 Dextrose (Dextrose 50%) 25 ml Q30M PRN IV Hypoglycemia 05/15/19 05:30 06/14/19 05:29 Dextrose (Dextrose 50%) 50 ml Q30M PRN IV Hypoglycemia 05/15/19 05:30 06/14/19 05:29 Heparin Sodium (Porcine) (Heparin 5000 units/ml) 5,000 units EVERY 12 HOURS SUBQ 05/15/19 21:00 06/14/19 20:59 05/16/19 08:46 Hydralazine HCl (Apresoline) 50 mg Q8HR ORAL 05/15/19 06:00 06/14/19 05:59 05/16/19 14:16 Insulin Aspart (NovoLOG) BEFORE MEALS AND HS SUBQ 05/15/19 06:30 06/14/19 06:29 05/16/19 17:24 Liothyronine Sodium (Cytomel) 5 mcg DAILY@0630 ORAL 05/15/19 06:30 06/14/19 06:29 05/16/19 06:22 Piperacillin Sod/ Tazobactam Sod 2.25 gm/Dextrose 55 ml @ 110 mls/hr Q8H IV 05/15/19 16:00 05/22/19 15:59 05/16/19 17:12 Tamsulosin HCl (Flomax) 0.4 mg BEDTIME ORAL 05/15/19 21:00 06/14/19 20:59 05/15/19 21:46 Vitamin B Complex/ Vit C/Folic Acid (Nephrovite) 1 tab DAILY ORAL 05/15/19 09:00 06/14/19 08:59 05/16/19 08:44 Kimberly Holland MD May 16, 2019 19:41
[2019-05-16 20:00] VITALS: BP 191/87
[2019-05-16] MEDS: Dyna-Hex 2% Top Sol 2oz TOPIC SCH (20:19)
[2019-05-16] MEDS: Tamsulosin 0.4mg cap ORAL SCH (20:19)
--- NOTE | 2019-05-16 21:45 | Consultation ---
DATE OF CONSULTATION: 05/16/2019 PULMONARY CONSULTATION CONSULTING PHYSICIAN: Kiko Hernandes M.D. REFERRING PHYSICIAN: Siva Thornton M.D. REASON FOR CONSULTATION: Respiratory failure. HISTORY OF PRESENT ILLNESS: The patient is a 68-year-old female with a history of diabetes and end-stage renal disease, on dialysis who presented with labored breathing, shortness of breath, and desaturation, placed in the BiPAP in the ER. Chest x-ray with pulmonary edema. The patient also had a nonproductive cough per her daughter, but no history is obtainable at this point since coming to the hospital. She has been afebrile. Vital signs have been stable. She has been on and off of BiPAP. ABG on presentation was 7.5/46/88/35/97. ABG this evening was 7.5/43/62/32/92. She has a BNP of greater than 35,000. An echocardiogram done and ordered showed a ejection fraction of 55% with mild LVH, large pleural effusion, mild left chamber enlargement, tricuspid velocity of 41. PAST MEDICAL HISTORY: 1. End-stage renal disease, on dialysis. 2. Diabetes. 3. Hypertension. 4. Hypothyroidism. PAST SURGICAL HISTORY: Unknown. ALLERGIES: No known drug allergies. MEDICATIONS: Prior to admission medications, reviewed. Current medications, reviewed. SOCIAL HISTORY: custodial resident, otherwise unknown. FAMILY HISTORY: Noncontributory. REVIEW OF SYSTEMS: Unobtainable. PHYSICAL EXAMINATION: VITAL SIGNS: Temperature max is 100.6, heart rate 70, blood pressure 150/69, respiratory rate 36, saturating 50% on BiPAP. GENERAL: She is an elderly female, in no acute distress. Awake on BiPAP. HEENT: Normocephalic and atraumatic. Oropharynx is clear. NECK: Supple without lymphadenopathy. CHEST: Clear. Distant with bibasilar rales. HEART: Regular rate and rhythm. ABDOMEN: Soft, nontender, nondistended. EXTREMITIES: No cyanosis, clubbing or edema. ANCILLARY DATA: Chest x-ray, bilateral pleural effusions, pulmonary vascular congestion. Echocardiogram noted. LABORATORY DATA: PH 7.492/40/16/32/92. White count 9.4, hemoglobin 13.2, and platelet count 154,000. INR 1. Sodium 135, potassium , chloride 98, bicarbonate 20, BUN 41, creatinine 3.6, glucose 85. Hemoglobin A1c 4.6, calcium 8.7, phosphorus 3.1, magnesium 2.2. Total bilirubin 0.6, GGT 22, AST 22, ALT 17, alkaline phosphatase 117. BNP greater than 35,000. CRP 16. Albumin 2.4. TSH 2.02. T4 1.44, T3 1.4. ASSESSMENT: The patient is a 68-year-old female with a history of end-stage renal disease, presumed diabetes though A1c is less than 5, hypertension, CHF, presenting with shortness of breath likely secondary to pulmonary edema due to decompensated heart failure and possible superimposed pneumonia. PROBLEM LIST: 1. Acute hypoxemic respiratory failure. 2. End-stage renal disease, on dialysis. 3. Congestive heart failure with acute decompensated heart failure. 4. Possible superimposed pneumonia. 5. Stated history of diabetes though A1c 4.9. 6. Hypothyroidism. 7. Hypertension. 8. Stage I sacral decubitus ulcer. TREATMENT PLAN: 1. Discontinue BiPAP given the patient is alkalemic and not retaining. 2. Titrate on FiO2 to keep saturations greater than 90%. 3. Monitor volumes and renal function, dialysis per Renal with UF as tolerated. 4. Continue broad-spectrum antibiotics, follow up cultures. 5. DVT prophylaxis. 6. Aspiration precautions. 7. The patient is a Full Code, continue to discuss goals of care. Dr. Thornton, thank you for allowing me to assist in the care of your patient. If I may be of any assistance, please do not hesitate to ask. Kiko Hernandes M.D. DR: JESSE JOB#: [id number] CC:
--- NOTE | 2019-05-17 | Consultation ---
DATE OF CONSULTATION: 05/16/2019 INFECTIOUS DISEASES CONSULTATION CONSULTING PHYSICIAN: Kimberly Holland M.D. ATTENDING PHYSICIAN: Cuong Siegel M.D. REFERRING PHYSICIAN: Dr. Thornton REASON FOR CONSULTATION: Possible pneumonia, sepsis, fevers, and SIRS criteria. CHIEF COMPLAINT: The patient's chief complaint coming in to the hospital is shortness of breath, hypoxia, renal failure. HISTORY OF PRESENT ILLNESS: This is a 68-year-old female who comes into [facility] with fevers and shortness of breath. She had gotten a chest x-ray, could have edema versus pneumonia. She did have fevers and possible sepsis, SIRS criteria. Infectious Diseases consultation requested. The patient on Zosyn and azithromycin. Sputum cultures have been ordered. Chest x-ray reviewed. Case discussed with . We will continue Zosyn and azithromycin for sepsis and possible pneumonia. The patient, I believe is non-German speaking, cannot really get much of history from her. She came in with fevers as high as 100.6. She was somewhat tachypneic, respiratory rate is still around 36, she was febrile at 100.6 and had a pulse rate as high as 101. She is alert and responsive. REVIEW OF SYSTEMS: HEAD AND NECK: No head pain or neck pain. CARDIAC: No chest pain. GASTROINTESTINAL: No nausea, vomiting, or diarrhea. GENITOURINARY: No Hinds. She has hemodialysis. PULMONARY: She has shortness of breath and cough. SKIN: No rash. EXTREMITIES: No pain. NEUROLOGIC: No seizures. PAST MEDICAL HISTORY: The patient's past medical history includes the following. The patient has a past medical history of end-stage renal disease on hemodialysis, history of type 2 diabetes mellitus, history of hypertension, history of anemia of chronic disease, osteoarthritis, diastolic CHF, non-STEMI, and CAD. ALLERGIES: No known drug allergies. No antibiotic allergies. SOCIAL HISTORY: Negative for smoking, alcohol, or drug abuse. FAMILY HISTORY: Noncontributory. MEDICATIONS: Upon reviewing the MAR, she is on the following medications. She is on chlorhexidine, tamsulosin, heparin, Zosyn, clonidine, azithromycin, acetaminophen, amlodipine, aspirin, carvedilol, Cytomel, insulin, hydralazine, IV fluids. Antibiotics Zosyn and azithromycin. PHYSICAL EXAMINATION: VITAL SIGNS: Temperature is 97.7, pulse rate 70, respiratory rate 36, blood pressure 159/69, and saturation 96%, she is on BiPAP. Now, she is on nasal cannula. GENERAL: Alert and responsive, in no distress, no significant shortness of breath that I noted, maybe mild shortness of breath. HEAD AND NECK: Oral exam, no thrush. Eye exam, no icterus. Neck is supple. Normocephalic. HEART: Regular. Possible gallop. No murmur. No friction rub. ABDOMEN: Soft. Positive bowel sounds. Nontender. LUNGS: Bilateral rhonchi and crackles, possible rales. SKIN: No rash or dermatitis. MUSCULOSKELETAL: No effusion. Legs are without cellulitis. PERIPHERAL VASCULAR: No cyanosis or gangrene. GENITOURINARY: No Hinds. LINE SITES: Without phlebitis. NEUROLOGIC: Intact. Nonfocal. She is a hemodialysis patient. LABORATORY AND DIAGNOSTIC DATA: Laboratory as follows, white count 9.4, hemoglobin 13.2. Creatinine 3.6. LFTs were noted. Sputum cultures have been ordered and pending. Chest x-ray shows alveolar airspace disease which could be edema versus pneumonia, report was noted and reviewed. Other cultures pending. ASSESSMENT/PLAN: 1. The patient has possible community-acquired pneumonia, I believe the patient comes from home. Because she is on dialysis, could also have healthcare-acquired pneumonia and aspiration pneumonia. The patient will be continued on Zosyn and azithromycin to cover for pneumonia. We will check sputum culture, check followup labs, chest x-ray. The patient also could be septic with fevers up to 100.6 and SIRS criteria. Continue Zosyn and azithromycin for Streptococcus pneumoniae, anaerobic and atypical pneumonia coverage to cover for pneumonia, sepsis, check cultures, labs, chest x-ray. 2. The patient has a history of end-stage renal disease, on hemodialysis. 3. Hypertension. 4. Diabetes. 5. Blood sugar and blood pressure treatment primary care team. 6. Anemia of chronic disease. 7. Osteoarthritis. 8. CHF. 9. NSTEMI. 10. CAD. 11. No known drug allergies. 12. Social history is negative. 13. Family history is noncontributory. 14. MAR was noted. 15. Case was discussed with RN. 16. Continue treatment per primary consultants. Kimberly Holland M.D. DR: Rowan JOB#: [id number] CC: SANCHEZ
[2019-05-17] MEDS: Zosyn 2.25 gm in D5W 55ml IV SCH ×4 (00:01→23:00)
[2019-05-17 04:00] VITALS: BP 165/77
[2019-05-17] MEDS: Liothyronine 5mcg tab ORAL SCH (06:10)
[2019-05-17] MEDS: HydrALAZINE 50mg tab ORAL SCH (06:10)
[2019-05-17] MEDS: NovoLOG Insulin Flexpen SUBQ SCH ×4 (06:11→21:31)
[2019-05-17 08:00] VITALS: BP 191/85
[2019-05-17] MEDS ORDERED: LORazepam 0.5mg tab ORAL ONE (08:00)
[2019-05-17] MEDS: Nephrovite tab (Rena-Vite) ORAL SCH (08:26)
[2019-05-17] MEDS: Carvedilol 12.5mg tab ORAL SCH ×2 (08:27→21:16)
[2019-05-17] MEDS: Aspirin EC 81mg tab ORAL SCH (08:27)
[2019-05-17] MEDS: Heparin 5000 units/ml inj SUBQ SCH ×2 (08:28→21:25)
[2019-05-17 08:49] LABS: BASOPHILS % (AUTO) 1.1 % (0.0-2.0); EOSINOPHILS % (AUTO) 2.5 % (0.0-3.0); HEMATOCRIT 42.3 % (37.0-47.0); HEMOGLOBIN 13.9 G/DL (12.0-16.0); MEAN CORPUSCULAR VOLUME 92 FL (80-99); MONOCYTES % (AUTO) 7.7 % (1.0-10.0); NEUTROPHILS % (AUTO) 77.7 % (45.0-75.0); PLATELET COUNT 157 K/UL (150-450); RED BLOOD COUNT 4.58 M/UL (4.20-5.40); RED CELL DISTRIBUTION WIDTH 14.8 % (11.6-14.8); WHITE BLOOD COUNT 6.6 K/UL (4.8-10.8)
[2019-05-17 09:25] LABS: ANION GAP 9 mmol/L (5-15); BLOOD UREA NITROGEN 60 mg/dL (7-18); CALCIUM 8.4 MG/DL (8.5-10.1); CARBON DIOXIDE 32 MMOL/L (21-32); CHLORIDE 97 MMOL/L (98-107); CREATININE 4.4 MG/DL (0.55-1.30); POTASSIUM 4.6 MMOL/L (3.5-5.1); SODIUM 138 MMOL/L (136-145)
--- NOTE | 2019-05-17 11:02 | General Progress Note ---
Assessment/Plan Status: stable, progressing Assessment/Plan: 68 year old female, accompanied by her daughter with history of Hypertension, type 2 diabetes, ESRD on HD, anemia of chronic disease, OA, diastolic CHF, NSTEMI presented with shortness of breath. #Acute hypoxic hypercarbic respiratory failure due to pulmonary edema, possibly with super imposed pneumonia, improvedwean nasal cannula ABGs as needed broad spectrum abx- Zosyn and Azithromycin. ID agrees follow up cultures, blood and sputum pulmonary consult: Dr. Hernandes ID consult; Dr. Garcia #ESRD on HD HD per Dr. Hadley HD today 05/17 #HTN-uncontrolled #Diastolic CHF Continue Amlodipine, carvedilol, Hydralazine ASA Patient receiving dialysis today, will reassess blood pressure after completion of dialysis #DM type II- controlled HbA1c 4.9 #Hypothyroidism Insulin sliding scale. Ensure no oral meds Check T3/T4: TSH 13, free T4 1.44 Cytomel 5 mcg #Stage 1 sacral decubitus Wound consult for stage [address] Carrasco Wound care Frequent turning vte ppx: heparin q12 GI ppx: ppi Diet: Dialysis diet Code status: Full code PT consult I spent 40 minutes on this patient's care, > 50% spent on counselling and care coordination. I spent an additional 38 minutes on reviewing patient's chart from admission. This includes review of imaging, labs, notes, and interpretation of results. The time of my note may not reflect the time of my patient encounter. Subjective Date patient seen: May 17, 2019 Time patient seen: 13:09 Allergies: Coded Allergies: No Known Allergies (Unverified , 10/06/18) All Systems: reviewed and negative except above Subjective Patient states she is feeling better and feels less short of breath Denies headache, visual changes, nausea, vomiting Objective Last 24 Hour Vital Signs Date Time Temp Pulse Resp B/P (MAP) Pulse Ox O2 Delivery O2 Flow Rate FiO2 05/17/19 09:00 Nasal Cannula 4.0 05/17/19 08:27 78 191/85 05/17/19 08:26 78 191/85 05/17/19 08:00 97.5 78 20 191/85 (120) 94 05/17/19 08:00 74 05/17/19 07:21 92 Nasal Cannula 4.0 36 05/17/19 06:10 193/77 05/17/19 06:10 193/77 05/17/19 04:00 98.2 75 19 165/77 (106) 95 05/17/19 04:00 71 05/17/19 00:00 68 05/16/19 21:38 184/84 05/16/19 21:37 184/84 05/16/19 20:19 83 191/87 05/16/19 20:00 Bi-pap 05/16/19 20:00 3.0 05/16/19 20:00 97.9 81 24 191/87 (121) 95 05/16/19 19:32 78 05/16/19 19:10 94 Nasal Cannula 4.0 36 05/16/19 16:00 Bi-pap 05/16/19 16:00 97.7 70 36 150/69 (96) 96 05/16/19 16:00 72 05/16/19 16:00 50 05/16/19 14:52 72 27 95 Facial 50 05/16/19 14:16 160/74 05/16/19 14:16 160/74 05/16/19 12:04 3.0 05/16/19 12:04 Bi-pap 05/16/19 12:00 98.3 74 24 160/74 (102) 94 05/16/19 12:00 69 Intake and Output 05/16/19 05/17/19 19:00 07:00 Intake Total 680 ml 240 ml Output Total 150 ml 250 ml Balance 530 ml -10 ml Intake Oral 680 ml 240 ml Output Urine Total 150 ml 250 ml # Voids 1 Laboratory Tests 05/17/19 07:50: White Blood Count 6.6, Red Blood Count 4.58, Hemoglobin 13.9, Hematocrit 42.3, Mean Corpuscular Volume 92, Mean Corpuscular Hemoglobin 30.4, Mean Corpuscular Hemoglobin Concent 32.9, Red Cell Distribution Width 14.8, Platelet Count 157, Mean Platelet Volume 8.0, Neutrophils (%) (Auto) 77.7H, Lymphocytes (%) (Auto) 11.0L, Monocytes (%) (Auto) 7.7, Eosinophils (%) (Auto) 2.5, Basophils (%) (Auto ) 1.1 05/17/19 08:00: Sodium Level 138, Potassium Level 4.6, Chloride Level 97L, Carbon Dioxide Level 32, Anion Gap 9, Blood Urea Nitrogen 60H, Creatinine 4.4H, Estimat Glomerular Filtration Rate 10.0, Glucose Level 142H, Calcium Level 8.4L Height (Feet): 4 Height (Inches): 11.00 Weight (Pounds): 134 Objective GENERAL: No acute distress, appears comfortable, alert HEENT: NCAT, non-icteric eyes, pupils PERRLA Neck: No cervical lymphadenopathy, trachea midline CV: Regular rate and rhythm, no murmurs rubs or gallops RESP: Decreased breath sounds right lower lobe otherwise clear to auscultation ABD: soft, non-distended, no TTP EXT: Normal muscle tone, +5/5 muscle strength NEURO: No obvious deficits, alert and oriented x3 Jacquelin Mcdaniels DO May 17, 2019 11:02
[2019-05-17 11:23] VITALS: BP 165/92
--- NOTE | 2019-05-17 11:57 | Nephrology Progress Note ---
Assessment/Plan Problem List: (1) End-stage renal disease (2) Hypertensive kidney disease (3) Anemia in chronic kidney disease (4) CHF (congestive heart failure), NYHA class II (5) Cardiomyopathy Assessment seen during dialysis tolerating well. add Cozaar , increase Hydralazin dose Admitted for Pulmonary edema End-stage renal disease on hemodialysis Jaycee Torri Sat Acute on chronic diastolic congestive heart failure Cardiomyopathy Anemia due to chronic kidney disease Hypertensive heart disease h/o Right pleural effusion s/p Mechanical fall status post repair of laceration to the scalp Past Surgical History: other - Vas-Cath right chest Plan HD and UF again in am BP management per orders Subjective ROS Limited/Unobtainable: No Constitutional: Reports: malaise, weakness Objective Objective Last 24 Hour Vital Signs Date Time Temp Pulse Resp B/P (MAP) Pulse Ox O2 Delivery O2 Flow Rate FiO2 05/17/19 11:23 97.9 71 18 165/92 (116) 96 05/17/19 09:00 Nasal Cannula 4.0 05/17/19 08:27 78 191/85 05/17/19 08:26 78 191/85 05/17/19 08:00 97.5 78 20 191/85 (120) 94 05/17/19 08:00 74 05/17/19 07:21 92 Nasal Cannula 4.0 36 05/17/19 06:10 193/77 05/17/19 06:10 193/77 05/17/19 04:00 98.2 75 19 165/77 (106) 95 05/17/19 04:00 71 05/17/19 00:00 68 05/16/19 21:38 184/84 05/16/19 21:37 184/84 05/16/19 20:19 83 191/87 05/16/19 20:00 Bi-pap 05/16/19 20:00 3.0 05/16/19 20:00 97.9 81 24 191/87 (121) 95 05/16/19 19:32 78 05/16/19 19:10 94 Nasal Cannula 4.0 36 05/16/19 16:00 Bi-pap 05/16/19 16:00 97.7 70 36 150/69 (96) 96 05/16/19 16:00 72 05/16/19 16:00 50 12/13/19 14:52 72 27 95 Facial 50 05/16/19 14:16 160/74 05/16/19 14:16 160/74 05/16/19 12:04 3.0 05/16/19 12:04 Bi-pap 05/16/19 12:00 98.3 74 24 160/74 (102) 94 05/16/19 12:00 69 Intake and Output 05/16/19 05/17/19 19:00 07:00 Intake Total 680 ml 240 ml Output Total 150 ml 250 ml Balance 530 ml -10 ml Intake Oral 680 ml 240 ml Output Urine Total 150 ml 250 ml # Voids 1 Laboratory Tests 05/17/19 07:50: White Blood Count 6.6, Red Blood Count 4.58, Hemoglobin 13.9, Hematocrit 42.3, Mean Corpuscular Volume 92, Mean Corpuscular Hemoglobin 30.4, Mean Corpuscular Hemoglobin Concent 32.9, Red Cell Distribution Width 14.8, Platelet Count 157, Mean Platelet Volume 8.0, Neutrophils (%) (Auto) 77.7H, Lymphocytes (%) (Auto) 11.0L, Monocytes (%) (Auto) 7.7, Eosinophils (%) (Auto) 2.5, Basophils (%) (Auto ) 1.1 05/17/19 08:00: Sodium Level 138, Potassium Level 4.6, Chloride Level 97L, Carbon Dioxide Level 32, Anion Gap 9, Blood Urea Nitrogen 60H, Creatinine 4.4H, Estimat Glomerular Filtration Rate 10.0, Glucose Level 142H, Calcium Level 8.4L Height (Feet): 4 Height (Inches): 11.00 Weight (Pounds): 134 General Appearance: no apparent distress Cardiovascular: normal rate Respiratory/Chest: decreased breath sounds Abdomen: distended Juaquin Hadley MD May 17, 2019 11:57
[2019-05-17] MEDS: HydrALAZINE 25mg tab ORAL SCH ×2 (13:15→21:16)
[2019-05-17] MEDS ORDERED: NS 275ml ONE (13:34)
--- NOTE | 2019-05-17 14:14 | Surgery Progress Note ---
Surgery Progress Note Subjective Additional Comments no acute events labs noted Objective Last 24 Hour Vital Signs Date Time Temp Pulse Resp B/P (MAP) Pulse Ox O2 Delivery O2 Flow Rate FiO2 05/17/19 13:15 165/92 05/17/19 13:15 165/92 05/17/19 12:00 78 05/17/19 11:23 97.9 71 18 165/92 (116) 96 05/17/19 09:00 Nasal Cannula 4.0 05/17/19 08:27 78 191/85 05/17/19 08:26 78 191/85 05/17/19 08:00 97.5 78 20 191/85 (120) 94 05/17/19 08:00 74 05/17/19 07:21 92 Nasal Cannula 4.0 36 05/17/19 06:10 193/77 05/17/19 06:10 193/77 05/17/19 04:00 98.2 75 19 165/77 (106) 95 05/17/19 04:00 71 05/17/19 00:00 68 05/16/19 21:38 184/84 05/16/19 21:37 184/84 05/16/19 20:19 83 191/87 05/16/19 20:00 Bi-pap 05/16/19 20:00 3.0 05/16/19 20:00 97.9 81 24 191/87 (121) 95 05/16/19 19:32 78 05/16/19 19:10 94 Nasal Cannula 4.0 36 05/16/19 16:00 Bi-pap 05/16/19 16:00 97.7 70 36 150/69 (96) 96 05/16/19 16:00 72 05/16/19 16:00 50 05/16/19 14:52 72 27 95 Facial 50 05/16/19 14:16 160/74 05/16/19 14:16 160/74 I&O Intake and Output 05/16/19 05/17/19 19:00 07:00 Intake Total 680 ml 240 ml Output Total 150 ml 250 ml Balance 530 ml -10 ml Intake Oral 680 ml 240 ml Output Urine Total 150 ml 250 ml # Voids 1 Dressing: other Wound: other Drains: other Cardiovascular: RSR Respiratory: decreased breath sounds Abdomen: soft, present bowel sounds Extremities: no edema, no tenderness, no cyanosis Laboratory Tests Test 05/17/19 07:50 05/17/19 08:00 White Blood Count 6.6 K/UL (4.8-10.8) Red Blood Count 4.58 M/UL (4.20-5.40) Hemoglobin 13.9 G/DL (12.0-16.0) Hematocrit 42.3 % (37.0-47.0) Mean Corpuscular Volume 92 FL (80-99) Mean Corpuscular Hemoglobin 30.4 PG (27.0-31.0) Mean Corpuscular Hemoglobin Concent 32.9 G/DL (32.0-36.0) Red Cell Distribution Width 14.8 % (11.6-14.8) Platelet Count 157 K/UL (150-450) Mean Platelet Volume 8.0 FL (6.5-10.1) Neutrophils (%) (Auto) 77.7 % (45.0-75.0) H Lymphocytes (%) (Auto) 11.0 % (20.0-45.0) L Monocytes (%) (Auto) 7.7 % (1.0-10.0) Eosinophils (%) (Auto) 2.5 % (0.0-3.0) Basophils (%) (Auto) 1.1 % (0.0-2.0) Sodium Level 138 MMOL/L (136-145) Potassium Level 4.6 MMOL/L (3.5-5.1) Chloride Level 97 MMOL/L (98-107) L Carbon Dioxide Level 32 MMOL/L (21-32) Anion Gap 9 mmol/L (5-15) Blood Urea Nitrogen 60 mg/dL (7-18) H Creatinine 4.4 MG/DL (0.55-1.30) H Estimat Glomerular Filtration Rate 10.0 mL/min (>60) Glucose Level 142 MG/DL (74-106) H Calcium Level 8.4 MG/DL (8.5-10.1) L Plan Problems: (1) Decubitus skin ulcer Assessment & Plan: Pt presented on admission with multiple DTPIs. DTPI noted to sacrum . Base of wound is maroon with purple area in center and is indurated. (L)6.5cm x (W)9cmBase of injury tender when minimally palpated. Pt yelled out in pain and verbalized pain in [place] language. Dark skin tone without erythema or induration noted to R and L ischium. Each area non-tender when individually palpated. DTPI noted to R heel. Base of wound is purple with maroon borders with delineated margins.(L)3.3cm x (W)3.7cm. Periwound R heel is boggy with non- blanching erythema.. Pt verbalized pain when minimally palpated. L heel is boggy with Non-blanching erythema. Tender when minimally palpated. given medical condition and appearance of wounds high risk for breakdown. if open will be difficult to heal and detrimental. will need aggressive preventive measure during ill states while on support to ensure no breakdown. will follow closely Tx.Plan: Apply Moisture Barrier Paste to Sacrum. Cover with Optifoam drsg. Change every 3 days and prn. Apply Moisture Barrier Paste to R and L ischium with each incontinence care. Apply Cavilon Skin BArrier to Both heels. Cover each heel with Optifoam drsg. Change every 7 days and prn. Reposition at least every 2hours or as tolerated. Off-load heels with pillow. APM/BETTY Mattress. (2) Malnutrition of moderate degree Assessment & Plan: nutritional optimization encourage oral intake Samuel Carrasco May 17, 2019 14:14
--- NOTE | 2019-05-17 14:22 | Diagnostic Imaging Report ---
EXAM: XR Chest, 1 View CLINICAL HISTORY: INFECT TECHNIQUE: Frontal view of the chest. COMPARISON: . 05/15/19. FINDINGS: Moderate bilateral pleural effusions with associated atelectasis. There are also extensive airspace infiltrates. Vascular congestion. Suspect a diffuse volume overload. Calcified aorta. Dialysis catheter in a right internal jugular approach, tips in the right atrium. No pneumothorax. Advanced shoulder degeneration.. IMPRESSION: Moderate bilateral pleural effusions with associated atelectasis. There are also extensive airspace infiltrates and vascular congestion. Suspect a diffuse volume overload. Dialysis catheter.
[2019-05-17] MEDS: Azithromycin 500 MG in D5W 275 ML IV SCH (14:54)
[2019-05-17 15:00] VITALS: BP 181/78
[2019-05-17 16:03] VITALS: BP 135/71
--- NOTE | 2019-05-17 19:41 | Pulmonology Progress Note ---
Assessment/Plan Assessment/Plan PROBLEM LIST: 1. Acute hypoxemic respiratory failure. 2. End-stage renal disease, on dialysis. 3. Congestive heart failure with acute decompensated heart failure. 4. Possible superimposed pneumonia. 5. Stated history of diabetes though A1c 4.9. 6. Hypothyroidism. 7. Hypertension. 8. Stage I sacral decubitus ulcer. TREATMENT PLAN: 1 doign well on NC 2. FU CXR 3. Monitor volumes and renal function, dialysis per Renal with UF as tolerated. 4. Continue broad-spectrum antibiotics, follow up cultures. 5. DVT prophylaxis. 6. Aspiration precautions. 7. The patient is a Full Code, continue to discuss goals of care. 8. will need thoracentesis most likely sunday Subjective Constitutional: Reports: no symptoms HEENT: Repors: no symptoms Respiratory: Reports: no symptoms Allergies: Coded Allergies: No Known Allergies (Unverified , 10/06/18) Subjective on o2 no distress not getting oob toleraing po no fever wound s noted Objective Last 24 Hour Vital Signs Date Time Temp Pulse Resp B/P (MAP) Pulse Ox O2 Delivery O2 Flow Rate FiO2 05/17/19 16:03 97.9 77 18 135/71 (92) 95 05/17/19 16:00 78 05/17/19 15:04 181/78 05/17/19 15:00 74 181/78 (112) 05/17/19 13:15 165/92 05/17/19 13:15 165/92 05/17/19 12:00 78 05/17/19 11:23 97.9 71 18 165/92 (116) 96 05/17/19 09:00 Nasal Cannula 4.0 05/17/19 08:27 78 191/85 05/17/19 08:26 78 191/85 05/17/19 08:00 97.5 78 20 191/85 (120) 94 05/17/19 08:00 74 05/17/19 07:21 92 Nasal Cannula 4.0 36 05/17/19 06:10 193/77 05/17/19 06:10 193/77 05/17/19 04:00 98.2 75 19 165/77 (106) 95 05/17/19 04:00 71 05/17/19 00:00 68 05/16/19 21:38 184/84 05/16/19 21:37 184/84 05/16/19 20:19 83 191/87 05/16/19 20:00 Bi-pap 05/16/19 20:00 3.0 05/16/19 20:00 97.9 81 24 191/87 (121) 95 Intake and Output 05/16/19 05/17/19 18:59 06:59 Intake Total 680 ml 240 ml Output Total 150 ml 250 ml Balance 530 ml -10 ml Intake Oral 680 ml 240 ml Output Urine Total 150 ml 250 ml # Voids 1 General Appearance: WD/WN Respiratory/Chest: lungs clear, crackles/rales Cardiovascular: normal rate, regular rhythm Abdomen: soft, non tender, no organomegaly Extremities: no cyanosis Neurologic/Psychiatric: alert, responsive Microbiology Date/Time Source Procedure Growth Status 05/15/19 16:40 Blood Blood Culture - Preliminary NO GROWTH AFTER 24 HOURS Resulted 05/15/19 02:10 Nasal Nares MRSA Culture - Final NO METHICILLIN RESISTANT STAPH AUREUS... Complete 05/15/19 02:10 Rectum - Final NO CARBAPENEM-RESISTANT ENTEROBACTERI... Complete 05/15/19 02:10 Rectum VRE Culture - Final Enterococcus Faecalis - Vre Complete Laboratory Tests 05/17/19 07:50: White Blood Count 6.6, Red Blood Count 4.58, Hemoglobin 13.9, Hematocrit 42.3, Mean Corpuscular Volume 92, Mean Corpuscular Hemoglobin 30.4, Mean Corpuscular Hemoglobin Concent 32.9, Red Cell Distribution Width 14.8, Platelet Count 157, Mean Platelet Volume 8.0, Neutrophils (%) (Auto) 77.7H, Lymphocytes (%) (Auto) 11.0L, Monocytes (%) (Auto) 7.7, Eosinophils (%) (Auto) 2.5, Basophils (%) (Auto ) 1.1 05/17/19 08:00: Sodium Level 138, Potassium Level 4.6, Chloride Level 97L, Carbon Dioxide Level 32, Anion Gap 9, Blood Urea Nitrogen 60H, Creatinine 4.4H, Estimat Glomerular Filtration Rate 10.0, Glucose Level 142H, Calcium Level 8.4L Current Medications Medications (Trade) Dose Ordered Sig/Vasile Route PRN Reason Start Time Stop Time Status Last Admin Dose Admin Acetaminophen (Tylenol) 650 mg Q4H PRN ORAL Mild Pain/Temp > 100.5 12/12/19 13:15 06/14/19 13:14 05/15/19 13:36 Amlodipine Besylate (Norvasc) 10 mg DAILY ORAL 05/15/19 09:00 06/14/19 08:59 05/17/19 08:26 Aspirin (Ecotrin) 81 mg DAILY ORAL 05/15/19 09:00 06/14/19 08:59 05/17/19 08:27 Azithromycin 500 mg/Dextrose 275 ml @ 275 mls/hr Q24HRS IV 05/15/19 15:00 05/19/19 15:59 05/17/19 14:54 Carvedilol (Coreg) 12.5 mg EVERY 12 HOURS ORAL 05/15/19 09:00 06/14/19 08:59 05/17/19 08:27 Chlorhexidine Gluconate (Mary-Hex 2%) 1 applic DAILY@1999 TOPIC 05/16/19 20:00 06/15/19 19:59 05/16/19 20:19 Clonidine HCl (Catapres Tab) 0.1 mg EVERY 8 HOURS ORAL 05/15/19 15:03 06/14/19 15:02 05/17/19 13:15 Clonidine HCl (Catapres Tab) 0.1 mg Q4H PRN ORAL bp over 165 syst 05/15/19 09:45 06/14/19 09:44 05/17/19 15:04 Dextrose (Dextrose 50%) 25 ml Q30M PRN IV Hypoglycemia 05/15/19 05:30 06/14/19 05:29 Dextrose (Dextrose 50%) 50 ml Q30M PRN IV Hypoglycemia 05/15/19 05:30 06/14/19 05:29 Heparin Sodium (Porcine) (Heparin 5000 units/ml) 5,000 units EVERY 12 HOURS SUBQ 05/15/19 21:00 06/14/19 20:59 05/17/19 08:28 Hydralazine HCl (Apresoline) 75 mg Q8HR ORAL 05/17/19 14:00 06/16/19 13:59 05/17/19 13:15 Insulin Aspart (NovoLOG) BEFORE MEALS AND HS SUBQ 05/15/19 06:30 06/14/19 06:29 05/17/19 16:27 Liothyronine Sodium (Cytomel) 5 mcg DAILY@0630 ORAL 05/15/19 06:30 06/14/19 06:29 05/17/19 06:10 Losartan Potassium (Cozaar) 25 mg EVERY 12 HOURS ORAL 05/17/19 21:00 06/16/19 20:59 Piperacillin Sod/ Tazobactam Sod 2.25 gm/Dextrose 55 ml @ 110 mls/hr Q8H IV 05/15/19 16:00 05/22/19 15:59 05/17/19 15:57 Tamsulosin HCl (Flomax) 0.4 mg BEDTIME ORAL 05/15/19 21:00 06/14/19 20:59 05/16/19 20:19 Vitamin B Complex/ Vit C/Folic Acid (Nephrovite) 1 tab DAILY ORAL 05/15/19 09:00 06/14/19 08:59 05/17/19 08:26 Rosa M Briceno DO May 17, 2019 19:41
[2019-05-17 20:00] VITALS: BP 148/76
[2019-05-17] MEDS: Tamsulosin 0.4mg cap ORAL SCH (21:15)
[2019-05-17] MEDS: Losartan 25mg tab ORAL SCH (21:15)
[2019-05-17] MEDS: Dyna-Hex 2% Top Sol 2oz TOPIC SCH (21:24)
[2019-05-18] VITALS: BP 165/70
[2019-05-18 04:00] VITALS: BP 171/80
[2019-05-18] MEDS: HydrALAZINE 25mg tab ORAL SCH ×3 (05:56→21:46)
[2019-05-18] MEDS: Liothyronine 5mcg tab ORAL SCH (05:56)
[2019-05-18] MEDS: NovoLOG Insulin Flexpen SUBQ SCH ×4 (05:57→20:24)
[2019-05-18 08:00] VITALS: BP 164/85
--- NOTE | 2019-05-18 08:07 | Pulmonology Progress Note ---
Assessment/Plan Assessment/Plan PROBLEM LIST: 1. Acute hypoxemic respiratory failure. 2. End-stage renal disease, on dialysis. 3. Congestive heart failure with acute decompensated heart failure. 4. Possible superimposed pneumonia. 5. Stated history of diabetes though A1c 4.9. 6. Hypothyroidism. 7. Hypertension. 8. Stage I sacral decubitus ulcer. TREATMENT PLAN: 1 doign well on NC 2. FU CXR sunday 3. Monitor volumes and renal function, dialysis per Renal with UF as tolerated. 4. Continue broad-spectrum antibiotics, follow up cultures. 5. DVT prophylaxis. 6. Aspiration precautions. 7. The patient is a Full Code, continue to discuss goals of care. 8. will need thoracentesis most likely sunday Subjective ROS Limited/Unobtainable: Yes Constitutional: Reports: no symptoms HEENT: Repors: no symptoms Respiratory: Reports: no symptoms Cardiovascular: Reports: no symptoms Gastrointestinal/Abdominal: Reports: no symptoms Allergies: Coded Allergies: No Known Allergies (Unverified , 10/06/18) Subjective feeling better on o2 no distress not getting oob toleraing po no fever wound s noted Objective Last 24 Hour Vital Signs Date Time Temp Pulse Resp B/P (MAP) Pulse Ox O2 Delivery O2 Flow Rate FiO2 05/18/19 06:07 171/80 05/18/19 05:56 171/80 05/18/19 04:00 71 05/18/19 04:00 98.1 71 20 171/80 (110) 96 05/18/19 00:00 73 05/18/19 00:00 97.0 73 19 165/70 (101) 93 05/17/19 23:00 176/75 05/17/19 21:16 148/76 05/17/19 21:16 73 148/76 05/17/19 21:15 148/76 05/17/19 21:00 Nasal Cannula 4.0 05/17/19 20:13 95 Nasal Cannula 4.0 36 05/17/19 20:00 78 05/17/19 20:00 97.0 73 20 148/76 (100) 91 05/17/19 16:03 97.9 77 18 135/71 (92) 95 05/17/19 16:00 78 05/17/19 15:04 181/78 05/17/19 15:00 74 181/78 (112) 05/17/19 13:15 165/92 05/17/19 13:15 165/92 05/17/19 12:00 78 05/17/19 11:23 97.9 71 18 165 (116) 96 05/17/19 09:00 Nasal Cannula 4.0 05/17/19 08:27 78 191/85 05/17/19 08:26 78 Intake and Output 05/17/19 05/18/19 19:00 07:00 Intake Total 385 ml 120 ml Output Total 3150 ml Balance -2765 ml 120 ml Intake Oral 120 ml IV Total 385 ml Output Urine Total 150 ml Hemodialysis UF 3000 ml # Voids 1 General Appearance: WD/WN Respiratory/Chest: crackles/rales Cardiovascular: normal rate, regular rhythm, edema Abdomen: soft, non tender, no organomegaly, non distended Neurologic/Psychiatric: alert, oriented x 3, responsive Microbiology Date/Time Source Procedure Growth Status 05/15/19 16:40 Blood Blood Culture - Preliminary NO GROWTH AFTER 48 HOURS Resulted Laboratory Tests 05/18/19 06:45: White Blood Count [Pending], Red Blood Count [Pending], Hemoglobin [Pending], Hematocrit [Pending], Mean Corpuscular Volume [Pending], Mean Corpuscular Hemoglobin [Pending], Mean Corpuscular Hemoglobin Concent [Pending], Red Cell Distribution Width [Pending], Platelet Count [Pending], Mean Platelet Volume [ Pending], Neutrophils (%) (Auto) [Pending], Lymphocytes (%) (Auto) [Pending], Monocytes (%) (Auto) [Pending], Eosinophils (%) (Auto) [Pending], Basophils (%) (Auto) [Pending], Sodium Level [Pending], Potassium Level [Pending], Chloride Level [Pending], Carbon Dioxide Level [Pending], Blood Urea Nitrogen [Pending], Creatinine [Pending], Estimat Glomerular Filtration Rate [Pending], Glucose Level [Pending], Uric Acid [Pending], Calcium Level [Pending], Phosphorus Level [Pending], Magnesium Level [Pending], Total Bilirubin [Pending], Aspartate Amino Transf (AST/SGOT) [Pending], Alanine Aminotransferase (ALT/SGPT) [Pending] , Alkaline Phosphatase [Pending], C-Reactive Protein, Quantitative [Pending], Pro-B-Type Natriuretic Peptide [Pending], Total Protein [Pending], Albumin [ Pending], Globulin [Pending] Current Medications Medications (Trade) Dose Ordered Sig/Vasile Route PRN Reason Start Time Stop Time Status Last Admin Dose Admin Acetaminophen (Tylenol) 650 mg Q4H PRN ORAL Mild Pain/Temp > 100.5 05/15/19 13:15 06/14/19 13:14 05/15/19 13:36 Amlodipine Besylate (Norvasc) 10 mg DAILY ORAL 05/15/19 09:00 06/14/19 08:59 05/17/19 08:26 Aspirin (Ecotrin) 81 mg DAILY ORAL 05/15/19 09:00 06/14/19 08:59 05/17/19 08:27 Azithromycin 500 mg/Dextrose 275 ml @ 275 mls/hr Q24HRS IV 05/15/19 15:00 05/19/19 15:59 05/17/19 14:54 Carvedilol (Coreg) 12.5 mg EVERY 12 HOURS ORAL 05/15/19 09:00 06/14/19 08:59 05/17/19 21:16 Chlorhexidine Gluconate (Mary-Hex 2%) 1 applic DAILY@2000 TOPIC 05/16/19 20:00 06/15/19 19:59 05/17/19 21:24 Clonidine HCl (Catapres Tab) 0.1 mg EVERY 8 HOURS ORAL 05/15/19 15:03 06/14/19 15:02 05/18/19 06:07 Clonidine HCl (Catapres Tab) 0.1 mg Q4H PRN ORAL bp over 165 syst 05/15/19 09:45 06/14/19 09:44 05/17/19 15:04 Dextrose (Dextrose 50%) 25 ml Q30M PRN IV Hypoglycemia 05/15/19 05:30 06/14/19 05:29 Dextrose (Dextrose 50%) 50 ml Q30M PRN IV Hypoglycemia 05/15/19 05:30 06/14/19 05:29 Heparin Sodium (Porcine) (Heparin 5000 units/ml) 5,000 units EVERY 12 HOURS SUBQ 05/15/19 21:00 06/14/19 20:59 05/17/19 21:25 Hydralazine HCl (Apresoline) 75 mg Q8HR ORAL 05/17/19 14:00 06/16/19 13:59 05/18/19 05:56 Insulin Aspart (NovoLOG) BEFORE MEALS AND HS SUBQ 05/15/19 06:30 06/14/19 06:29 05/18/19 05:57 Liothyronine Sodium (Cytomel) 5 mcg DAILY@0630 ORAL 05/15/19 06:30 06/14/19 06:29 05/18/19 05:56 Losartan Potassium (Cozaar) 25 mg EVERY 12 HOURS ORAL 05/17/19 21:00 06/16/19 20:59 05/17/19 21:15 Piperacillin Sod/ Tazobactam Sod 2.25 gm/Dextrose 55 ml @ 110 mls/hr Q8H IV 05/15/19 16:00 05/22/19 15:59 05/17/19 23:00 Tamsulosin HCl (Flomax) 0.4 mg BEDTIME ORAL 05/15/19 21:00 06/14/19 20:59 05/17/19 21:15 Vitamin B Complex/ Vit C/Folic Acid (Nephrovite) 1 tab DAILY ORAL 05/15/19 09:00 06/14/19 08:59 05/17/19 08:26 Rosa M Briceno DO May 18, 2019 08:07
[2019-05-18 08:16] LABS: BASOPHILS % (AUTO) 0.9 % (0.0-2.0); EOSINOPHILS % (AUTO) 4.1 % (0.0-3.0); HEMATOCRIT 41.5 % (37.0-47.0); HEMOGLOBIN 13.8 G/DL (12.0-16.0); LYMPHOCYTES % (AUTO) 15.3 % (20.0-45.0); MEAN CORPUSCULAR VOLUME 92 FL (80-99); MONOCYTES % (AUTO) 9.3 % (1.0-10.0); NEUTROPHILS % (AUTO) 70.4 % (45.0-75.0); PLATELET COUNT 170 K/UL (150-450); RED BLOOD COUNT 4.53 M/UL (4.20-5.40); RED CELL DISTRIBUTION WIDTH 14.8 % (11.6-14.8); WHITE BLOOD COUNT 5.6 K/UL (4.8-10.8)
[2019-05-18 08:37] LABS: ALANINE AMINOTRANSFERASE 10 U/L (12-78); ALBUMIN 2.2 G/DL (3.4-5.0); ALBUMIN/GLOBULIN RATIO 0.4 (1.0-2.7); ALKALINE PHOSPHATASE 109 U/L (46-116); ANION GAP 10 mmol/L (5-15); ASPARTATE AMINO TRANSFERASE 16 U/L (15-37); BILIRUBIN,TOTAL 0.5 MG/DL (0.2-1.0); BLOOD UREA NITROGEN 51 mg/dL (7-18); CARBON DIOXIDE 28 MMOL/L (21-32); CHLORIDE 97 MMOL/L (98-107); CREATININE 4.2 MG/DL (0.55-1.30); PHOSPHORUS 5.2 MG/DL (2.5-4.9); POTASSIUM 4.5 MMOL/L (3.5-5.1); SODIUM 135 MMOL/L (136-145)
[2019-05-18] MEDS: Zosyn 2.25 gm in D5W 55ml IV SCH ×3 (08:45→23:09)
[2019-05-18] MEDS: Aspirin EC 81mg tab ORAL SCH (08:47)
[2019-05-18] MEDS: Nephrovite tab (Rena-Vite) ORAL SCH (08:47)
[2019-05-18] MEDS: Heparin 5000 units/ml inj SUBQ SCH ×2 (08:52→21:00)
[2019-05-18] MEDS: Carvedilol 12.5mg tab ORAL SCH ×2 (08:54→22:26)
[2019-05-18] MEDS: Losartan 25mg tab ORAL SCH ×2 (08:54→21:45)
--- NOTE | 2019-05-18 09:42 | Nephrology Progress Note ---
Assessment/Plan Problem List: (1) End-stage renal disease (2) Hypertensive kidney disease (3) Anemia in chronic kidney disease (4) CHF (congestive heart failure), NYHA class II (5) Cardiomyopathy Assessment seen during dialysis tolerating well. add Cozaar , increase Hydralazin dose Admitted for Pulmonary edema End-stage renal disease on hemodialysis Jaycee Thomasu Sat Acute on chronic diastolic congestive heart failure Cardiomyopathy Anemia due to chronic kidney disease Hypertensive heart disease h/o Right pleural effusion s/p Mechanical fall status post repair of laceration to the scalp Past Surgical History: other - Vas-Cath right chest Plan Pleural Tap in am HD and UF again in am BP management per orders Subjective ROS Limited/Unobtainable: No Interval Events/Complaints breathing better Objective Objective Last 24 Hour Vital Signs Date Time Temp Pulse Resp B/P (MAP) Pulse Ox O2 Delivery O2 Flow Rate FiO2 05/18/19 08:54 164/85 05/18/19 08:54 76 164/85 05/18/19 08:53 76 164/85 05/18/19 06:07 171/80 05/18/19 05:56 171/80 05/18/19 04:00 71 05/18/19 04:00 98.1 71 20 171/80 (110) 96 05/18/19 00:00 73 05/18/19 00:00 97.0 73 19 165/70 (101) 93 05/17/19 23:00 176/75 05/17/19 21:16 148/76 05/17/19 21:16 73 148/76 05/17/19 21:15 148/76 05/17/19 21:00 Nasal Cannula 4.0 05/17/19 20:13 95 Nasal Cannula 4.0 36 05/17/19 20:00 78 05/17/19 20:00 97.0 73 20 148/76 (100) 91 05/17/19 16:03 97.9 77 18 135/71 (92) 95 05/17/19 16:00 78 05/17/19 15:04 181/78 05/17/19 15:00 74 181/78 (112) 05/17/19 13:15 165/92 05/17/19 13:15 165/92 05/17/19 12:00 78 05/17/19 11:23 97.9 71 18 165/92 (116) 96 Intake and Output 05/17/19 05/18/19 19:00 07:00 Intake Total 385 ml 120 ml Output Total 3150 ml Balance -2765 ml 120 ml Intake Oral 120 ml IV Total 385 ml Output Urine Total 150 ml Hemodialysis UF 3000 ml # Voids 1 Laboratory Tests 05/18/19 06:45: White Blood Count 5.6, Red Blood Count 4.53, Hemoglobin 13.8, Hematocrit 41.5, Mean Corpuscular Volume 92, Mean Corpuscular Hemoglobin 30.5, Mean Corpuscular Hemoglobin Concent 33.2, Red Cell Distribution Width 14.8, Platelet Count 170, Mean Platelet Volume 7.7, Neutrophils (%) (Auto) 70.4, Lymphocytes (%) (Auto) 15.3L, Monocytes (%) (Auto) 9.3, Eosinophils (%) (Auto) 4.1H, Basophils (%) ( Auto) 0.9, Sodium Level 135L, Potassium Level 4.5, Chloride Level 97L, Carbon Dioxide Level 28, Anion Gap 10, Blood Urea Nitrogen 51H, Creatinine 4.2H, Estimat Glomerular Filtration Rate 10.6, Glucose Level 153H, Uric Acid 4.2, Calcium Level 8.0L, Phosphorus Level 5.2H, Magnesium Level 2.2, Total Bilirubin 0.5, Aspartate Amino Transf (AST/SGOT) 16, Alanine Aminotransferase (ALT/SGPT) 10L, Alkaline Phosphatase 109, C-Reactive Protein, Quantitative 8.4H, Pro-B- Type Natriuretic Peptide > [id number], Total Protein 7.3, Albumin 2.2L, Globulin 5.1 , Albumin/Globulin Ratio 0.4L Height (Feet): 4 Height (Inches): 11.00 Weight (Pounds): 62 General Appearance: no apparent distress Objective no change Juaquin Hadley MD May 18, 2019 09:42
--- NOTE | 2019-05-18 11:32 | General Progress Note ---
Assessment/Plan Status: stable, progressing Assessment/Plan: 68 year old female, accompanied by her daughter with history of Hypertension, type 2 diabetes, ESRD on HD, anemia of chronic disease, OA, diastolic CHF, NSTEMI presented with shortness of breath. #Acute hypoxic hypercarbic respiratory failure due to pulmonary edema, possibly with super imposed pneumonia, improved wean nasal cannula ABGs as needed broad spectrum abx- Zosyn and Azithromycin. ID agrees follow up cultures, blood and sputum pulmonary consult: Dr. Hernandes ID consult; Dr. Davies #ESRD on HD HD per Dr. Hadley HD 05/17 #HTN-uncontrolled #Diastolic CHF Continue Amlodipine, Hydralazine increase coreg from 12.5 bid to 25 bid ASA - clonidine prn #DM type II- controlled HbA1c 4.9 #Hypothyroidism Insulin sliding scale. Ensure no oral meds Check T3/T4: TSH 13, free T4 1.44 Cytomel 5 mcg #Stage 1 sacral decubitus Wound consult for stage [address] Carrasco Wound care Frequent turning vte ppx: heparin q12 GI ppx: ppi Diet: Dialysis diet Code status: Full code PT consult I spent 40 minutes on this patient's care, > 50% spent on counselling and care coordination. The time of my note may not reflect the time of my patient encounter. Subjective Date patient seen: May 18, 2019 Time patient seen: 11:29 Allergies: Coded Allergies: No Known Allergies (Unverified , 10/06/18) Subjective Continues to improve, weaning nasal cannula, intermittent coughing Objective Last 24 Hour Vital Signs Date Time Temp Pulse Resp B/P (MAP) Pulse Ox O2 Delivery O2 Flow Rate FiO2 05/18/19 09:00 76 05/18/19 09:00 Nasal Cannula 4.0 05/18/19 08:54 164/85 05/18/19 08:54 76 164/85 05/18/19 08:53 76 164/85 05/18/19 08:00 98.2 76 20 164/85 (111) 97 05/18/19 06:07 171/80 05/18/19 05:56 171/80 05/18/19 04:00 71 05/18/19 04:00 98.1 71 20 171/80 (110) 96 05/18/19 00:00 73 12/15/19 00:00 97.0 73 19 165/70 (101) 93 05/17/19 23:00 176/75 05/17/19 21:16 148/76 05/17/19 21:16 73 148/76 05/17/19 21:15 148/76 05/17/19 21:00 Nasal Cannula 4.0 05/17/19 20:13 95 Nasal Cannula 4.0 36 05/17/19 20:00 78 05/17/19 20:00 97.0 73 20 148/76 (100) 91 05/17/19 16:03 97.9 77 18 135/71 (92) 95 05/17/19 16:00 78 05/17/19 15:04 181/78 05/17/19 15:00 74 181/78 (112) 05/17/19 13:15 165/92 05/17/19 13:15 165/92 05/17/19 12:00 78 Intake and Output 05/17/19 05/18/19 19:00 07:00 Intake Total 385 ml 120 ml Output Total 3150 ml Balance -2765 ml 120 ml Intake Oral 120 ml IV Total 385 ml Output Urine Total 150 ml Hemodialysis UF 3000 ml # Voids 1 Laboratory Tests 05/18/19 06:45: White Blood Count 5.6, Red Blood Count 4.53, Hemoglobin 13.8, Hematocrit 41.5, Mean Corpuscular Volume 92, Mean Corpuscular Hemoglobin 30.5, Mean Corpuscular Hemoglobin Concent 33.2, Red Cell Distribution Width 14.8, Platelet Count 170, Mean Platelet Volume 7.7, Neutrophils (%) (Auto) 70.4, Lymphocytes (%) (Auto) 15.3L, Monocytes (%) (Auto) 9.3, Eosinophils (%) (Auto) 4.1H, Basophils (%) ( Auto) 0.9, Sodium Level 135L, Potassium Level 4.5, Chloride Level 97L, Carbon Dioxide Level 28, Anion Gap 10, Blood Urea Nitrogen 51H, Creatinine 4.2H, Estimat Glomerular Filtration Rate 10.6, Glucose Level 153H, Uric Acid 4.2, Calcium Level 8.0L, Phosphorus Level 5.2H, Magnesium Level 2.2, Total Bilirubin 0.5, Aspartate Amino Transf (AST/SGOT) 16, Alanine Aminotransferase (ALT/SGPT) 10L, Alkaline Phosphatase 109, C-Reactive Protein, Quantitative 8.4H, Pro-B- Type Natriuretic Peptide > 74095I, Total Protein 7.3, Albumin 2.2L, Globulin 5.1 , Albumin/Globulin Ratio 0.4L Height (Feet): 4 Height (Inches): 11.00 Weight (Pounds): 135 Objective GENERAL: No acute distress, appears comfortable, alert HEENT: NCAT, non-icteric eyes, pupils PERRLA Neck: No cervical lymphadenopathy, trachea midline CV: Regular rate and rhythm, no murmurs rubs or gallops RESP: Decreased breath sounds right lower lobe otherwise clear to auscultation ABD: soft, non-distended, no TTP EXT: Normal muscle tone, +5/5 muscle strength NEURO: No obvious deficits, alert and oriented x3 Jacquelin Mcdaniels DO May 18, 2019 11:32
[2019-05-18 12:00] VITALS: BP 153/75
--- NOTE | 2019-05-18 14:36 | Surgery Progress Note ---
Surgery Progress Note Subjective Additional Comments afebrile, HD Stable comfortable labs okay Objective Last 24 Hour Vital Signs Date Time Temp Pulse Resp B/P (MAP) Pulse Ox O2 Delivery O2 Flow Rate FiO2 05/18/19 14:29 153/75 05/18/19 14:29 153/75 05/18/19 12:00 97.7 71 18 153/75 (101) 95 05/18/19 09:00 76 05/18/19 09:00 Nasal Cannula 4.0 05/18/19 08:54 164/85 05/18/19 08:54 76 164/85 05/18/19 08:53 76 164/85 05/18/19 08:00 98.2 76 20 164/85 (111) 97 05/18/19 06:07 171/80 05/18/19 05:56 171/80 05/18/19 04:00 71 05/18/19 04:00 98.1 71 20 171/80 (110) 96 05/18/19 00:00 73 05/18/19 00:00 97.0 73 19 165/70 (101) 93 05/17/19 23:00 176/75 05/17/19 21:16 148/76 05/17/19 21:16 73 148/76 05/17/19 21:15 148/76 05/17/19 21:00 Nasal Cannula 4.0 05/17/19 20:13 95 Nasal Cannula 4.0 36 05/17/19 20:00 78 05/17/19 20:00 97.0 73 20 148/76 (100) 91 05/17/19 16:03 97.9 77 18 135/71 (92) 95 05/17/19 16:00 78 05/17/19 15:04 181/78 05/17/19 15:00 74 181/78 (112) I&O Intake and Output 05/17/19 05/18/19 19:00 07:00 Intake Total 385 ml 120 ml Output Total 3150 ml Balance -2765 ml 120 ml Intake Oral 120 ml IV Total 385 ml Output Urine Total 150 ml Hemodialysis UF 3000 ml # Voids 1 Dressing: other Wound: other Drains: other Cardiovascular: RSR Respiratory: decreased breath sounds Abdomen: soft, present bowel sounds, non-distended Extremities: no tenderness, no cyanosis Laboratory Tests Test 05/18/19 06:45 White Blood Count 5.6 K/UL (4.8-10.8) Red Blood Count 4.53 M/UL (4.20-5.40) Hemoglobin 13.8 G/DL (12.0-16.0) Hematocrit 41.5 % (37.0-47.0) Mean Corpuscular Volume 92 FL (80-99) Mean Corpuscular Hemoglobin 30.5 PG (27.0-31.0) Mean Corpuscular Hemoglobin Concent 33.2 G/DL (32.0-36.0) Red Cell Distribution Width 14.8 % (11.6-14.8) Platelet Count 170 K/UL (150-450) Mean Platelet Volume 7.7 FL (6.5-10.1) Neutrophils (%) (Auto) 70.4 % (45.0-75.0) Lymphocytes (%) (Auto) 15.3 % (20.0-45.0) L Monocytes (%) (Auto) 9.3 % (1.0-10.0) Eosinophils (%) (Auto) 4.1 % (0.0-3.0) H Basophils (%) (Auto) 0.9 % (0.0-2.0) Sodium Level 135 MMOL/L (136-145) L Potassium Level 4.5 MMOL/L (3.5-5.1) Chloride Level 97 MMOL/L (98-107) L Carbon Dioxide Level 28 MMOL/L (21-32) Anion Gap 10 mmol/L (5-15) Blood Urea Nitrogen 51 mg/dL (7-18) H Creatinine 4.2 MG/DL (0.55-1.30) H Estimat Glomerular Filtration Rate 10.6 mL/min (>60) Glucose Level 153 MG/DL (74-106) H Uric Acid 4.2 MG/DL (2.6-7.2) Calcium Level 8.0 MG/DL (8.5-10.1) L Phosphorus Level 5.2 MG/DL (2.5-4.9) H Magnesium Level 2.2 MG/DL (1.8-2.4) Total Bilirubin 0.5 MG/DL (0.2-1.0) Aspartate Amino Transf (AST/SGOT) 16 U/L (15-37) Alanine Aminotransferase (ALT/SGPT) 10 U/L (12-78) L Alkaline Phosphatase 109 U/L (46-116) C-Reactive Protein, Quantitative 8.4 mg/dL (0.00-0.90) H Pro-B-Type Natriuretic Peptide > 30061 pg/mL (0-125) H Total Protein 7.3 G/DL (6.4-8.2) Albumin 2.2 G/DL (3.4-5.0) L Globulin 5.1 g/dL Albumin/Globulin Ratio 0.4 (1.0-2.7) L Plan Problems: (1) Decubitus skin ulcer Assessment & Plan: Pt presented on admission with multiple DTPIs. DTPI noted to sacrum . Base of wound is maroon with purple area in center and is indurated. (L)6.5cm x (W)9cmBase of injury tender when minimally palpated. Pt yelled out in pain and verbalized pain in sokaogon language. Dark skin tone without erythema or induration noted to R and L ischium. Each area non-tender when individually palpated. DTPI noted to R heel. Base of wound is purple with maroon borders with delineated margins.(L)3.3cm x (W)3.7cm. Periwound R heel is boggy with non- blanching erythema.. Pt verbalized pain when minimally palpated. L heel is boggy with Non-blanching erythema. Tender when minimally palpated. given medical condition and appearance of wounds high risk for breakdown. if open will be difficult to heal and detrimental. will need aggressive preventive measure during ill states while on support to ensure no breakdown. will follow closely Tx.Plan: Apply Moisture Barrier Paste to Sacrum. Cover with Optifoam drsg. Change every 3 days and prn. Apply Moisture Barrier Paste to R and L ischium with each incontinence care. Apply Cavilon Skin BArrier to Both heels. Cover each heel with Optifoam drsg. Change every 7 days and prn. Reposition at least every 2hours or as tolerated. Off-load heels with pillow. APM/BETTY Mattress. (2) Malnutrition of moderate degree Assessment & Plan: nutritional optimization encourage oral intake needs to take in more oral intake Samuel Schuster May 18, 2019 14:36
[2019-05-18 16:00] VITALS: BP 143/70
[2019-05-18] MEDS: Azithromycin 500 MG in D5W 275 ML IV SCH (16:02)
--- NOTE | 2019-05-18 18:50 | Infectious Diseases Prog Note ---
Assessment/Plan Assessment/Plan ASSESSMENT/PLAN: 1. possible pna, sepsis, fevers, sob/hypoxia, edema/atx/effusions - zosyn and azithromycin - day # 4 abx - clinically improved - f/u on sputum culture if possible - cannot get so far - consider oral abx - augmentin plus azithromycin soon for 3 days if continues to improve - monitor labs and chest x-ray 2. The patient has a history of end-stage renal disease, on hemodialysis. 3. Hypertension. 4. Diabetes. 5. Blood sugar and blood pressure treatment primary care team. 6. Anemia of chronic disease. 7. Osteoarthritis. 8. CHF. 9. NSTEMI. 10. CAD. 11. No known drug allergies. 12. Social history is negative. 13. Family history is noncontributory. 14. MAR was noted. 15. Case was discussed with RN. 16. Continue treatment per primary consultants. Subjective Constitutional: Reports: fatigue; Denies: fever HEENT: Reports: congestion - less Respiratory: Reports: shortness of breath - less Cardiovascular: Denies: chest pain Gastrointestinal/Abdominal: Denies: nausea, vomiting, diarrhea Genitourinary: Reports: other - no carranza Neurologic: Denies: headache Psychiatric: Denies: depression Skin: Denies: rash Hematologic: Denies: bleeding Musculoskeletal: Denies: pain Allergies: Coded Allergies: No Known Allergies (Unverified , 10/06/18) Objective Vital Signs Last 24 Hour Vital Signs Date Time Temp Pulse Resp B/P (MAP) Pulse Ox O2 Delivery O2 Flow Rate FiO2 05/18/19 16:00 71 05/18/19 16:00 97.5 71 18 143/70 (94) 95 05/18/19 14:29 153/75 05/18/19 14:29 153/75 05/18/19 12:00 97.7 71 18 153/75 (101) 95 05/18/19 12:00 71 05/18/19 09:00 76 05/18/19 09:00 Nasal Cannula 4.0 05/18/19 08:54 164/85 05/18/19 08:54 76 164/85 05/18/19 08:53 76 164/85 05/18/19 08:00 98.2 76 20 164/85 (111) 97 05/18/19 06:07 171/80 05/18/19 05:56 171/80 05/18/19 04:00 71 05/18/19 04:00 98.1 71 20 171/80 (110) 96 05/18/19 00:00 73 05/18/19 00:00 97.0 73 19 165/70 (101) 93 05/17/19 23:00 176/75 05/17/19 21:16 148/76 05/17/19 21:16 73 148/76 05/17/19 21:15 148/76 05/17/19 21:00 Nasal Cannula 4.0 05/17/19 20:13 95 Nasal Cannula 4.0 36 05/17/19 20:00 78 05/17/19 20:00 97.0 73 20 148/76 (100) 91 Height (Feet): 4 Height (Inches): 11.00 Weight (Pounds): 135 General Appearance: no acute distress HEENT: normocephalic, atraumatic, anicteric, mucous membranes moist Respiratory/Chest: no accessory muscle use, crackles/rales, rhonchi - bilaterally Cardiovascular: normal rate, regular rhythm, no gallop/murmur, no JVD Abdomen: normal bowel sounds, soft, non tender, no organomegaly, non distended Genitourinary: other - no carranza Extremities: no cyanosis Skin: no rash 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 There are also extensive airspace infiltrates and vascular congestion. Suspect a diffuse volume overload. Microbiology Date/Time Source Procedure Growth Status 05/15/19 16:40 Blood Blood Culture - Preliminary NO GROWTH AFTER 48 HOURS Resulted 05/15/19 02:10 Nasal Nares MRSA Culture - Final NO METHICILLIN RESISTANT STAPH AUREUS... Complete 05/15/19 02:10 Rectum - Final NO CARBAPENEM-RESISTANT ENTEROBACTERI... Complete Laboratory Tests Test 05/18/19 06:45 White Blood Count 5.6 K/UL (4.8-10.8) Red Blood Count 4.53 M/UL (4.20-5.40) Hemoglobin 13.8 G/DL (12.0-16.0) Hematocrit 41.5 % (37.0-47.0) Mean Corpuscular Volume 92 FL (80-99) Mean Corpuscular Hemoglobin 30.5 PG (27.0-31.0) Mean Corpuscular Hemoglobin Concent 33.2 G/DL (32.0-36.0) Red Cell Distribution Width 14.8 % (11.6-14.8) Platelet Count 170 K/UL (150-450) Mean Platelet Volume 7.7 FL (6.5-10.1) Neutrophils (%) (Auto) 70.4 % (45.0-75.0) Lymphocytes (%) (Auto) 15.3 % (20.0-45.0) L Monocytes (%) (Auto) 9.3 % (1.0-10.0) Eosinophils (%) (Auto) 4.1 % (0.0-3.0) H Basophils (%) (Auto) 0.9 % (0.0-2.0) Sodium Level 135 MMOL/L (136-145) L Potassium Level 4.5 MMOL/L (3.5-5.1) Chloride Level 97 MMOL/L (98-107) L Carbon Dioxide Level 28 MMOL/L (21-32) Anion Gap 10 mmol/L (5-15) Blood Urea Nitrogen 51 mg/dL (7-18) H Creatinine 4.2 MG/DL (0.55-1.30) H Estimat Glomerular Filtration Rate 10.6 mL/min (>60) Glucose Level 153 MG/DL (74-106) H Uric Acid 4.2 MG/DL (2.6-7.2) Calcium Level 8.0 MG/DL (8.5-10.1) L Phosphorus Level 5.2 MG/DL (2.5-4.9) H Magnesium Level 2.2 MG/DL (1.8-2.4) Total Bilirubin 0.5 MG/DL (0.2-1.0) Aspartate Amino Transf (AST/SGOT) 16 U/L (15-37) Alanine Aminotransferase (ALT/SGPT) 10 U/L (12-78) L Alkaline Phosphatase 109 U/L (46-116) C-Reactive Protein, Quantitative 8.4 mg/dL (0.00-0.90) H Pro-B-Type Natriuretic Peptide > 15993 pg/mL (0-125) H Total Protein 7.3 G/DL (6.4-8.2) Albumin 2.2 G/DL (3.4-5.0) L Globulin 5.1 g/dL Albumin/Globulin Ratio 0.4 (1.0-2.7) L Current Medications Medications (Trade) Dose Ordered Sig/Vasile Route PRN Reason Start Time Stop Time Status Last Admin Dose Admin Acetaminophen (Tylenol) 650 mg Q4H PRN ORAL Mild Pain/Temp > 100.5 05/15/19 13:15 06/14/19 13:14 05/18/19 16:41 Amlodipine Besylate (Norvasc) 10 mg DAILY ORAL 05/15/19 09:00 06/14/19 08:59 05/18/19 08:53 Ascorbic Acid (Vitamin C) 500 mg DAILY ORAL 05/19/19 09:00 06/18/19 08:59 Aspirin (Ecotrin) 81 mg DAILY ORAL 05/15/19 09:00 06/14/19 08:59 05/18/19 08:47 Azithromycin 500 mg/Dextrose 275 ml @ 275 mls/hr Q24HRS IV 05/15/19 15:00 05/19/19 15:59 05/18/19 16:02 Carvedilol (Coreg) 25 mg EVERY 12 HOURS ORAL 05/18/19 22:00 06/17/19 21:59 Chlorhexidine Gluconate (Mary-Hex 2%) 1 applic DAILY@2000 TOPIC 05/16/19 20:00 06/15/19 19:59 05/17/19 21:24 Clonidine HCl (Catapres Tab) 0.1 mg EVERY 8 HOURS ORAL 05/15/19 15:03 06/14/19 15:02 05/18/19 14:29 Clonidine HCl (Catapres Tab) 0.1 mg Q4H PRN ORAL bp over 165 syst 05/15/19 09:45 06/14/19 09:44 05/17/19 15:04 Dextrose (Dextrose 50%) 25 ml Q30M PRN IV Hypoglycemia 05/15/19 05:30 06/14/19 05:29 Dextrose (Dextrose 50%) 50 ml Q30M PRN IV Hypoglycemia 05/15/19 05:30 06/14/19 05:29 Heparin Sodium (Porcine) (Heparin 5000 units/ml) 5,000 units EVERY 12 HOURS SUBQ 05/15/19 21:00 06/14/19 20:59 05/18/19 08:52 Hydralazine HCl (Apresoline) 75 mg Q8HR ORAL 05/17/19 14:00 06/16/19 13:59 05/18/19 14:29 Insulin Aspart (NovoLOG) BEFORE MEALS AND HS SUBQ 05/15/19 06:30 06/14/19 06:29 05/18/19 12:52 Liothyronine Sodium (Cytomel) 5 mcg DAILY@0630 ORAL 05/15/19 06:30 06/14/19 06:29 05/18/19 05:56 Losartan Potassium (Cozaar) 25 mg EVERY 12 HOURS ORAL 05/17/19 21:00 06/16/19 20:59 05/18/19 08:54 Multivitamins (Multivitamins) 1 tab DAILY ORAL 05/19/19 09:00 06/18/19 08:59 Piperacillin Sod/ Tazobactam Sod 2.25 gm/Dextrose 55 ml @ 110 mls/hr Q8H IV 05/15/19 16:00 05/22/19 15:59 05/18/19 16:59 Tamsulosin HCl (Flomax) 0.4 mg BEDTIME ORAL 05/15/19 21:00 06/14/19 20:59 05/17/19 21:15 Vitamin B Complex/ Vit C/Folic Acid (Nephrovite) 1 tab DAILY ORAL 05/15/19 09:00 06/14/19 08:59 05/18/19 08:47 Kimberly Holland MD May 18, 2019 18:50
[2019-05-18 20:00] VITALS: BP 149/69
[2019-05-18] MEDS: Dyna-Hex 2% Top Sol 2oz TOPIC SCH (20:23)
[2019-05-18] MEDS: Tamsulosin 0.4mg cap ORAL SCH (21:45)
[2019-05-19] VITALS: BP 147/73
[2019-05-19 04:00] VITALS: BP 162/85
[2019-05-19] MEDS: Liothyronine 5mcg tab ORAL SCH (05:59)
[2019-05-19] MEDS: HydrALAZINE 25mg tab ORAL SCH ×3 (05:59→21:49)
[2019-05-19] MEDS: NovoLOG Insulin Flexpen SUBQ SCH ×4 (06:00→20:31)
[2019-05-19 07:02] LABS: BASOPHILS % (AUTO) 1.4 % (0.0-2.0); EOSINOPHILS % (AUTO) 9.1 % (0.0-3.0); HEMATOCRIT 40.1 % (37.0-47.0); HEMOGLOBIN 13.5 G/DL (12.0-16.0); LYMPHOCYTES % (AUTO) 14.5 % (20.0-45.0); MEAN CORPUSCULAR VOLUME 90 FL (80-99); MONOCYTES % (AUTO) 13.7 % (1.0-10.0); NEUTROPHILS % (AUTO) 61.4 % (45.0-75.0); PLATELET COUNT 171 K/UL (150-450); RED BLOOD COUNT 4.46 M/UL (4.20-5.40); RED CELL DISTRIBUTION WIDTH 14.2 % (11.6-14.8); WHITE BLOOD COUNT 5.1 K/UL (4.8-10.8)
[2019-05-19 07:14] LABS: ANION GAP 10 mmol/L (5-15); BLOOD UREA NITROGEN 59 mg/dL (7-18); CALCIUM 7.5 MG/DL (8.5-10.1); CARBON DIOXIDE 29 MMOL/L (21-32); CHLORIDE 95 MMOL/L (98-107); CREATININE 4.8 MG/DL (0.55-1.30); POTASSIUM 4.9 MMOL/L (3.5-5.1); SODIUM 134 MMOL/L (136-145)
[2019-05-19 08:00] VITALS: BP 160/74
[2019-05-19] MEDS: Carvedilol 12.5mg tab ORAL SCH ×2 (09:00→21:47)
[2019-05-19] MEDS: Heparin 5000 units/ml inj SUBQ SCH ×2 (09:00→21:00)
--- NOTE | 2019-05-19 09:17 | General Progress Note ---
Assessment/Plan Status: stable, progressing Assessment/Plan: 68 year old female, accompanied by her daughter with history of Hypertension, type 2 diabetes, ESRD on HD, anemia of chronic disease, OA, diastolic CHF, NSTEMI presented with shortness of breath. #Acute hypoxic hypercarbic respiratory failure due to pulmonary edema, possibly with super imposed pneumonia Admitted to step down unit. Close monitoring bipap prn, continue oxygen via nasal cannulae ABGs as needed broad spectrum abx- Zosyn and Azithromycin. ID agrees follow up cultures, blood and sputum pulmonary consult: Dr. Hernandes ID consult; Dr. Garcia For Thoracentesis today #ESRD on HD HD per Dr. Hadley #HTN- controlled #Diastolic CHF Continue Amlodipine, carvedilol, Hydralazine ASA #DM type II- controlled HbA1c 4.9 #Hypothyroidism Insulin sliding scale. Ensure no oral meds Check T3/T4 Cytomel 5 mcg #Stage 1 sacral decubitus Wound consult for stage [address] Carrasco Wound care Frequent turning vte ppx: heparin q12 GI ppx: ppi Diet: NPO Code status: Full code PT consult I spent 40 minutes on this patient's care, > 50% spent on counselling and care coordination. I spent an additional 35 minute sin reviewing hospital events, property consultant findings, labs and imagining. Plan of care discussed with patient's daughter at bedside. Subjective Date patient seen: May 19, 2019 ROS Limited/Unobtainable: No Constitutional: Reports: weakness HEENT: Denies: no symptoms, eye pain, blurred vision, tearing, double vision, ear pain, ear discharge, nose pain, nose congestion, throat pain, throat swelling, mouth pain, mouth swelling, other Cardiovascular: Denies: no symptoms, chest pain, edema, irregular heart rate, lightheadedness, palpitations, syncope, other Respiratory: Denies: no symptoms, cough, orthopnea, shortness of breath, SOB with excertion, SOB at rest, sputum, stridor, wheezing, other Gastrointestinal/Abdominal: Denies: no symptoms, abdomen distended, abdominal pain, black stools, tarry stools, blood in stool, constipated, diarrhea, difficulty swallowing, nausea, poor appetite, poor fluid intake, rectal bleeding , vomiting, other Genitourinary: Denies: no symptoms, burning, discharge, frequency, flank pain, hematuria, incontinence, pain, urgency, other Neurologic/Psychiatric: Denies: no symptoms, anxiety, depressed, emotional problems, headache, numbness, paresthesia, pre-existing deficit, seizure, tingling, tremors, weakness, other Endocrine: Denies: no symptoms, excessive sweating, flushing, intolerance to cold, intolerance to heat, increased hunger, increased thirst, increased urine, unexplained weight gain, unexplained weight loss, other Hematologic/Lymphatic: Denies: no symptoms, anemia, easy bleeding, easy bruising, other Allergies: Coded Allergies: No Known Allergies (Unverified , 10/06/18) Subjective following up on acute hypoxic respiratory failure, pulmonary edema, ESRD on HD, and pneumonia. Afebrile. Has transitioned off bipap, wearing nasal cannula, significant improvement. Family at bedside. For Thoracentesis today Objective Last 24 Hour Vital Signs Date Time Temp Pulse Resp B/P (MAP) Pulse Ox O2 Delivery O2 Flow Rate FiO2 05/19/19 08:00 98.7 70 18 160/74 (102) 94 05/19/19 05:59 162/85 05/19/19 05:59 162/85 05/19/19 04:00 98.2 72 20 162/85 (110) 95 05/19/19 04:00 69 05/19/19 00:00 97.9 70 19 147/73 (97) 95 05/19/19 00:00 64 05/18/19 22:26 68 149/69 05/18/19 21:46 149/69 05/18/19 21:46 149/69 05/18/19 21:45 149/69 05/18/19 21:00 Nasal Cannula 4.0 05/18/19 20:00 97.9 68 20 149/69 (95) 95 05/18/19 20:00 71 05/18/19 16:00 71 05/18/19 16:00 97.5 71 18 143/70 (94) 95 05/18/19 14:29 153/75 05/18/19 14:29 153/75 05/18/19 12:00 97.7 71 18 153/75 (101) 95 05/18/19 12:00 71 Intake and Output 05/18/19 05/19/19 19:00 07:00 Intake Total 240 ml Output Total 200 ml Balance 40 ml Intake Oral 240 ml Output Urine Total 200 ml # Voids 1 1 Laboratory Tests 05/19/19 05:20: White Blood Count 5.1, Red Blood Count 4.46, Hemoglobin 13.5, Hematocrit 40.1, Mean Corpuscular Volume 90, Mean Corpuscular Hemoglobin 30.3, Mean Corpuscular Hemoglobin Concent 33.6, Red Cell Distribution Width 14.2, Platelet Count 171, Mean Platelet Volume 7.7, Neutrophils (%) (Auto) 61.4, Lymphocytes (%) (Auto) 14.5L, Monocytes (%) (Auto) 13.7H, Eosinophils (%) (Auto) 9.1H, Basophils (%) ( Auto) 1.4, Sodium Level 134L, Potassium Level 4.9, Chloride Level 95L, Carbon Dioxide Level 29, Anion Gap 10, Blood Urea Nitrogen 59H, Creatinine 4.8H, Estimat Glomerular Filtration Rate 9.1, Glucose Level 128H, Calcium Level 7.5L Height (Feet): 4 Height (Inches): 11.00 Weight (Pounds): 129 Objective General Appearance: awake, alert, no respiratory distress, on nasal cannulae, daughter at bedside Head: atraumatic Neck: normal inspection, full range of motion, supple, Respiratory: respiratory distress, crackles Cardiovascular: regular rate, rhythm, no edema Gastrointestinal: normal inspection, normal bowel sounds, non tender, soft, no guarding Musculoskeletal: normal inspection, normal range of motion Neurologic: grossly intact Skin: clammy: stage 1 sacral decubitus Siva Thornton M.D. May 19, 2019 09:17
[2019-05-19] MEDS: Losartan 25mg tab ORAL SCH (09:21)
[2019-05-19] MEDS: Aspirin EC 81mg tab ORAL SCH (09:21)
[2019-05-19] MEDS: Ascorbic Acid 500mg tab ORAL SCH (09:21)
[2019-05-19] MEDS: Nephrovite tab (Rena-Vite) ORAL SCH (09:21)
[2019-05-19] MEDS: Zosyn 2.25 gm in D5W 55ml IV SCH ×2 (09:21→16:53)
[2019-05-19 10:05] LABS: INR 1.1 (0.9-1.1)
--- NOTE | 2019-05-19 10:43 | Pulmonology Progress Note ---
Assessment/Plan Assessment/Plan ASSESSMENT: The patient is a 68-year-old female with a history of end-stage renal disease, presumed diabetes though A1c is less than 5, hypertension, CHF, presenting with shortness of breath likely secondary to pulmonary edema due to decompensated heart failure and possible superimposed pneumonia. PROBLEM LIST: 1. Acute hypoxemic respiratory failure. 2. End-stage renal disease, on dialysis. 3. Congestive heart failure with acute decompensated heart failure. 4. Possible superimposed pneumonia. 5. Stated history of diabetes though A1c 4.9. 6. Hypothyroidism. 7. Hypertension. 8. Stage I sacral decubitus ulcer. TREATMENT PLAN: 1. Thoracentesis eval 2. Titrate O2 3. Monitor volumes and renal function, dialysis per Renal with UF as tolerated. 4. Abx per ID 5. DVT prophylaxis. 6. Aspiration precautions. 7. The patient is a Full Code, continue to discuss goals of care. Subjective Allergies: Coded Allergies: No Known Allergies (Unverified , 10/06/18) Subjective Events reviewed, AFVSS, O2 needs stable, less SOB, no cough, no wheezing, no FC Objective Last 24 Hour Vital Signs Date Time Temp Pulse Resp B/P (MAP) Pulse Ox O2 Delivery O2 Flow Rate FiO2 05/19/19 09:22 70 160/74 05/19/19 09:21 160/74 05/19/19 09:00 Nasal Cannula 4.0 05/19/19 09:00 70 160/74 05/19/19 08:00 68 05/19/19 08:00 98.7 70 18 160/74 (102) 94 05/19/19 07:00 96 Nasal Cannula 4.0 36 05/19/19 05:59 162/85 05/19/19 05:59 162/85 05/19/19 04:00 98.2 72 20 162/85 (110) 95 05/19/19 04:00 69 05/19/19 00:00 97.9 70 19 147/73 (97) 95 05/19/19 00:00 64 05/18/19 22:26 68 149/69 05/18/19 21:46 149/69 05/18/19 21:46 149/69 05/18/19 21:45 149/69 05/18/19 21:00 Nasal Cannula 4.0 05/18/19 20:00 97.9 68 20 149/69 (95) 95 05/18/19 20:00 71 05/18/19 16:00 71 05/18/19 16:00 97.5 71 18 143/70 (94) 95 05/18/19 14:29 153/75 05/18/19 14:29 153/75 05/18/19 12:00 97.7 71 18 153/75 (101) 95 05/18/19 12:00 71 Intake and Output 05/18/19 05/19/19 19:00 07:00 Intake Total 240 ml Output Total 200 ml Balance 40 ml Intake Oral 240 ml Output Urine Total 200 ml # Voids 1 1 General Appearance: WD/WN, no acute distress HEENT: normocephalic, atraumatic, anicteric, mucous membranes moist Respiratory/Chest: crackles/rales, rhonchi Cardiovascular: normal peripheral pulses, normal rate, regular rhythm Abdomen: normal bowel sounds, soft, non tender, no organomegaly, non distended Extremities: no cyanosis, no clubbing, no edema Laboratory Tests 05/19/19 05:20: White Blood Count 5.1, Red Blood Count 4.46, Hemoglobin 13.5, Hematocrit 40.1, Mean Corpuscular Volume 90, Mean Corpuscular Hemoglobin 30.3, Mean Corpuscular Hemoglobin Concent 33.6, Red Cell Distribution Width 14.2, Platelet Count 171, Mean Platelet Volume 7.7, Neutrophils (%) (Auto) 61.4, Lymphocytes (%) (Auto) 14.5L, Monocytes (%) (Auto) 13.7H, Eosinophils (%) (Auto) 9.1H, Basophils (%) ( Auto) 1.4, Sodium Level 134L, Potassium Level 4.9, Chloride Level 95L, Carbon Dioxide Level 29, Anion Gap 10, Blood Urea Nitrogen 59H, Creatinine 4.8H, Estimat Glomerular Filtration Rate 9.1, Glucose Level 128H, Calcium Level 7.5L 05/19/19 09:10: Prothrombin Time 11.3, Prothromb Time International Ratio 1.1, Activated Partial Thromboplast Time 30 Current Medications Medications (Trade) Dose Ordered Sig/Vasile Route PRN Reason Start Time Stop Time Status Last Admin Dose Admin Acetaminophen (Tylenol) 650 mg Q4H PRN ORAL Mild Pain/Temp > 100.5 05/15/19 13:15 06/14/19 13:14 05/18/19 16:41 Amlodipine Besylate (Norvasc) 10 mg DAILY ORAL 05/15/19 09:00 06/14/19 08:59 05/19/19 09:22 Ascorbic Acid (Vitamin C) 500 mg DAILY ORAL 05/19/19 09:00 06/18/19 08:59 05/19/19 09:21 Aspirin (Ecotrin) 81 mg DAILY ORAL 05/15/19 09:00 06/14/19 08:59 05/19/19 09:21 Azithromycin 500 mg/Dextrose 275 ml @ 275 mls/hr Q24HRS IV 05/19/19 16:00 05/26/19 15:59 Carvedilol (Coreg) 25 mg EVERY 12 HOURS ORAL 05/18/19 22:00 06/17/19 21:59 05/18/19 22:26 Chlorhexidine Gluconate (Mary-Hex 2%) 1 applic DAILY@2000 TOPIC 05/16/19 20:00 06/15/19 19:59 05/18/19 20:23 Clonidine HCl (Catapres Tab) 0.1 mg EVERY 8 HOURS ORAL 05/15/19 15:03 06/14/19 15:02 05/19/19 05:59 Clonidine HCl (Catapres Tab) 0.1 mg Q4H PRN ORAL bp over 165 syst 05/15/19 09:45 06/14/19 09:44 05/17/19 15:04 Dextrose (Dextrose 50%) 25 ml Q30M PRN IV Hypoglycemia 05/15/19 05:30 06/14/19 05:29 Dextrose (Dextrose 50%) 50 ml Q30M PRN IV Hypoglycemia 05/15/19 05:30 06/14/19 05:29 Heparin Sodium (Porcine) (Heparin 5000 units/ml) 5,000 units EVERY 12 HOURS SUBQ 05/15/19 21:00 06/14/19 20:59 05/18/19 08:52 Hydralazine HCl (Apresoline) 75 mg Q8HR ORAL 05/17/19 14:00 06/16/19 13:59 05/19/19 05:59 Insulin Aspart (NovoLOG) BEFORE MEALS AND HS SUBQ 05/15/19 06:30 06/14/19 06:29 12/16/19 06:00 Liothyronine Sodium (Cytomel) 5 mcg DAILY@0630 ORAL 05/15/19 06:30 06/14/19 06:29 05/19/19 05:59 Losartan Potassium (Cozaar) 25 mg EVERY 12 HOURS ORAL 05/17/19 21:00 06/16/19 20:59 05/19/19 09:21 Multivitamins (Multivitamins) 1 tab DAILY ORAL 05/19/19 09:00 06/18/19 08:59 05/19/19 09:21 Piperacillin Sod/ Tazobactam Sod 2.25 gm/Dextrose 55 ml @ 110 mls/hr Q8H IV 05/15/19 16:00 05/22/19 15:59 05/19/19 09:21 Tamsulosin HCl (Flomax) 0.4 mg BEDTIME ORAL 05/15/19 21:00 06/14/19 20:59 05/18/19 21:45 Vitamin B Complex/ Vit C/Folic Acid (Nephrovite) 1 tab DAILY ORAL 05/15/19 09:00 06/14/19 08:59 05/19/19 09:21 Kiko Hernandes MD May 19, 2019 10:43
--- NOTE | 2019-05-19 11:16 | Nephrology Progress Note ---
Assessment/Plan Problem List: (1) End-stage renal disease (2) Hypertensive kidney disease (3) Anemia in chronic kidney disease (4) CHF (congestive heart failure), NYHA class II (5) Cardiomyopathy Assessment seen during dialysis tolerating well. add Cozaar , increase Hydralazin dose Admitted for Pulmonary edema End-stage renal disease on hemodialysis Jaycee Torri Sat Acute on chronic diastolic congestive heart failure Cardiomyopathy Anemia due to chronic kidney disease Hypertensive heart disease h/o Right pleural effusion s/p Mechanical fall status post repair of laceration to the scalp Past Surgical History: other - Vas-Cath right chest Plan Pleural Tap per pulmonary HD and UF again today BP management per orders Subjective ROS Limited/Unobtainable: No Constitutional: Reports: malaise Objective Objective Last 24 Hour Vital Signs Date Time Temp Pulse Resp B/P (MAP) Pulse Ox O2 Delivery O2 Flow Rate FiO2 05/19/19 09:22 70 160/74 05/19/19 09:21 160/74 05/19/19 09:00 Nasal Cannula 4.0 05/19/19 09:00 70 160/74 05/19/19 08:00 68 05/19/19 08:00 98.7 70 18 160/74 (102) 94 05/19/19 08:00 69 05/19/19 07:00 96 Nasal Cannula 4.0 36 05/19/19 05:59 162/85 05/19/19 05:59 162/85 05/19/19 04:00 98.2 72 20 162/85 (110) 95 05/19/19 04:00 69 05/19/19 00:00 97.9 70 19 147/73 (97) 95 05/19/19 00:00 64 05/18/19 22:26 68 149/69 05/18/19 21:46 149/69 05/18/19 21:46 149/69 05/18/19 21:45 149/69 05/18/19 21:00 Nasal Cannula 4.0 05/18/19 20:00 97.9 68 20 149/69 (95) 95 05/18/19 20:00 71 05/18/19 16:00 71 05/18/19 16:00 97.5 71 18 143/70 (94) 95 05/18/19 14:29 153/75 05/18/19 14:29 153/75 05/18/19 12:00 97.7 71 18 153/75 (101) 95 05/18/19 12:00 71 Intake and Output 05/18/19 05/19/19 19:00 07:00 Intake Total 240 ml Output Total 200 ml Balance 40 ml Intake Oral 240 ml Output Urine Total 200 ml # Voids 1 1 Laboratory Tests 05/19/19 05:20: White Blood Count 5.1, Red Blood Count 4.46, Hemoglobin 13.5, Hematocrit 40.1, Mean Corpuscular Volume 90, Mean Corpuscular Hemoglobin 30.3, Mean Corpuscular Hemoglobin Concent 33.6, Red Cell Distribution Width 14.2, Platelet Count 171, Mean Platelet Volume 7.7, Neutrophils (%) (Auto) 61.4, Lymphocytes (%) (Auto) 14.5L, Monocytes (%) (Auto) 13.7H, Eosinophils (%) (Auto) 9.1H, Basophils (%) ( Auto) 1.4, Sodium Level 134L, Potassium Level 4.9, Chloride Level 95L, Carbon Dioxide Level 29, Anion Gap 10, Blood Urea Nitrogen 59H, Creatinine 4.8H, Estimat Glomerular Filtration Rate 9.1, Glucose Level 128H, Calcium Level 7.5L 05/19/19 09:10: Prothrombin Time 11.3, Prothromb Time International Ratio 1.1, Activated Partial Thromboplast Time 30 Height (Feet): 4 Height (Inches): 11.00 Weight (Pounds): 129 General Appearance: no apparent distress, other - breathing easy Cardiovascular: normal rate Respiratory/Chest: decreased breath sounds Abdomen: soft Objective no change Juaquin Hadley MD May 19, 2019 11:16
--- NOTE | 2019-05-19 11:51 | Pre-Procedure Note/Attestation ---
Pre-Procedure Note/Attestation Complete Prior to Procedure Planned Procedure: right Procedure Narrative: thoracentesis Indications for Procedure Pre-Operative Diagnosis: Pleural effusion Attestation I attest that I discussed the nature of the procedure; its benefits; risks and complications; and alternatives (and the risks and benefits of such alternatives ), prior to the procedure, with the patient (or the patient's legal member services representative). I attest that, if there was a reasonable possibility of needing a blood transfusion, the patient (or the patient's legal member services representative) was given the [facility] standardized written summary, pursuant to the [employer] Blood Safety Act ([place] Health and Safety Code # 1645, as amended). I attest that I re-evaluated the patient just prior to the surgery and that there has been no change in the patient's H&P, except as documented below: Discussed in person with pt's. daughter Genaro Mcpherson MD May 19, 2019 11:51
--- NOTE | 2019-05-19 11:51 | Brief Operative Note ---
Immediate Post Operative Note Operative Note Pre-op Diagnosis: Pleural effusion Procedure: R thoracentesis Post-op Diagnosis: same as pre-op Surgeon: Moni May Specimen: yes - 50 ml fluid sent to lab Complications: none Fluids: none Implant(s) used?: No Genaro May MD May 19, 2019 11:51
--- NOTE | 2019-05-19 11:53 | Diagnostic Imaging Report ---
Indications: Pleural effusion Technique: Ultrasound used to localize optimal puncture site. Sterile prepping and draping right chest. Local anesthesia with 1% lidocaine. Under real-time ultrasound guidance, puncture pleural space using thoracentesis needle. Stylet removed. Catheter placed to vacuum bottle suction. Total 1400 milliliters of lightly cloudy yellow fluid aspirated. Patient tolerated procedure well, without immediate complication. Findings: Followup sonography demonstrates complete resolution of pleural fluid. Impression: Successful ultrasound-guided thoracentesis, yielding 1400 milliliters of fluid
--- NOTE | 2019-05-19 11:56 | Diagnostic Imaging Report ---
Indication: Status post thoracentesis, pleural effusions, shortness of breath Technique: One view of the chest Comparison: 2 1/2 hours earlier Findings: Interim decrease in previously demonstrated right pleural effusion. Residual right costophrenic angle blunting could represent a small amount of residual fluid versus atelectasis. Large left pleural effusion persists. The heart remains enlarged. There is no pneumothorax. Tunneled dialysis catheter is again noted. Impression: Markedly improved or resolved right pleural effusion, status post thoracentesis. No radiographically evident complication
[2019-05-19 12:00] VITALS: BP 137/65
--- NOTE | 2019-05-19 14:12 | Diagnostic Imaging Report ---
Indication: Shortness of breath Technique: One view of the chest Comparison: 05/17/2019 Findings: Large bilateral pleural effusions are again demonstrated. Bilateral interstitial and airspace edema is unchanged. Right chest tunneled dialysis catheter is again demonstrated. Findings are unchanged Impression: Unchanged, over 2 days, findings as above.
[2019-05-19] MEDS: Azithromycin 500 MG in D5W 275 ML IV SCH (15:18)
--- NOTE | 2019-05-19 15:44 | Surgery Progress Note ---
Surgery Progress Note Subjective Symptoms: improved Additional Comments thora comfortable no complaints no n/v/f/c family at bedside wants go to home soon Objective Last 24 Hour Vital Signs Date Time Temp Pulse Resp B/P (MAP) Pulse Ox O2 Delivery O2 Flow Rate FiO2 05/19/19 13:59 137/65 05/19/19 13:57 137/64 05/19/19 09:22 70 160/74 05/19/19 09:21 160/74 05/19/19 09:00 Nasal Cannula 4.0 05/19/19 09:00 70 160/74 05/19/19 08:00 68 05/19/19 08:00 98.7 70 18 160/74 (102) 94 05/19/19 08:00 69 05/19/19 07:00 96 Nasal Cannula 4.0 36 05/19/19 05:59 162/85 05/19/19 05:59 162/85 05/19/19 04:00 98.2 72 20 162/85 (110) 95 05/19/19 04:00 69 05/19/19 00:00 97.9 70 19 147/73 (97) 95 05/19/19 00:00 64 05/18/19 22:26 68 149/69 05/18/19 21:46 149/69 05/18/19 21:46 149/69 05/18/19 21:45 149/69 05/18/19 21:00 Nasal Cannula 4.0 05/18/19 20:00 97.9 68 20 149/69 (95) 95 05/18/19 20:00 71 05/18/19 16:00 71 05/18/19 16:00 97.5 71 18 143/70 (94) 95 I&O Intake and Output 05/18/19 05/19/19 19:00 07:00 Intake Total 240 ml Output Total 200 ml Balance 40 ml Intake Oral 240 ml Output Urine Total 200 ml # Voids 1 1 Dressing: other Wound: other Drains: other Cardiovascular: RSR Respiratory: decreased breath sounds Abdomen: soft, present bowel sounds, non-distended Extremities: no cyanosis Laboratory Tests Test 05/19/19 05:20 05/19/19 09:10 05/19/19 11:03 White Blood Count 5.1 K/UL (4.8-10.8) Red Blood Count 4.46 M/UL (4.20-5.40) Hemoglobin 13.5 G/DL (12.0-16.0) Hematocrit 40.1 % (37.0-47.0) Mean Corpuscular Volume 90 FL (80-99) Mean Corpuscular Hemoglobin 30.3 PG (27.0-31.0) Mean Corpuscular Hemoglobin Concent 33.6 G/DL (32.0-36.0) Red Cell Distribution Width 14.2 % (11.6-14.8) Platelet Count 171 K/UL (150-450) Mean Platelet Volume 7.7 FL (6.5-10.1) Neutrophils (%) (Auto) 61.4 % (45.0-75.0) Lymphocytes (%) (Auto) 14.5 % (20.0-45.0) L Monocytes (%) (Auto) 13.7 % (1.0-10.0) H Eosinophils (%) (Auto) 9.1 % (0.0-3.0) H Basophils (%) (Auto) 1.4 % (0.0-2.0) Sodium Level 134 MMOL/L (136-145) L Potassium Level 4.9 MMOL/L (3.5-5.1) Chloride Level 95 MMOL/L (98-107) L Carbon Dioxide Level 29 MMOL/L (21-32) Anion Gap 10 mmol/L (5-15) Blood Urea Nitrogen 59 mg/dL (7-18) H Creatinine 4.8 MG/DL (0.55-1.30) H Estimat Glomerular Filtration Rate 9.1 mL/min (>60) Glucose Level 128 MG/DL (74-106) H Calcium Level 7.5 MG/DL (8.5-10.1) L Prothrombin Time 11.3 SEC (9.30-11.50) Prothromb Time International Ratio 1.1 (0.9-1.1) Activated Partial Thromboplast Time 30 SEC (23-33) Body Fluid Glucose Pending Body Fluid Total Protein Pending Body Fluid Albumin Pending Body Fluid Lactate Dehydrogenase Pending Plan Problems: (1) Decubitus skin ulcer Assessment & Plan: Pt presented on admission with multiple DTPIs. DTPI noted to sacrum . Base of wound is maroon with purple area in center and is indurated. (L)6.5cm x (W)9cmBase of injury tender when minimally palpated. Pt yelled out in pain and verbalized pain in [place] language. Dark skin tone without erythema or induration noted to R and L ischium. Each area non-tender when individually palpated. DTPI noted to R heel. Base of wound is purple with maroon borders with delineated margins.(L)3.3cm x (W)3.7cm. Periwound R heel is boggy with non- blanching erythema.. Pt verbalized pain when minimally palpated. L heel is boggy with Non-blanching erythema. Tender when minimally palpated. given medical condition and appearance of wounds high risk for breakdown. if open will be difficult to heal and detrimental. will need aggressive preventive measure during ill states while on support to ensure no breakdown. will follow closely Tx.Plan: Apply Moisture Barrier Paste to Sacrum. Cover with Optifoam drsg. Change every 3 days and prn. Apply Moisture Barrier Paste to R and L ischium with each incontinence care. Apply Cavilon Skin BArrier to Both heels. Cover each heel with Optifoam drsg. Change every 7 days and prn. Reposition at least every 2hours or as tolerated. Off-load heels with pillow. APM/BETTY Mattress. (2) Malnutrition of moderate degree Assessment & Plan: nutritional optimization encourage oral intake needs to take in more oral intake Samuel Schuster May 19, 2019 15:44
[2019-05-19 16:00] VITALS: BP 133/66
[2019-05-19 20:00] VITALS: BP 122/76
[2019-05-19] MEDS: Losartan 50mg tab ORAL SCH (21:47)
[2019-05-19] MEDS: Tamsulosin 0.4mg cap ORAL SCH (21:49)
[2019-05-19] MEDS: Dyna-Hex 2% Top Sol 2oz TOPIC SCH (21:54)
[2019-05-20] VITALS: BP 147/71
[2019-05-20] MEDS: Zosyn 2.25 gm in D5W 55ml IV SCH ×3 (00:55→15:31)
[2019-05-20 04:00] VITALS: BP 159/60
[2019-05-20] MEDS: Liothyronine 5mcg tab ORAL SCH (06:06)
[2019-05-20] MEDS: HydrALAZINE 25mg tab ORAL SCH ×3 (06:07→21:32)
[2019-05-20] MEDS: NovoLOG Insulin Flexpen SUBQ SCH ×4 (06:11→21:00)
[2019-05-20 08:00] VITALS: BP 146/59
[2019-05-20] MEDS: Nephrovite tab (Rena-Vite) ORAL SCH (09:02)
[2019-05-20] MEDS: Aspirin EC 81mg tab ORAL SCH (09:03)
[2019-05-20] MEDS: Losartan 50mg tab ORAL SCH ×2 (09:03→21:32)
[2019-05-20] MEDS: Ascorbic Acid 500mg tab ORAL SCH (09:03)
[2019-05-20] MEDS: Carvedilol 12.5mg tab ORAL SCH (09:03)
[2019-05-20] MEDS: Heparin 5000 units/ml inj SUBQ SCH ×2 (09:04→21:00)
[2019-05-20 12:00] VITALS: BP 140/61
--- NOTE | 2019-05-20 13:04 | Nephrology Progress Note ---
Assessment/Plan Problem List: (1) End-stage renal disease (2) Hypertensive kidney disease (3) Anemia in chronic kidney disease (4) CHF (congestive heart failure), NYHA class II (5) Cardiomyopathy Assessment seen during dialysis tolerating well. add Cozaar , increase Hydralazin dose Admitted for Pulmonary edema End-stage renal disease on hemodialysis Jaycee Torri Sat Acute on chronic diastolic congestive heart failure Cardiomyopathy Anemia due to chronic kidney disease Hypertensive heart disease h/o Right pleural effusion s/p Mechanical fall status post repair of laceration to the scalp Past Surgical History: other - Vas-Cath right chest Plan Pleural Tap per pulmonary HD and UF again in am BP management per orders Subjective ROS Limited/Unobtainable: No Constitutional: Reports: malaise Objective Objective Last 24 Hour Vital Signs Date Time Temp Pulse Resp B/P (MAP) Pulse Ox O2 Delivery O2 Flow Rate FiO2 05/20/19 12:00 63 05/20/19 12:00 97.7 64 18 140/61 (87) 94 05/20/19 09:03 146/59 05/20/19 09:03 68 146/59 05/20/19 09:03 68 146/59 05/20/19 09:00 Nasal Cannula 2.0 05/20/19 08:00 68 05/20/19 08:00 98.1 68 18 146/59 (88) 95 05/20/19 06:07 159/60 05/20/19 06:06 159/60 05/20/19 04:00 98.1 66 20 159/60 (93) 97 05/20/19 04:00 68 05/20/19 00:00 98.7 70 20 147/71 (96) 95 05/20/19 00:00 69 05/19/19 21:49 147/71 05/19/19 21:49 147/71 05/19/19 21:47 147/71 05/19/19 21:47 71 147/71 05/19/19 21:00 Nasal Cannula 2.0 05/19/19 20:00 98.1 71 20 122/76 (91) 95 05/19/19 20:00 71 05/19/19 16:00 96.6 73 18 133/66 (88) 95 05/19/19 16:00 75 05/19/19 13:59 137/65 05/19/19 13:57 137/64 Intake and Output 05/19/19 05/20/19 19:00 07:00 Intake Total 310 ml Output Total 4200 ml Balance -4200 ml 310 ml Intake Oral 200 ml IV Total 110 ml Hemodialysis UF 2800 ml Other 1400 ml # Voids 1 Height (Feet): 4 Height (Inches): 11.00 Weight (Pounds): 135 General Appearance: no apparent distress Cardiovascular: normal rate Respiratory/Chest: decreased breath sounds Abdomen: distended Objective no change Juaquin Hadley MD May 20, 2019 13:04
--- NOTE | 2019-05-20 15:06 | Surgery Progress Note ---
Surgery Progress Note Subjective Symptoms: improved Additional Comments thora fluid pending exam stable comfortable labs stable and reviewed Objective Last 24 Hour Vital Signs Date Time Temp Pulse Resp B/P (MAP) Pulse Ox O2 Delivery O2 Flow Rate FiO2 05/20/19 14:07 140/61 05/20/19 14:07 140/61 05/20/19 12:00 63 05/20/19 12:00 97.7 64 18 140/61 (87) 94 05/20/19 09:03 146/59 05/20/19 09:03 68 146/59 05/20/19 09:03 68 146/59 05/20/19 09:00 Nasal Cannula 2.0 05/20/19 08:00 68 05/20/19 08:00 98.1 68 18 146/59 (88) 95 05/20/19 06:07 159/60 05/20/19 06:06 159/60 05/20/19 04:00 98.1 66 20 159/60 (93) 97 05/20/19 04:00 68 05/20/19 00:00 98.7 70 20 147/71 (96) 95 05/20/19 00:00 69 05/19/19 21:49 147/71 05/19/19 21:49 147/71 05/19/19 21:47 147/71 05/19/19 21:47 71 147/71 05/19/19 21:00 Nasal Cannula 2.0 05/19/19 20:00 98.1 71 20 122/76 (91) 95 05/19/19 20:00 71 05/19/19 16:00 96.6 73 18 133/66 (88) 95 05/19/19 16:00 75 I&O Intake and Output 05/19/19 05/20/19 19:00 07:00 Intake Total 310 ml Output Total 4200 ml Balance -4200 ml 310 ml Intake Oral 200 ml IV Total 110 ml Hemodialysis UF 2800 ml Other 1400 ml # Voids 1 Dressing: other Wound: other Drains: other Cardiovascular: RSR Respiratory: decreased breath sounds Abdomen: soft Extremities: no cyanosis, other Plan Problems: (1) Decubitus skin ulcer Assessment & Plan: Pt presented on admission with multiple DTPIs. DTPI noted to sacrum . Base of wound is maroon with purple area in center and is indurated. (L)6.5cm x (W)9cmBase of injury tender when minimally palpated. Pt yelled out in pain and verbalized pain in [place] language. Dark skin tone without erythema or induration noted to R and L ischium. Each area non-tender when individually palpated. DTPI noted to R heel. Base of wound is purple with maroon borders with delineated margins.(L)3.3cm x (W)3.7cm. Periwound R heel is boggy with non- blanching erythema.. Pt verbalized pain when minimally palpated. L heel is boggy with Non-blanching erythema. Tender when minimally palpated. given medical condition and appearance of wounds high risk for breakdown. if open will be difficult to heal and detrimental. will need aggressive preventive measure during ill states while on support to ensure no breakdown. will follow closely Tx.Plan: Apply Moisture Barrier Paste to Sacrum. Cover with Optifoam drsg. Change every 3 days and prn. Apply Moisture Barrier Paste to R and L ischium with each incontinence care. Apply Cavilon Skin BArrier to Both heels. Cover each heel with Optifoam drsg. Change every 7 days and prn. Reposition at least every 2hours or as tolerated. Off-load heels with pillow. APM/BETTY Mattress. (2) Malnutrition of moderate degree Assessment & Plan: nutritional optimization encourage oral intake needs to take in more oral intake Samuel Schuster May 20, 2019 15:06
[2019-05-20 16:00] VITALS: BP 143/66
[2019-05-20] MEDS: Azithromycin 500 MG in D5W 275 ML IV SCH (16:06)
[2019-05-20] MEDS ORDERED: NS 275ml ONE (16:13)
--- NOTE | 2019-05-20 17:32 | Pulmonology Progress Note ---
Assessment/Plan Assessment/Plan ASSESSMENT: The patient is a 68-year-old female with a history of end-stage renal disease, presumed diabetes though A1c is less than 5, hypertension, CHF, presenting with shortness of breath likely secondary to pulmonary edema due to decompensated heart failure and possible superimposed pneumonia. PROBLEM LIST: 1. Acute hypoxemic respiratory failure. 2. End-stage renal disease, on dialysis. 3. Congestive heart failure with acute decompensated heart failure. 4. Possible superimposed pneumonia. 5. Pleural effusion S/P 1.4L thora 05/19 6. Hypothyroidism. 7. Hypertension. 8. Stage I sacral decubitus ulcer. TREATMENT PLAN: 1. F/U pleural fluid studies 2. Titrate O2 3. Monitor volumes and renal function, dialysis per Renal with UF as tolerated. 4. Abx per ID 5. DVT prophylaxis. 6. Aspiration precautions. 7. The patient is a Full Code, continue to discuss goals of care. Subjective Allergies: Coded Allergies: No Known Allergies (Unverified , 10/06/18) Subjective S/P 1.4L thora, AFVSS, O2 needs stable, less SOB, no cough, no wheezing, no FC Objective Last 24 Hour Vital Signs Date Time Temp Pulse Resp B/P (MAP) Pulse Ox O2 Delivery O2 Flow Rate FiO2 05/20/19 16:00 98.2 68 18 143/66 (91) 96 05/20/19 14:07 140/61 05/20/19 14:07 140/61 05/20/19 12:00 63 05/20/19 12:00 97.7 64 18 140/61 (87) 94 05/20/19 09:03 146/59 05/20/19 09:03 68 146/59 05/20/19 09:03 68 146/59 05/20/19 09:00 Nasal Cannula 2.0 05/20/19 08:00 68 05/20/19 08:00 98.1 68 18 146/59 (88) 95 05/20/19 06:07 159/60 05/20/19 06:06 159/60 05/20/19 04:00 98.1 66 20 159/60 (93) 97 05/20/19 04:00 68 05/20/19 00:00 98.7 70 20 147/71 (96) 95 12/17/19 00:00 69 05/19/19 21:49 147/71 05/19/19 21:49 147/71 05/19/19 21:47 147/71 05/19/19 21:47 71 147/71 05/19/19 21:00 Nasal Cannula 2.0 05/19/19 20:00 98.1 71 20 122/76 (91) 95 05/19/19 20:00 71 Intake and Output 05/19/19 05/20/19 19:00 07:00 Intake Total 310 ml Output Total 4200 ml Balance -4200 ml 310 ml Intake Oral 200 ml IV Total 110 ml Hemodialysis UF 2800 ml Other 1400 ml # Voids 1 General Appearance: WD/WN, no acute distress HEENT: normocephalic, atraumatic, anicteric, mucous membranes moist Respiratory/Chest: chest wall non-tender, lungs clear, normal breath sounds, no respiratory distress, no accessory muscle use Cardiovascular: normal peripheral pulses, normal rate, regular rhythm Abdomen: normal bowel sounds, soft, non tender, no organomegaly, non distended , no mass Extremities: no cyanosis, no clubbing, no edema Microbiology Date/Time Source Procedure Growth Status 05/19/19 11:03 Thoracic Fluid Gram Stain Pending Resulted 05/19/19 11:03 Thoracic Fluid Body Fluid Culture - Preliminary Resulted Current Medications Medications (Trade) Dose Ordered Sig/Vasile Route PRN Reason Start Time Stop Time Status Last Admin Dose Admin Acetaminophen (Tylenol) 650 mg Q4H PRN ORAL Mild Pain/Temp > 100.5 05/15/19 13:15 06/14/19 13:14 05/18/19 16:41 Amlodipine Besylate (Norvasc) 10 mg DAILY ORAL 05/15/19 09:00 06/14/19 08:59 05/20/19 09:03 Ascorbic Acid (Vitamin C) 500 mg DAILY ORAL 05/19/19 09:00 06/18/19 08:59 05/20/19 09:03 Aspirin (Ecotrin) 81 mg DAILY ORAL 05/15/19 09:00 06/14/19 08:59 05/20/19 09:03 Azithromycin 500 mg/Dextrose 275 ml @ 275 mls/hr Q24HRS IV 05/19/19 16:00 05/26/19 15:59 05/20/19 16:06 Carvedilol (Coreg) 25 mg EVERY 12 HOURS ORAL 05/20/19 21:00 06/17/19 21:59 Chlorhexidine Gluconate (Mary-Hex 2%) 1 applic DAILY@2000 TOPIC 05/16/19 20:00 06/15/19 19:59 05/19/19 21:54 Clonidine HCl (Catapres Tab) 0.1 mg EVERY 8 HOURS ORAL 05/15/19 15:03 06/14/19 15:02 05/20/19 14:07 Clonidine HCl (Catapres Tab) 0.1 mg Q4H PRN ORAL bp over 165 syst 05/15/19 09:45 06/14/19 09:44 05/17/19 15:04 Dextrose (Dextrose 50%) 25 ml Q30M PRN IV Hypoglycemia 05/15/19 05:30 06/14/19 05:29 Dextrose (Dextrose 50%) 50 ml Q30M PRN IV Hypoglycemia 05/15/19 05:30 06/14/19 05:29 Heparin Sodium (Porcine) (Heparin 5000 units/ml) 5,000 units EVERY 12 HOURS SUBQ 05/15/19 21:00 06/14/19 20:59 05/20/19 09:04 Hydralazine HCl (Apresoline) 75 mg Q8HR ORAL 05/17/19 14:00 06/16/19 13:59 05/20/19 14:07 Insulin Aspart (NovoLOG) BEFORE MEALS AND HS SUBQ 05/15/19 06:30 06/14/19 06:29 05/20/19 17:02 Liothyronine Sodium (Cytomel) 5 mcg DAILY@0630 ORAL 05/15/19 06:30 06/14/19 06:29 05/20/19 06:06 Losartan Potassium (Cozaar) 50 mg EVERY 12 HOURS ORAL 05/19/19 21:00 06/16/19 20:59 05/20/19 09:03 Multivitamins (Multivitamins) 1 tab DAILY ORAL 05/19/19 09:00 06/18/19 08:59 05/20/19 09:03 Piperacillin Sod/ Tazobactam Sod 2.25 gm/Dextrose 55 ml @ 110 mls/hr Q8H IV 05/15/19 16:00 05/22/19 15:59 05/20/19 15:31 Tamsulosin HCl (Flomax) 0.4 mg BEDTIME ORAL 05/15/19 21:00 06/14/19 20:59 05/19/19 21:49 Vitamin B Complex/ Vit C/Folic Acid (Nephrovite) 1 tab DAILY ORAL 05/15/19 09:00 06/14/19 08:59 05/20/19 09:02 Kiko Hernandes MD May 20, 2019 17:32
--- NOTE | 2019-05-20 19:12 | Infectious Diseases Prog Note ---
Assessment/Plan Assessment/Plan ASSESSMENT/PLAN: 1. possible pna, sepsis, fevers, sob/hypoxia, edema/atx/effusions - discontinue zosyn and azithromycin, day # 6 abx - will change to oral augmentin x 4 days more - clinically improved - body fluid culture is negative - monitor labs and chest x-ray - chest x-ray improved s/p thoracentesis - d/w Dr. Thornton 2. The patient has a history of end-stage renal disease, on hemodialysis. 3. Hypertension. 4. Diabetes. 5. Blood sugar and blood pressure treatment primary care team. 6. Anemia of chronic disease. 7. Osteoarthritis. 8. CHF. 9. NSTEMI. 10. CAD. 11. No known drug allergies. 12. Social history is negative. 13. Family history is noncontributory. 14. MAR was noted. 15. Case was discussed with RN. 16. Continue treatment per primary consultants. Subjective Constitutional: Reports: fatigue, other - less sob ; Denies: fever HEENT: Denies: congestion Respiratory: Denies: shortness of breath Cardiovascular: Denies: chest pain Gastrointestinal/Abdominal: Denies: nausea, vomiting, diarrhea Genitourinary: Reports: other - no carranza Neurologic: Denies: headache Psychiatric: Denies: depression Skin: Denies: rash Hematologic: Denies: bleeding Musculoskeletal: Denies: pain Allergies: Coded Allergies: No Known Allergies (Unverified , 10/06/18) Objective Vital Signs Last 24 Hour Vital Signs Date Time Temp Pulse Resp B/P (MAP) Pulse Ox O2 Delivery O2 Flow Rate FiO2 05/20/19 16:00 60 05/20/19 16:00 98.2 68 18 143/66 (91) 96 05/20/19 14:07 140/61 05/20/19 14:07 140/61 05/20/19 12:00 63 05/20/19 12:00 97.7 64 18 140/61 (87) 94 05/20/19 09:03 146/59 05/20/19 09:03 68 146/59 05/20/19 09:03 68 146/59 05/20/19 09:00 Nasal Cannula 2.0 05/20/19 08:00 68 05/20/19 08:00 98.1 68 18 146/59 (88) 95 05/20/19 06:07 159/60 05/20/19 06:06 159/60 05/20/19 04:00 98.1 66 20 159/60 (93) 97 05/20/19 04:00 68 05/20/19 00:00 98.7 70 20 147/71 (96) 95 05/20/19 00:00 69 05/19/19 21:49 147/71 05/19/19 21:49 147/71 05/19/19 21:47 147/71 05/19/19 21:47 71 147/71 05/19/19 21:00 Nasal Cannula 2.0 05/19/19 20:00 98.1 71 20 122/76 (91) 95 05/19/19 20:00 71 Height (Feet): 4 Height (Inches): 11.00 Weight (Pounds): 135 General Appearance: no acute distress HEENT: normocephalic, atraumatic, anicteric, mucous membranes moist Respiratory/Chest: lungs clear, normal breath sounds, no respiratory distress, no accessory muscle use, crackles/rales - less, rhonchi - bilaterally - less Cardiovascular: normal rate, regular rhythm Abdomen: normal bowel sounds, soft, non tender, no organomegaly, non distended Genitourinary: other - no carranza Extremities: no cyanosis Skin: no rash Neurologic/Psychiatric: touch up carver II-XII grossly normal, alert, oriented x 3, responsive Lymphatic: no neck adenopathy Musculoskeletal: no effusion Objective Chest x-ray 05/17/19 - IMPRESSION: Moderate bilateral pleural effusions with associated atelectasis. There are also extensive airspace infiltrates and vascular congestion. Suspect a diffuse volume overload. Chest x-ray - 05/19/19 - Procedure: XRAY Chest 1v Indication: Status post thoracentesis, pleural effusions, shortness of breath Technique: One view of the chest Comparison: 2 1/2 hours earlier Findings: Interim decrease in previously demonstrated right pleural effusion. Residual right costophrenic angle blunting could represent a small amount of residual fluid versus atelectasis. Large left pleural effusion persists. The heart remains enlarged. There is no pneumothorax. Tunneled dialysis catheter is again noted. Impression: Markedly improved or resolved right pleural effusion, status post thoracentesis. No radiographically evident complication Microbiology Date/Time Source Procedure Growth Status 05/15/19 16:40 Blood Blood Culture - Preliminary NO GROWTH AFTER 4 DAYS Resulted 05/19/19 11:03 Thoracic Fluid Gram Stain Pending Resulted 05/19/19 11:03 Thoracic Fluid Body Fluid Culture - Preliminary Resulted 05/15/19 02:10 Nasal Nares MRSA Culture - Final NO METHICILLIN RESISTANT STAPH AUREUS... Complete 05/15/19 02:10 Rectum - Final NO CARBAPENEM-RESISTANT ENTEROBACTERI... Complete Microbiology Date/Time Source Procedure Growth Status 05/19/19 11:03 Thoracic Fluid Gram Stain Pending Resulted 05/19/19 11:03 Thoracic Fluid Body Fluid Culture - Preliminary Resulted Labs Test 05/18/19 06:45 05/19/19 05:20 05/19/19 09:10 05/19/19 11:03 White Blood Count 5.6 K/UL (4.8-10.8) 5.1 K/UL (4.8-10.8) Red Blood Count 4.53 M/UL (4.20-5.40) 4.46 M/UL (4.20-5.40) Hemoglobin 13.8 G/DL (12.0-16.0) 13.5 G/DL (12.0-16.0) Hematocrit 41.5 % (37.0-47.0) 40.1 % (37.0-47.0) Mean Corpuscular Volume 92 FL (80-99) 90 FL (80-99) Mean Corpuscular Hemoglobin 30.5 PG (27.0-31.0) 30.3 PG (27.0-31.0) Mean Corpuscular Hemoglobin Concent 33.2 G/DL (32.0-36.0) 33.6 G/DL (32.0-36.0) Red Cell Distribution Width 14.8 % (11.6-14.8) 14.2 % (11.6-14.8) Platelet Count 170 K/UL (150-450) 171 K/UL (150-450) Mean Platelet Volume 7.7 FL (6.5-10.1) 7.7 FL (6.5-10.1) Neutrophils (%) (Auto) 70.4 % (45.0-75.0) 61.4 % (45.0-75.0) Lymphocytes (%) (Auto) 15.3 % (20.0-45.0) 14.5 % (20.0-45.0) Monocytes (%) (Auto) 9.3 % (1.0-10.0) 13.7 % (1.0-10.0) Eosinophils (%) (Auto) 4.1 % (0.0-3.0) 9.1 % (0.0-3.0) Basophils (%) (Auto) 0.9 % (0.0-2.0) 1.4 % (0.0-2.0) Sodium Level 135 MMOL/L (136-145) 134 MMOL/L (136-145) Potassium Level 4.5 MMOL/L (3.5-5.1) 4.9 MMOL/L (3.5-5.1) Chloride Level 97 MMOL/L (98-107) 95 MMOL/L (98-107) Carbon Dioxide Level 28 MMOL/L (21-32) 29 MMOL/L (21-32) Anion Gap 10 mmol/L (5-15) 10 mmol/L (5-15) Blood Urea Nitrogen 51 mg/dL (7-18) 59 mg/dL (7-18) Creatinine 4.2 MG/DL (0.55-1.30) 4.8 MG/DL (0.55-1.30) Estimat Glomerular Filtration Rate 10.6 mL/min (>60) 9.1 mL/min (>60) Glucose Level 153 MG/DL (74-106) 128 MG/DL (74-106) Uric Acid 4.2 MG/DL (2.6-7.2) Calcium Level 8.0 MG/DL (8.5-10.1) 7.5 MG/DL (8.5-10.1) Phosphorus Level 5.2 MG/DL (2.5-4.9) Magnesium Level 2.2 MG/DL (1.8-2.4) Total Bilirubin 0.5 MG/DL (0.2-1.0) Aspartate Amino Transf (AST/SGOT) 16 U/L (15-37) Alanine Aminotransferase (ALT/SGPT) 10 U/L (12-78) Alkaline Phosphatase 109 U/L (46-116) C-Reactive Protein, Quantitative 8.4 mg/dL (0.00-0.90) Pro-B-Type Natriuretic Peptide > 56132 pg/mL (0-125) Total Protein 7.3 G/DL (6.4-8.2) Albumin 2.2 G/DL (3.4-5.0) Globulin 5.1 g/dL Albumin/Globulin Ratio 0.4 (1.0-2.7) Prothrombin Time 11.3 SEC (9.30-11.50) Prothromb Time International Ratio 1.1 (0.9-1.1) Activated Partial Thromboplast Time 30 SEC (23-33) Body Fluid Glucose 147 mg/dL (.) Body Fluid Total Protein 2.9 g/dL (.) Body Fluid Albumin 1.3 g/dL (Not Estab.) Body Fluid Lactate Dehydrogenase 112 IU/L (.) Test 05/20/19 18:50 Laboratory Tests Test 05/20/19 18:50 Hepatitis B Surface Antigen Pending Current Medications Medications (Trade) Dose Ordered Sig/Vasile Route PRN Reason Start Time Stop Time Status Last Admin Dose Admin Acetaminophen (Tylenol) 650 mg Q4H PRN ORAL Mild Pain/Temp > 100.5 05/15/19 13:15 06/14/19 13:14 05/18/19 16:41 Amlodipine Besylate (Norvasc) 10 mg DAILY ORAL 05/15/19 09:00 06/14/19 08:59 05/20/19 09:03 Ascorbic Acid (Vitamin C) 500 mg DAILY ORAL 05/19/19 09:00 06/18/19 08:59 05/20/19 09:03 Aspirin (Ecotrin) 81 mg DAILY ORAL 05/15/19 09:00 06/14/19 08:59 05/20/19 09:03 Carvedilol (Coreg) 25 mg EVERY 12 HOURS ORAL 05/20/19 21:00 06/17/19 21:59 Chlorhexidine Gluconate (Mary-Hex 2%) 1 applic DAILY@1999 TOPIC 05/16/19 20:00 06/15/19 19:59 05/19/19 21:54 Clonidine HCl (Catapres Tab) 0.1 mg EVERY 8 HOURS ORAL 05/15/19 15:03 06/14/19 15:02 05/20/19 14:07 Clonidine HCl (Catapres Tab) 0.1 mg Q4H PRN ORAL bp over 165 syst 12/12/19 09:45 06/14/19 09:44 05/17/19 15:04 Dextrose (Dextrose 50%) 25 ml Q30M PRN IV Hypoglycemia 05/15/19 05:30 06/14/19 05:29 Dextrose (Dextrose 50%) 50 ml Q30M PRN IV Hypoglycemia 05/15/19 05:30 06/14/19 05:29 Heparin Sodium (Porcine) (Heparin 5000 units/ml) 5,000 units EVERY 12 HOURS SUBQ 05/15/19 21:00 06/14/19 20:59 05/20/19 09:04 Hydralazine HCl (Apresoline) 75 mg Q8HR ORAL 05/17/19 14:00 06/16/19 13:59 05/20/19 14:07 Insulin Aspart (NovoLOG) BEFORE MEALS AND HS SUBQ 05/15/19 06:30 06/14/19 06:29 05/20/19 17:02 Liothyronine Sodium (Cytomel) 5 mcg DAILY@0630 ORAL 05/15/19 06:30 06/14/19 06:29 05/20/19 06:06 Losartan Potassium (Cozaar) 50 mg EVERY 12 HOURS ORAL 05/19/19 21:00 06/16/19 20:59 05/20/19 09:03 Multivitamins (Multivitamins) 1 tab DAILY ORAL 05/19/19 09:00 06/18/19 08:59 05/20/19 09:03 Tamsulosin HCl (Flomax) 0.4 mg BEDTIME ORAL 05/15/19 21:00 06/14/19 20:59 05/19/19 21:49 Vitamin B Complex/ Vit C/Folic Acid (Nephrovite) 1 tab DAILY ORAL 05/15/19 09:00 06/14/19 08:59 05/20/19 09:02 Kimberly Holland MD May 20, 2019 19:12
[2019-05-20 20:00] VITALS: BP 130/63
[2019-05-20] MEDS: Carvedilol 25mg Tab ORAL SCH (21:31)
[2019-05-20] MEDS: Tamsulosin 0.4mg cap ORAL SCH (21:32)
[2019-05-20] MEDS: Dyna-Hex 2% Top Sol 2oz TOPIC SCH (21:36)
[2019-05-21] VITALS: BP 132/57
[2019-05-21 04:00] VITALS: BP 150/61
[2019-05-21] MEDS: NovoLOG Insulin Flexpen SUBQ SCH ×2 (05:35→13:11)
[2019-05-21] MEDS: HydrALAZINE 25mg tab ORAL SCH (05:35)
[2019-05-21] MEDS: Liothyronine 5mcg tab ORAL SCH (05:35)
[2019-05-21 08:00] VITALS: BP 146/66
[2019-05-21] MEDS: Aspirin EC 81mg tab ORAL SCH (08:35)
[2019-05-21] MEDS: Nephrovite tab (Rena-Vite) ORAL SCH (08:35)
[2019-05-21] MEDS: Ascorbic Acid 500mg tab ORAL SCH (08:36)
[2019-05-21] MEDS: Heparin 5000 units/ml inj SUBQ SCH (08:38)
[2019-05-21] MEDS ORDERED: ASCORBIC ACID500 M3 ORAL (08:38)
[2019-05-21] MEDS ORDERED: AUGMENTIN 500-1 EACH ORAL (08:38)
[2019-05-21] MEDS ORDERED: LOSARTAN POTASS50 MG ORAL (08:38)
--- NOTE | 2019-05-21 08:40 | Discharge Instructions ---
Discharge Instructions Discharge Instructions Services at Discharge: home health services Diet: diabetic calorie control Activity: resume normal activities Special Instructions home health services to assist with medications and wound care For Congestive Heart Failure Reminder Report to your physician any weight gain of 5 pounds or more in one week. Siva Thornton M.D. May 21, 2019 08:40
--- NOTE | 2019-05-21 08:40 | Discharge Summary ---
Discharge Summary Hospital Course Date of Admission May 15, 2019 at 01:34 Date of Discharge 05/21/2019 Admitting Diagnosis bilateral pleural effusion, esrd, pulmonary edema HPI Alyx Garcia is a 68 year old female who was admitted on May 15, 2019 at 01:34 for Bilateral Pleural Effusion/End Stage Renal Disease Consultations pulmonary: Dr. Hernandes ID: Dr. Davies Renal: Dr. Hadley Procedures Thoracentesis Hospital Course 68 year old female, accompanied by her daughter with history of Hypertension, type 2 diabetes, ESRD on HD, anemia of chronic disease, OA, diastolic CHF, NSTEMI presented with shortness of breath. #Acute hypoxic hypercarbic respiratory failure due to pulmonary edema, possibly with super imposed pneumonia Admitted to step down unit. Close monitoring bipap prn, then oxygen via nasal cannulae ABGs as needed broad spectrum abx- Zosyn and Azithromycin.can switch to oral Augmentin follow up cultures, blood and sputum pulmonary consult: Dr. Hernandes ID consult; Dr. Garcia s/p Thoracentesis, culture negative #ESRD on HD HD per Dr. Hadley #HTN- controlled #Diastolic CHF Continue Amlodipine, carvedilol, Hydralazine ASA #DM type II- controlled HbA1c 4.9 #Hypothyroidism Insulin sliding scale. Ensure no oral meds Check T3/T4 Cytomel 5 mcg #Stage 1 sacral decubitus Wound consult for stage [address] Carrasco Wound care Frequent turning vte ppx: heparin q12 GI ppx: ppi Diet: NPO Code status: Full code PT consult I spent 35 minutes on this patient's care, > 50% spent on counselling and care coordination. I spent an additional 35 minute sin reviewing hospital events, [employer] sales consultant findings, labs and imagining. Plan of care discussed with patient's daughter at bedside. Exam on discharge. pleasant, no distress. alert and oriented x4. lungs cta bl, heart: s1s2, no m/r/g, ext: No edema Discharge Medications New Medications: Amoxicillin/Potassium Clav 500-125 Tablet* (Augmentin 500-125 Tablet*) 1 Each Tablet 1 TAB ORAL DAILY for 4 Days, #4 TAB Ascorbic Acid (Ascorbic Acid) 500 Mg Tab.chew 500 MG ORAL DAILY for 30 Days, #30 TAB Losartan Potassium* (Losartan Potassium*) 50 Mg Tablet 50 MG ORAL BID for 30 Days, #60 TAB Continued Medications: Amlodipine Besylate (Norvasc) 10 Mg Tablet 10 MG ORAL DAILY, #90 TAB Aspirin (Aspirin EC) 81 Mg Tablet.dr 81 MG ORAL DAILY, TAB (This prescription has been renewed) [BP meds] () (This prescription has been renewed) Carvedilol (Coreg) 12.5 Mg Tablet 12.5 MG ORAL Q12HR for 90 Days, TAB Clonidine Hcl* (Catapres*) 0.1 Mg Tablet 0.1 MG ORAL EVERY 6 HOURS PRN for SBP>110, TAB (This prescription has been renewed) Hydralazine HCl (Hydralazine HCl) 50 Mg Tablet 25 MG ORAL Q8HR for 90 Days, TAB Liothyronine Sodium* (Cytomel*) 5 Mcg Tablet 5 MCG ORAL DAILY for 90 Days, TAB Tamsulosin HCl (Flomax) 0.4 Mg Cap.er.24h 0.4 MG ORAL BEDTIME for 30 Days, CAP Vitamin B Cmplx/Vit C/Folic AC (Nephro-Sonya Tablet) 0.8 Mg Tablet 1 TAB ORAL DAILY, #30 TAB 0 Refills (This prescription has been renewed) Discontinued Medications: Amlodipine Besylate (Norvasc) 5 Mg Tablet 5 MG ORAL DAILY, TAB Aspirin Ec* (Aspirin Ec*) 81 Mg Tablet.dr 81 MG ORAL DAILY, TAB Metformin Hcl* (Metformin Hcl*) 500 Mg Tablet 500 MG ORAL TWICE A DAY, TAB Tamsulosin HCl (Flomax) 0.4 Mg Cap.er.24h 0.4 MG ORAL DAILY, CAP Discharge Condition Upon Discharge: stable Discharge Disposition Patient was discharged to home with home health Discharge Diagnoses: (1) Acute respiratory failure with hypoxia and hypercapnia (2) Diastolic CHF (3) Hypertensive urgency (4) Anemia in chronic kidney disease (5) Bilateral pleural effusion (6) Pulmonary edema (7) Malnutrition of moderate degree Discharge Instructions Discharge Instructions Services Upon Discharge: home health services Activity: resume normal activities Siva hTornton M.D. May 21, 2019 08:40
[2019-05-21] MEDS: Carvedilol 25mg Tab ORAL SCH (09:00)
[2019-05-21] MEDS: Losartan 50mg tab ORAL SCH (09:00)
[2019-05-21 12:00] VITALS: BP 146/65
--- NOTE | 2019-05-21 12:47 | General Progress Note ---
Assessment/Plan Status: stable, progressing Assessment/Plan: 68 year old female, accompanied by her daughter with history of Hypertension, type 2 diabetes, ESRD on HD, anemia of chronic disease, OA, diastolic CHF, NSTEMI presented with shortness of breath. #Acute hypoxic hypercarbic respiratory failure due to pulmonary edema, possibly with super imposed pneumonia - much improvement Admitted to step down unit. Close monitoring bipap prn, continue oxygen via nasal cannulae ABGs as needed broad spectrum abx- Zosyn and Azithromycin. ID agrees, switch to oral Augmentin for 4 more days follow up cultures, blood and sputum pulmonary consult: Dr. Hernandes ID consult; Dr. Garcia s/p Thoracentesis, culture negative #ESRD on HD HD per Dr. Hadley #HTN- controlled #Diastolic CHF Continue Amlodipine, carvedilol, Hydralazine ASA #DM type II- controlled HbA1c 4.9 #Hypothyroidism Insulin sliding scale. Ensure no oral meds Check T3/T4 Cytomel 5 mcg #Stage 1 sacral decubitus Wound consult for stage [address] Carrasco Wound care Frequent turning vte ppx: heparin q12 GI ppx: ppi Diet: NPO Code status: Full code PT consult I spent 40 minutes on this patient's care, > 50% spent on counselling and care coordination. Plan of care discussed with patient's daughter at bedside. Subjective Date patient seen: May 20, 2019 ROS Limited/Unobtainable: No Constitutional: Denies: no symptoms, chills, diaphoresis, fever, malaise, weakness, other HEENT: Denies: no symptoms, eye pain, blurred vision, tearing, double vision, ear pain, ear discharge, nose pain, nose congestion, throat pain, throat swelling, mouth pain, mouth swelling, other Cardiovascular: Denies: no symptoms, chest pain, edema, irregular heart rate, lightheadedness, palpitations, syncope, other Respiratory: Denies: no symptoms, cough, orthopnea, shortness of breath, SOB with excertion, SOB at rest, sputum, stridor, wheezing, other Gastrointestinal/Abdominal: Denies: no symptoms, abdomen distended, abdominal pain, black stools, tarry stools, blood in stool, constipated, diarrhea, difficulty swallowing, nausea, poor appetite, poor fluid intake, rectal bleeding , vomiting, other Genitourinary: Denies: no symptoms, burning, discharge, frequency, flank pain, hematuria, incontinence, pain, urgency, other Neurologic/Psychiatric: Denies: no symptoms, anxiety, depressed, emotional problems, headache, numbness, paresthesia, pre-existing deficit, seizure, tingling, tremors, weakness, other Endocrine: Denies: no symptoms, excessive sweating, flushing, intolerance to cold, intolerance to heat, increased hunger, increased thirst, increased urine, unexplained weight gain, unexplained weight loss, other Hematologic/Lymphatic: Denies: no symptoms, anemia, easy bleeding, easy bruising, other Allergies: Coded Allergies: No Known Allergies (Unverified , 10/06/18) Subjective following up on acute hypoxic respiratory failure, pulmonary edema, ESRD on HD, and pneumonia. Afebrile. Has transitioned off bipap, wearing nasal cannula, significant improvement. Family at bedside. s/p thoracentesis and tolerated it well. eager for discharge Objective Last 24 Hour Vital Signs Date Time Temp Pulse Resp B/P (MAP) Pulse Ox O2 Delivery O2 Flow Rate FiO2 05/21/19 12:00 98.2 66 20 146/65 (92) 97 05/21/19 09:00 Nasal Cannula 2.0 05/21/19 09:00 146/66 05/21/19 09:00 68 146/66 05/21/19 08:00 98.1 68 18 146/66 (92) 96 05/21/19 08:00 70 05/21/19 05:35 150/61 05/21/19 05:35 150/61 05/21/19 04:00 72 05/21/19 04:00 97.8 70 17 150/61 (90) 96 05/21/19 00:00 97.7 66 16 132/57 (82) 94 05/21/19 00:00 67 05/20/19 21:32 130/63 05/20/19 21:32 130/63 05/20/19 21:32 130/63 05/20/19 21:31 71 130/63 05/20/19 21:00 Nasal Cannula 2.0 05/20/19 20:00 97.9 63 17 130/63 (85) 94 05/20/19 20:00 65 05/20/19 16:00 60 05/20/19 16:00 98.2 68 18 143/66 (91) 96 05/20/19 14:07 140/61 05/20/19 14:07 140/61 Intake and Output 05/20/19 05/21/19 19:00 07:00 Intake Total 880 ml 240 ml Output Total 400 ml Balance 880 ml -160 ml Intake Oral 880 ml 240 ml Output Urine Total 400 ml # Voids 1 1 Laboratory Tests 05/20/19 18:50: Hepatitis B Surface Antigen [Pending] Height (Feet): 4 Height (Inches): 11.00 Weight (Pounds): 134 Objective General Appearance: awake, alert, no respiratory distress, on nasal cannulae, daughter at bedside Head: atraumatic Neck: normal inspection, full range of motion, supple, Respiratory: respiratory distress, crackles Cardiovascular: regular rate, rhythm, no edema Gastrointestinal: normal inspection, normal bowel sounds, non tender, soft, no guarding Musculoskeletal: normal inspection, normal range of motion Neurologic: grossly intact Skin: clammy: stage 1 sacral decubitus Siva Thornton M.D. May 21, 2019 12:47
[2019-05-21 14:30] VITALS: BP 137/58
--- NOTE | 2019-05-21 15:27 | Nephrology Progress Note ---
Assessment/Plan Problem List: (1) End-stage renal disease (2) Hypertensive kidney disease (3) Anemia in chronic kidney disease (4) CHF (congestive heart failure), NYHA class II (5) Cardiomyopathy Assessment seen during dialysis tolerating well. add Cozaar , increase Hydralazin dose Admitted for Pulmonary edema End-stage renal disease on hemodialysis Jaycee Thomasu Sat Acute on chronic diastolic congestive heart failure Cardiomyopathy Anemia due to chronic kidney disease Hypertensive heart disease h/o Right pleural effusion s/p Mechanical fall status post repair of laceration to the scalp Past Surgical History: other - Vas-Cath right chest Plan Pleural Tap per pulmonary HD and UF today BP management per orders OK to DC Subjective ROS Limited/Unobtainable: No Constitutional: Reports: malaise Objective Objective Last 24 Hour Vital Signs Date Time Temp Pulse Resp B/P (MAP) Pulse Ox O2 Delivery O2 Flow Rate FiO2 05/21/19 14:30 97.7 78 20 137/58 (84) 94 05/21/19 12:00 61 05/21/19 12:00 98.2 66 20 146/65 (92) 97 05/21/19 09:00 Nasal Cannula 2.0 05/21/19 09:00 146/66 05/21/19 09:00 68 146/66 05/21/19 08:00 98.1 68 18 146/66 (92) 96 05/21/19 08:00 70 05/21/19 05:35 150/61 05/21/19 05:35 150/61 05/21/19 04:00 72 05/21/19 04:00 97.8 70 17 150/61 (90) 96 05/21/19 00:00 97.7 66 16 132/57 (82) 94 05/21/19 00:00 67 05/20/19 21:32 130/63 05/20/19 21:32 130/63 05/20/19 21:32 130/63 05/20/19 21:31 71 130/63 05/20/19 21:00 Nasal Cannula 2.0 05/20/19 20:00 97.9 63 17 130/63 (85) 94 05/20/19 20:00 65 05/20/19 16:00 60 05/20/19 16:00 98.2 68 18 143/66 (91) 96 Intake and Output 05/20/19 05/21/19 19:00 07:00 Intake Total 880 ml 240 ml Output Total 400 ml Balance 880 ml -160 ml Intake Oral 880 ml 240 ml Output Urine Total 400 ml # Voids 1 1 Current Medications Medications (Trade) Dose Ordered Sig/Vasile Route PRN Reason Start Time Stop Time Status Last Admin Dose Admin Acetaminophen (Tylenol) 650 mg Q4H PRN ORAL Mild Pain/Temp > 100.5 05/15/19 13:15 06/14/19 13:14 05/18/19 16:41 Amlodipine Besylate (Norvasc) 10 mg DAILY ORAL 05/15/19 09:00 06/14/19 08:59 05/20/19 09:03 Amoxicillin/ Clavulanate Potassium (Augmentin) 500 mg Q24HRS ORAL 05/20/19 21:00 05/27/19 20:59 05/20/19 21:31 Ascorbic Acid (Vitamin C) 500 mg DAILY ORAL 05/19/19 09:00 06/18/19 08:59 05/21/19 08:36 Aspirin (Ecotrin) 81 mg DAILY ORAL 05/15/19 09:00 06/14/19 08:59 05/21/19 08:35 Carvedilol (Coreg) 25 mg EVERY 12 HOURS ORAL 05/20/19 21:00 06/17/19 21:59 05/20/19 21:31 Chlorhexidine Gluconate (Mary-Hex 2%) 1 applic DAILY@1999 TOPIC 05/16/19 20:00 06/15/19 19:59 05/20/19 21:36 Clonidine HCl (Catapres Tab) 0.1 mg EVERY 8 HOURS ORAL 05/15/19 15:03 06/14/19 15:02 05/21/19 05:35 Clonidine HCl (Catapres Tab) 0.1 mg Q4H PRN ORAL bp over 165 syst 05/15/19 09:45 06/14/19 09:44 05/17/19 15:04 Dextrose (Dextrose 50%) 25 ml Q30M PRN IV Hypoglycemia 05/15/19 05:30 06/14/19 05:29 Dextrose (Dextrose 50%) 50 ml Q30M PRN IV Hypoglycemia 05/15/19 05:30 06/14/19 05:29 Heparin Sodium (Porcine) (Heparin 5000 units/ml) 5,000 units EVERY 12 HOURS SUBQ 05/15/19 21:00 06/14/19 20:59 05/21/19 08:38 Hydralazine HCl (Apresoline) 75 mg Q8HR ORAL 05/17/19 14:00 06/16/19 13:59 05/21/19 05:35 Insulin Aspart (NovoLOG) BEFORE MEALS AND HS SUBQ 05/15/19 06:30 06/14/19 06:29 05/21/19 13:11 Liothyronine Sodium (Cytomel) 5 mcg DAILY@0630 ORAL 05/15/19 06:30 06/14/19 06:29 05/21/19 05:35 Losartan Potassium (Cozaar) 50 mg EVERY 12 HOURS ORAL 05/19/19 21:00 06/16/19 20:59 05/20/19 21:32 Multivitamins (Multivitamins) 1 tab DAILY ORAL 05/19/19 09:00 06/18/19 08:59 05/21/19 08:36 Tamsulosin HCl (Flomax) 0.4 mg BEDTIME ORAL 05/15/19 21:00 06/14/19 20:59 05/20/19 21:32 Vitamin B Complex/ Vit C/Folic Acid (Nephrovite) 1 tab DAILY ORAL 05/15/19 09:00 06/14/19 08:59 05/21/19 08:35 Laboratory Tests 05/20/19 18:50: Hepatitis B Surface Antigen Negative Height (Feet): 4 Height (Inches): 11.00 Weight (Pounds): 134 General Appearance: no apparent distress, lethargic Cardiovascular: normal rate Respiratory/Chest: decreased breath sounds Abdomen: soft Objective no change Juaquin Hadley MD May 21, 2019 15:26
--- NOTE | 2019-05-21 18:21 | Surgery Progress Note ---
Surgery Progress Note Subjective Symptoms: improved Additional Comments d/c planning for today exam stable comfortable no acute events late entry as patient seen prior to office this AM Objective Last 24 Hour Vital Signs Date Time Temp Pulse Resp B/P (MAP) Pulse Ox O2 Delivery O2 Flow Rate FiO2 05/21/19 14:30 97.7 78 20 137/58 (84) 94 05/21/19 12:00 61 05/21/19 12:00 98.2 66 20 146/65 (92) 97 05/21/19 09:00 Nasal Cannula 2.0 05/21/19 09:00 146/66 05/21/19 09:00 68 146/66 05/21/19 08:00 98.1 68 18 146/66 (92) 96 05/21/19 08:00 70 05/21/19 05:35 150/61 05/21/19 05:35 150/61 05/21/19 04:00 72 05/21/19 04:00 97.8 70 17 150/61 (90) 96 05/21/19 00:00 97.7 66 16 132/57 (82) 94 05/21/19 00:00 67 05/20/19 21:32 130/63 05/20/19 21:32 130/63 05/20/19 21:32 130/63 05/20/19 21:31 71 130/63 05/20/19 21:00 Nasal Cannula 2.0 05/20/19 20:00 97.9 63 17 130/63 (85) 94 05/20/19 20:00 65 I&O Intake and Output 05/20/19 05/21/19 19:00 07:00 Intake Total 880 ml 240 ml Output Total 400 ml Balance 880 ml -160 ml Intake Oral 880 ml 240 ml Output Urine Total 400 ml # Voids 1 1 Dressing: saturated Wound: clean Cardiovascular: RSR Respiratory: clear Abdomen: soft, non-tender, present bowel sounds Extremities: no edema, no tenderness, no cyanosis Laboratory Tests Test 05/20/19 18:50 Hepatitis B Surface Antigen Negative (Negative) Plan Problems: (1) Decubitus skin ulcer Assessment & Plan: Pt presented on admission with multiple DTPIs. DTPI noted to sacrum . Base of wound is maroon with purple area in center and is indurated. (L)6.5cm x (W)9cmBase of injury tender when minimally palpated. Pt yelled out in pain and verbalized pain in habematolel language. Dark skin tone without erythema or induration noted to R and L ischium. Each area non-tender when individually palpated. DTPI noted to R heel. Base of wound is purple with maroon borders with delineated margins.(L)3.3cm x (W)3.7cm. Periwound R heel is boggy with non- blanching erythema.. Pt verbalized pain when minimally palpated. L heel is boggy with Non-blanching erythema. Tender when minimally palpated. given medical condition and appearance of wounds high risk for breakdown. if open will be difficult to heal and detrimental. will need aggressive preventive measure during ill states while on support to ensure no breakdown. will follow closely Tx.Plan: Apply Moisture Barrier Paste to Sacrum. Cover with Optifoam drsg. Change every 3 days and prn. Apply Moisture Barrier Paste to R and L ischium with each incontinence care. Apply Cavilon Skin BArrier to Both heels. Cover each heel with Optifoam drsg. Change every 7 days and prn. Reposition at least every 2hours or as tolerated. Off-load heels with pillow. APM/BETTY Mattress. (2) Malnutrition of moderate degree Assessment & Plan: nutritional optimization encourage oral intake needs to take in more oral intake Samuel Schuster May 21, 2019 18:21
== END 2019-05-21 14:30 | DRG 194 ==
LOC: EMR 05-15 00:30 → 2W 05-15 01:34 → EDBEDREQ 05-15 01:53 → 2E 05-16 22:00
PROC: 5A09357 Assistance with Respiratory Ventilation, Less than 24 Consecutive Hours, Continuous Positive Airway Pressure (ICD-10-PCS; 2019-05-15)
PROC: 0W993ZZ Drainage of Right Pleural Cavity, Percutaneous Approach (ICD-10-PCS; principal; 2019-05-19)
DX: J90 Pleural effusion, not elsewhere classified (principal); J81.0 Acute pulmonary edema; N18.6 End stage renal disease; E44.0 Moderate protein-calorie malnutrition; J96.02 Acute respiratory failure with hypercapnia; J96.01 Acute respiratory failure with hypoxia; I13.2 Hypertensive heart and chronic kidney disease with heart failure and with stage 5 chronic kidney disease, or end stage renal disease; E11.22 Type 2 diabetes mellitus with diabetic chronic kidney disease; J18.9 Pneumonia, unspecified organism; L89.151 Pressure ulcer of sacral region, stage 1; I50.30 Unspecified diastolic (congestive) heart failure; Z99.2 Dependence on renal dialysis; E03.9 Hypothyroidism, unspecified; I16.0 Hypertensive urgency; D63.1 Anemia in chronic kidney disease; L89.616 Pressure-induced deep tissue damage of right heel; I25.2 Old myocardial infarction; I25.10 Atherosclerotic heart disease of native coronary artery without angina pectoris; M19.90 Unspecified osteoarthritis, unspecified site
CPT/HCPCS: 36415; 36600; 71045; 76942; 80048; 80053; 80061; 82803; 82962; 82977; 83036; 83735; 83880; 84100; 84439; 84443; 84481; 84484; 84550; 85025; 85610; 85730; 86140; 87040; 87070; 87081; 87205; 87340; 88104; 93005; 93306; 94660; 94664; 96374; 99291; J1815